=== PATIENT | female | born 1935 | race Caucasian/White ===

== ENCOUNTER 2017-07-03 10:03 | Emergency (ER) | payer OTHER, BC ==
[~2017-07-03] VITALS: Ht 165.1 cm; Wt 66.0 kg
[~2017-07-03 10:03] MED LIST: CALCTAB5 PO; CLR10 PO; KFL500 PO; LISI-725 PO; MULT-506 PO
[2017-07-03 10:04] VITALS: BP 175/83; PULSE 62; TEMP 36.7; O2SAT 98; Ht 165.1 cm; Wt 66.0 kg
[2017-07-03] MEDS ORDERED: SULFAMETHOXAZOLE/TRIMETHOPRIM DS 800/160MG TAB PO STA (10:23)
[2017-07-03] MEDS ORDERED: SULF800T23 PO (10:26)
[2017-07-03] MEDS ORDERED: FSM70 PO (10:29)
[2017-07-03] MEDS ORDERED: CALC-393 PO (10:29)
[2017-07-03] MEDS ORDERED: LISI-787 PO (10:29)
[2017-07-03] MEDS ORDERED: SEPTRA DS HOME PACK 1 EA VIAL PO ONE (10:30)
[2017-07-03 10:36] LABS: URINE APPEARANCE TURBID (CLEAR); URINE BILIRUBIN NEG (NEG); URINE COLOR YELLOW; URINE NITRITE POS (NEG); URINE SPECIFIC GRAVITY 1.014 (1.000-1.030); UROBILINOGEN NEG (NEG); ZZUR CULT IF INDIC CLEAN CATCH YES
[2017-07-03 10:37] LABS: MANUAL MICROSCOPIC REQUIRED? NO; REVIEW REQ? YES
[2017-07-03] MEDS ORDERED: CEPHALEXIN MONOHYDRATE 250 MG CAP PO STA (10:40)
[2017-07-03] MEDS ORDERED: CEPH500C2 PO (10:42)
[2017-07-03] MEDS ORDERED: CEPHALEXIN 500MG HOME PACK 1 EA BTL PO ONE (10:45)
--- NOTE | 2017-07-03 13:22 | EMERGENCY ROOM VISIT NOTE ---
History Report prepared by Anibal: Patricia Skinner Under the Supervision of: Dr. Andrzej Marin M.D. First contact with patient: 10:10 Chief Complaint: URINARY SYMPTOMS Stated Complaint: UTI History of Present Illness The patient is an 82 year old female who presents to the Emergency Room with complaints of an episode of urinary symptoms starting a few days ago. The patient states that she knows she has a UTI. She reports that her PCP placed her on Cipro. She states that the burning and intensity has increased. The patient denies a fever and weakness. Source of History: patient Onset: a few days ago Position: other (global) Quality: burning Timing: other (episode) Associated Symptoms: No fevers, No weakness Review of Systems See HPI for pertinent positives & negatives. A total of 10 systems reviewed and were otherwise negative. Past Medical & Surgical Medical Problems: (1) Cancer of uterus (2) CKD (chronic kidney disease) stage 3, GFR 30-59 ml/min (3) HTN (hypertension) (4) Osteoporosis Surgical Problems: (1) H/O cataract removal with insertion of prosthetic lens (2) H/O: hysterectomy (3) History of carpal tunnel surgery (4) History of removal of both ovaries (5) History of tonsillectomy and adenoidectomy (6) Hx of cholecystectomy Family History FH: CHF (congestive heart failure) Hypertension Social History Smoking Status: Never Smoker Alcohol Use: occasionally Drug Use: none Marital Status: Housing Status: lives alone Occupation Status: retired Current/Historical Medications Scheduled Alendronate Sodium (Alendronate Sodium), 70 MG PO DAILY Calcium Carbonate (Calcium), 600 MG PO DAILY Cephalexin Monohydrate (Keflex), 500 MG PO QID Lisinopril & Hydrochlorothiazi (Zestoretic 20-12.5 mg), 1 TAB PO DAILY Multivitamin (Multivitamin), 1 TAB PO DAILY Scheduled PRN Loratadine (Claritin), 10 MG PO DAILY PRN for ALLERGIES Allergies Coded Allergies: Aspirin (Verified Allergy, Mild, RASH, 07/03/17) Gluten (Unverified Allergy, Unknown, GI SYMPTOMS, 07/03/17) Codeine (Verified Adverse Reaction, Mild, INDIGESTION, 07/03/17) Physical Exam Vital Signs Date Time Temp Pulse Resp B/P (MAP) Pulse Ox O2 Delivery O2 Flow Rate FiO2 07/03/17 10:04 36.7 62 20 175/83 98 Room Air Physical Exam GENERAL: Patient is a healthy-appearing well-nourished HEAD: Normocephalic atraumatic EYES: Ocular movements intact pupils equal and react to light OROPHARYNX mucous membranes are moist no exudates present no erythema or edema present NECK: Supple no nuchal rigidity CHEST: Good equal expansion LUNGS: Clear and equal to auscultation CARDIAC: Normal S1 and S2 ABDOMEN: Soft nontender no guarding BACK: No CVA tenderness EXTREMITIES: No pain upon palpation normal muscle strength in all groups no clubbing cyanosis or edema NEURO: Patient is following commands and answering questions appropriately. Alert and oriented x3 Cranial Nerves 2-12 grossly intact Medical Decision & Procedures Laboratory Results Test 07/03/17 10:24 Urine Color YELLOW Urine Appearance TURBID (CLEAR) Urine pH 6.0 (4.5-7.5) Urine Specific [place] 1.014 (1.000-1.030) Urine Protein 2+ (NEG) Urine Glucose (UA) NEG (NEG) Urine Ketones NEG (NEG) Urine Occult Blood 2+ (NEG) Urine Nitrite POS (NEG) Urine Bilirubin NEG (NEG) Urine Urobilinogen NEG (NEG) Urine Leukocyte Esterase LARGE (NEG) Urine WBC (Auto) >30 /hpf (0-5) Urine RBC (Auto) 10-30 /hpf (0-4) Urine Hyaline Casts (Auto) 1-5 /lpf (0-5) Urine Epithelial Cells (Auto) 5-10 /lpf (0-5) Urine Bacteria (Auto) 4+ (NEG) Urine Yeast (Auto) (NONE PRSENT) Labs reviewed by ED physician. Medications Administered Medications (Trade) Dose Ordered Sig/Giovanni Route Start Time Stop Time Status Last Admin Dose Admin Trimethoprim/ Sulfamethoxazole (Septra Ds 800/ 160MG Tab) 1 tab NOW STAT PO 07/03/17 10:23 07/03/17 10:25 DC 07/03/17 10:38 1 TAB Cephalexin Monohydrate (Keflex 500MG Home Pack) 1 homepack NOW ONCE PO 07/03/17 10:45 07/03/17 10:46 DC 07/03/17 10:50 1 HOMEPACK Cephalexin Monohydrate (Keflex Cap) 500 mg NOW STAT PO 07/03/17 10:40 07/03/17 10:42 DC 07/03/17 10:50 500 MG ED Course 1021: Past medical records reviewed. The patient was evaluated in room B10. A complete history and physical examination was performed. I discussed results and treatment plan with the patient. She verbalizes agreement and understanding. The patient is ready for discharge. 1023: Ordered Trimethoprim/ Sulfamethoxazole 1 tab PO. 1030: Ordered Trimethoprim/ Sulfamethoxazole 1 homepack PO. 1040: Ordered Keflex Cap 500 mg PO. 1045: Ordered Cephalexin Monohydrate 1 homepack PO. Medical Decision Differential diagnoses include urinary tract infection. This is an 82-year-old female who presents emergency department complaining of urinary symptoms. The patient was recently on Cipro with no improvement. For this reason the patient was placed on Bactrim. The patient reports that she is allergic reaction to Bactrim therefore she was switched to Keflex. She was then given Keflex in the emergency department and will continue it at home. I recommended she follow up with urology if her symptoms are not improving. Patient was in agreement with the treatment plan. Medication Reconcilliation Current Medication List: was personally reviewed by me Blood Pressure Screening Patient's blood pressure: Elevated blood pressure Blood pressure disposition: Elevated BP felt to be situational Impression Primary Impression: UTI (urinary tract infection) Scribe Attestation The scribe's documentation has been prepared under my direction and personally reviewed by me in its entirety. I confirm that the note above accurately reflects all work, treatment, procedures, and medical decision making performed by me. Departure Information Dispostion Home / Self-Care Prescriptions Cephalexin Monohydrate (KEFLEX) 500 Mg Cap 500 MG PO QID for 7 Days, #28 CAP Prov: Andrzej Marin MD 07/03/17 Referrals Baldemar Kulkarni III, M.D. (PCP) Forms HOME CARE DOCUMENTATION FORM, IMPORTANT VISIT INFORMATION Patient Instructions My [facility] Additional Instructions Culture results are usually available in approx 48 hours You have been examined and treated today on an emergency basis only. This is not a substitute for, or an effort to provide, complete comprehensive medical care. It is impossible to recognize and treat all injuries or illnesses in a single emergency department visit. It is therefore important that you follow up closely with Dr Kulkarni. Call as soon as possible for an appointment. Thank you for your time and consideration. I look forward to speaking with you again soon. Please don't hesitate to call us if you have any questions. Problem Qualifiers Primary Impression: UTI (urinary tract infection) Urinary tract infection type: acute cystitis Hematuria presence: without hematuria Qualified Codes: N30.00 - Acute cystitis without hematuria
== END 2017-07-03 10:40 | disposition home or self-care (01) ==
LOC: C.EDB 10:04
DX: N30.00 Acute cystitis without hematuria (principal); I12.9 Hypertensive chronic kidney disease with stage 1 through stage 4 chronic kidney disease, or unspecified chronic kidney disease; N18.3 Chronic kidney disease, stage 3 (moderate); M81.0 Age-related osteoporosis without current pathological fracture; Z85.42 Personal history of malignant neoplasm of other parts of uterus; Z90.710 Acquired absence of both cervix and uterus; Z90.722 Acquired absence of ovaries, bilateral; Z82.49 Family history of ischemic heart disease and other diseases of the circulatory system

== ENCOUNTER 2017-07-12 06:54 | Emergency (ER) | payer OTHER, BC ==
[~2017-07-12] VITALS: Ht 166.4 cm; Wt 66.3 kg
[~2017-07-12 06:54] MED LIST changes: +CALC-393 PO; -CALCTAB5 PO; +FSM70 PO; -KFL500 PO; -LISI-725 PO; +LISI-787 PO
[2017-07-12 06:56] VITALS: TEMP 36.7; Ht 166.4 cm; Wt 66.3 kg
--- NOTE | 2017-07-12 07:45 | EMERGENCY ROOM VISIT NOTE ---
History Report prepared by Anibal: Joel Jessica Under the Supervision of: Dr. Kurt Gurrola M.D. First contact with patient: 07:20 Chief Complaint: URINARY SYMPTOMS Stated Complaint: UTI Nursing Triage Summary: Here on [facility], had UTI symptoms and was given ATB. Finished ATB yesterday and "feels miserable." today. History of Present Illness The patient is an 82 year old female with a history of multiple UTI's who presents to the Emergency Room with complaints of persistent urinary symptoms that started around 3 and a half hours ago. The patient has been here multiple times in the past month for treatment of UTI's, and has previously been treated with Cipro, Rocephin, and most recently Keflex. She states that she just finished her round of Keflex yesterday. The patient notes that she had an episode of diarrhea 3 or 4 days ago, and she thinks that diarrhea usually causes her UTI's. She states that her stools are still formed however. The patient says that she had another episode of diarrhea earlier this morning, and now is having urinary symptoms again. She notes that her urinary symptoms include burning with urination, in addition to an increased urgency of urination. The patient denies any fevers, chills, weakness, dizziness, shortness of breath, chest pain, nausea, back pain, bladder pain, vomiting, hematuria, or vaginal discharge. She notes that she tends to get diarrhea after eating certain foods, and is currently on a gluten-free diet, which has been helping her. The patient says that she has family members with Celiac disease. Source of History: patient Onset: Around 3 and a half hours ago Position: other (global - urinary symptoms) Symptom Intensity: history of multiple UTI's Quality: other (burning with urination, increased urgency) Timing: other (persistent) Associated Symptoms: + diarrhea, No fevers, No chills, No chest pain, No SOB , No nausea, No vomiting, No back pain, No weakness Note: Associated symptoms: Denies dizziness, hematuria, vaginal discharge, bladder pain. Review of Systems All systems have been listed, reviewed, and are negative other than those previously mentioned. Please see Additional Medical History Sheet. Past Medical & Surgical Medical Problems: (1) Cancer of uterus (2) CKD (chronic kidney disease) stage 3, GFR 30-59 ml/min (3) HTN (hypertension) (4) Osteoporosis Surgical Problems: (1) H/O cataract removal with insertion of prosthetic lens (2) H/O: hysterectomy (3) History of carpal tunnel surgery (4) History of removal of both ovaries (5) History of tonsillectomy and adenoidectomy (6) Hx of cholecystectomy Family History FH: CHF (congestive heart failure) FH: celiac disease Hypertension Social History Smoking Status: Never Smoker Alcohol Use: occasionally Drug Use: none Marital Status: Housing Status: lives alone Occupation Status: retired Current/Historical Medications Scheduled Alendronate Sodium (Alendronate Sodium), 70 MG PO DAILY Calcium Carbonate (Calcium), 600 MG PO DAILY Cefuroxime Axetil (Cefuroxime Axetil), 1 TAB PO BID Lisinopril & Hydrochlorothiazi (Zestoretic 20-12.5 mg), 1 TAB PO DAILY Multivitamin (Multivitamin), 1 TAB PO DAILY Scheduled PRN Loratadine (Claritin), 10 MG PO DAILY PRN for ALLERGIES Allergies Coded Allergies: Aspirin (Verified Allergy, Mild, RASH, 07/12/17) Gluten (Unverified Allergy, Unknown, GI SYMPTOMS, 07/12/17) Codeine (Verified Adverse Reaction, Mild, INDIGESTION, 07/12/17) Physical Exam Vital Signs Date Time Temp Pulse Resp B/P (MAP) Pulse Ox O2 Delivery O2 Flow Rate FiO2 07/12/17 08:35 86 18 162/83 97 Room Air 07/12/17 06:56 36.7 105 16 168/76 96 Room Air Physical Exam GENERAL: Patient awake, alert, oriented x 3. Patient follows commands. Patient does not appear toxic. Patient is adequately hydrated and well- nourished. SKIN: No erythema, pallor, cyanosis or rash HEENT: Normal head, pupils equal, reactive to light and accommodation. LUNGS: Clear to auscultation. No wheezes, no rales, no rhonchi. HEART: No murmurs. No gallops. No rubs ABDOMEN: No lower abdominal tenderness. No masses, no rebound, no hepatomegaly or splenomegaly. EXTREMITIES: No signs of trauma. No pedal or pretibial edema. No calf or thigh tenderness. No CVA tenderness. NEUROLOGIC: Appears to have no gross motor sensory function deficits. Medical Decision & Procedures Laboratory Results 07/12/17 07:40 Red Blood Count 4.59, Mean Corpuscular Volume 88.5, Mean Corpuscular Hemoglobin 29.8, Mean Corpuscular Hemoglobin Concent 33.7, Mean Platelet Volume 10.0, Neutrophils (%) (Auto) 80.1, Lymphocytes (%) (Auto) 11.0, Monocytes (%) (Auto) 8.1, Eosinophils (%) (Auto) 0.4, Basophils (%) (Auto) 0.3, Neutrophils # (Auto) 6.13, Lymphocytes # (Auto) 0.84, Monocytes # (Auto) 0.62, Eosinophils # (Auto) 0.03, Basophils # (Auto) 0.02 07/12/17 07:40 Test 07/12/17 07:10 07/12/17 07:40 Urine Color YELLOW Urine Appearance CLOUDY (CLEAR) Urine pH 6.0 (4.5-7.5) Urine Specific [place] 1.015 (1.000-1.030) Urine Protein 2+ (NEG) Urine Glucose (UA) NEG (NEG) Urine Ketones NEG (NEG) Urine Occult Blood 1+ (NEG) Urine Nitrite NEG (NEG) Urine Bilirubin NEG (NEG) Urine Urobilinogen NEG (NEG) Urine Leukocyte Esterase LARGE (NEG) Urine WBC (Auto) >30 /hpf (0-5) Urine RBC (Auto) 10-30 /hpf (0-4) Urine Hyaline Casts (Auto) 1-5 /lpf (0-5) Urine Epithelial Cells (Auto) 5-10 /lpf (0-5) Urine Bacteria (Auto) NEG (NEG) White Blood Count 7.65 K/uL (4.8-10.8) Red Blood Count 4.59 M/uL (4.2-5.4) Hemoglobin 13.7 g/dL (12.0-16.0) Hematocrit 40.6 % (37-47) Mean Corpuscular Volume 88.5 fL (80-100) Mean Corpuscular Hemoglobin 29.8 pg (25-34) Mean Corpuscular Hemoglobin Concent 33.7 g/dl (32-36) Platelet Count 96 K/uL (130-400) Mean Platelet Volume 10.0 fL (7.4-10.4) Neutrophils (%) (Auto) 80.1 % Lymphocytes (%) (Auto) 11.0 % Monocytes (%) (Auto) 8.1 % Eosinophils (%) (Auto) 0.4 % Basophils (%) (Auto) 0.3 % Neutrophils # (Auto) 6.13 K/uL (1.4-6.5) Lymphocytes # (Auto) 0.84 K/uL (1.2-3.4) Monocytes # (Auto) 0.62 K/uL (0.11-0.59) Eosinophils # (Auto) 0.03 K/uL (0-0.5) Basophils # (Auto) 0.02 K/uL (0-0.2) RDW Standard Deviation 42.3 fL (36.4-46.3) RDW Coefficient of Variation 13.1 % (11.5-14.5) Immature Granulocyte % (Auto) 0.1 % Immature Granulocyte # (Auto) 0.01 K/uL (0.00-0.02) Anion Gap 6.0 mmol/L (3-11) Est Creatinine Clear Calc Drug Dose 41.4 ml/min Estimated GFR () 65.4 Estimated GFR (Non- 56.4 BUN/Creatinine Ratio 26.9 (10-20) Calcium Level 9.2 mg/dl (8.5-10.1) Laboratory results as stated above per my review. ED Course 0738: Past medical records reviewed. The patient was evaluated in room A3. A complete history and physical examination was performed. 0856: Upon reevaluation, the patient appeared to be resting comfortably. I discussed today's findings with her. She verbalized agreement of the treatment plan. She was discharged home. Medical Decision Nurses notes reviewed. Medical history sheet reviewed. Differential diagnosis includes but is not limited to: UTI, pyelonephritis, C. difficile, electrolyte abnormalities, bacterial causes of diarrhea, viral causes of diarrhea, gluten enteropathy. The patient complains of dysuria and frequency. She believes this may be related to her frequent diarrhea. She does attribute the diarrhea to certain foods that she eats although she has attempted to cut gluten from her diet. Multiple labs and urinalysis have been evaluated. Please see above. She does appear to have a urinary tract infection. She has been sensitive to certain cephalosporins in the past but not to fluoroquinolones or sulfa. The patient will be placed on cefuroxime. She was last on Keflex. The patient will be encouraged to complete a full 10 day course and have a repeat urinalysis following that. Medication Reconcilliation Current Medication List: was personally reviewed by me Blood Pressure Screening Patient's blood pressure: Elevated blood pressure Blood pressure disposition: Referred to PCP Impression Primary Impression: Urinary tract infection Additional Impression: Hyponatremia Scribe Attestation The scribe's documentation has been prepared under my direction and personally reviewed by me in its entirety. I confirm that the note above accurately reflects all work, treatment, procedures, and medical decision making performed by me. Departure Information Dispostion Home / Self-Care Prescriptions Cefuroxime Axetil (CEFUROXIME AXETIL) 500 Mg Tab 1 TAB PO BID for 10 Days, #20 TAB Prov: Kurt Gurrola M.D. 07/12/17 Referrals Baldemar Kulkarni III, M.D. (PCP) Patient Instructions ED UTI Cystitis Female, My [facility] Additional Instructions Cefuroxime twice a day for 10 days. Continue all of your current medications as prescribed. Repeat urinalysis in 10-to 14 days. Problem Qualifiers
[2017-07-12 07:50] LABS: URINE APPEARANCE CLOUDY (CLEAR); URINE BILIRUBIN NEG (NEG); URINE COLOR YELLOW; URINE NITRITE NEG (NEG); URINE SPECIFIC GRAVITY 1.015 (1.000-1.030); UROBILINOGEN NEG (NEG); ZZURINE CULT IF INDIC CATH YES
[2017-07-12 07:53] LABS: MANUAL MICROSCOPIC REQUIRED? NO; REVIEW REQ? NO
[2017-07-12 08:16] LABS: HEMATOCRIT 40.6 % (37-47); MEAN CELL VOLUME 88.5 fL (80-100); MEAN CORPUSCULAR HEMOGLOBIN 29.8 pg (25-34); MEAN CORPUSCULAR HGB CONC 33.7 g/dl (32-36); PLATELET COUNT 96 K/uL (130-400); RED BLOOD COUNT 4.59 M/uL (4.2-5.4); WHITE BLOOD COUNT 7.65 K/uL (4.8-10.8)
[2017-07-12 08:19] LABS: BUN/CREATININE RATIO 26.9 (10-20); CALCIUM 9.2 mg/dl (8.5-10.1); CREATININE 0.93 mg/dl (0.60-1.20)
[2017-07-12 08:27] LABS: BASO % 0.3 %; BASO ABS # 0.02 K/uL (0-0.2); COMPLETE YES; EOS % 0.4 %; IG% 0.1 %; LYMPH ABS # 0.84 K/uL (1.2-3.4); MONO % 8.1 %; NEUT % 80.1 %
[2017-07-12 08:35] VITALS: BP 162/83; PULSE 86; O2SAT 97
[2017-07-12] MEDS ORDERED: CEFU1TAB36 PO (08:50)
--- NOTE | 2017-07-14 14:24 | Pharmacy Progress Note ---
ED Pharmacist Culture FollowUp Date of Service: Jul 14, 2017. Called patient regarding urine culture with two Pseudomonas isolates. Patient reports feeling "pretty well" although urinary symptoms are still present. Denied fever, chills, back pain. Counseled to stop cefuroxime. Prescription for ciprofloxacin 500 mg po BID x10 days called to [facility] at the patient's request. Counseled to follow-up with PCP after completion of ciprofloxacin to confirm infection was adequately treated. Patient acknowledged understanding. Case discussed with Dr. Marin, who is the prescribing provider.
== END 2017-07-12 09:04 | disposition home or self-care (01) ==
LOC: C.EDB 06:55 → C.EDA 09:04
DX: N39.0 Urinary tract infection, site not specified (principal); E87.1 Hypo-osmolality and hyponatremia; I12.9 Hypertensive chronic kidney disease with stage 1 through stage 4 chronic kidney disease, or unspecified chronic kidney disease; N18.3 Chronic kidney disease, stage 3 (moderate); M81.0 Age-related osteoporosis without current pathological fracture; Z85.42 Personal history of malignant neoplasm of other parts of uterus; Z90.710 Acquired absence of both cervix and uterus; Z90.49 Acquired absence of other specified parts of digestive tract; Z98.49 Cataract extraction status, unspecified eye; Z98.890 Other specified postprocedural states; Z79.899 Other long term (current) drug therapy; Z88.5 Allergy status to narcotic agent; Z88.6 Allergy status to analgesic agent; Z88.8 Allergy status to other drugs, medicaments and biological substances; Z82.49 Family history of ischemic heart disease and other diseases of the circulatory system; Z83.79 Family history of other diseases of the digestive system

== ENCOUNTER 2017-08-13 16:04 | Inpatient (IN) | payer OTHER, BC ==
[~2017-08-13] VITALS: Ht 167.6 cm; Wt 68.0 kg
[~2017-08-13 16:04] MED LIST changes: -CLR10 PO
[2017-08-13] MEDS ORDERED: CALC12502 PO (17:54)
[2017-08-13] MEDS ORDERED: MULT-603 PO (17:54)
[2017-08-13 18:03] LABS: ALBUMIN 3.6 gm/dl (3.4-5.0); BLOOD UREA NITROGEN 24 mg/dl (7-18); CALCIUM 8.8 mg/dl (8.5-10.1); CARBON DIOXIDE 25 mmol/L (21-32); CREATININE 0.89 mg/dl (0.60-1.20); GLUCOSE 107 mg/dl (70-99); POTASSIUM 3.6 mmol/L (3.5-5.1); SODIUM 128 mmol/L (136-145)
[2017-08-13 18:15] LABS: ALKALINE PHOSPHATASE 90 U/L (45-117); ALT/SGPT 29 U/L (12-78); AST/SGOT 23 U/L (15-37); TOTAL PROTEIN 7.3 gm/dl (6.4-8.2)
[2017-08-13] MEDS ORDERED: D5W IV SCH (18:15)
[2017-08-13] MEDS ORDERED: [UNRECOGNIZED DRUG - OTHER] IV SCH (18:15)
[2017-08-13] MEDS ORDERED: CIPROFLOXACIN IV SCH (18:15)
[2017-08-13] MEDS ORDERED: PREMIXED IV SCH (18:15)
[2017-08-13 18:16] LABS: BASO % 0.1 %; BASO ABS # 0.01 K/uL (0-0.2); EOS % 0.4 %; EOS ABS # 0.04 K/uL (0-0.5); HEMATOCRIT 41.8 % (37-47); HEMOGLOBIN 14.1 g/dL (12.0-16.0); IG# 0.01 K/uL (0.00-0.02); LYMPH % 13.2 %; LYMPH ABS # 1.47 K/uL (1.2-3.4); MEAN CELL VOLUME 86.7 fL (80-100); MEAN CORPUSCULAR HEMOGLOBIN 29.3 pg (25-34); MEAN CORPUSCULAR HGB CONC 33.7 g/dl (32-36); MEAN PLATELET VOLUME 11.3 fL (7.4-10.4); MONO % 7.2 %; PLATELET COUNT 29 K/uL (130-400); RED CELL DISTRIBUTION WIDTH CV 12.8 % (11.5-14.5); RED CELL DISTRIBUTION WIDTH SD 41.1 fL (36.4-46.3); WHITE BLOOD COUNT 11.13 K/uL (4.8-10.8)
[2017-08-13] MEDS ORDERED: SODIUM CHLORIDE 0.9% 1000ML 1,000 ML IV SCH (18:30)
[2017-08-13] MEDS ORDERED: LORATADINE 10 MG TAB PO PRN (18:30)
[2017-08-13] MEDS ORDERED: CLR10 PO (18:45)
--- NOTE | 2017-08-13 19:51 | EMERGENCY ROOM VISIT NOTE ---
History Report prepared by Anibal: Anahi Villarreal Under the Supervision of: Dr. Sunday Weinstein M.D. First contact with patient: 16:27 Chief Complaint: URINARY SYMPTOMS Stated Complaint: URINARY TRACT INFECTION- PHYSICIAN REFERRED Nursing Triage Summary: Has a UTI, was also told her platelets were low. Follows with Dr. Kulkarni. Burning with urination and frequency. Denies other symptoms. History of Present Illness The patient is an 82 year old female who presents to the Emergency Room with complaints of persistent urinary symptoms starting this morning. The patient has a history of UTIs. The patient was seen by her PCP today and sent to the ED after her lab work showed a low platelet count of 27. Her sodium was 129. She had a normal white count and hemoglobin. She was diagnosed with a UTI. She reports burning with urination and urinary frequency. She denies any headache, fever, vomiting, abdominal pain, or back pain. She denies any black or bloody stools, nose bleeds, or bleeding elsewhere. She has had low platelets in the past. She has noticed bruising since the beginning of last month which she attributed to being clumsy. Source of History: patient Onset: this morning Position: other (global) Quality: other (urinary symptoms) Timing: other (persistent) Associated Symptoms: No fevers, No headache, No vomiting, No abdominal pain , No back pain, No melena, No hematochezia Note: Pt has bruising. Pt denies nose bleeds or bleeding elsewhere. Review of Systems See HPI for pertinent positives & negatives. A total of 10 systems reviewed and were otherwise negative. Past Medical & Surgical Medical Problems: (1) Cancer of uterus (2) CKD (chronic kidney disease) stage 3, GFR 30-59 ml/min (3) HTN (hypertension) (4) Osteoporosis Surgical Problems: (1) H/O cataract removal with insertion of prosthetic lens (2) H/O: hysterectomy (3) History of carpal tunnel surgery (4) History of removal of both ovaries (5) History of tonsillectomy and adenoidectomy (6) Hx of cholecystectomy Family History FH: CHF (congestive heart failure) FH: celiac disease Hypertension Social History Smoking Status: Never Smoker Alcohol Use: occasionally Drug Use: none Marital Status: Housing Status: lives alone Occupation Status: retired Current/Historical Medications Scheduled Alendronate Sodium (Alendronate Sodium), 70 MG PO WK Calcium Carbonate (Os-Aung 500), 1,000 MG PO DAILY Lisinopril & Hydrochlorothiazi (Zestoretic 20-12.5 mg), 1 TAB PO DAILY Multiple Vitamins W/ Minerals (Womens Multi Vitamin & Mi), 1 TAB PO Q2D Scheduled PRN Loratadine (Claritin), 10 MG PO DAILY PRN for Allergy Symptoms Allergies Coded Allergies: Aspirin (Verified Allergy, Mild, RASH, 07/12/17) Lactose (Verified Allergy, Mild, GI SYMPTOMS, 08/13/17) Lactose Intolerant Gluten (Unverified Allergy, Unknown, GI SYMPTOMS, 07/12/17) Codeine (Verified Adverse Reaction, Mild, INDIGESTION, 07/12/17) Physical Exam Vital Signs Date Time Temp Pulse Resp B/P (MAP) Pulse Ox O2 Delivery O2 Flow Rate FiO2 08/13/17 18:44 86 18 180/106 97 Room Air 08/13/17 18:20 83 18 96 Room Air 08/13/17 16:15 36.8 96 17 182/87 97 Room Air Physical Exam Constitutional: Vital signs reviewed. Eyes: Pupils are equal round reactive to light. Conjunctiva are noninjected. ENT: Pharynx is clear without erythema or exudate. Mucous membranes are moist. Neck supple without meningeal signs. Respiratory: Clear to auscultation bilaterally. Breath sounds are equal bilaterally. Cardiovascular: Regular rate and rhythm. No rubs or gallops. GI: Soft, nondistended and nontender. Bowel sounds are present. Musculoskeletal: Mild bruising to the lower extremities. No lower extremity tenderness. No CVA tenderness. Integumentary: No cyanosis. Neurological: The patient is awake and alert. No focal deficits. Psychiatric: Normal affect. Medical Decision & Procedures Laboratory Results 08/13/17 17:25 Red Blood Count 4.82, Mean Corpuscular Volume 86.7, Mean Corpuscular Hemoglobin 29.3, Mean Corpuscular Hemoglobin Concent 33.7, Mean Platelet Volume 11.3, Neutrophils (%) (Auto) 79.0, Lymphocytes (%) (Auto) 13.2, Monocytes (%) (Auto) 7.2, Eosinophils (%) (Auto) 0.4, Basophils (%) (Auto) 0.1, Neutrophils # (Auto) 8.80, Lymphocytes # (Auto) 1.47, Monocytes # (Auto) 0.80, Eosinophils # (Auto) 0.04, Basophils # (Auto) 0.01 08/13/17 17:25 Test 08/13/17 16:25 08/13/17 17:25 Urine Color YELLOW Urine Appearance TURBID (CLEAR) Urine pH 6.0 (4.5-7.5) Urine Specific [place] 1.012 (1.000-1.030) Urine Protein 3+ (NEG) Urine Glucose (UA) NEG (NEG) Urine Ketones NEG (NEG) Urine Occult Blood 3+ (NEG) Urine Nitrite NEG (NEG) Urine Bilirubin NEG (NEG) Urine Urobilinogen NEG (NEG) Urine Leukocyte Esterase LARGE (NEG) Urine WBC (Auto) >30 /hpf (0-5) Urine RBC (Auto) >30 /hpf (0-4) Urine Hyaline Casts (Auto) 1-5 /lpf (0-5) Urine Epithelial Cells (Auto) 5-10 /lpf (0-5) Urine Bacteria (Auto) NEG (NEG) White Blood Count 11.13 K/uL (4.8-10.8) Red Blood Count 4.82 M/uL (4.2-5.4) Hemoglobin 14.1 g/dL (12.0-16.0) Hematocrit 41.8 % (37-47) Mean Corpuscular Volume 86.7 fL (80-100) Mean Corpuscular Hemoglobin 29.3 pg (25-34) Mean Corpuscular Hemoglobin Concent 33.7 g/dl (32-36) Platelet Count 29 K/uL (130-400) Mean Platelet Volume 11.3 fL (7.4-10.4) Neutrophils (%) (Auto) 79.0 % Lymphocytes (%) (Auto) 13.2 % Monocytes (%) (Auto) 7.2 % Eosinophils (%) (Auto) 0.4 % Basophils (%) (Auto) 0.1 % Neutrophils # (Auto) 8.80 K/uL (1.4-6.5) Lymphocytes # (Auto) 1.47 K/uL (1.2-3.4) Monocytes # (Auto) 0.80 K/uL (0.11-0.59) Eosinophils # (Auto) 0.04 K/uL (0-0.5) Basophils # (Auto) 0.01 K/uL (0-0.2) RDW Standard Deviation 41.1 fL (36.4-46.3) RDW Coefficient of Variation 12.8 % (11.5-14.5) Immature Granulocyte % (Auto) 0.1 % Immature Granulocyte # (Auto) 0.01 K/uL (0.00-0.02) Platelet Estimate SIGNIFIC DECREASED Immature Platelet Fraction 7.4 % (0.9-8.3) Red Blood Cell Morphology Unremarkable Anion Gap 9.0 mmol/L (3-11) Est Creatinine Clear Calc Drug Dose 43.2 ml/min Estimated GFR () 69.0 Estimated GFR (Non- 59.5 BUN/Creatinine Ratio 27.2 (10-20) Calcium Level 8.8 mg/dl (8.5-10.1) Total Bilirubin 0.4 mg/dl (0.2-1) Direct Bilirubin < 0.1 mg/dl (0-0.2) Aspartate Amino Transf (AST/SGOT) 23 U/L (15-37) Alanine Aminotransferase (ALT/SGPT) 29 U/L (12-78) Alkaline Phosphatase 90 U/L (45-117) Total Protein 7.3 gm/dl (6.4-8.2) Albumin 3.6 gm/dl (3.4-5.0) Laboratory results as reviewed by me. ED Course 1630: The patient was evaluated in room A2. A complete history and physical exam was performed. 1659: I discussed the patient's case with Dr. Zee, [facility] hematology who recommends bringing the patient in to repeat platelet count. 1704: I reevaluated the patient. I discussed the results with her. She verbalized agreement of the treatment plan, but she states that she wants to go home to get her incontinence pads as the ones in the hospital are not the right ones. I told that this is not advisable given her platelet count. The charge nurse is speaking with her. She will be evaluated for further management. 1708: I discussed the patient's case with Evon Finn PA-C [facility] hospitalist service. The patient will be evaluated for further management. 1716: The charge nurse has spoken with the patient and she no longer needs to curing pickling packer items from her home. Medical Decision This is an 82-year-old female who presents with low platelets and urinary symptoms. Differential diagnosis includes UTI, pyelonephritis, medication induced thrombocytopenia, disorder of the bone marrow, splenic disease. I did perform a limited focused review of portions of the patient's old chart on the electronic medical record. The patient was seen here July 12 for urinary symptoms and had a platelet count of 96 and a sodium of 130 at that time. She was discharged on cefuroxime. The culture grew back pseudomonas and was switched to Cipro on the . The patient had a platelet count of 69 in May 2016. She had normal LFTs at that time. I did evaluate the patient as noted above. IV access was established. I did order and review the patient's blood work as noted in the electronic medical record. She does have hyponatremia as well as thrombocytopenia. I did discuss case with the application support preschool paraprofessional who recommended hospitalization for further evaluation. I did order a urinalysis which showed evidence of infection. I did discuss case with the hospitalist and case reviewer. I did discuss the test results with the patient. Medication Reconcilliation Current Medication List: was personally reviewed by me Blood Pressure Screening Patient's blood pressure: Elevated blood pressure Blood pressure disposition: Referred to PCP Consults Time Called: 1653 Consulting Physician: [facility] hematology Returned Call: 1659 I discussed the patient's case with [facility] Santoyo hematology who recommends bringing the patient in to repeat platelet count. Additional Consults: Time Called: 1702 Consulted Physician: OLIVIA Rodriguez hospitalist service Returned Call: 1708 Additional Comments: I discussed the patient's case with her. The patient will be evaluated for further management. Impression Primary Impression: Thrombocytopenia Additional Impressions: UTI (urinary tract infection) Hyponatremia Scribe Attestation The scribe's documentation has been prepared under my direct and personally reviewed by me in its entirety. I confirm that the note above accurately reflects all work, treatment, procedures, and medical decision making performed by me. Departure Information Dispostion Being Evaluated By Hospitalist Referrals Baldemar Kulkarni III, M.D. (PCP) Patient Instructions My [facility] Problem Qualifiers Additional Impressions: UTI (urinary tract infection) Urinary tract infection type: acute cystitis Hematuria presence: with hematuria Qualified Codes: N30.01 - Acute cystitis with hematuria
--- NOTE | 2017-08-13 19:58 | History and Physical ---
History & Physical Date & Time of Service: Aug 13, 2017 at 19:57 Chief Complaint: Urinary Tract Infection- Physician Referred Primary Care Physician: Baldemar Kulkarni III, M.D. History of Present Illness Source: patient, clinic records, hospital records This is an 82yo F with a PMH of HTN, recurrent UTIs, osteoporosis and thrombocytopenia who presents with worsening urinary symptoms this morning. Patient was recently seen in the ED with a UTI and was sent home on a 10-day course of Cefuroxime. Cultures grew pseudomonas and was sensitive to cephalosporins. Did not have urinary symptoms again until today, when she started to experience increased frequency, pressure and dysuria. Denies any hematuria or pyuria. Had labwork out-patient done today that revealed a thrombocytopenia of 27 and a sodium of 129. Came to ED for further evaluation. Has a history of thrombocytopenia but has not been lower than 69 in the past, per chart review. Has not seen a customer service correspondence clerk for further work-up as to etiology of thrombocytopenia. Denies any epistaxis, hematuria, melena or hematochezia. Does easily bruise. Also has a history of hyponatremia that she attributes to a low sodium diet at home. Average sodium on lab work in the past has been 130. Denies any fever, chills, headache, lightheadedness, lethargy, CP , SOB, abd pain, nausea or vomiting. Past Medical/Surgical History Medical Problems: (1) CKD (chronic kidney disease) stage 3, GFR 30-59 ml/min Status: Chronic (2) HTN (hypertension) Status: Chronic (3) Osteoporosis Status: Chronic Surgical Problems: (1) H/O cataract removal with insertion of prosthetic lens Permanent Comment: bilat Status: Resolved (2) H/O: hysterectomy Status: Resolved (3) History of carpal tunnel surgery Status: Resolved (4) History of removal of both ovaries Status: Resolved (5) History of tonsillectomy and adenoidectomy Status: Resolved (6) Hx of cholecystectomy Status: Resolved Family History FH: CHF (congestive heart failure) FH: celiac disease Hypertension Social History Smoking Status: Never Smoker Alcohol Use: occasionally Drug Use: none Marital Status: Housing status: lives alone Occupational Status: retired Immunizations History of Influenza Vaccine: Yes Influenza Vaccine Date: Jun 19, 2009 History of Tetanus Vaccine?: Unknown History of Pneumococcal: Yes Pneumococcal Date: Oct 18, 2003 History of Hepatitis B Vaccine: Unknown Multi-Drug Resistant Organisms History of MDRO: No Allergies Coded Allergies: Aspirin (Verified Allergy, Mild, RASH, 07/12/17) Lactose (Verified Allergy, Mild, GI SYMPTOMS, 08/13/17) Lactose Intolerant Gluten (Unverified Allergy, Unknown, GI SYMPTOMS, 07/12/17) Codeine (Verified Adverse Reaction, Mild, INDIGESTION, 07/12/17) Home Medications Scheduled Alendronate Sodium (Alendronate Sodium), 70 MG PO WK Calcium Carbonate (Os-Aung 500), 1,000 MG PO DAILY Lisinopril & Hydrochlorothiazi (Zestoretic 20-12.5 mg), 1 TAB PO DAILY Multiple Vitamins W/ Minerals (Womens Multi Vitamin & Mi), 1 TAB PO Q2D Scheduled PRN Loratadine (Claritin), 10 MG PO DAILY PRN for Allergy Symptoms Review of Systems Ten systems reviewed and negative except as noted in the HPI. Physical Exam Vital Signs Date Time Temp Pulse Resp B/P (MAP) Pulse Ox O2 Delivery O2 Flow Rate FiO2 08/13/17 18:44 86 18 180/106 97 Room Air 08/13/17 18:20 83 18 96 Room Air 08/13/17 16:15 36.8 96 17 182/87 97 Room Air General Appearance: WD/WN, no apparent distress Head: normocephalic, atraumatic Eyes: normal inspection, PERRL, sclerae normal ENT: normal ENT inspection, hearing grossly normal, pharynx normal (dry mucous membranes ) Neck: supple, thyroid normal, trachea midline Respiratory/Chest: chest non-tender, lungs clear, normal breath sounds, no respiratory distress, no accessory muscle use Cardiovascular: regular rate, rhythm, no murmur, normal peripheral pulses Abdomen/GI: non tender, soft, no organomegaly Back: normal inspection, no CVA tenderness Extremities/Musculoskelatal: normal inspection, no calf tenderness, no pedal edema Neurologic/Psych: no motor/sensory deficits, alert, normal mood/affect, oriented x 3, + pertinent finding (Presence of ecchymosis on both arms ) Diagnostics Laboratory Results Results Past 24 Hours Test 08/13/17 16:25 08/13/17 17:25 Range/Units Urine Color YELLOW Urine Appearance TURBID CLEAR Urine pH 6.0 4.5-7.5 Urine Specific [place] 1.012 1.000-1.030 Urine Protein 3+ NEG Urine Glucose (UA) NEG NEG Urine Ketones NEG NEG Urine Occult Blood 3+ NEG Urine Nitrite NEG NEG Urine Bilirubin NEG NEG Urine Urobilinogen NEG NEG Urine Leukocyte Esterase LARGE NEG Urine WBC (Auto) >30 0-5 /hpf Urine RBC (Auto) >30 0-4 /hpf Urine Hyaline Casts (Auto) 1-5 0-5 /lpf Urine Epithelial Cells (Auto) 5-10 0-5 /lpf Urine Bacteria (Auto) NEG NEG White Blood Count 11.13 4.8-10.8 K/uL Red Blood Count 4.82 4.2-5.4 M/uL Hemoglobin 14.1 12.0-16.0 g/dL Hematocrit 41.8 37-47 % Mean Corpuscular Volume 86.7 80-100 fL Mean Corpuscular Hemoglobin 29.3 25-34 pg Mean Corpuscular Hemoglobin Concent 33.7 32-36 g/dl Platelet Count 29 130-400 K/uL Mean Platelet Volume 11.3 7.4-10.4 fL Neutrophils (%) (Auto) 79.0 % Lymphocytes (%) (Auto) 13.2 % Monocytes (%) (Auto) 7.2 % Eosinophils (%) (Auto) 0.4 % Basophils (%) (Auto) 0.1 % Neutrophils # (Auto) 8.80 1.4-6.5 K/uL Lymphocytes # (Auto) 1.47 1.2-3.4 K/uL Monocytes # (Auto) 0.80 0.11-0.59 K/uL Eosinophils # (Auto) 0.04 0-0.5 K/uL Basophils # (Auto) 0.01 0-0.2 K/uL RDW Standard Deviation 41.1 36.4-46.3 fL RDW Coefficient of Variation 12.8 11.5-14.5 % Immature Granulocyte % (Auto) 0.1 % Immature Granulocyte # (Auto) 0.01 0.00-0.02 K/uL Platelet Estimate SIGNIFIC DECREASED Immature Platelet Fraction 7.4 0.9-8.3 % Red Blood Cell Morphology Unremarkable Sodium Level 128 136-145 mmol/L Potassium Level 3.6 3.5-5.1 mmol/L Chloride Level 94 98-107 mmol/L Carbon Dioxide Level 25 21-32 mmol/L Anion Gap 9.0 3-11 mmol/L Blood Urea Nitrogen 24 7-18 mg/dl Creatinine 0.89 0.60-1.20 mg/dl Est Creatinine Clear Calc Drug Dose 43.2 ml/min Estimated GFR () 69.0 Estimated GFR (Non- 59.5 BUN/Creatinine Ratio 27.2 10-20 Random Glucose 107 70-99 mg/dl Calcium Level 8.8 8.5-10.1 mg/dl Total Bilirubin 0.4 0.2-1 mg/dl Direct Bilirubin < 0.1 0-0.2 mg/dl Aspartate Amino Transf (AST/SGOT) 23 15-37 U/L Alanine Aminotransferase (ALT/SGPT) 29 12-78 U/L Alkaline Phosphatase 90 45-117 U/L Total Protein 7.3 6.4-8.2 gm/dl Albumin 3.6 3.4-5.0 gm/dl Microbiology Results 08/13/17 Urine Culture, Received Pending Impression Assessment and Plan This is an 82yo F with a PMH of HTN, recurrent UTIs, osteoporosis and thrombocytopenia who presents with worsening urinary symptoms this morning. UTI: -H/o recurrent UTIs -Most recently grew pseudomonas -Discussed abx treatments with pharmacy in setting of severe thrombocytopenia -Decided on cipro -Is sensitive to cephalosporins per previous culture -Urine culture pending Thrombocytopenia: -Unclear etiology -Heme onc consulted -Platelet count of 29 today. Previous lowest is 69 -Ordered 1 u platelets; held for now -No apparent active bleeding -Monitor CBC Hyponatremia: -Likely 2/2 dehydration, low Na diet -Asymptomatic -Per chart review, Na is ~130 on average -IVF resuscitation -Monitor BMP HTN: -Cont home agents -Added clonidine 0.1mg Q6 PRN for SBP >170 Osteoporosis: -Cont home dose vit D, calcium DVT Ppx: SCDs only Code status: DNR per living will PCP: Cayla Dispo: Admitted to [facility]. Discharge planning ordered (patient lives alone, >80 ). Patient seen in collaboration with . Please see addendum. ADDENDUM: This is an 82 year old female with a PMH of HTN, osteoporosis, recurrent UTIs - presents after being sent by PCP due to likely UTI as well as thrombocytopenia in outpatient labs. She is doing okay during my exam, denies hematuria or any other bleeding. No other issues during exam. Plan as above, to start Cipro for UTI Platelets at 27k; one unit is ordered - hem/onc consulted Level of Care Med/Surg Resuscitation Status DO NOT RESUSCITATE VTE Prophylaxis VTE Risk Assessment Done? Y/N: Yes Risk Level: Moderate Given or contraindicated: SCD's Social Service Consult >80 yr.& Lives Alone
[2017-08-13] MEDS ORDERED: IV FLUIDS COMPLETED PRN ×2 (20:00→20:15)
[2017-08-13 20:30] VITALS: BP 166/88; PULSE 83; TEMP 36.4; O2SAT 97; Ht 167.6 cm; Wt 68.0 kg
[2017-08-13] MEDS: SODIUM CHLORIDE 0.9% 1000ML 1,000 ML IV SCH (21:24)
[2017-08-13] MEDS: CIPROFLOXACIN / D5W 200 MG in PREMIXED IN D5W 100 ML IV SCH (21:24)
[2017-08-13] MEDS ORDERED: CLONIDINE HCL 0.1 MG TAB PO PRN (21:30)
[2017-08-14] VITALS: O2SAT 97
[2017-08-14 00:07] VITALS: BP 128/73; PULSE 82; TEMP 36.6; O2SAT 94
[2017-08-14 07:42] VITALS: BP 137/72; PULSE 75; TEMP 36.5; O2SAT 96
[2017-08-14] MEDS: SODIUM CHLORIDE 0.9% 1000ML 1,000 ML IV SCH (08:07)
[2017-08-14] MEDS: CIPROFLOXACIN / D5W 200 MG in PREMIXED IN D5W 100 ML IV SCH ×2 (08:07→21:30)
[2017-08-14] MEDS: LISINOPRIL/HCTZ 20/12.5MG TAB PO SCH (08:08)
[2017-08-14] MEDS: CALCIUM CARBONATE 1250MG TAB PO SCH (08:08)
[2017-08-14 09:15] LABS: HEMOGLOBIN 13.7 g/dL (12.0-16.0); MEAN CELL VOLUME 86.8 fL (80-100); MEAN CORPUSCULAR HEMOGLOBIN 29.7 pg (25-34); MEAN CORPUSCULAR HGB CONC 34.3 g/dl (32-36); MEAN PLATELET VOLUME 11.7 fL (7.4-10.4); PLATELET COUNT 21 K/uL (130-400); RED CELL DISTRIBUTION WIDTH CV 12.9 % (11.5-14.5); RED CELL DISTRIBUTION WIDTH SD 41.5 fL (36.4-46.3); WHITE BLOOD COUNT 5.71 K/uL (4.8-10.8)
[2017-08-14 09:21] LABS: CALCIUM 8.6 mg/dl (8.5-10.1); CREATININE 0.75 mg/dl (0.60-1.20); POTASSIUM 3.9 mmol/L (3.5-5.1)
[2017-08-14 16:08] VITALS: O2SAT 96
--- NOTE | 2017-08-14 19:39 | Progress Note ---
Subjective Date of Service: Aug 14, 2017. Subjective Pt evaluation today including: conversation w/ patient, physical exam, lab review, review of studies, review of inpatient medication list Saw/examined the patient in room 258 She's doing well, ambulating well, no problems/issues today urinary symptoms resolved no bleeding. Problem List Medical Problems: (1) Hyponatremia Status: Acute (2) Thrombocytopenia Status: Acute (3) UTI (urinary tract infection) Status: Acute Review of Systems Constitutional: No fever, No chills, No weakness Respiratory: No shortness of breath Cardiac: No chest pain Heme: No abnormal bleeding/bruising Objective Vital Signs Date Time Temp Pulse Resp B/P (MAP) Pulse Ox O2 Delivery O2 Flow Rate FiO2 08/14/17 08:00 Room Air 08/14/17 07:42 36.5 75 16 137/72 (93) 96 Room Air 08/14/17 00:07 36.6 82 18 128/73 (91) 94 Room Air 08/14/17 00:00 97 Room Air 08/13/17 20:30 36.4 83 16 166/88 97 Room Air Physical Exam General Appearance: no apparent distress Respiratory/Chest: no respiratory distress, no accessory muscle use Cardiovascular: regular rate, rhythm Abdomen: normal bowel sounds, non tender, soft Laboratory Results Last 24 Hours Test 08/14/17 08:01 White Blood Count 5.71 K/uL Red Blood Count 4.61 M/uL Hemoglobin 13.7 g/dL Hematocrit 40.0 % Mean Corpuscular Volume 86.8 fL Mean Corpuscular Hemoglobin 29.7 pg Mean Corpuscular Hemoglobin Concent 34.3 g/dl RDW Standard Deviation 41.5 fL RDW Coefficient of Variation 12.9 % Platelet Count 21 K/uL Mean Platelet Volume 11.7 fL Prothrombin Time 10.2 SECONDS Prothromb Time International Ratio 1.0 Sodium Level 135 mmol/L Potassium Level 3.9 mmol/L Chloride Level 103 mmol/L Carbon Dioxide Level 25 mmol/L Anion Gap 7.0 mmol/L Blood Urea Nitrogen 19 mg/dl Creatinine 0.75 mg/dl Est Creatinine Clear Calc Drug Dose 52.2 ml/min Estimated GFR () 84.8 Estimated GFR (Non- 73.2 BUN/Creatinine Ratio 25.0 Random Glucose 99 mg/dl Calcium Level 8.6 mg/dl Assessment and Plan This is an 82yo F with a PMH of HTN, recurrent UTIs, osteoporosis and thrombocytopenia who presents with worsening urinary symptoms this morning. UTI: 1/ patient is doing well today will continue Cipro until culture returns -H/o recurrent UTIs -Most recently grew pseudomonas -Discussed abx treatments with pharmacy in setting of severe thrombocytopenia -Decided on cipro -Is sensitive to cephalosporins per previous culture -Urine culture pending Thrombocytopenia: 08/14 platelets at 21k no bleeding or unusual bruising hem/onc consulted -Unclear etiology -Heme onc consulted -Platelet count of 29 today. Previous lowest is 69 -Ordered 1 u platelets; held for now -No apparent active bleeding -Monitor CBC Hyponatremia: -Likely 2/2 dehydration, low Na diet -Asymptomatic -Per chart review, Na is ~130 on average -IVF resuscitation -Monitor BMP HTN: -Cont home agents -Added clonidine 0.1mg Q6 PRN for SBP >170 Osteoporosis: -Cont home dose vit D, calcium DVT Ppx: SCDs only Code status: DNR per living will PCP: Cayla Dispo: Admitted to [facility]. Discharge planning ordered (patient lives alone, >80 ). Patient seen in collaboration with . Please see addendum.
[2017-08-14 23:07] VITALS: BP 158/74; PULSE 82; TEMP 36.4; O2SAT 96
[2017-08-15 00:22] VITALS: O2SAT 96
[2017-08-15] MEDS: LISINOPRIL/HCTZ 20/12.5MG TAB PO SCH (08:06)
[2017-08-15] MEDS: CIPROFLOXACIN / D5W 200 MG in PREMIXED IN D5W 100 ML IV SCH ×2 (08:06→20:57)
[2017-08-15 08:28] VITALS: BP 145/77; PULSE 82; TEMP 36.7; O2SAT 95
[2017-08-15] MEDS: CALCIUM CARBONATE 1250MG TAB PO SCH (09:49)
[2017-08-15 15:34] LABS: CALCIUM 8.7 mg/dl (8.5-10.1); CREATININE 0.9 mg/dl (0.60-1.20)
[2017-08-15 15:38] VITALS: BP 145/73; PULSE 82; TEMP 36.7; O2SAT 97
[2017-08-15 15:39] LABS: HEMATOCRIT 39.2 % (37-47); HEMOGLOBIN 13.4 g/dL (12.0-16.0); MEAN CELL VOLUME 88.1 fL (80-100); MEAN CORPUSCULAR HEMOGLOBIN 30.1 pg (25-34); MEAN CORPUSCULAR HGB CONC 34.2 g/dl (32-36); RED CELL DISTRIBUTION WIDTH CV 13.2 % (11.5-14.5); RED CELL DISTRIBUTION WIDTH SD 42.4 fL (36.4-46.3); WHITE BLOOD COUNT 7.06 K/uL (4.8-10.8)
[2017-08-15 15:42] LABS: PLATELET COUNT 23 K/uL (130-400)
--- NOTE | 2017-08-15 17:34 | Progress Note ---
Subjective Date of Service: Aug 15, 2017. Subjective Pt evaluation today including: conversation w/ patient, physical exam, lab review, review of studies, review of inpatient medication list Saw/examined the patient in room 258 She's doing well, no bleeding/bruising Urinary symptoms improved Problem List Medical Problems: (1) Hyponatremia Status: Acute (2) Thrombocytopenia Status: Acute (3) UTI (urinary tract infection) Status: Acute Review of Systems Constitutional: No fever, No chills, No weakness Respiratory: No shortness of breath Cardiac: No chest pain Heme: No abnormal bleeding/bruising Medications Current Inpatient Medications Medications (Trade) Dose Ordered Sig/Giovanni Route Start Time Stop Time Status Last Admin Dose Admin Calcium Carbonate (oS-Aung 500 TAB) 1,000 mg DAILY PO 08/14/17 09:00 09/13/17 08:59 08/15/17 09:49 1,000 MG HCTZ/Lisinopril (Prinzide 20-12.5MG Tab) 1 tab DAILY PO 08/14/17 09:00 09/13/17 08:59 08/15/17 08:06 1 TAB Loratadine (Claritin Tab) 10 mg DAILY PRN PO 08/13/17 18:30 09/12/17 18:29 Miscellaneous (Iv Fluids Completed) 1 ea PRN PRN N/A 08/13/17 20:15 08/13/18 19:59 Ciprofloxacin/ Dextrose 200 mg/ Prmx 100 ml @ 100 mls/hr Q12H IV 08/13/17 20:30 08/18/17 20:29 08/15/17 08:06 100 MLS/HR Clonidine HCl (Catapres Tab) 0.1 mg Q6 PRN PO 08/13/17 21:30 09/12/17 21:29 Objective Vital Signs Date Time Temp Pulse Resp B/P (MAP) Pulse Ox O2 Delivery O2 Flow Rate FiO2 08/15/17 15:38 36.7 82 16 145/73 (97) 97 Room Air 08/15/17 08:28 36.7 82 18 145/77 (99) 95 Nasal Cannula 08/15/17 08:00 Room Air 08/15/17 00:22 96 Room Air 08/14/17 23:07 36.4 82 18 158/74 (102) 96 Room Air Physical Exam General Appearance: no apparent distress Respiratory/Chest: no respiratory distress, no accessory muscle use Cardiovascular: regular rate, rhythm, no edema, no murmur Laboratory Results Last 24 Hours Test 08/15/17 14:56 White Blood Count 7.06 K/uL Red Blood Count 4.45 M/uL Hemoglobin 13.4 g/dL Hematocrit 39.2 % Mean Corpuscular Volume 88.1 fL Mean Corpuscular Hemoglobin 30.1 pg Mean Corpuscular Hemoglobin Concent 34.2 g/dl RDW Standard Deviation 42.4 fL RDW Coefficient of Variation 13.2 % Platelet Count 23 K/uL Platelet Estimate SIGNIFIC DECREASED Sodium Level 132 mmol/L Potassium Level 4.0 mmol/L Chloride Level 99 mmol/L Carbon Dioxide Level 26 mmol/L Anion Gap 7.0 mmol/L Blood Urea Nitrogen 19 mg/dl Creatinine 0.90 mg/dl Est Creatinine Clear Calc Drug Dose 43.5 ml/min Estimated GFR () 68.1 Estimated GFR (Non- 58.7 BUN/Creatinine Ratio 21.1 Random Glucose 124 mg/dl Calcium Level 8.7 mg/dl Assessment and Plan This is an 82yo F with a PMH of HTN, recurrent UTIs, osteoporosis and thrombocytopenia who presents with worsening urinary symptoms this morning. UTI: 08/15 urinary symptoms resolved continue Cipro 08/14 patient is doing well today will continue Cipro until culture returns -H/o recurrent UTIs -Most recently grew pseudomonas -Discussed abx treatments with pharmacy in setting of severe thrombocytopenia -Decided on cipro -Is sensitive to cephalosporins per previous culture -Urine culture pending Thrombocytopenia: 08/15 possible ITP? would appreciate hem onc input if not, possibly will try Decadron outpatient PCP f/u 08/14 platelets at 21k no bleeding or unusual bruising hem/onc consulted -Unclear etiology -Heme onc consulted -Platelet count of 29 today. Previous lowest is 69 -Ordered 1 u platelets; held for now -No apparent active bleeding -Monitor CBC Hyponatremia: -Likely 2/2 dehydration, low Na diet -Asymptomatic -Per chart review, Na is ~130 on average -IVF resuscitation -Monitor BMP HTN: -Cont home agents -Added clonidine 0.1mg Q6 PRN for SBP >170 Osteoporosis: -Cont home dose vit D, calcium DVT Ppx: SCDs only Code status: DNR per living will PCP: Cayla Dispo: Admitted to [facility]. Discharge planning ordered (patient lives alone, >80 ). Patient seen in collaboration with . Please see addendum.
[2017-08-16 00:14] VITALS: BP 150/78; PULSE 77; TEMP 36.3; O2SAT 96
[2017-08-16 07:36] VITALS: BP 146/78; PULSE 69; TEMP 36.7; O2SAT 95
[2017-08-16] MEDS: LISINOPRIL/HCTZ 20/12.5MG TAB PO SCH (07:57)
[2017-08-16] MEDS: CALCIUM CARBONATE 1250MG TAB PO SCH (07:57)
[2017-08-16] MEDS: CIPROFLOXACIN / D5W 200 MG in PREMIXED IN D5W 100 ML IV SCH (07:57)
[2017-08-16 08:20] LABS: HEMATOCRIT 41.5 % (37-47); HEMOGLOBIN 14.2 g/dL (12.0-16.0); MEAN CELL VOLUME 87.9 fL (80-100); MEAN CORPUSCULAR HEMOGLOBIN 30.1 pg (25-34); MEAN CORPUSCULAR HGB CONC 34.2 g/dl (32-36); MEAN PLATELET VOLUME 11.9 fL (7.4-10.4); PLATELET COUNT 21 K/uL (130-400); RED CELL DISTRIBUTION WIDTH CV 13.2 % (11.5-14.5); RED CELL DISTRIBUTION WIDTH SD 42.4 fL (36.4-46.3); WHITE BLOOD COUNT 5.06 K/uL (4.8-10.8)
[2017-08-16 08:31] LABS: CALCIUM 8.7 mg/dl (8.5-10.1); CREATININE 0.81 mg/dl (0.60-1.20)
[2017-08-16] MEDS ORDERED: PANTOprazole SOD 40 MG TAB PO ONE (14:20)
[2017-08-16] MEDS ORDERED: DEXAMETHASONE 4 MG TAB PO ONE (14:20)
--- NOTE | 2017-08-16 14:42 | Progress Note ---
Subjective Date of Service: Aug 16, 2017. Subjective Pt evaluation today including: conversation w/ patient, physical exam, lab review, review of studies, conversation w/ aviation consultant, review of inpatient medication list Saw/examined the patient in room 258 She is doing fine, no symptoms No bleeding/bruising Problem List Medical Problems: (1) Hyponatremia Status: Acute (2) Thrombocytopenia Status: Acute (3) UTI (urinary tract infection) Status: Acute Review of Systems Constitutional: No fever, No chills Female : No dysuria, No urinary frequency, No hematuria, No incontinence Heme: No abnormal bleeding/bruising, No clotting problems, No swollen lymph nodes Medications Current Inpatient Medications Medications (Trade) Dose Ordered Sig/Giovanni Route Start Time Stop Time Status Last Admin Dose Admin Calcium Carbonate (oS-Aung 500 TAB) 1,000 mg DAILY PO 08/14/17 09:00 09/13/17 08:59 08/16/17 07:57 1,000 MG HCTZ/Lisinopril (Prinzide 20-12.5MG Tab) 1 tab DAILY PO 08/14/17 09:00 09/13/17 08:59 08/16/17 07:57 1 TAB Loratadine (Claritin Tab) 10 mg DAILY PRN PO 08/13/17 18:30 09/12/17 18:29 Miscellaneous (Iv Fluids Completed) 1 ea PRN PRN N/A 08/13/17 20:15 08/13/18 19:59 Ciprofloxacin/ Dextrose 200 mg/ Prmx 100 ml @ 100 mls/hr Q12H IV 08/13/17 20:30 08/18/17 20:29 08/16/17 07:57 100 MLS/HR Clonidine HCl (Catapres Tab) 0.1 mg Q6 PRN PO 08/13/17 21:30 09/12/17 21:29 Pantoprazole Sodium (Protonix Tab) 40 mg QAM PO 08/17/17 09:00 09/16/17 08:59 Objective Vital Signs Date Time Temp Pulse Resp B/P (MAP) Pulse Ox O2 Delivery O2 Flow Rate FiO2 08/16/17 08:00 Room Air 08/16/17 07:36 36.7 69 20 146/78 (100) 95 Room Air 08/16/17 00:14 36.3 77 20 150/78 (102) 96 Room Air 08/15/17 17:00 Room Air 08/15/17 15:38 36.7 82 16 145/73 (97) 97 Room Air Physical Exam General Appearance: no apparent distress Respiratory/Chest: no respiratory distress, no accessory muscle use Extremities: normal inspection, no pedal edema Neurologic/Psychiatric: 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, no motor/sensory deficits, alert, normal mood/affect, oriented x 3 Laboratory Results Last 24 Hours Test 08/15/17 14:56 08/16/17 07:41 White Blood Count 7.06 K/uL 5.06 K/uL Red Blood Count 4.45 M/uL 4.72 M/uL Hemoglobin 13.4 g/dL 14.2 g/dL Hematocrit 39.2 % 41.5 % Mean Corpuscular Volume 88.1 fL 87.9 fL Mean Corpuscular Hemoglobin 30.1 pg 30.1 pg Mean Corpuscular Hemoglobin Concent 34.2 g/dl 34.2 g/dl RDW Standard Deviation 42.4 fL 42.4 fL RDW Coefficient of Variation 13.2 % 13.2 % Platelet Count 23 K/uL 21 K/uL Platelet Estimate SIGNIFIC DECREASED SIGNIFIC DECREASED Sodium Level 132 mmol/L 134 mmol/L Potassium Level 4.0 mmol/L 4.0 mmol/L Chloride Level 99 mmol/L 102 mmol/L Carbon Dioxide Level 26 mmol/L 25 mmol/L Anion Gap 7.0 mmol/L 7.0 mmol/L Blood Urea Nitrogen 19 mg/dl 21 mg/dl Creatinine 0.90 mg/dl 0.81 mg/dl Est Creatinine Clear Calc Drug Dose 43.5 ml/min 48.4 ml/min Estimated GFR () 68.1 77.3 Estimated GFR (Non- 58.7 66.7 BUN/Creatinine Ratio 21.1 26.1 Random Glucose 124 mg/dl 95 mg/dl Calcium Level 8.7 mg/dl 8.7 mg/dl Mean Platelet Volume 11.9 fL Assessment and Plan This is an 82yo F with a PMH of HTN, recurrent UTIs, osteoporosis and thrombocytopenia who presents with worsening urinary symptoms this morning. Thrombocytopenia: 08/16 appreciate hem/onc input will give decadron 40mg once now (possibly 4 days) will add protonix check CBC in AM 08/15 possible ITP? would appreciate hem onc input if not, possibly will try Decadron outpatient PCP f/u 08/14 platelets at 21k no bleeding or unusual bruising hem/onc consulted -Unclear etiology -Heme onc consulted -Platelet count of 29 today. Previous lowest is 69 -Ordered 1 u platelets; held for now -No apparent active bleeding -Monitor CBC UTI: 08/15 urinary symptoms resolved continue Cipro 08/14 patient is doing well today will continue Cipro until culture returns -H/o recurrent UTIs -Most recently grew pseudomonas -Discussed abx treatments with pharmacy in setting of severe thrombocytopenia -Decided on cipro -Is sensitive to cephalosporins per previous culture -Urine culture pending Hyponatremia: -Likely 2/2 dehydration, low Na diet -Asymptomatic -Per chart review, Na is ~130 on average -IVF resuscitation -Monitor BMP HTN: -Cont home agents -Added clonidine 0.1mg Q6 PRN for SBP >170 Osteoporosis: -Cont home dose vit D, calcium DVT Ppx: SCDs only Code status: DNR per living will PCP: Cayla Dispo: Admitted to [facility]. Discharge planning ordered (patient lives alone, >80 ). Patient seen in collaboration with . Please see addendum.
[2017-08-16] MEDS ORDERED: LISINOPRIL 5 MG TAB PO ONE (15:00)
[2017-08-16 15:46] VITALS: BP 147/87; PULSE 81; TEMP 36.8; O2SAT 98
[2017-08-16 16:10] VITALS: O2SAT 96
[2017-08-16] MEDS: CIPROFLOXACIN 500 MG TAB PO SCH (20:17)
[2017-08-17] VITALS: BP 133/81; PULSE 82; TEMP 36.6; O2SAT 97
[2017-08-17 06:28] LABS: HEMATOCRIT 36.9 % (37-47); HEMOGLOBIN 12.8 g/dL (12.0-16.0); MEAN CORPUSCULAR HEMOGLOBIN 29.8 pg (25-34); MEAN CORPUSCULAR HGB CONC 34.7 g/dl (32-36); MEAN PLATELET VOLUME 11.4 fL (7.4-10.4); PLATELET COUNT 25 K/uL (130-400); RED CELL DISTRIBUTION WIDTH CV 12.8 % (11.5-14.5); RED CELL DISTRIBUTION WIDTH SD 40.5 fL (36.4-46.3); WHITE BLOOD COUNT 7.85 K/uL (4.8-10.8)
[2017-08-17 06:51] LABS: CREATININE 0.86 mg/dl (0.60-1.20); POTASSIUM 3.8 mmol/L (3.5-5.1)
[2017-08-17 06:52] LABS: CALCIUM 8.7 mg/dl (8.5-10.1)
[2017-08-17 07:20] VITALS: BP 143/75; PULSE 86; TEMP 36.9; O2SAT 97
[2017-08-17] MEDS: CIPROFLOXACIN 500 MG TAB PO SCH ×2 (08:34→20:50)
[2017-08-17] MEDS: PANTOprazole SOD 40 MG TAB PO SCH (08:35)
[2017-08-17] MEDS: DEXAMETHASONE 4 MG TAB PO SCH (08:35)
[2017-08-17] MEDS: CALCIUM CARBONATE 1250MG TAB PO SCH (08:36)
[2017-08-17] MEDS: LISINOPRIL/HCTZ 20/12.5MG TAB PO SCH (08:37)
--- NOTE | 2017-08-17 10:03 | Progress Note ---
Subjective Date of Service: Aug 17, 2017. Subjective Pt evaluation today including: conversation w/ patient, physical exam, lab review, review of studies, conversation w/ medical device sales consultant, review of inpatient medication list Saw/examined the patient in room 258 No problems/issues today Eager to go home No significant bruising (she noted some around old IV sites) Problem List Medical Problems: (1) Hyponatremia Status: Acute (2) Thrombocytopenia Status: Acute (3) UTI (urinary tract infection) Status: Acute Review of Systems Constitutional: No fever, No chills, No weakness Respiratory: No shortness of breath Cardiac: No chest pain Heme: No abnormal bleeding/bruising Medications Current Inpatient Medications Medications (Trade) Dose Ordered Sig/Giovanni Route Start Time Stop Time Status Last Admin Dose Admin Calcium Carbonate (oS-Aung 500 TAB) 1,000 mg DAILY PO 08/14/17 09:00 09/13/17 08:59 08/17/17 08:36 1,000 MG HCTZ/Lisinopril (Prinzide 20-12.5MG Tab) 1 tab DAILY PO 08/14/17 09:00 09/13/17 08:59 08/17/17 08:37 1 TAB Loratadine (Claritin Tab) 10 mg DAILY PRN PO 08/13/17 18:30 09/12/17 18:29 Miscellaneous (Iv Fluids Completed) 1 ea PRN PRN N/A 08/13/17 20:15 08/13/18 19:59 Clonidine HCl (Catapres Tab) 0.1 mg Q6 PRN PO 08/13/17 21:30 09/12/17 21:29 Pantoprazole Sodium (Protonix Tab) 40 mg QAM PO 08/17/17 09:00 09/16/17 08:59 08/17/17 08:35 40 MG Dexamethasone (Decadron Tab) 40 mg QAM PO 08/17/17 09:00 09/16/17 08:59 08/17/17 08:35 40 MG Ciprofloxacin (Cipro Tab) 500 mg BID PO 08/16/17 21:00 08/23/17 23:59 08/17/17 08:34 500 MG Objective Vital Signs Date Time Temp Pulse Resp B/P (MAP) Pulse Ox O2 Delivery O2 Flow Rate FiO2 08/17/17 07:50 Room Air 08/17/17 07:20 36.9 86 18 143/75 (97) 97 Room Air 08/17/17 00:00 36.6 82 20 133/81 (98) 97 Room Air 08/16/17 23:27 Room Air 08/16/17 16:10 96 Room Air 08/16/17 15:46 36.8 81 18 147/87 (107) 98 Room Air Physical Exam General Appearance: no apparent distress Respiratory/Chest: chest non-tender, lungs clear, normal breath sounds, no respiratory distress, no accessory muscle use Cardiovascular: regular rate, rhythm, no edema, no murmur Laboratory Results Last 24 Hours Test 08/17/17 05:47 White Blood Count 7.85 K/uL Red Blood Count 4.29 M/uL Hemoglobin 12.8 g/dL Hematocrit 36.9 % Mean Corpuscular Volume 86.0 fL Mean Corpuscular Hemoglobin 29.8 pg Mean Corpuscular Hemoglobin Concent 34.7 g/dl RDW Standard Deviation 40.5 fL RDW Coefficient of Variation 12.8 % Platelet Count 25 K/uL Mean Platelet Volume 11.4 fL Sodium Level 131 mmol/L Potassium Level 3.8 mmol/L Chloride Level 99 mmol/L Carbon Dioxide Level 25 mmol/L Anion Gap 7.0 mmol/L Blood Urea Nitrogen 26 mg/dl Creatinine 0.86 mg/dl Est Creatinine Clear Calc Drug Dose 45.6 ml/min Estimated GFR () 71.9 Estimated GFR (Non- 62.0 BUN/Creatinine Ratio 29.8 Random Glucose 136 mg/dl Calcium Level 8.7 mg/dl Assessment and Plan This is an 82yo F with a PMH of HTN, recurrent UTIs, osteoporosis and thrombocytopenia who presents with worsening urinary symptoms this morning. Acute on Chronic Thrombocytopenia: 08/17 platelets with little/no improvement continue Decadron, Protonix recheck CBC in AM 08/16 appreciate hem/onc input will give Decadron 40mg once now (possibly 4 days) will add Protonix check CBC in AM 08/15 possible ITP? would appreciate hem onc input if not, possibly will try Decadron outpatient PCP f/u 08/14 platelets at 21k no bleeding or unusual bruising hem/onc consulted -Unclear etiology -Heme onc consulted -Platelet count of 29 today. Previous lowest is 69 -Ordered 1 u platelets; held for now -No apparent active bleeding -Monitor CBC UTI: 08/15 urinary symptoms resolved continue Cipro 08/14 patient is doing well today will continue Cipro until culture returns -H/o recurrent UTIs -Most recently grew pseudomonas -Discussed abx treatments with pharmacy in setting of severe thrombocytopenia -Decided on cipro -Is sensitive to cephalosporins per previous culture -Urine culture pending Hyponatremia: -Likely 2/2 dehydration, low Na diet -Asymptomatic -Per chart review, Na is ~130 on average -IVF resuscitation -Monitor BMP HTN: -Cont home agents -Added clonidine 0.1mg Q6 PRN for SBP >170 Osteoporosis: -Cont home dose vit D, calcium DVT Ppx: SCDs only Code status: DNR per living will PCP: Cayla Dispo: Admitted to [facility]. Discharge planning ordered (patient lives alone, >80 ). Patient seen in collaboration with . Please see addendum.
--- NOTE | 2017-08-17 15:37 | Medical Consult ---
Consultation Date of Consultation: Aug 17, 2017. Attending Physician: Niko Negron DO History of Present Illness ONCOLOGY HEMATOLOGY CONSULT: Date of consult: 08/17/2016 HPI: 82-year-old female, who is admitted at [facility] on 2017 for thrombocytopenia, I reviewed her medical records. Blood workup done in the past: - Platelet count was around 117,000 with a normal white blood cell count and hemoglobin level earlier in 2009, 2013 and 2015. - WBC 14,700, H&H of 12.8/37.4, MCV of 87, Platelet count of 42,000, MPV 11.2 ( 06/13/2017). She received steroid therapy when she was found to have platelet count of 40, 000 in early June 2017, blood workup done few days later [place] platelet count of 175,000,. - WBC 8100, H&H of 12.5/39, Platelet count of 244,000, MPV 9.1 (06/25/2017). - WBC 9300, H&H of 13.1/39, Platelet count of 27,000, MPV 11.3 (08/13/2017). She had a symptoms of UTI, she was treated with antibiotic treatment for the recent UTI symptoms. Now she is admitted at [facility] since 08/13/2017 4 platelet count around 27,000, has some bruising but otherwise she was doing quite well. As she responded well with the steroid therapy in early June thousand , once again restarted Decadron 40 mg once-a-day on 08/17/2017. She is also receiving estate perhaps as an for recent UTI symptom. When I saw her at bedside, she was sitting quite comfortably in the bed, she denies any fever, has some bruising at the recent the IV site but no active bleeding from any sites, no headache, no increasing back pain or bone pain, some mild leg edema intermittently present especially after salt intake, no bleeding from any sites. No new cardiac or pulmonary symptoms, she is not on any anticoagulant treatment. REVIEW OF SYSTEMS: GENERAL: No change in weight, no weakness, no fatigue, no fever, sweats or chills. SKIN: No skin rash, some easy bruising present. HEAD: No headache, no dizziness. EYES: No change in the vision, no diplopia, EARS: No earache ,no tinnitus, NOSE: No epistaxis, No nasal discharge or stuffiness, MOUTH: No sores, no dysphagia, no hoarseness of voice, NECK: No lumps, No swelling in thyroid area. No stiffness. PULMONARY: No cough, No shortness of breath, no hemoptysis, no chest pain, No wheezing. CARDIOVASCULAR: No anginal chest pain, no PND, no orthopnea. No palpitation, mild intermittent leg edema. No syncope. GASTRIINTESTINAL: No abdominal pain, no nausea or vomiting. No diarrhea, No constipation. No blood in stool or black tarry stools. No abdominal distention. UROLOGIC: No burning urination. No hematuria. MUSCULOSKELETAL: No joint pain, No joint swelling, no muscle weakness. HEMATOLOGIC: No anemia, no bleeding disorder, No bruising. No history of blood transfusion. NEUROLOGIC: No seizures, no focal weakness, no speech difficulty, No memory disturbances. No tingling or numbness of the extremities. PSYCHRIATRIC: No depression. No anxiety. No psychosis. PAST MEDICAL/SURGICAL HISTORY: - Endoemetrial cancer, S/P surgery and radiation treatment - DJD - Chronic renal insufficiency - Osteoporosis - Hypertension, - UTI in the past. - Thrombocytopenia in the past. SOCIAL HISTORY: Non-Smoker, denies any ETOH abuse. FAMILY HISTORY: Not significant. MEDICATIONS: Please review her chart for detail list of medications. Decadron started at 40 mg once-a-day on 08/16/2017. ALLERGY: as pain, codeine PHYSICAL EXAMINATION: - Alert and oriented x3, well built woman, not in any distress. - HEENT: no icterus, no pallor, Throat: Normal. - Neck: No palpable cervical lymphadenopathy. - Chest: clear to auscultation. - Abdomen: soft, nontender, no hepatomegaly, no splenomegaly. - No focal neuro deficit. - Extremities: no finger clubbing, mild leg edema. LABS: - WBC 7800, H&H of 12.8/36.9, MCV 86, Platelet count of 25,000. (08/17/2017) - MPV 11.4 - Immature platelet fraction --> 7.4 - BUN/creatinine: 26/0.8, calcium 8.4 - Normal liver function test. - Normal PT - Urine culture grew Pseudomonas (07/12/2017), E. coli in June 2017 - Other urine culture done on 08/13/2017 --> More than 3 types of organisms noted. ASSESSMENT AND PLAN: 82-year-old female, who had mild thrombocytopenia with a platelet count around 100,000-120,000 since 2009, normal white blood cell count , normal hemoglobin level, history of repeated UTI noted, blood workup done in early June 2017 showed platelet count of 40,000, she received steroid therapy and within few days platelet count became normal, now once again she has thrombocytopenia the platelet count around 21,000-25,000, no active bleeding from any sites, once again normal white blood cell count, normal differential count, normal hemoglobin level, normal liver function test. She is otherwise doing well. Also receiving estate perhaps as an for Pseudomonas UTI. She had E. coli UTI recently few months back. 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 She responded well with the steroid therapy in June 2017, now once again restarted on high dose of Decadron at 40 mg once-a-day since 2017. Will see how she responds with the steroid therapy at this time. If her platelet count continues to go by tomorrow morning, she could go home and complete total 4 days of Decadron therapy I would like to see her back in the clinic for the follow-up visit and monitor her blood count. Will consider for bone marrow examination as well as additional treatment for ITP in the form of Rituxan as an outpatient. Thanks for the consultation. Wily Zee MD Hem/Onc Past Medical/Surgical History Medical Problems: (1) Hyponatremia Status: Acute (2) Thrombocytopenia Status: Acute (3) UTI (urinary tract infection) Status: Acute Family History FH: CHF (congestive heart failure) FH: celiac disease Hypertension Social History Smoking Status: Never Smoker Alcohol Use: occasionally Drug Use: none Marital Status: Housing Status: lives alone Occupation Status: retired Allergies Coded Allergies: Aspirin (Verified Allergy, Mild, RASH, 07/12/17) Lactose (Verified Allergy, Mild, GI SYMPTOMS, 08/13/17) Lactose Intolerant Gluten (Unverified Allergy, Unknown, GI SYMPTOMS, 07/12/17) Codeine (Verified Adverse Reaction, Mild, INDIGESTION, 07/12/17) Current Inpatient Medications Current Inpatient Medications Medications (Trade) Dose Ordered Sig/Giovanni Route Start Time Stop Time Status Last Admin Dose Admin Calcium Carbonate (oS-Aung 500 TAB) 1,000 mg DAILY PO 08/14/17 09:00 09/13/17 08:59 08/17/17 08:36 1,000 MG HCTZ/Lisinopril (Prinzide 20-12.5MG Tab) 1 tab DAILY PO 08/14/17 09:00 09/13/17 08:59 08/17/17 08:37 1 TAB Loratadine (Claritin Tab) 10 mg DAILY PRN PO 08/13/17 18:30 09/12/17 18:29 Miscellaneous (Iv Fluids Completed) 1 ea PRN PRN N/A 08/13/17 20:15 08/13/18 19:59 Clonidine HCl (Catapres Tab) 0.1 mg Q6 PRN PO 08/13/17 21:30 09/12/17 21:29 Pantoprazole Sodium (Protonix Tab) 40 mg QAM PO 08/17/17 09:00 09/16/17 08:59 08/17/17 08:35 40 MG Dexamethasone (Decadron Tab) 40 mg QAM PO 08/17/17 09:00 09/16/17 08:59 08/17/17 08:35 40 MG Ciprofloxacin (Cipro Tab) 500 mg BID PO 08/16/17 21:00 08/23/17 23:59 08/17/17 08:34 500 MG Physical Exam Date Time Temp Pulse Resp B/P (MAP) Pulse Ox O2 Delivery O2 Flow Rate FiO2 08/17/17 07:50 Room Air 08/17/17 07:20 36.9 86 18 143/75 (97) 97 Room Air 08/17/17 00:00 36.6 82 20 133/81 (98) 97 Room Air 08/16/17 23:27 Room Air 08/16/17 16:10 96 Room Air 08/16/17 15:46 36.8 81 18 147/87 (107) 98 Room Air Laboratory Results Last 24 Hours Test 08/17/17 05:47 White Blood Count 7.85 K/uL Red Blood Count 4.29 M/uL Hemoglobin 12.8 g/dL Hematocrit 36.9 % Mean Corpuscular Volume 86.0 fL Mean Corpuscular Hemoglobin 29.8 pg Mean Corpuscular Hemoglobin Concent 34.7 g/dl RDW Standard Deviation 40.5 fL RDW Coefficient of Variation 12.8 % Platelet Count 25 K/uL Mean Platelet Volume 11.4 fL Sodium Level 131 mmol/L Potassium Level 3.8 mmol/L Chloride Level 99 mmol/L Carbon Dioxide Level 25 mmol/L Anion Gap 7.0 mmol/L Blood Urea Nitrogen 26 mg/dl Creatinine 0.86 mg/dl Est Creatinine Clear Calc Drug Dose 45.6 ml/min Estimated GFR () 71.9 Estimated GFR (Non- 62.0 BUN/Creatinine Ratio 29.8 Random Glucose 136 mg/dl Calcium Level 8.7 mg/dl
[2017-08-17 15:41] VITALS: BP 177/83; PULSE 94; TEMP 36.5; O2SAT 97
[2017-08-17 16:09] VITALS: O2SAT 96
[2017-08-17 23:35] VITALS: BP 163/79; PULSE 88; TEMP 36.4; O2SAT 96
[2017-08-18] MEDS ORDERED: TRAMADOL HCL 50 MG TAB PO PRN ×2 (00:15→06:45)
[2017-08-18] MEDS ORDERED: ACETAMINOPHEN 325 MG TAB PO PRN (00:15)
[2017-08-18] MEDS ORDERED: TRAMADOL HCL 50 MG TAB PO ONE (06:37)
[2017-08-18 06:44] LABS: HEMATOCRIT 36.4 % (37-47); HEMOGLOBIN 12.5 g/dL (12.0-16.0); MEAN CELL VOLUME 86.9 fL (80-100); MEAN CORPUSCULAR HEMOGLOBIN 29.8 pg (25-34); MEAN CORPUSCULAR HGB CONC 34.3 g/dl (32-36); MEAN PLATELET VOLUME 10.2 fL (7.4-10.4); PLATELET COUNT 50 K/uL (130-400); RED CELL DISTRIBUTION WIDTH CV 13.2 % (11.5-14.5); RED CELL DISTRIBUTION WIDTH SD 42.2 fL (36.4-46.3); WHITE BLOOD COUNT 16.03 K/uL (4.8-10.8)
[2017-08-18 07:54] VITALS: BP 116/65; PULSE 88; TEMP 36.5; O2SAT 95
[2017-08-18] MEDS: LISINOPRIL/HCTZ 20/12.5MG TAB PO SCH (08:07)
[2017-08-18] MEDS: CIPROFLOXACIN 500 MG TAB PO SCH (08:07)
[2017-08-18] MEDS: DEXAMETHASONE 4 MG TAB PO SCH (08:07)
[2017-08-18] MEDS: CALCIUM CARBONATE 1250MG TAB PO SCH (08:07)
[2017-08-18] MEDS: PANTOprazole SOD 40 MG TAB PO SCH (08:07)
--- NOTE | 2017-08-18 09:30 | Progress Note ---
Subjective Date of Service: Aug 18, 2017. Subjective Pt evaluation today including: conversation w/ patient, physical exam, lab review, review of studies, review of inpatient medication list Saw/examined the patient in room 258 She is feeling fine, no bruising/bleeding Problem List Medical Problems: (1) Hyponatremia Status: Acute (2) Thrombocytopenia Status: Acute (3) UTI (urinary tract infection) Status: Acute Review of Systems Respiratory: No shortness of breath Cardiac: No chest pain Female : No dysuria, No urinary frequency, No hematuria, No incontinence Heme: No abnormal bleeding/bruising Medications Current Inpatient Medications Medications (Trade) Dose Ordered Sig/Giovanni Route Start Time Stop Time Status Last Admin Dose Admin Calcium Carbonate (oS-Aung 500 TAB) 1,000 mg DAILY PO 08/14/17 09:00 09/13/17 08:59 08/18/17 08:07 1,000 MG HCTZ/Lisinopril (Prinzide 20-12.5MG Tab) 1 tab DAILY PO 08/14/17 09:00 09/13/17 08:59 08/18/17 08:07 1 TAB Loratadine (Claritin Tab) 10 mg DAILY PRN PO 08/13/17 18:30 09/12/17 18:29 Miscellaneous (Iv Fluids Completed) 1 ea PRN PRN N/A 08/13/17 20:15 08/13/18 19:59 Clonidine HCl (Catapres Tab) 0.1 mg Q6 PRN PO 08/13/17 21:30 09/12/17 21:29 Pantoprazole Sodium (Protonix Tab) 40 mg QAM PO 08/17/17 09:00 09/16/17 08:59 08/18/17 08:07 40 MG Dexamethasone (Decadron Tab) 40 mg QAM PO 08/17/17 09:00 09/16/17 08:59 08/18/17 08:07 40 MG Ciprofloxacin (Cipro Tab) 500 mg BID PO 08/16/17 21:00 08/23/17 23:59 08/18/17 08:07 500 MG Acetaminophen (Tylenol Tab) 650 mg Q6H PRN PO 08/18/17 00:15 09/17/17 00:14 08/18/17 00:31 650 MG Tramadol HCl (Ultram Tab) 50 mg Q6H PRN PO 08/18/17 06:45 09/17/17 00:14 Objective Vital Signs Date Time Temp Pulse Resp B/P (MAP) Pulse Ox O2 Delivery O2 Flow Rate FiO2 08/18/17 08:00 Room Air 08/18/17 07:54 36.5 88 16 116/65 (82) 95 Room Air 08/18/17 00:05 Room Air 08/17/17 23:35 36.4 88 20 163/79 (107) 96 Room Air 08/17/17 16:09 96 Room Air 08/17/17 15:41 36.5 94 18 177/83 (114) 97 Room Air Physical Exam General Appearance: no apparent distress Respiratory/Chest: lungs clear, normal breath sounds, no respiratory distress, no accessory muscle use Cardiovascular: regular rate, rhythm, no edema, no murmur Extremities: normal inspection, no pedal edema Laboratory Results Last 24 Hours Test 08/18/17 06:09 White Blood Count 16.03 K/uL Red Blood Count 4.19 M/uL Hemoglobin 12.5 g/dL Hematocrit 36.4 % Mean Corpuscular Volume 86.9 fL Mean Corpuscular Hemoglobin 29.8 pg Mean Corpuscular Hemoglobin Concent 34.3 g/dl RDW Standard Deviation 42.2 fL RDW Coefficient of Variation 13.2 % Platelet Count 50 K/uL Mean Platelet Volume 10.2 fL Platelet Estimate DECREASED Assessment and Plan This is an 82yo F with a PMH of HTN, recurrent UTIs, osteoporosis and thrombocytopenia who presents with worsening urinary symptoms this morning. Acute on Chronic Thrombocytopenia: 08/18 platelets increased to 50k plan is to d/c on Decadron and Protonix x1 more day CBC on Friday outpatient PCP f/u on Friday will d/c on Cipro x2 days 08/17 platelets with little/no improvement continue Decadron, Protonix recheck CBC in AM 08/16 appreciate hem/onc input will give Decadron 40mg once now (possibly 4 days) will add Protonix check CBC in AM 08/15 possible ITP? would appreciate hem onc input if not, possibly will try Decadron outpatient PCP f/u 08/14 platelets at 21k no bleeding or unusual bruising hem/onc consulted -Unclear etiology -Heme onc consulted -Platelet count of 29 today. Previous lowest is 69 -Ordered 1 u platelets; held for now -No apparent active bleeding -Monitor CBC UTI: 08/15 urinary symptoms resolved continue Cipro 08/14 patient is doing well today will continue Cipro until culture returns -H/o recurrent UTIs -Most recently grew pseudomonas -Discussed abx treatments with pharmacy in setting of severe thrombocytopenia -Decided on cipro -Is sensitive to cephalosporins per previous culture -Urine culture pending Hyponatremia: -Likely 2/2 dehydration, low Na diet -Asymptomatic -Per chart review, Na is ~130 on average -IVF resuscitation -Monitor BMP HTN: -Cont home agents -Added clonidine 0.1mg Q6 PRN for SBP >170 Osteoporosis: -Cont home dose vit D, calcium DVT Ppx: SCDs only Code status: DNR per living will PCP: Cayla Dispo: Admitted to [facility]. Discharge planning ordered (patient lives alone, >80 ). Patient seen in collaboration with . Please see addendum.
[2017-08-18] MEDS ORDERED: DXM4 PO (09:31)
[2017-08-18] MEDS ORDERED: CPR500 PO (09:31)
[2017-08-18] MEDS ORDERED: PRT40 PO (09:31)
--- NOTE | 2017-08-18 09:41 | Discharge Instructions ---
Discharge Instructions Date of Service Aug 18, 2017. Admission Reason for Admission: Hyponatremia, Thrombocytopenia, Uti Discharge Discharge Diagnosis / Problem: Thrombocytopenia (low platelets), UTI Discharge Goals Goal(s): Decrease discomfort, Improve function, Diagnostic testing, Therapeutic intervention Activity Recommendations Activity Limitations: resume your previous activity . Instructions / Follow-Up Instructions / Follow-Up Please follow-up with Dr. Kulkarni on August 22 at 10:45AM * You will be discharged on Decadron 40mg on August 19 * You will be discharged on Protonix 40mg on August 19 * You will be discharged on Cipro twice daily for 2 more days * You should have blood work done on August 20 Current Hospital Diet Patient's current hospital diet: Gluten Free Diet Discharge Diet Recommended Diet: Gluten Free Diet Pending Studies Studies pending at discharge: no Medical Emergencies . Who to Call and When: Medical Emergencies: If at any time you feel your situation is an emergency, please call 911 immediately. . Non-Emergent Contact Non-Emergency issues call your: Primary Care Provider, Oncologist . . "Provider Documentation" section prepared by Niko Negron. . VTE Core Measure Inpt VTE Proph given/why not?: SCD's
--- NOTE | 2017-08-18 09:49 | Discharge Summary ---
Discharge Summary Date of Service Aug 18, 2017. Discharge Summary Admission Date: Aug 13, 2017 at 18:13 Discharge Date: Aug 18, 2017 Discharge Disposition: Home Principal Diagnosis: Thrombocytopenia, possible ITP Recurrent UTIs Medication Reconciliation New Medications: Ciprofloxacin (Ciprofloxacin HCl) 500 Mg Tab 500 MG PO BID for 2 Days, #4 TAB Dexamethasone (Dexamethasone) 4 Mg Tab 40 MG PO QAM for 1 Day, #10 TAB Pantoprazole (Pantoprazole Sodium) 40 Mg Tab 40 MG PO QAM for 1 Day, #1 TAB Continued Medications: Alendronate Sodium (Alendronate Sodium) 70 Mg Tab 70 MG PO WK TAKE THIS MEDICATION EVERY FRIDAY 30 MINUTES BEFORE FIRST MEAL OF THE DAY WITH 8 OUNCES OF WATER AND REMAIN UPRIGHT FOR 30 MINUTES AFTER TAKING Calcium Carbonate (Os-Aung 500) 1,250 Mg Tab 1000 MG PO DAILY, TAB Lisinopril & Hydrochlorothiazi (Zestoretic 20-12.5 mg) 1 Tab Tab 1 TAB PO DAILY Loratadine (Claritin) 10 Mg Tab 10 MG PO DAILY PRN for Allergy Symptoms, 0 Refills Multiple Vitamins W/ Minerals (Womens Multi Vitamin & Mi) 1 Tab Tab 1 TAB PO Q2D Admission Information HPI (per Admitting provider): This is an 82yo F with a PMH of HTN, recurrent UTIs, osteoporosis and thrombocytopenia who presents with worsening urinary symptoms this morning. Patient was recently seen in the ED with a UTI and was sent home on a 10-day course of Cefuroxime. Cultures grew pseudomonas and was sensitive to cephalosporins. Did not have urinary symptoms again until today, when she started to experience increased frequency, pressure and dysuria. Denies any hematuria or pyuria. Had labwork out-patient done today that revealed a thrombocytopenia of 27 and a sodium of 129. Came to ED for further evaluation. Has a history of thrombocytopenia but has not been lower than 69 in the past, per chart review. Has not seen a hand meat salter for further work-up as to etiology of thrombocytopenia. Denies any epistaxis, hematuria, melena or hematochezia. Does easily bruise. Also has a history of hyponatremia that she attributes to a low sodium diet at home. Average sodium on lab work in the past has been 130. Denies any fever, chills, headache, lightheadedness, lethargy, CP , SOB, abd pain, nausea or vomiting. Physical Exam (per Admitting): General Appearance: WD/WN, no apparent distress Head: normocephalic, atraumatic Eyes: normal inspection, PERRL, sclerae normal ENT: normal ENT inspection, hearing grossly normal, pharynx normal (dry mucous membranes ) Neck: supple, thyroid normal, trachea midline Respiratory/Chest: chest non-tender, lungs clear, normal breath sounds, no respiratory distress, no accessory muscle use Cardiovascular: regular rate, rhythm, no murmur, normal peripheral pulses Abdomen/GI: non tender, soft, no organomegaly Back: normal inspection, no CVA tenderness Extremities/Musculoskelatal: normal inspection, no calf tenderness, no pedal edema Neurologic/Psych: no motor/sensory deficits, alert, normal mood/affect, oriented x 3, + pertinent finding (Presence of ecchymosis on both arms ) Hospital Course This is an 82yo F with a PMH of HTN, recurrent UTIs, osteoporosis and thrombocytopenia who presents with worsening urinary symptoms this morning. Acute on Chronic Thrombocytopenia: 08/18 platelets increased to 50k plan is to d/c on Decadron and Protonix x1 more day CBC on Friday outpatient PCP f/u on Friday will d/c on Cipro x2 days 08/17 platelets with little/no improvement continue Decadron, Protonix recheck CBC in AM 08/16 appreciate hem/onc input will give Decadron 40mg once now (possibly 4 days) will add Protonix check CBC in AM 08/15 possible ITP? would appreciate hem onc input if not, possibly will try Decadron outpatient PCP f/u 08/14 platelets at 21k no bleeding or unusual bruising hem/onc consulted -Unclear etiology -Heme onc consulted -Platelet count of 29 today. Previous lowest is 69 -Ordered 1 u platelets; held for now -No apparent active bleeding -Monitor CBC UTI: 08/15 urinary symptoms resolved continue Cipro 08/14 patient is doing well today will continue Cipro until culture returns -H/o recurrent UTIs -Most recently grew pseudomonas -Discussed abx treatments with pharmacy in setting of severe thrombocytopenia -Decided on cipro -Is sensitive to cephalosporins per previous culture -Urine culture pending Hyponatremia: -Likely 2/2 dehydration, low Na diet -Asymptomatic -Per chart review, Na is ~130 on average -IVF resuscitation -Monitor BMP HTN: -Cont home agents -Added clonidine 0.1mg Q6 PRN for SBP >170 Osteoporosis: -Cont home dose vit D, calcium DVT Ppx: SCDs only Code status: DNR per living will PCP: Cayla Dispo: Admitted to [facility]. Discharge planning ordered (patient lives alone, >80 ). Patient seen in collaboration with . Please see addendum. Total time spent on discharge = 35 minutes This includes examination of the patient, discharge planning, medication reconciliation, and communication with other providers. Discharge Instructions Please follow-up with Dr. Kulkarni on August 22 at 10:45AM * You will be discharged on Decadron 40mg on August 19 * You will be discharged on Protonix 40mg on August 19 * You will be discharged on Cipro twice daily for 2 more days * You should have blood work done on August 20
[2017-08-18 10:24] VITALS: BP 116/65; PULSE 88; TEMP 36.5; O2SAT 95
== END 2017-08-18 11:04 | disposition home or self-care (01) | DRG 813 ==
LOC: C.EDB 16:06 → C.MS2W 18:13 → CANRESERV 19:01 → ENRESERV 19:01 → EDBEDREQSVC 19:18 → ENRESERV 19:41 → C.EDA 20:06
PROVIDERS: ADMIT Family Medicine; ATTEND Family Medicine
DX: D69.3 Immune thrombocytopenic purpura (principal); E87.1 Hypo-osmolality and hyponatremia; N39.0 Urinary tract infection, site not specified; I12.9 Hypertensive chronic kidney disease with stage 1 through stage 4 chronic kidney disease, or unspecified chronic kidney disease; M81.0 Age-related osteoporosis without current pathological fracture; N18.3 Chronic kidney disease, stage 3 (moderate); Z79.899 Other long term (current) drug therapy; Z66 Do not resuscitate; Z87.440 Personal history of urinary (tract) infections; Z85.42 Personal history of malignant neoplasm of other parts of uterus; Z82.49 Family history of ischemic heart disease and other diseases of the circulatory system; Z83.79 Family history of other diseases of the digestive system

== ENCOUNTER 2017-09-26 04:02 | Emergency (ER) | payer OTHER, BC ==
[~2017-09-26] VITALS: Ht 165.1 cm; Wt 68.0 kg
[~2017-09-26 04:02] MED LIST changes: -CALC-393 PO; +CALC12502 PO; +CLR10 PO; +CPR500 PO; +DXM4 PO; -MULT-506 PO; +MULT-603 PO; +PRT40 PO
[2017-09-26 04:07] VITALS: BP 165/96; PULSE 96; TEMP 36.9; O2SAT 95; Ht 165.1 cm; Wt 68.0 kg
[2017-09-26] MEDS ORDERED: CEFDINIR 300 MG CAP PO STA (04:46)
[2017-09-26] MEDS ORDERED: CEFD1CAP14 PO (05:03)
--- NOTE | 2017-09-26 06:31 | EMERGENCY ROOM VISIT NOTE ---
History Report prepared by Anibal: Patricia Skinner Under the Supervision of: Dr. Janet Gomez M.D. First contact with patient: 04:16 Chief Complaint: URINARY SYMPTOMS Stated Complaint: URINARY INFECTION Nursing Triage Summary: Pt complains of urinary burning and frequency since yesterday. Denies any fever or chills. History of Present Illness The patient is an 82 year old female who presents to the Emergency Room with complaints of worsening urinary symptoms starting two evenings ago. The patient states that she has burning with urination, pressure in her abdomen, and urination frequency. She reports that she started drinking a lot of water and states that the symptoms went away all day yesterday. She reports that they started last night, but did not drink as much water. The patient denies hematuria, back pain, fever, vomiting, and diarrhea. The patient notes a history of UTIs and states that she is to see her urologist on October 16. The patient notes that she has a history of uterine cancer that resulted in a hysterectomy. She states that she is being treated with effusions for low platelets and gets her last treatment Friday, The patient denies a history of a prolapsed bladder and kidney stones. Source of History: patient Onset: two evenings ago Position: other (global) Quality: pressure, burning Timing: worsening Associated Symptoms: No fevers, No vomiting, No back pain, No diarrhea Note: The patient denies hematuria. Review of Systems See HPI for pertinent positives & negatives. A total of 10 systems reviewed and were otherwise negative. Past Medical & Surgical Medical Problems: (1) CKD (chronic kidney disease) stage 3, GFR 30-59 ml/min (2) HTN (hypertension) (3) Hx of cancer of uterus (4) Osteoporosis (5) Temporary low platelet count Surgical Problems: (1) H/O cataract removal with insertion of prosthetic lens (2) H/O: hysterectomy (3) History of carpal tunnel surgery (4) History of removal of both ovaries (5) History of tonsillectomy and adenoidectomy (6) Hx of cholecystectomy Family History FH: CHF (congestive heart failure) FH: celiac disease Hypertension Social History Smoking Status: Never Smoker Alcohol Use: occasionally Drug Use: none Marital Status: Housing Status: lives alone Occupation Status: retired Current/Historical Medications Scheduled Alendronate Sodium (Alendronate Sodium), 70 MG PO WK Calcium Carbonate (Os-Aung 500), 1,000 MG PO DAILY Cefdinir (Omnicef), 300 MG PO Q12H Ciprofloxacin (Ciprofloxacin HCl), 500 MG PO BID Dexamethasone (Dexamethasone), 40 MG PO QAM Lisinopril & Hydrochlorothiazi (Zestoretic 20-12.5 mg), 1 TAB PO DAILY Multiple Vitamins W/ Minerals (Womens Multi Vitamin & Mi), 1 TAB PO Q2D Pantoprazole (Pantoprazole Sodium), 40 MG PO QAM Scheduled PRN Loratadine (Claritin), 10 MG PO DAILY PRN for Allergy Symptoms Allergies Coded Allergies: Aspirin (Verified Allergy, Mild, RASH, 07/12/17) Lactose (Verified Allergy, Mild, GI SYMPTOMS, 08/13/17) Lactose Intolerant Gluten (Unverified Allergy, Unknown, GI SYMPTOMS, 07/12/17) Codeine (Verified Adverse Reaction, Mild, INDIGESTION, 07/12/17) Physical Exam Vital Signs Date Time Temp Pulse Resp B/P (MAP) Pulse Ox O2 Delivery O2 Flow Rate FiO2 09/26/17 04:07 36.9 96 16 165/96 95 Room Air Physical Exam Vital signs reviewed. General: Well-appearing, elderly, in no significant distress. HEENT: No scleral icterus, PERRLA, neck supple. Atraumatic. Cardiovascular: Regular rate and rhythm, no extra sounds. Pulmonary: Clear to auscultation bilaterally, normal work of breathing. Abdomen: Soft, nontender, nondistended, positive bowel sounds. Musculoskeletal: Atraumatic, no peripheral edema. No CVA tenderness. Neurologic: Patient awake alert and oriented x 3 Skin: Warm, dry, no rash Medical Decision & Procedures Laboratory Results Test 09/26/17 04:15 Urine Color YELLOW Urine Appearance CLEAR (CLEAR) Urine pH 7.5 (4.5-7.5) Urine Specific [place] 1.005 (1.000-1.030) Urine Protein NEG (NEG) Urine Glucose (UA) NEG (NEG) Urine Ketones NEG (NEG) Urine Occult Blood TRACE (NEG) Urine Nitrite NEG (NEG) Urine Bilirubin NEG (NEG) Urine Urobilinogen NEG (NEG) Urine Leukocyte Esterase MODERATE (NEG) Urine WBC (Auto) 10-30 /hpf (0-5) Urine RBC (Auto) 0-4 /hpf (0-4) Urine Hyaline Casts (Auto) 1-5 /lpf (0-5) Urine Epithelial Cells (Auto) >30 /lpf (0-5) Urine Bacteria (Auto) NEG (NEG) Date/Time Source Procedure Growth Status 09/26/17 04:15 Urine , Random Urine Culture - Final THREE TYPES OF ORGANSIMS PRESENT, ALL... Complete Laboratory results per my review. Medications Administered Medications (Trade) Dose Ordered Sig/Giovanni Route Start Time Stop Time Status Last Admin Dose Admin Cefdinir (Omnicef Cap) 300 mg NOW STAT PO 09/26/17 04:46 09/26/17 04:49 DC 09/26/17 05:16 300 MG ED Course 0429: Past medical records reviewed. The patient was evaluated in room A11B. A complete history and physical examination was performed. 0446: Ordered Cefdinir 300 mg PO. 0517: Upon reevaluation, the patient appeared to have improvement of her symptoms. I discussed findings with her. She verbalized agreement of the treatment plan. The patient was discharged home. Medical Decision Differential diagnoses include cystitis, kidney stone, vaginitis, pyelonephritis , dehydration. This patient was evaluated and appeared to be in no significant distress. UA is indicative of likely infection. It is contaminated with epithelium however. After extensive review of the patient's records, it was determined that Omnicef would be a reasonable treatment choice. She was given 300 mg tablet in the ER. She was given a prescription for 300 mg twice daily for 7 days. She will drink plenty of clear fluids and follow-up with her physician for reevaluation. She will return to the ER for worsening of symptoms or any medical concerns. Medication Reconcilliation Current Medication List: was personally reviewed by me Blood Pressure Screening Patient's blood pressure: Elevated blood pressure Blood pressure disposition: Elevated BP felt to be situational Impression Primary Impression: UTI (urinary tract infection) Scribe Attestation The scribe's documentation has been prepared under my direction and personally reviewed by me in its entirety. I confirm that the note above accurately reflects all work, treatment, procedures, and medical decision making performed by me. Departure Information Dispostion Home / Self-Care Prescriptions Cefdinir (Omnicef) 300 Mg Cap 300 MG PO Q12H for 7 Days, #14 CAP Prov: Janet Gomez M.D. 09/26/17 Referrals Baldemar Kulkarni III, M.D. (PCP) Forms HOME CARE DOCUMENTATION FORM, IMPORTANT VISIT INFORMATION Patient Instructions My [facility] Additional Instructions Diangosis: UTI Omnicef 300 mg twice daily for 7 days. Drink plenty of clear fluids. Follow up with your doctor this week for reevaluation. Return to the ED for worsening of symptoms or any medical concerns.
== END 2017-09-26 05:17 | disposition home or self-care (01) ==
LOC: C.EDB 04:03 → C.EDA 05:17
DX: N39.0 Urinary tract infection, site not specified (principal); I12.9 Hypertensive chronic kidney disease with stage 1 through stage 4 chronic kidney disease, or unspecified chronic kidney disease; N18.3 Chronic kidney disease, stage 3 (moderate); M81.0 Age-related osteoporosis without current pathological fracture; D69.6 Thrombocytopenia, unspecified; Z85.42 Personal history of malignant neoplasm of other parts of uterus; Z90.710 Acquired absence of both cervix and uterus; Z90.722 Acquired absence of ovaries, bilateral; Z82.49 Family history of ischemic heart disease and other diseases of the circulatory system; Z83.79 Family history of other diseases of the digestive system; Z88.6 Allergy status to analgesic agent; Z91.011 Allergy to milk products; Z88.5 Allergy status to narcotic agent

== ENCOUNTER 2018-03-15 13:45 | Emergency (ER) | payer OTHER, BC ==
[~2018-03-15] VITALS: Ht 165.1 cm; Wt 66.9 kg
[~2018-03-15 13:45] MED LIST changes: -CPR500 PO; +CYAN100020 PO; -DXM4 PO; -MULT-603 PO; -PRT40 PO
[2018-03-15 13:48] VITALS: TEMP 36.8; Ht 165.1 cm; Wt 66.9 kg
--- NOTE | 2018-03-15 14:35 | EMERGENCY ROOM VISIT NOTE ---
History First contact with patient: 13:52 Chief Complaint: URINARY SYMPTOMS Stated Complaint: URINARY INFECTION Nursing Triage Summary: Pt states she has had a UTI a month ago. And woke up this morning with burning, urgency and pressure. History of Present Illness The patient is a 82 year old female who presents to the Emergency Room with complaints of symptoms of a UTI. The patient states that she has had increased urinary frequency, burning and pressure in her bladder which began this morning. She states this feels similar to previous UTIs. She does also note that she has had diarrhea which started this morning. She reports that she is having increased frequency of bowel movements and does have some cramping with this. She states that the diarrhea seems to be slowing down at this time. She denies nausea/vomiting, abdominal pain, flank pain, fevers, or hematuria. She states that she was here about 1 month ago with a UTI and had a difficult to treat bacteria. She states that she received 5 injections of medications in the last one was 1 week ago. She does report that she has had frequent UTIs for the past [address] Torres of urology. She has a follow-up appointment next month to discuss the possible addition of daily antibiotics. She rates her overall discomfort an 8/10. Review of Systems A complete 10 point review of systems was reviewed with the patient with pertinent positives and negatives as per history of present illness. All else were negative. Past Medical/Surgical History Medical Problems: (1) CKD (chronic kidney disease) stage 3, GFR 30-59 ml/min (2) HTN (hypertension) (3) Hx of cancer of uterus (4) Osteoporosis (5) Temporary low platelet count Surgical Problems: (1) H/O cataract removal with insertion of prosthetic lens (2) H/O: hysterectomy (3) History of carpal tunnel surgery (4) History of removal of both ovaries (5) History of tonsillectomy and adenoidectomy (6) Hx of cholecystectomy Family History FH: CHF (congestive heart failure) FH: celiac disease Hypertension Social History Smoking Status: Never Smoker Alcohol Use: occasionally Drug Use: none Marital Status: Housing Status: lives alone Occupation Status: retired Current/Historical Medications Scheduled Alendronate Sodium (Alendronate Sodium), 70 MG PO WK Calcium Carbonate (Os-Aung 500), 625 MG PO BID Cyanocobalamin (Vitamin B12), 1,000 MCG PO DAILY Lisinopril & Hydrochlorothiazi (Zestoretic 20-12.5 mg), 1 TAB PO DAILY Scheduled PRN Loratadine (Claritin), 10 MG PO DAILY PRN for Allergy Symptoms Physical Exam Vital Signs Date Time Temp Pulse Resp B/P (MAP) Pulse Ox O2 Delivery O2 Flow Rate FiO2 03/15/18 16:41 81 18 156/83 100 03/15/18 15:17 87 18 153/73 96 Room Air 03/15/18 13:48 36.8 88 17 168/79 96 Room Air Physical Exam VITALS: Vitals are noted on the nurse's note and reviewed by myself. Vital signs stable. GENERAL: This is an 82-year-old female, in no acute distress, well-developed well-nourished. SKIN: No rashes noted. HEART: Regular rate and rhythm without murmurs gallops or rubs. LUNGS: Clear to auscultation bilaterally without wheezes, rales or rhonchi. ABDOMEN: Positive bowel sounds x 4. Cholecystectomy scar noted in the right upper quadrant. No abdominal tenderness to palpation. No guarding or rebound tenderness. NEURO: Patient was alert and oriented to person place and time. Medical Decision & Procedures Laboratory Results 03/15/18 14:22 Red Blood Count 4.49, Mean Corpuscular Volume 86.6, Mean Corpuscular Hemoglobin 29.8, Mean Corpuscular Hemoglobin Concent 34.4, Mean Platelet Volume 9.3, Neutrophils (%) (Auto) 79.3, Lymphocytes (%) (Auto) 12.2, Monocytes (%) (Auto) 7.9, Eosinophils (%) (Auto) 0.3, Basophils (%) (Auto) 0.1, Neutrophils # (Auto) 7.37, Lymphocytes # (Auto) 1.13, Monocytes # (Auto) 0.73, Eosinophils # (Auto) 0.03, Basophils # (Auto) 0.01 03/15/18 14:22 Test 03/15/18 14:22 03/15/18 14:46 White Blood Count 9.29 K/uL (4.8-10.8) Red Blood Count 4.49 M/uL (4.2-5.4) Hemoglobin 13.4 g/dL (12.0-16.0) Hematocrit 38.9 % (37-47) Mean Corpuscular Volume 86.6 fL (80-100) Mean Corpuscular Hemoglobin 29.8 pg (25-34) Mean Corpuscular Hemoglobin Concent 34.4 g/dl (32-36) Platelet Count 106 K/uL (130-400) Mean Platelet Volume 9.3 fL (7.4-10.4) Neutrophils (%) (Auto) 79.3 % Lymphocytes (%) (Auto) 12.2 % Monocytes (%) (Auto) 7.9 % Eosinophils (%) (Auto) 0.3 % Basophils (%) (Auto) 0.1 % Neutrophils # (Auto) 7.37 K/uL (1.4-6.5) Lymphocytes # (Auto) 1.13 K/uL (1.2-3.4) Monocytes # (Auto) 0.73 K/uL (0.11-0.59) Eosinophils # (Auto) 0.03 K/uL (0-0.5) Basophils # (Auto) 0.01 K/uL (0-0.2) RDW Standard Deviation 41.6 fL (36.4-46.3) RDW Coefficient of Variation 13.0 % (11.5-14.5) Immature Granulocyte % (Auto) 0.2 % Immature Granulocyte # (Auto) 0.02 K/uL (0.00-0.02) Anion Gap 9.0 mmol/L (3-11) Est Creatinine Clear Calc Drug Dose 48.3 ml/min Estimated GFR () 80.9 Estimated GFR (Non- 69.8 BUN/Creatinine Ratio 20.1 (10-20) Calcium Level 8.6 mg/dl (8.5-10.1) Total Bilirubin 0.6 mg/dl (0.2-1) Aspartate Amino Transf (AST/SGOT) 17 U/L (15-37) Alanine Aminotransferase (ALT/SGPT) 22 U/L (12-78) Alkaline Phosphatase 85 U/L (45-117) Total Protein 6.7 gm/dl (6.4-8.2) Albumin 3.4 gm/dl (3.4-5.0) Globulin 3.3 gm/dl (2.5-4.0) Albumin/Globulin Ratio 1.0 (0.9-2) Urine Color YELLOW Urine Appearance CLOUDY (CLEAR) Urine pH 5.5 (4.5-7.5) Urine Specific Gilbert 1.009 (1.000-1.030) Urine Protein NEG (NEG) Urine Glucose (UA) NEG (NEG) Urine Ketones NEG (NEG) Urine Occult Blood TRACE (NEG) Urine Nitrite NEG (NEG) Urine Bilirubin NEG (NEG) Urine Urobilinogen NEG (NEG) Urine Leukocyte Esterase LARGE (NEG) Urine WBC (Auto) >30 /hpf (0-5) Urine RBC (Auto) 0-4 /hpf (0-4) Urine Hyaline Casts (Auto) 0 /lpf (0-5) Urine Epithelial Cells (Auto) 5-10 /lpf (0-5) Urine Bacteria (Auto) NEG (NEG) Urine Pathogenic Casts /lpf (0) Medical Decision Differential diagnosis includes UTI, C. difficile, among others. The patient is an 82-year-old female who presents today complaining of urinary symptoms as well as diarrhea. Labs revealed hyponatremia with a sodium of 129. Patient does report a history of hyponatremia and sees her primary care provider regarding this. Labs are otherwise unremarkable. Urinalysis shows trace occult blood, leukocyte esterase, greater than 30 white blood cells and 5- 10 epithelial cells. Urine is negative for bacteria. This certainly may represent an early urinary tract infection. Previous records reveal that the patient has had a history of frequent UTIs and in the past has grown out both E. coli and Pseudomonas. Most recently, the patient grew Pseudomonas resistant to fluoroquinolones and was treated with IV cefepime in the [facility]. Given patient' s history of resistant bacteria, I would rather wait for her culture results prior to treating her. Case management will speak with her urologist, Dr. Torres and make an appointment for this week. Patient was agreeable to this treatment plan. The patient was independently evaluated by Dr. Barker, ED attending physician, who agreed with my assessment and treatment plan. Based on the patient's presentation and work up, I feel the patient is stable for outpatient treatment. The patient was educated to return to the emergency department for any worsening of their current condition or new/concerning symptoms. She will follow up with her PCP and urologist. Medication Reconcilliation Current Medication List: was personally reviewed by me Blood Pressure Screening Patient's blood pressure: Elevated blood pressure Blood pressure disposition: Referred to PCP Impression Primary Impression: Symptoms involving urinary system Additional Impression: Hyponatremia Departure Information Dispostion Home / Self-Care Condition GOOD Referrals Baldemar Kulkarni III, M.D. (PCP) Liana Torres MD Patient Instructions My [facility] Additional Instructions Your urine culture is pending. If this shows bacteria we will contact you regarding treatment. Case management will be contacting Dr. Torres to schedule follow-up this week. Contact Dr. Kulkarni in the morning to schedule follow-up with him this week. Let him know that your sodium level was low today. This should be rechecked. Make sure you are staying well-hydrated. You may want to drink electrolyte drinks such as Gatorade. Return to the emergency department with any worsening symptoms, abdominal pain, fever, increased weakness or any other new/concerning symptoms. Problem Qualifiers
[2018-03-15 14:37] LABS: BASO % 0.1 %; BASO ABS # 0.01 K/uL (0-0.2); EOS % 0.3 %; EOS ABS # 0.03 K/uL (0-0.5); HEMATOCRIT 38.9 % (37-47); HEMOGLOBIN 13.4 g/dL (12.0-16.0); IG# 0.02 K/uL (0.00-0.02); LYMPH % 12.2 %; LYMPH ABS # 1.13 K/uL (1.2-3.4); MEAN CELL VOLUME 86.6 fL (80-100); MEAN CORPUSCULAR HEMOGLOBIN 29.8 pg (25-34); MEAN CORPUSCULAR HGB CONC 34.4 g/dl (32-36); MEAN PLATELET VOLUME 9.3 fL (7.4-10.4); MONO % 7.9 %; MONO ABS # 0.73 K/uL (0.11-0.59); NEUT % 79.3 %; NEUT ABS # 7.37 K/uL (1.4-6.5); PLATELET COUNT 106 K/uL (130-400); RED CELL DISTRIBUTION WIDTH SD 41.6 fL (36.4-46.3); WHITE BLOOD COUNT 9.29 K/uL (4.8-10.8)
[2018-03-15 15:02] LABS: ALBUMIN 3.4 gm/dl (3.4-5.0); CALCIUM 8.6 mg/dl (8.5-10.1); CREATININE 0.78 mg/dl (0.60-1.20); POTASSIUM 3.7 mmol/L (3.5-5.1); TOTAL PROTEIN 6.7 gm/dl (6.4-8.2)
[2018-03-15 16:41] VITALS: BP 156/83; PULSE 81; O2SAT 100
--- NOTE | 2018-03-16 01:46 | EMERGENCY ROOM VISIT NOTE ---
ED Visit Note First contact with patient: 13:52 I reviewed the patient's past medical history, medications, and visit nursing notes. I discussed the case with the physician assistant teacher primary, examined the patient, and agree with the findings and plan as documented in the physician assistants note.
== END 2018-03-15 16:59 | disposition home or self-care (01) ==
LOC: C.EDB 13:47 → C.EDC 16:59
DX: R35.0 Frequency of micturition (principal); R30.0 Dysuria; Z87.440 Personal history of urinary (tract) infections; N18.3 Chronic kidney disease, stage 3 (moderate); I12.9 Hypertensive chronic kidney disease with stage 1 through stage 4 chronic kidney disease, or unspecified chronic kidney disease; Z85.42 Personal history of malignant neoplasm of other parts of uterus; Z98.49 Cataract extraction status, unspecified eye; Z96.1 Presence of intraocular lens; Z90.710 Acquired absence of both cervix and uterus; Z90.49 Acquired absence of other specified parts of digestive tract; Z90.722 Acquired absence of ovaries, bilateral; Z82.49 Family history of ischemic heart disease and other diseases of the circulatory system; Z79.899 Other long term (current) drug therapy; E87.1 Hypo-osmolality and hyponatremia

== ENCOUNTER 2018-09-06 12:01 | Inpatient (IN) ==
[2018-09-06] MEDS ORDERED: SODIUM CHLORIDE 0.9% 1000ML 1,000 ML IV ONE (12:12)
--- NOTE | 2018-09-06 12:19 | Emergency Department Note ---
Entered by Stan Tejada acting as a scribe for History of Present Illness General Chief complaint: Leg Weakness, Bilateral Stated complaint: diarrhea Time Seen by Provider: 09/06/18 12:02 Source: patient History of Present Illness Provider complaint: Weakness Onset (ago): day(s) (Past few days ) Location: lower extremity, left and right Radiation: non-radiation Pain Consistency: + constant and + intermittent Relieved By: + none Associated symptoms: + other (Fatigued, no hematochezia, no abdominal pain, no urinary symptoms or incontinence, back pain); no chest pain, no fever/chills, no nausea/vomiting and no shortness of breath The patient is a 83 year old female who presents to the Emergency Room with complaints of constant bilateral leg weakness and intermittent diarrhea over the past few days. The diarrhea typically occurs in the morning and the weakness started in her left leg before being present in her right now as well. She also states she is feeling more fatigued than usual even with staying hydrated and has had back pain, but that is not new. The patient also notes that a little over a month ago she suffered a fall where she fractured her right pelvis. Since then she has been able to ambulate with a walker and has not fallen since. However she also states she has burisitis in her left trochanteric bursa. She denies any abdominal pain, chest pain, shortness of breath, urinary symptoms, incontinence, nausea, vomiting, fevers, or hematochezia. She does have a history of UTIs for which she was treated with antibiotics but does not have any history of C. Diff or cardiac history. She is currently on Tramadol. Home Medications Home Medications Medication Instructions Recorded Confirmed Type denosumab [Prolia] 1 dose SUBCUT Q6M 05/31/18 09/06/18 History lisinopril-hydrochlorothiazide 1 tab PO DAILY 05/31/18 09/06/18 History calcium carbonate 320 mg PO BID 06/20/18 09/06/18 History multivitamin [Multiple Vitamins] 1 tab PO DAILY 06/20/18 09/06/18 History baclofen 10 mg PO BID PRN #30 tab 08/02/18 09/06/18 Rx tramadol 25 - 50 mg PO Q6H PRN #10 tab 08/02/18 09/06/18 Rx Allergies Allergy/AdvReac Type Severity Reaction Status Date / Time aspirin Allergy Mild RASH Verified 09/06/18 13:26 lactose Allergy Mild GI SYMPTOMS Verified 09/06/18 13:26 gluten Allergy Unknown GI SYMPTOMS Verified 09/06/18 13:26 codeine AdvReac Mild INDIGESTION Verified 09/06/18 13:26 Past Med/Surg History Medical History Osteoporosis (Chronic) HTN (hypertension) (Chronic) CKD (chronic kidney disease) stage 3, GFR 30-59 ml/min (Chronic) Hyponatremia (Acute) Thrombocytopenia (Acute) UTI (urinary tract infection) (Acute) Hx of cancer of uterus (Resolved) Temporary low platelet count (Resolved) Surgical History H/O: hysterectomy (Resolved) Hx of cholecystectomy (Resolved) History of tonsillectomy and adenoidectomy (Resolved) History of removal of both ovaries (Resolved) History of carpal tunnel surgery (Resolved) H/O cataract removal with insertion of prosthetic lens (Resolved) "bilat" Family History Other Family history non-contributory Social History marital status: / Current Living Situation: Alone current occupational status: retired Feels Safe at Home: Yes Safety Concerns: Feels Safe At This Time Smoking Status: Never smoker Do You Dip or Chew Tobacco: No Hx Alcohol Use: No Hx Substance Use: No Beliefs That Will Affect Care: None Preferred Language: Bengali Communication Ability: Effective Motor Pool Clerk Required: No Review of Systems See HPI for pertinent positives & negatives. and A total of 10 systems reviewed and were otherwise negative Physical Exam Vital Signs Vital Signs - 24 hr 09/06/18 12:05 09/06/18 12:06 09/06/18 12:21 Temperature 36.5 C Temperature Source Oral Sepsis Recent Fever Within 48 Hours No Sepsis Action Taken by Nursing No Action Required Pulse Rate 76 Pulse Rate [Right Finger] 82 Pulse Rhythm Regular Pulse Rhythm [Right Finger] Regular Pulse Strength Normal Pulse Strength [Right Finger] Normal Respiratory Rate 16 18 Respiratory Effort / Characteristics Non-Labored Non-Labored Respiratory Depth Normal Normal Respiratory Pattern Regular Regular Blood Pressure 139/87 Blood Pressure [Left Arm] 151/50 H Blood Pressure Mean 104 Blood Pressure Mean [Left Arm] 83 Blood Pressure Position Lying Blood Pressure Position [Left Arm] Lying Pulse Oximetry 95 97 97 Oxygen Delivery Method Room Air Room Air Room Air 09/06/18 12:31 09/06/18 12:32 09/06/18 13:00 Temperature Temperature Source Sepsis Recent Fever Within 48 Hours Sepsis Action Taken by Nursing Pulse Rate 83 85 87 Pulse Rate [Right Finger] Pulse Rhythm Pulse Rhythm [Right Finger] Pulse Strength Pulse Strength [Right Finger] Respiratory Rate 20 19 17 Respiratory Effort / Characteristics Respiratory Depth Respiratory Pattern Blood Pressure 143/75 H Blood Pressure [Left Arm] Blood Pressure Mean 97 Blood Pressure Mean [Left Arm] Blood Pressure Position Blood Pressure Position [Left Arm] Pulse Oximetry 97 96 97 Oxygen Delivery Method Room Air 09/06/18 13:01 09/06/18 13:30 09/06/18 13:31 Temperature Temperature Source Sepsis Recent Fever Within 48 Hours Sepsis Action Taken by Nursing Pulse Rate 85 85 85 Pulse Rate [Right Finger] Pulse Rhythm Pulse Rhythm [Right Finger] Pulse Strength Pulse Strength [Right Finger] Respiratory Rate 19 17 16 Respiratory Effort / Characteristics Respiratory Depth Respiratory Pattern Blood Pressure 151/50 H 142/67 H Blood Pressure [Left Arm] Blood Pressure Mean 83 92 Blood Pressure Mean [Left Arm] Blood Pressure Position Blood Pressure Position [Left Arm] Pulse Oximetry 97 94 93 Oxygen Delivery Method 09/06/18 14:00 09/06/18 14:01 09/06/18 14:12 Temperature Temperature Source Sepsis Recent Fever Within 48 Hours Sepsis Action Taken by Nursing Pulse Rate 88 92 H 92 H Pulse Rate [Right Finger] Pulse Rhythm Pulse Rhythm [Right Finger] Pulse Strength Pulse Strength [Right Finger] Respiratory Rate 16 18 16 Respiratory Effort / Characteristics Respiratory Depth Respiratory Pattern Blood Pressure 154/64 H 152/76 H Blood Pressure [Left Arm] Blood Pressure Mean 94 101 Blood Pressure Mean [Left Arm] Blood Pressure Position Blood Pressure Position [Left Arm] Pulse Oximetry 98 97 96 Oxygen Delivery Method 09/06/18 14:16 09/06/18 14:18 09/06/18 14:30 Temperature Temperature Source Sepsis Recent Fever Within 48 Hours Sepsis Action Taken by Nursing Pulse Rate 96 H 93 H 97 H Pulse Rate [Right Finger] Pulse Rhythm Pulse Rhythm [Right Finger] Pulse Strength Pulse Strength [Right Finger] Respiratory Rate 18 16 14 Respiratory Effort / Characteristics Respiratory Depth Respiratory Pattern Blood Pressure 160/69 H 164/75 H Blood Pressure [Left Arm] Blood Pressure Mean 99 104 Blood Pressure Mean [Left Arm] Blood Pressure Position Blood Pressure Position [Left Arm] Pulse Oximetry Oxygen Delivery Method 09/06/18 14:31 09/06/18 14:32 09/06/18 18:30 Temperature Temperature Source Sepsis Recent Fever Within 48 Hours Sepsis Action Taken by Nursing Pulse Rate 94 H 94 H 84 Pulse Rate [Right Finger] Pulse Rhythm Pulse Rhythm [Right Finger] Pulse Strength Pulse Strength [Right Finger] Respiratory Rate 20 17 Respiratory Effort / Characteristics Respiratory Depth Respiratory Pattern Blood Pressure 154/69 H Blood Pressure [Left Arm] Blood Pressure Mean 97 Blood Pressure Mean [Left Arm] Blood Pressure Position Blood Pressure Position [Left Arm] Pulse Oximetry Oxygen Delivery Method 09/06/18 19:51 Temperature 36.7 C Temperature Source Oral Sepsis Recent Fever Within 48 Hours Sepsis Action Taken by Nursing Pulse Rate Pulse Rate [Right Finger] 93 H Pulse Rhythm Pulse Rhythm [Right Finger] Regular Pulse Strength Pulse Strength [Right Finger] Normal Respiratory Rate 18 Respiratory Effort / Characteristics Non-Labored Respiratory Depth Normal Respiratory Pattern Regular Blood Pressure Blood Pressure [Left Arm] 132/60 Blood Pressure Mean Blood Pressure Mean [Left Arm] 84 Blood Pressure Position Blood Pressure Position [Left Arm] Lying Pulse Oximetry 95 Oxygen Delivery Method Room Air General: Non-ill appearing older female in no acute distress. HEENT: Normal cephalic atraumatic. Pupils are equal round and reactive to light. Extraocular movements are intact. Oropharynx is pink with moist mucous membranes. No swelling of the mouth lips or tongue. Neck: Supple with a midline trachea. No meningeal signs or stiffness, no JVD or bruits. No Stridor. Chest: Clear to auscultation bilaterally. No wheezes or rhonchi. No increased work of breathing. Heart: regular rate and rhythm. Abdomen: Soft nontender, nondistended without rebound guarding or rigidity. Extremities: No cyanosis clubbing or edema. No calf tenderness or assymmetry. Pain with flexing right hip secondary to previous pelvic fracture. Pain in left hip from her bursitis. 2+ distal pulses. Normal motor and sensation other than limitation secondary to pain. Spine/Back. Non tender to palpation. No CVA tenderness Skin: Good turgor without rashes. Neurologic exam: Cranial nerves two through 12 are intact. Motor and sensation are intact and symmetrical throughout. GCS 15. Normal speech. Course 1203: Past medical records reviewed. The patient was evaluated in room B02, and a complete history and physical examination were performed. 1215: I reviewed the previous Xray record which shows right pubic ring fractures. 1310: I reevaluated the patient and she is resting comfortably. 1330: I updated the patient on lab results and the plan of treatment. 1340: I spoke to Nadine Howell PA-C who is going to accept the patient for further evaluation. Consultations Consultation #1: I spoke to Nadine Howell PA-C who is going to accept the patient for further evaluation. Time: 13:40 Administered Medications Baclofen (Lioresal) 10 mg PO BID PRN PRN Reason: leg spasm Stop: 10/06/18 15:53 Last Admin: 09/06/18 17:27 Dose: 10 mg Discontinued Medications Sodium Chloride (Nss 1000ml) 1,000 mls @ 999 mls/hr IV .Q1H1M ONE Stop: 09/06/18 13:12 Last Infusion: 09/06/18 13:23 Dose: 0 mls/hr Admin: 09/06/18 12:22 Dose: 999 mls/hr Medical Decision Making Differential Diagnosis Differential Diagnoses include: Diarrhea, C. Diff, dehydration, electrolyte/ metabolic abnormalities, cardiac disease, and infection, amongst others. Medical Records Attestation: I reviewed the patient's medical records. Home Medications Current Medication List: was personally reviewed by me Laboratory Data Attestation: I reviewed the patient's lab results. Result diagrams: 09/06/18 12:20 09/06/18 18:12 Lab Results 09/06/18 09/06/18 09/06/18 Range/Units 12:20 12:20 12:20 WBC 8.84 (4.8-10.8) K/uL RBC 4.59 (4.2-5.4) M/uL Hgb 13.6 (12.0-16.0) g/dL Hct 39.3 (37-47) % MCV 85.6 (80-100) fL MCH 29.6 (25-34) pg MCHC 34.6 (32-36) g/dL RDW Std Deviation 43.9 (36.4-46.3) fL RDW Coeff of Anand 14.1 (11.5-14.5) % Plt Count 420 H (130-400) K/uL MPV 8.5 (7.4-10.4) fL Immature Gran % (Auto) 0.6 % Neut % (Auto) 82.7 % Lymph % (Auto) 9.3 % [place] % (Auto) 6.6 % Eos % (Auto) 0.6 % Baso % (Auto) 0.2 % Immature Gran # (Auto) 0.05 H (0.00-0.02) K/uL Neut # (Auto) 7.32 H (1.4-6.5) K/uL Lymph # (Auto) 0.82 L (1.2-3.4) K/uL [place] # (Auto) 0.58 (0.11-0.59) K/uL Eos # (Auto) 0.05 (0-0.5) K/uL Baso # (Auto) 0.02 (0-0.2) K/uL PT 10.2 (9.0-12.0) Seconds INR 1.0 (0.9-1.1) APTT 29.9 (21.0-31.0) Seconds PTT Ratio 1.2 Sodium 126 L (136-145) mmol/L Potassium 3.7 (3.5-5.1) mmol/L Chloride 90 L (98-107) mmol/L Carbon Dioxide 26 (21-32) mmol/L Anion Gap 10.0 (3-11) BUN 12 (7-18) mg/dl Creatinine 0.74 (0.6-1.2) mg/dl Est Cr Clr Drug Dosing 50.0 ml/min Est GFR ( Amer) 85.6 Est GFR (Non-Af Amer) 73.9 BUN/Creatinine Ratio 16.7 (10-20) Glucose 99 (70-99) mg/dl Osmolality (280-300) mOsm/kg Calcium 8.9 (8.5-10.1) mg/dl Total Bilirubin 0.6 (0.2-1) mg/dl AST 40 H (15-37) U/L ALT 44 (12-78) U/L Alkaline Phosphatase 155 H (45-117) U/L Troponin I 0.272 H* (0-0.045) ng/ml Total Protein 7.3 (6.4-8.2) gm/dl Albumin 3.2 L (3.4-5.0) gm/dl Globulin 4.1 H (2.5-4.0) gm/dl Albumin/Globulin Ratio 0.8 L (0.9-2) Lipase 92 (73-393) U/L Urine Color Urine Appearance (Clear) Urine pH (4.5-7.5) Ur Specific [place] (1.000-1.030) Urine Protein (Negative) Urine Glucose (UA) (Negative) Urine Ketones (Negative) Urine Blood (Negative) Urine Nitrite (Negative) Urine Bilirubin (Negative) Urine Urobilinogen (Negative) Ur Leukocyte Esterase (Negative) Urine WBC (Auto) (0-5) /hpf Urine RBC (Auto) (0-4) /hpf U Hyaline Cast (Auto) (0-5) /lpf U Epithel Cells (Auto) (0-5) /lpf Urine Bacteria (Auto) (Negative) 09/06/18 09/06/18 09/06/18 Range/Units 12:35 18:12 18:12 WBC (4.8-10.8) K/uL RBC (4.2-5.4) M/uL Hgb (12.0-16.0) g/dL Hct (37-47) % MCV (80-100) fL MCH (25-34) pg MCHC (32-36) g/dL RDW Std Deviation (36.4-46.3) fL RDW Coeff of Anand (11.5-14.5) % Plt Count (130-400) K/uL MPV (7.4-10.4) fL Immature Gran % (Auto) % Neut % (Auto) % Lymph % (Auto) % [place] % (Auto) % Eos % (Auto) % Baso % (Auto) % Immature Gran # (Auto) (0.00-0.02) K/uL Neut # (Auto) (1.4-6.5) K/uL Lymph # (Auto) (1.2-3.4) K/uL [place] # (Auto) (0.11-0.59) K/uL Eos # (Auto) (0-0.5) K/uL Baso # (Auto) (0-0.2) K/uL PT (9.0-12.0) Seconds INR (0.9-1.1) APTT (21.0-31.0) Seconds PTT Ratio Sodium 130 L (136-145) mmol/L Potassium 3.9 (3.5-5.1) mmol/L Chloride 96 L (98-107) mmol/L Carbon Dioxide 24 (21-32) mmol/L Anion Gap 10.0 (3-11) BUN 11 (7-18) mg/dl Creatinine 0.89 (0.6-1.2) mg/dl Est Cr Clr Drug Dosing 41.6 ml/min Est GFR ( Amer) 68.5 Est GFR (Non-Af Amer) 59.1 BUN/Creatinine Ratio 12.1 (10-20) Glucose 167 H (70-99) mg/dl Osmolality 274 L (280-300) mOsm/kg Calcium 8.5 (8.5-10.1) mg/dl Total Bilirubin (0.2-1) mg/dl AST (15-37) U/L ALT (12-78) U/L Alkaline Phosphatase (45-117) U/L Troponin I 0.196 H* (0-0.045) ng/ml Total Protein (6.4-8.2) gm/dl Albumin (3.4-5.0) gm/dl Globulin (2.5-4.0) gm/dl Albumin/Globulin Ratio (0.9-2) Lipase (73-393) U/L Urine Color Yellow Urine Appearance Cloudy H (Clear) Urine pH 5.5 (4.5-7.5) Ur Specific [place] 1.011 (1.000-1.030) Urine Protein Negative (Negative) Urine Glucose (UA) Negative (Negative) Urine Ketones Negative (Negative) Urine Blood Trace H (Negative) Urine Nitrite Negative (Negative) Urine Bilirubin Negative (Negative) Urine Urobilinogen Negative (Negative) Ur Leukocyte Esterase 3+ H (Negative) Urine WBC (Auto) >30 H (0-5) /hpf Urine RBC (Auto) 0-4 (0-4) /hpf U Hyaline Cast (Auto) 1-5 (0-5) /lpf U Epithel Cells (Auto) 5-10 H (0-5) /lpf Urine Bacteria (Auto) Negative (Negative) ECG Data Attestation: I personally reviewed and interpreted this ECG as follows: Indication: weakness Rate (beats per minute): 80 Rhythm: normal sinus Findings: + PAC; no acute ischemic change Comparison ECG Date: from (July 26, 2014) Change: the following changes noted (PAC is new) Blood Pressure Blood Pressure Findings: Elevated blood pressure Blood Pressure Disposition: further management by hospitalist [facility] Narrative This patient comes in as described above. She is been having diarrhea the last several mornings. She feels weak after this and she has this in her legs. She did fracture her right pubic bones about a month ago and has been having left hip pain recently and is scheduled to have an injection for bursitis. I think she may have been overusing the left side as the right side is been injured she has been getting along okay at home using a walker. No fall since. Denies chest pain or shortness of breath. She has no focal numbness or weakness. She has nothing she has cauda equina syndrome. no back pain. No abdominal pain. She did use antibiotics in the past for UTI she has no urinary tract infection no history of C. difficile. IV access established and she was hydrated with an IV normal saline bolus . EKG was obtained as well as multiple blood testing given her weakness. I also ordered stool studies and urinalysis and culture. She was reassessed frequently. Her troponin did come back moderately elevated at 0.23. Her EKG does not suggest any acute ischemic changes or ectopy. No chest pain or shortness of breath. Also the sodium is low at 126 and this could cause be causing her to feel little weak as well. She has received IV hydration. I do think she needs to be admitted/observe given her elevated troponin and low sodium as well as weakness. I have consulted the [facility] team to see her for these measures. Impression & Plan Weakness, Elevated troponin, Acute hypokalemia Discharge Plan Visit Data *Final* Discharge Date/Time: 09/06/18 15:10 Chief Complaint: Leg Weakness, Bilateral Stated Complaint: diarrhea ED Provider: Nilay Palacios Discharge Problem: Weakness, Elevated troponin, Acute hypokalemia Patient Disposition: Admitted As Inpatient Discharge Instructions Interventions: ED Discharge Assessment Last Done: 09/06/18 15:10 The scribe's documentation has been prepared under my direction and personally reviewed by me in its entirety. I confirm that the note above accurately reflects all work, treatment, procedures, and medical decision making performed by me.
[2018-09-06 12:33] LABS: Basophils # (auto) 0.02 K/uL (0-0.2); Basophils % (auto) 0.2 %; Eosinophils # (auto) 0.05 K/uL (0-0.5); Eosinophils % (auto) 0.6 %; Hematocrit (blood only) 39.3 % (37-47); Hemoglobin 13.6 g/dL (12.0-16.0); Immature Granulocytes # (auto) 0.05 K/uL (0.00-0.02); Immature Granulocytes % (auto) 0.6 %; Lymphocytes # (auto) 0.82 K/uL (1.2-3.4); Lymphocytes % (auto) 9.3 %; Mean Corpuscular Hgb Conc 34.6 g/dL (32-36); Mean Corpuscular Volume 85.6 fL (80-100); Mean Platelet Volume 8.5 fL (7.4-10.4); Monocytes # (auto) 0.58 K/uL (0.11-0.59); Monocytes % (auto) 6.6 %; Neutrophils # (auto) 7.32 K/uL (1.4-6.5); Neutrophils % (auto) 82.7 %; Platelet Count 420 K/uL (130-400); RDW Coefficient of Variation 14.1 % (11.5-14.5); RDW Standard Deviation 43.9 fL (36.4-46.3); Red Blood Count 4.59 M/uL (4.2-5.4); White Blood Count 8.84 K/uL (4.8-10.8)
[2018-09-06 12:47] LABS: Appearance Urine Cloudy (Clear); Bacteria Urine Automated Negative (Negative); Bilirubin Urine Negative (Negative); Color Urine Yellow; Glucose Urine UA Negative (Negative); Ketones Urine Negative (Negative); Leukocyte Esterase Urine 3+ (Negative); Nitrite Urine Negative (Negative); Protein Urine Negative (Negative); Specific Gravity Urine 1.011 (1.000-1.030); Urobilinogen Urine Negative (Negative); WBC Urine Automated >30 /hpf (0-5); pH Urine 5.5 (4.5-7.5)
[2018-09-06 12:48] LABS: Albumin Level 3.2 gm/dl (3.4-5.0); BUN Creatinine Ratio 16.7 (10-20); Calcium 8.9 mg/dl (8.5-10.1); Est GFR (African American) 85.6; Est GFR (Non-African American) 73.9; Potassium 3.7 mmol/L (3.5-5.1)
[2018-09-06 12:56] LABS: Albumin Globulin Ratio 0.8 (0.9-2); Bilirubin,Total 0.6 mg/dl (0.2-1); Globulin 4.1 gm/dl (2.5-4.0); Total Protein 7.3 gm/dl (6.4-8.2); Troponin I 0.272 ng/ml (0-0.045)
--- NOTE | 2018-09-06 14:21 | History & Physical Report ---
Date of Service September 06, 2018 Assessment & Plan (1) Hyponatremia: Recent reports of diarrhea in setting of HCTZ use. Additionally she is having uncontrolled pain in the left greater trochanteric bursa area. Hyponatremia likely a result of 1 of her combination of the above. Urine studies are pending serum osmolarity is pending. She was given 1 L normal saline in the ER. We will repeat sodium with other labs at 6:30 PM this evening. Orthostatics were negative. Monitor on telemetry. Goal for correction is no more than 8-10 mEq in 24 hours. (2) Elevated troponin: Likely secondary to demand ischemia in the setting of diarrhea and HCTZ use. Patient is asymptomatic with respect to chest pain, shortness of breath or other symptoms consistent with ACS. EKG is normal. Chest x-ray is pending. She has no history of heart disease, heart failure or other cardiac issues. Will trend troponin, and will order routine echocardiogram to ensure no acute wall motion abnormalities are present. (3) Diarrhea: Uncertain cause, however, patient had cefepime for several days approximately 1 month ago for a UTI. UTI is a recurrent issue for her. Therefore, C. difficile diarrhea is higher on the differential diagnosis. Continue contact precautions until C. difficile diarrhea is ruled out. Otherwise stools culture is pending. Continue supportive care with IV fluids and electrolyte replacement as needed. (4) Weakness: PT/OT consult. This is likely secondary to recent hospitalization, recent pubic ring fracture with patient in recovery, low-sodium, diarrhea, or a number of other things. Expect to improve as electrolytes are replaced and pain is more controlled in her hip. (5) Greater trochanteric bursitis: Acute pain in left hip likely secondary to abnormal compensation during recovery from hip fracture. Will consult orthopedics to consider bursa injection while hospitalized to assist with pain which may be contributing to hyponatremia. Continue tramadol at this time. We will also order ice to area. (6) HTN (hypertension): Slightly elevated, however, patient also in pain. Will continue pain control efforts and monitor during the transition to the floor. As we are holding lisinopril/HCTZ in setting of acute diarrhea, will consider adding additional agent if needed. (7) DVT prophylaxis: Lovenox Full code [facility]-to [facility] History of Present Illness Chief Complaint: diarrhea, bilateral leg weakness Primary Care Provider: Baldemar Kulkarni 83 yo F presents to the ER via EMS for severe weakness over the past couple of days. She reports at least 2 days of diarrhea and is notably on HCTZ for hypertension. She was admitted approximately 1 month ago for a pubic ring fracture and has been ambulating with a walker, doing quite well at home. However, she has developed left lateral hip pain in the greater trochanteric bursa area that has become severely painful for her. Tramadol has helped somewhat but not completely. She was scheduled for an outpatient bursa injection later this week. She denies any abdominal pain and has been tolerating p.o. without issue. She denies any nausea or vomiting. She denies any fevers or chills and is otherwise feeling well. Lab work today revealed a sodium of 126. She was given 1 L of normal saline in the ER. Orthostatics were negative. She did receive cefepime for several days for a UTI, which is a recurrent issue for her. In the setting of recent antibiotic use, C. difficile diarrhea is considered. Allergies Allergy/AdvReac Type Severity Reaction Status Date / Time aspirin Allergy Mild RASH Verified 09/06/18 13:26 lactose Allergy Mild GI SYMPTOMS Verified 09/06/18 13:26 gluten Allergy Unknown GI SYMPTOMS Verified 09/06/18 13:26 codeine AdvReac Mild INDIGESTION Verified 09/06/18 13:26 Home Medications Home Medications Medication Instructions Recorded Confirmed Type denosumab [Prolia] 1 dose SUBCUT Q6M 05/31/18 09/06/18 History lisinopril-hydrochlorothiazide 1 tab PO DAILY 05/31/18 09/06/18 History calcium carbonate 320 mg PO BID 06/20/18 09/06/18 History multivitamin [Multiple Vitamins] 1 tab PO DAILY 06/20/18 09/06/18 History baclofen 10 mg PO BID PRN #30 tab 08/02/18 09/06/18 Rx tramadol 25 - 50 mg PO Q6H PRN #10 tab 08/02/18 09/06/18 Rx Past Med/Surg History Medical History Osteoporosis (Chronic) HTN (hypertension) (Chronic) CKD (chronic kidney disease) stage 3, GFR 30-59 ml/min (Chronic) Hyponatremia (Acute) Thrombocytopenia (Acute) UTI (urinary tract infection) (Acute) Hx of cancer of uterus (Resolved) Temporary low platelet count (Resolved) Surgical History H/O: hysterectomy (Resolved) Hx of cholecystectomy (Resolved) History of tonsillectomy and adenoidectomy (Resolved) History of removal of both ovaries (Resolved) History of carpal tunnel surgery (Resolved) H/O cataract removal with insertion of prosthetic lens (Resolved) "bilat" Family History Other Family history non-contributory Social History marital status: / Current Living Situation: Alone current occupational status: retired Feels Safe at Home: Yes Safety Concerns: Feels Safe At This Time Smoking Status: Never smoker Do You Dip or Chew Tobacco: No Hx Alcohol Use: No Hx Substance Use: No Beliefs That Will Affect Care: None Preferred Language: Occitan Communication Ability: Effective 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 Physical Exam 2 Vital Signs (Past 24 Hours): Last Vital Signs Temp 36.5 C 09/06/18 12:06 Pulse 83 09/06/18 12:31 Resp 20 09/06/18 12:31 BP 143/75 H 09/06/18 12:31 Pulse Ox 97 09/06/18 12:31 CONSTITUTIONAL: WNWD, vitals as above, generally well-appearing EYES: EOMI bilaterally, PERRL, normal conjuctivae, no scleral icterus ENT: MMM RESPIRATORY: clear to auscultation bilaterally, no crackles, rales or wheezes, normal respiratory effort CARDIOVASCULAR: regular rate and rhythm, S1 and 2 heard without murmurs, gallops or rubs, no JVD, no peripheral edema GASTROINTESTINAL: normal bowel sounds, soft, nontender,nondistended, no guarding. MUSCULOSKELETAL: strength 5/5 throughout, head is normocephalic and atraumaticable to stand with walker at bedside. L GTB and L pirifomis tenderness to palpation. SKIN: warm and dry NEUROLOGIC: normal cognition, normal speech, CN 2-12 grossly intact, no gross focal deficits. PSYCHIATRIC: alert cooperative and oriented to person, place and time. Euthymic mood Results & Data Laboratory Results Short CBC 09/06/18 Range/Units 12:20 WBC 8.84 (4.8-10.8) K/uL Hgb 13.6 (12.0-16.0) g/dL Hct 39.3 (37-47) % Plt Count 420 H (130-400) K/uL BMP 09/06/18 12:20 Sodium 126 L Potassium 3.7 Chloride 90 L Carbon Dioxide 26 BUN 12 Creatinine 0.74 Glucose 99 Calcium 8.9 Cardiac Enzymes 09/06/18 Range/Units 12:20 Troponin I 0.272 H* (0-0.045) ng/ml Liver Function 09/06/18 Range/Units 12:20 Total Bilirubin 0.6 (0.2-1) mg/dl AST 40 H (15-37) U/L ALT 44 (12-78) U/L Alkaline Phosphatase 155 H (45-117) U/L Albumin 3.2 L (3.4-5.0) gm/dl Urine 09/06/18 Range/Units 12:35 Urine Color Yellow Urine Appearance Cloudy H (Clear) Urine pH 5.5 (4.5-7.5) Ur Specific [place] 1.011 (1.000-1.030) Urine Protein Negative (Negative) Urine Glucose (UA) Negative (Negative) Medications Administered 1L NSS in ER ECG Additional Comments: SR 80, no acute ischemic changes apprecitated Code Status & VTE Plan Code Status Full Code VTE Prophylaxis Plan VTE Prophylaxis will be ordered: Yes Critical Care Time Critical Care Time: No
[2018-09-06] MEDS ORDERED: ONDANSETRON INJ 2 MG/ML 2 ML VIAL IV PRN (15:54)
[2018-09-06] MEDS ORDERED: ACETAMINOPHEN 325 MG TAB PO PRN (15:54)
--- NOTE | 2018-09-06 16:12 | XRay Report ---
XR chest 1V portable CLINICAL HISTORY: 83 years-old Female presenting with elevated trop. TECHNIQUE: Portable upright AP view of the chest was obtained. COMPARISON: 04/26/2014. FINDINGS: Atherosclerosis of the aortic arch. Cardiac silhouette top normal in size. Mild hyperinflation. No fo patrice opacity. No large effusion or pneumothorax. Osseous structures normal. IMPRESSION: 1. Findings suggest emphysema. No focal infiltrate to suggest pneumonia. Electronically signed by: Abundio Dennison M.D. 09/06/2018 4:09 PM
[2018-09-06 16:55] LABS: Partial Thromboplastin Ratio 1.2; Partial Thromboplastin Time 29.9 Seconds (21.0-31.0); Prothrombin Time 10.2 Seconds (9.0-12.0)
[2018-09-06] MEDS: BACLOFEN 10 MG TAB PO PRN (17:27)
[2018-09-06 18:44] LABS: BUN Creatinine Ratio 12.1 (10-20); Calcium 8.5 mg/dl (8.5-10.1); Creatinine Clr Calc Pharmacy 41.6 ml/min; Est GFR (African American) 68.5; Est GFR (Non-African American) 59.1; Potassium 3.9 mmol/L (3.5-5.1)
[2018-09-06 18:50] LABS: Troponin I 0.196 ng/ml (0-0.045)
[2018-09-06] MEDS ORDERED: BACLOFEN 10 MG TAB PO ONE (20:27)
[2018-09-06] MEDS: TRAMADOL HCL 50 MG TABLET PO PRN (21:20)
[2018-09-06] MEDS: CALCIUM CARBONATE 500 MG CHEWABLE TAB PO SCH (21:21)
[2018-09-06] MEDS: MoRPHine SULFATE 4 MG/ML 1 ML CARP\\VIAL IV PRN (23:40)
[2018-09-07] MEDS: MoRPHine SULFATE 4 MG/ML 1 ML CARP\\VIAL IV PRN ×2 (04:22→08:08)
[2018-09-07] MEDS ORDERED: ETHYL CHLORIDE AER SPR 100 ML CAN EXT ONE (07:09)
[2018-09-07] MEDS ORDERED: LIDOCAINE/EPINEPHRINE 2% 1:200,000 20 ML SDV INFIL ONE (07:09)
[2018-09-07] MEDS ORDERED: methylPREDNISolone acetate 80 MG/ML VIAL IA ONE (07:09)
[2018-09-07] MEDS: CALCIUM CARBONATE 500 MG CHEWABLE TAB PO SCH ×2 (07:53→20:35)
[2018-09-07 08:10] LABS: Hematocrit (blood only) 33.1 % (37-47); Hemoglobin 11.4 g/dL (12.0-16.0); Mean Corpuscular Hgb Conc 34.4 g/dL (32-36); Mean Corpuscular Volume 86.4 fL (80-100); Mean Platelet Volume 8.1 fL (7.4-10.4); Platelet Count 381 K/uL (130-400); RDW Coefficient of Variation 14.4 % (11.5-14.5); RDW Standard Deviation 45.5 fL (36.4-46.3); Red Blood Count 3.83 M/uL (4.2-5.4); White Blood Count 8.69 K/uL (4.8-10.8)
[2018-09-07 08:40] LABS: Calcium 8.2 mg/dl (8.5-10.1); Creatinine Clr Calc Pharmacy 67.3 ml/min; Est GFR (African American) 99.1; Est GFR (Non-African American) 85.5; Potassium 3.8 mmol/L (3.5-5.1)
[2018-09-07] MEDS: MULTIVITAMIN TAB PO SCH (11:01)
[2018-09-07] MEDS: ENOXAPARIN INJ 40 MG/0.4 ML SYR SQ SCH (11:02)
[2018-09-07 12:52] LABS: Creatinine Urine Random 55.9 mg/dl
--- NOTE | 2018-09-07 13:30 | Hospitalist Progress Note ---
Date of Service September 07, 2018 Assessment & Plan (1) Hyponatremia: Recent reports of diarrhea in setting of HCTZ use. Urine studies are pending serum osmolarity is pending. She was given 1 L normal saline in the ER. Sodium level has been improving Will monitor height in the hospital (2) Elevated troponin: Likely secondary to demand ischemia . Patient is asymptomatic with respect to chest pain, shortness of breath or other symptoms consistent with ACS. EKG is normal-repeat EKG unremarkable Serial troponins have been negative (3) Diarrhea: Will rule out any C. difficile colitis given the history of prior antibiotic Still has been sent for culture (4) Weakness: PT/OT consult. This is likely secondary to recent hospitalization, recent pubic ring fracture with patient in recovery, low-sodium, diarrhea, or a number of other things. (5) Greater trochanteric bursitis: Acute pain in left hip likely secondary to abnormal compensation during recovery from hip fracture. Will consult orthopedics to consider bursa injection (6) HTN (hypertension): Slightly elevated, however, patient also in pain. Will continue pain control efforts and monitor during the transition to the floor. Hold hydrochlorothiazide for now Need to start some other antihypertensive (7) DVT prophylaxis: Lovenox Full code Disposition-to telemetry Autumn Iglesias DO [facility] Hospitalist. Subjective She is an 83-year-old female with significant past medical history as mentioned in H&P was admitted with bilateral leg pain most on the left lateral hip area. 09/07 The patient was seen and examined in telemetry unit Has had an episode of short runs of fibrillation Denies any chest pain or palpitation Still complains to have pain left lateral hip area and bilateral legs in general Physical Exam 2 Vital Signs (Past 24 Hours): Last Vital Signs Temp 36.3 C L 09/07/18 04:19 Pulse 90 09/07/18 07:34 Resp 16 09/07/18 04:19 BP 123/73 09/07/18 04:19 Pulse Ox 92 09/07/18 04:19 Physical Exam: Lying in bed with moderate distress due to pain in legs Constitutional: WD/WN, vitals as above Eyes: PERRL, conjunctivae normal, anicteric sclerae ENMT: external ear and nose normal, oropharynx normal Respiratory: normal respiratory effort, lungs clear to auscultation Cardiovascular: Rate/Rhythm: regular rate and regular rhythm Heart Sounds: normal S1 and normal S2 Gastrointestinal (Abdomen): Inspection/Auscultation: abdomen normal to inspection and normal bowel sounds Musculoskeletal: Spine: + limited thoraco-lumbar ROM (Due to pain mostly lower lumbar area) and + pain with thoraco-lumbar ROM Hip: + limited ROM of hip (Due to pain. Tenderness over left greater trochanteric area) Neurologic: Alert, awake and oriented times3, generally weak Results & Data Laboratory Results Short CBC 09/07/18 Range/Units 07:58 WBC 8.69 (4.8-10.8) K/uL Hgb 11.4 L (12.0-16.0) g/dL Hct 33.1 L (37-47) % Plt Count 381 (130-400) K/uL BMP 09/06/18 09/07/18 18:12 07:58 Sodium 130 L 132 L Potassium 3.9 3.8 Chloride 96 L 100 Carbon Dioxide 24 24 BUN 11 11 Creatinine 0.89 0.55 L D Glucose 167 H 98 Calcium 8.5 8.2 L Cardiac Enzymes 09/06/18 Range/Units 18:12 Troponin I 0.196 H* (0-0.045) ng/ml Medications Administered Current Inpatient Medications Acetaminophen (Tylenol) 650 mg PO Q4H PRN PRN Reason: Pain or Fever Stop: 10/06/18 15:53 Last Admin: 09/06/18 21:59 Dose: 650 mg Baclofen (Lioresal) 10 mg PO BID PRN PRN Reason: leg spasm Stop: 10/06/18 15:53 Last Admin: 09/06/18 17:27 Dose: 10 mg Calcium Carbonate (Tums) 500 mg PO BID RENEE Stop: 10/06/18 20:59 Last Admin: 09/07/18 07:53 Dose: 500 mg Enoxaparin Sodium (Lovenox) 40 mg SQ QAM RENEE Stop: 10/07/18 08:59 Last Admin: 09/07/18 11:02 Dose: Not Given Morphine Sulfate (Morphine Sulfate) 3 mg IV Q4H PRN PRN Reason: Pain Stop: 09/20/18 22:59 Last Admin: 09/07/18 08:08 Dose: 3 mg Multivitamins (Multivitamin Tab) 1 tab PO DAILY RENEE Stop: 10/07/18 08:59 Last Admin: 09/07/18 11:01 Dose: 1 tab Ondansetron HCl (Zofran) 4 mg IV Q6H PRN PRN Reason: Nausea Stop: 10/06/18 15:53 Tramadol HCl (Ultram) 50 mg PO Q6H PRN PRN Reason: pain Stop: 10/06/18 14:05 Last Admin: 09/06/18 21:20 Dose: 50 mg
[2018-09-07] MEDS: TRAMADOL HCL 50 MG TABLET PO PRN ×2 (14:41→21:09)
--- NOTE | 2018-09-07 15:40 | Orthopedic Consultation ---
Date of Consultation September 07, 2018 Assessment & Plan (1) Greater trochanteric bursitis: Patient was educated on her diagnosis then I gave her an injection of cortisone and lidocaine mixture. Approximate 1 cc of Depo-Medrol and 4 cc of lidocaine. Patient tolerated injection well. Weightbearing as tolerated no restrictions and follow-up as needed with PCP per History of Present Illness Reason for Consultation: Left lateral sided hip pain Attending Physician: Nilton Faye MD History of Present Illness Pleasant female with complaints of left lateral hip pain now for the last several days. No groin pain no traumatic injuries. X-rays left hip are normal. Patient mainly complaining of again left lateral sided hip pain. Allergies Allergy/AdvReac Type Severity Reaction Status Date / Time aspirin Allergy Mild RASH Verified 09/06/18 13:26 lactose Allergy Mild GI SYMPTOMS Verified 09/06/18 13:26 gluten Allergy Unknown GI SYMPTOMS Verified 09/06/18 13:26 codeine AdvReac Mild INDIGESTION Verified 09/06/18 13:26 Home Medications Home Medications Medication Instructions Recorded Confirmed Type denosumab [Prolia] 1 dose SUBCUT Q6M 05/31/18 09/06/18 History lisinopril-hydrochlorothiazide 1 tab PO DAILY 05/31/18 09/06/18 History calcium carbonate 320 mg PO BID 06/20/18 09/06/18 History multivitamin [Multiple Vitamins] 1 tab PO DAILY 06/20/18 09/06/18 History baclofen 10 mg PO BID PRN #30 tab 08/02/18 09/06/18 Rx tramadol 25 - 50 mg PO Q6H PRN #10 tab 08/02/18 09/06/18 Rx Patient History Medical History Osteoporosis (Chronic) HTN (hypertension) (Chronic) CKD (chronic kidney disease) stage 3, GFR 30-59 ml/min (Chronic) Hyponatremia (Acute) Thrombocytopenia (Acute) UTI (urinary tract infection) (Acute) Hx of cancer of uterus (Resolved) Temporary low platelet count (Resolved) Surgical History H/O: hysterectomy (Resolved) Hx of cholecystectomy (Resolved) History of tonsillectomy and adenoidectomy (Resolved) History of removal of both ovaries (Resolved) History of carpal tunnel surgery (Resolved) H/O cataract removal with insertion of prosthetic lens (Resolved) "bilat" Family History Other Family history non-contributory Social History marital status: / Current Living Situation: Alone current occupational status: retired Feels Safe at Home: Yes Safety Concerns: Feels Safe At This Time Smoking Status: Never smoker Do You Dip or Chew Tobacco: No Hx Alcohol Use: No Hx Substance Use: No Beliefs That Will Affect Care: None Communication Ability: Effective Physical Exam 2 Vital Signs (Past 24 Hours): Last Vital Signs Temp 36.3 C L 09/07/18 04:19 Pulse 90 09/07/18 07:34 Resp 16 09/07/18 04:19 BP 123/73 09/07/18 04:19 Pulse Ox 92 09/07/18 04:19 Musculoskeletal: Hip: + limited ROM of hip Severe pain to palpation along the left lateral trochanter. No pain with range of motion left hip.
[2018-09-08] MEDS: TRAMADOL HCL 50 MG TABLET PO PRN ×3 (04:34→21:41)
[2018-09-08] MEDS: MoRPHine SULFATE 4 MG/ML 1 ML CARP\\VIAL IV PRN (08:10)
[2018-09-08] MEDS: CALCIUM CARBONATE 500 MG CHEWABLE TAB PO SCH ×2 (08:13→21:17)
[2018-09-08] MEDS: MULTIVITAMIN TAB PO SCH (08:13)
[2018-09-08] MEDS: ENOXAPARIN INJ 40 MG/0.4 ML SYR SQ SCH (08:13)
[2018-09-08] MEDS: CEFEPIME 1,000 MG in SYRINGE 0 ML IV SCH ×2 (10:53→21:17)
[2018-09-08] MEDS: LISINOPRIL/HCTZ 20/12.5MG 1 TAB TAB PO SCH (10:54)
[2018-09-08 10:56] LABS: BUN Creatinine Ratio 14.5 (10-20); Calcium 8.5 mg/dl (8.5-10.1); Creatinine Clr Calc Pharmacy 52.1 ml/min; Est GFR (Non-African American) 77.7; Potassium 4.1 mmol/L (3.5-5.1)
--- NOTE | 2018-09-08 11:57 | Hospitalist Progress Note ---
Date of Service September 08, 2018 Assessment & Plan (1) Hyponatremia: Recent reports of diarrhea in setting of HCTZ use. Urine studies are pending serum osmolarity is pending. She was given 1 L normal saline in the ER. Sodium level has been improving Will monitor height in the hospital Sodium level is 130 today We will give sodium tablet 1 g twice daily while in the hospital Monitor sodium level (2) Elevated troponin: Likely secondary to demand ischemia . Patient is asymptomatic with respect to chest pain, shortness of breath or other symptoms consistent with ACS. EKG is normal-repeat EKG unremarkable Serial troponins have been negative EKG and echo have been negative for any ACS Telemetry monitoring will be discontinued (3) Diarrhea: Will rule out any C. difficile colitis given the history of prior antibiotic Still has been sent for culture -report pending (4) Weakness: PT/OT consult. This is likely secondary to recent hospitalization, recent pubic ring fracture with patient in recovery, low-sodium, diarrhea, or a number of other things. (5) Greater trochanteric bursitis: Acute pain in left hip likely secondary to abnormal compensation during recovery from hip fracture. Will consult orthopedics to consider bursa injection (6) HTN (hypertension): Slightly elevated, however, patient also in pain. Will continue pain control efforts and monitor during the transition to the floor. Hold hydrochlorothiazide for now Need to start some other antihypertensive (7) DVT prophylaxis: Lovenox Full code Disposition-to telemetry [facility]. (8) UTI (urinary tract infection): Recurrent UTI Urine is growing Pseudomonas and alpha strep We will start cefepime IV as before Subjective She is an 83-year-old female with significant past medical history as mentioned in H&P was admitted with bilateral leg pain most on the left lateral hip area. 09/07 The patient was seen and examined in telemetry unit Has had an episode of short runs of fibrillation Denies any chest pain or palpitation Still complains to have pain left lateral hip area and bilateral legs in general 09/08 The patient was seen and examined in telemetry unit Her pain is a little better She denies any chest pain,palpitation or shortness of breath She has some symptoms suggestive of UTI Physical Exam 2 Vital Signs (Past 24 Hours): Last Vital Signs Temp 36.5 C 09/08/18 11:42 Pulse 87 09/08/18 11:42 Resp 20 09/08/18 11:42 BP 167/79 H 09/08/18 11:42 Pulse Ox 96 09/08/18 11:42 Constitutional: WD/WN, vitals as above Eyes: PERRL, conjunctivae normal, anicteric sclerae ENMT: external ear and nose normal, oropharynx normal Respiratory: normal respiratory effort, lungs clear to auscultation Cardiovascular: Rate/Rhythm: regular rate and regular rhythm Heart Sounds: normal S1 and normal S2 Gastrointestinal (Abdomen): Inspection/Auscultation: abdomen normal to inspection and normal bowel sounds Musculoskeletal: Spine: + limited thoraco-lumbar ROM (Due to pain mostly lower lumbar area) and + pain with thoraco-lumbar ROM Hip: + limited ROM of hip (Due to pain. Tenderness over left greater trochanteric area) Results & Data Laboratory Results [facility] 09/08/18 10:15 Sodium 130 L Potassium 4.1 Chloride 98 Carbon Dioxide 26 BUN 10 Creatinine 0.71 Glucose 104 H Calcium 8.5 Medications Administered Current Inpatient Medications Acetaminophen (Tylenol) 650 mg PO Q4H PRN PRN Reason: Pain or Fever Stop: 10/06/18 15:53 Last Admin: 09/06/18 21:59 Dose: 650 mg Baclofen (Lioresal) 10 mg PO BID PRN PRN Reason: leg spasm Stop: 10/06/18 15:53 Last Admin: 09/06/18 17:27 Dose: 10 mg Calcium Carbonate (Tums) 500 mg PO BID [facility] Stop: 10/06/18 20:59 Last Admin: 09/08/18 08:13 Dose: Not Given Enoxaparin Sodium (Lovenox) 40 mg SQ QAM [facility] Stop: 10/07/18 08:59 Last Admin: 09/08/18 08:13 Dose: Not Given Lisinopril/HCTZ (Prinzide 20/12.5mg) 1 tab PO DAILY [facility] Stop: 10/08/18 10:29 Last Admin: 09/08/18 10:54 Dose: 1 tab Cefepime HCl 1,000 mg/ Syringe 11.3 mls @ 5.5 mls/min IV Q12H [facility] Stop: 09/13/18 09:59 Last Admin: 09/08/18 10:53 Dose: 5.5 mls/min Lactobacillus Acidophilus (Floranex) 4 tab PO TIDM RENEE Stop: 10/08/18 11:59 Morphine Sulfate (Morphine Sulfate) 3 mg IV Q4H PRN PRN Reason: Pain Stop: 09/20/18 22:59 Last Admin: 09/08/18 08:10 Dose: 3 mg Multivitamins (Multivitamin Tab) 1 tab PO DAILY RENEE Stop: 10/07/18 08:59 Last Admin: 09/08/18 08:13 Dose: 1 tab Ondansetron HCl (Zofran) 4 mg IV Q6H PRN PRN Reason: Nausea Stop: 10/06/18 15:53 Tramadol HCl (Ultram) 50 mg PO Q6H PRN PRN Reason: pain Stop: 10/06/18 14:05 Last Admin: 09/08/18 04:34 Dose: 50 mg
[2018-09-08] MEDS: LACTOBACILLUS ACIDOPHILUS (FLORANEX) TAB PO SCH ×2 (13:01→17:11)
[2018-09-08] MEDS: SODIUM CHLORIDE 1 GM TABLET PO SCH (21:37)
[2018-09-09] MEDS: TRAMADOL HCL 50 MG TABLET PO PRN ×3 (04:58→21:12)
[2018-09-09 08:03] LABS: Creatinine Clr Calc Pharmacy 60.7 ml/min; Est GFR (African American) 95.8; Est GFR (Non-African American) 82.7
[2018-09-09] MEDS: LACTOBACILLUS ACIDOPHILUS (FLORANEX) TAB PO SCH ×3 (08:59→17:05)
[2018-09-09] MEDS: CALCIUM CARBONATE 500 MG CHEWABLE TAB PO SCH ×2 (08:59→21:13)
[2018-09-09] MEDS: SODIUM CHLORIDE 1 GM TABLET PO SCH ×2 (08:59→21:14)
[2018-09-09] MEDS: LISINOPRIL/HCTZ 20/12.5MG 1 TAB TAB PO SCH (08:59)
[2018-09-09] MEDS: ENOXAPARIN INJ 40 MG/0.4 ML SYR SQ SCH (09:00)
[2018-09-09] MEDS: MULTIVITAMIN TAB PO SCH (09:03)
--- NOTE | 2018-09-09 10:27 | Infectious Disease Consult ---
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 Sensitivities for cefepime are borderline, but may be able to treat cystitis effectively. Would recommend in the range of 5 days of therapy depending on response. Will follow. (2) Pseudomonas aeruginosa infection: History of Present Illness Reason for Consultation: Recurrent UTI Attending Physician: Matthias Tarango MD History of Present Illness 83-year-old female with history of hypertension, stage III chronic kidney disease, thrombocytopenia, hospitalized 1 month ago for pelvic fracture, who was admitted to the hospital on the with several day history of progressively worsening diarrhea along with severe pain in her left hip. Her stool studies have been unremarkable, and patient is received a cortisone injection to her left hip for trochanteric bursitis with improvement. Has had mild dysuria, and urine culture growing a resistant pseudomonas aeruginosa. Patient has been started on IV cefepime. Denies any flank pain. Currently afebrile. Complaining of tingling in her legs when ambulating. Allergies Allergy/AdvReac Type Severity Reaction Status Date / Time aspirin Allergy Mild RASH Verified 09/06/18 13:26 lactose Allergy Mild GI SYMPTOMS Verified 09/06/18 13:26 gluten Allergy Unknown GI SYMPTOMS Verified 09/06/18 13:26 codeine AdvReac Mild INDIGESTION Verified 09/06/18 13:26 Home Medications Home Medications Medication Instructions Recorded Confirmed Type denosumab [Prolia] 1 dose SUBCUT Q6M 05/31/18 09/06/18 History lisinopril-hydrochlorothiazide 1 tab PO DAILY 05/31/18 09/06/18 History calcium carbonate 320 mg PO BID 06/20/18 09/06/18 History multivitamin [Multiple Vitamins] 1 tab PO DAILY 06/20/18 09/06/18 History baclofen 10 mg PO BID PRN #30 tab 08/02/18 09/06/18 Rx tramadol 25 - 50 mg PO Q6H PRN #10 tab 08/02/18 09/06/18 Rx Patient History Medical History Osteoporosis (Chronic) HTN (hypertension) (Chronic) CKD (chronic kidney disease) stage 3, GFR 30-59 ml/min (Chronic) Hyponatremia (Acute) Thrombocytopenia (Acute) UTI (urinary tract infection) (Acute) Hx of cancer of uterus (Resolved) Temporary low platelet count (Resolved) Surgical History H/O: hysterectomy (Resolved) Hx of cholecystectomy (Resolved) History of tonsillectomy and adenoidectomy (Resolved) History of removal of both ovaries (Resolved) History of carpal tunnel surgery (Resolved) H/O cataract removal with insertion of prosthetic lens (Resolved) "bilat" Family History Other Family history non-contributory Social History marital status: / Current Living Situation: Alone current occupational status: retired Feels Safe at Home: Yes Safety Concerns: Feels Safe At This Time Smoking Status: Never smoker Do You Dip or Chew Tobacco: No Hx Alcohol Use: No Hx Substance Use: No Beliefs That Will Affect Care: None Communication Ability: Effective Review of Systems All systems were reviewed and are negative except as per HPI Physical Exam 2 Vital Signs (Past 24 Hours): Last Vital Signs Temp 36.5 C 09/09/18 07:43 Pulse 82 09/09/18 07:43 Resp 18 09/09/18 07:43 BP 158/77 H 09/09/18 07:43 Pulse Ox 94 09/09/18 07:43 Constitutional: WD/WN, vitals as above comfortable; no acute distress Eyes: PERRL, conjunctivae normal, anicteric sclerae ENMT: external ear and nose normal, oropharynx normal Neck: trachea midline, no thyromegaly neck nontender Respiratory: normal respiratory effort, lungs clear to auscultation normal percussion; does not use accessory muscles Cardiovascular: Rate/Rhythm: regular rate and regular rhythm Heart Sounds: normal S1 and normal S2; no gallop, no murmur and no cardiac rub Vessels: normal peripheral pulses; no JVD Gastrointestinal (Abdomen): normal bowel sounds, soft, nontender, no hepatosplenomegaly Musculoskeletal: no cyanosis or clubbing, extremities motor strength 5/5 Spine: thoracic spine normal to inspection and lumbar spine normal to inspection ; no cervical spinal tenderness Skin: no rashes, warm and dry normal turgor; no lesions Neurologic: patellar DTR's 2+ bilat, sensation intact no focal motor deficits Psychiatric: A+Ox3, euthymic affect Orientation: cooperative Lymphatic: no cervical or axillary lymphadenopathy no inguinal lymphadenopathy Results & Data Laboratory Results [facility] 09/08/18 09/09/18 10:15 07:27 Sodium 130 L Potassium 4.1 Chloride 98 Carbon Dioxide 26 BUN 10 Creatinine 0.71 0.61 Glucose 104 H Calcium 8.5 Diagnostic Findings Microbiology 09/06/18 12:35 Urine,Straight Cath Urine Culture - Final Pseudomonas aeruginosa Alpha strep. not enterococcus XR chest 1V portable CLINICAL HISTORY: 83 years-old Female presenting with elevated trop. TECHNIQUE: Portable upright AP view of the chest was obtained. COMPARISON: 04/26/2014. FINDINGS: Atherosclerosis of the aortic arch. Cardiac silhouette top normal in size. Mild hyperinflation. No focal opacity. No large effusion or pneumothorax. Osseous structures normal. IMPRESSION: 1. Findings suggest emphysema. No focal infiltrate to suggest pneumonia.
--- NOTE | 2018-09-09 10:28 | Infectious Disease Consult ---
Date of Consultation September 09, 2018 Assessment & Plan (1) UTI (urinary tract infection): A can continue cefepime. Would suggest a total of 72 hours. History of Present Illness Attending Physician: Matthias Tarango MD Patient admitted to the hospital with weakness and diarrhea. She states that she was recently placed on low-sodium diet was also given hydrochlorothiazide. She was admitted to the hospital with hyponatremia. On my examination she is out of bed to her chair and she states she is feeling significantly better. She currently denies any diarrhea. She actually states she is having some constipation. She has been afebrile since admission to the hospital. Her white blood cell count has been normal. Her most recent white blood cell count is 8.6. In the emergency room a urinalysis was performed and greater than 30 WBCs but no bacteria. Urine culture grew 70,000 colonies of Pseudomonas and alpha strep which was not identified. She was placed on cefepime and Infectious Diseases was consulted for urinary tract infection. She does admit to some dysuria this morning. She denies any bleeding or hematuria. She denies any frequency or urgency. She denies any abdominal pain. She has no nausea or vomiting. She is tolerating antibiotics well. Her appetite is stable. She denies any chest pain shortness of breath. An echo was done this admission and was negative for vegetation. Her chest x-ray was consistent with emphysema. She has no pulmonary complaints. She is on day 2 of antibiotics. Allergies Allergy/AdvReac Type Severity Reaction Status Date / Time aspirin Allergy Mild RASH Verified 09/06/18 13:26 lactose Allergy Mild GI SYMPTOMS Verified 09/06/18 13:26 gluten Allergy Unknown GI SYMPTOMS Verified 09/06/18 13:26 codeine AdvReac Mild INDIGESTION Verified 09/06/18 13:26 Home Medications Home Medications Medication Instructions Recorded Confirmed Type denosumab [Prolia] 1 dose SUBCUT Q6M 05/31/18 09/06/18 History lisinopril-hydrochlorothiazide 1 tab PO DAILY 05/31/18 09/06/18 History calcium carbonate 320 mg PO BID 06/20/18 09/06/18 History multivitamin [Multiple Vitamins] 1 tab PO DAILY 06/20/18 09/06/18 History baclofen 10 mg PO BID PRN #30 tab 12/23/18 01/27/19 Rx tramadol 25 - 50 mg PO Q6H PRN #10 tab 08/02/18 09/06/18 Rx Patient History Medical History Osteoporosis (Chronic) HTN (hypertension) (Chronic) CKD (chronic kidney disease) stage 3, GFR 30-59 ml/min (Chronic) Hyponatremia (Acute) Thrombocytopenia (Acute) UTI (urinary tract infection) (Acute) Hx of cancer of uterus (Resolved) Temporary low platelet count (Resolved) Surgical History H/O: hysterectomy (Resolved) Hx of cholecystectomy (Resolved) History of tonsillectomy and adenoidectomy (Resolved) History of removal of both ovaries (Resolved) History of carpal tunnel surgery (Resolved) H/O cataract removal with insertion of prosthetic lens (Resolved) "bilat" Family History Other Family history non-contributory Social History marital status: / Current Living Situation: Alone current occupational status: retired Feels Safe at Home: Yes Safety Concerns: Feels Safe At This Time Smoking Status: Never smoker Do You Dip or Chew Tobacco: No Hx Alcohol Use: No Hx Substance Use: No Beliefs That Will Affect Care: None Communication Ability: Effective Review of Systems All remaining review of systems are reviewed and unremarkable. Physical Exam 2 Vital Signs (Past 24 Hours): Last Vital Signs Temp 36.5 C 09/09/18 07:43 Pulse 82 09/09/18 07:43 Resp 18 09/09/18 07:43 BP 158/77 H 09/09/18 07:43 Pulse Ox 94 09/09/18 07:43 Constitutional: WD/WN, vitals as above Eyes: PERRL, conjunctivae normal, anicteric sclerae ENMT: external ear and nose normal, oropharynx normal Neck: normal visual inspection Respiratory: normal respiratory effort, lungs clear to auscultation Cardiovascular: RRR, no murmur, no edema Gastrointestinal (Abdomen): normal bowel sounds, soft, nontender, no hepatosplenomegaly Musculoskeletal: no cyanosis or clubbing, extremities motor strength 5/5 Skin: no rashes, warm and dry Psychiatric: A+Ox3, euthymic affect Results & Data Laboratory Results Microbiology 09/06/18 12:35 Urine,Straight Cath Urine Culture - Final Pseudomonas aeruginosa Alpha strep. not enterococcus
[2018-09-09] MEDS: CEFEPIME 1,000 MG in SYRINGE 0 ML IV SCH ×2 (11:19→21:14)
[2018-09-09] MEDS: BACLOFEN 10 MG TAB PO PRN ×2 (12:34→23:36)
--- NOTE | 2018-09-09 18:22 | Hospitalist Progress Note ---
Date of Service September 09, 2018 Assessment & Plan (1) Hyponatremia: Chronic Hyponatremia Recent reports of diarrhea in setting of HCTZ use. Was started on Sodium tablets Received IV fluids Monitor sodium levels Recurrent UTI: Urine culture: Pseudomonas and alpha strep Continue cefepime IV Appreciate ID input (2) Elevated troponin: Likely secondary to demand ischemia . Denies chest pain EKG no signs of Ischemia ECHO: LV wall motion is normal Troponin trended down (3) Diarrhea: Diarrhea resolved monitor (4) Weakness: PT/OT consult. (5) Greater trochanteric bursitis: Left Greater trochanteric bursitis S/P injection of cortisone and lidocaine mixture Appreciate Orthopedics help PT/OT (6) HTN (hypertension): BP variable continue home meds monitor (7) DVT prophylaxis: Lovenox SQ Code Status Full code Disposition: PT/OT prior to discharge Subjective Patient is seen and examined at bedside Had back pain overnight which currently resolved Left hip pain is much improved Denies chest pain, dyspnea, dizziness No other complaints Physical Exam 2 Vital Signs (Past 24 Hours): Last Vital Signs Temp 36.5 C 09/09/18 15:00 Pulse 82 09/09/18 15:00 Resp 16 09/09/18 15:00 BP 125/72 09/09/18 15:00 Pulse Ox 97 09/09/18 15:00 Physical Exam: Physical Exam: Vitals signs as noted above General Appearance:Moderately built and nourished, no apparent distress Head: normocephalic, Atraumatic Eyes: normal inspection, EOMI Neck: supple, Trachea midline Respiratory/Chest: Normal breath sounds, CTA Cardiovascular: S1, S2, No murmur Abdomen/GI:Soft, Non tender, Bowel sounds present Extremities/Musculoskelatal:normal inspection, 1+ B/L LE edema, Hip tenderness improved Neurologic/Psych:AAOX3, grossly no focal neurological deficits Skin: normal color, warm Results & Data Laboratory Results [facility] 09/09/18 07:27 Creatinine 0.61
[2018-09-10] MEDS: BACLOFEN 10 MG TAB PO PRN ×2 (00:49→16:45)
[2018-09-10] MEDS: TRAMADOL HCL 50 MG TABLET PO PRN ×3 (03:32→15:49)
[2018-09-10 06:38] LABS: Hematocrit (blood only) 33.2 % (37-47); Hemoglobin 11.1 g/dL (12.0-16.0); Mean Corpuscular Hgb Conc 33.4 g/dL (32-36); Mean Corpuscular Volume 86.2 fL (80-100); Mean Platelet Volume 8.3 fL (7.4-10.4); Platelet Count 418 K/uL (130-400); RDW Coefficient of Variation 14.4 % (11.5-14.5); Red Blood Count 3.85 M/uL (4.2-5.4); White Blood Count 8.28 K/uL (4.8-10.8)
[2018-09-10 07:05] LABS: BUN Creatinine Ratio 31.4 (10-20); Calcium 8.6 mg/dl (8.5-10.1); Creatinine Clr Calc Pharmacy 60.7 ml/min; Est GFR (African American) 95.8; Est GFR (Non-African American) 82.7; Potassium 4.2 mmol/L (3.5-5.1)
[2018-09-10] MEDS: LISINOPRIL/HCTZ 20/12.5MG 1 TAB TAB PO SCH (07:41)
[2018-09-10] MEDS: LACTOBACILLUS ACIDOPHILUS (FLORANEX) TAB PO SCH ×3 (07:42→16:44)
[2018-09-10] MEDS: SODIUM CHLORIDE 1 GM TABLET PO SCH ×2 (07:42→21:19)
[2018-09-10] MEDS: MULTIVITAMIN TAB PO SCH (07:42)
[2018-09-10] MEDS: ENOXAPARIN INJ 40 MG/0.4 ML SYR SQ SCH (07:42)
[2018-09-10] MEDS: CALCIUM CARBONATE 500 MG CHEWABLE TAB PO SCH ×2 (07:43→21:15)
[2018-09-10] MEDS: CEFEPIME 1,000 MG in SYRINGE 0 ML IV SCH ×2 (09:33→21:19)
--- NOTE | 2018-09-10 16:52 | Hospitalist Progress Note ---
Date of Service September 10, 2018 Assessment & Plan (1) Hyponatremia: Chronic Hyponatremia Recent reports of diarrhea in setting of HCTZ use. Continue Sodium tablets Received IV fluids Monitor sodium levels Recurrent UTI: Urine culture: Pseudomonas and alpha strep Continue cefepime IV Day #3 Appreciate ID input (2) Elevated troponin: Likely secondary to demand ischemia . Denies chest pain EKG no signs of Ischemia ECHO: LV wall motion is normal Troponin trended down (3) Diarrhea: Diarrhea resolved monitor (4) Weakness: PT/OT consult. (5) Greater trochanteric bursitis: Left Greater trochanteric bursitis S/P injection of cortisone and lidocaine mixture Appreciate Orthopedics help PT/OT (6) HTN (hypertension): BP variable continue home meds also on sodium tablets monitor (7) DVT prophylaxis: Lovenox SQ Code Status Full code Disposition: PT/OT prior to discharge May need Home Health Subjective Patient is seen and examined at bedside States that her left hip pain worsened overnight which is improving this morning Had PT/OT eval today Denies chest pain, dyspnea, dizziness, dysuria No other complaints No family at bedside Physical Exam 2 Vital Signs (Past 24 Hours): Last Vital Signs Temp 36.5 C 09/10/18 15:04 Pulse 84 09/10/18 15:04 Resp 18 09/10/18 15:04 BP 148/78 H 09/10/18 15:04 Pulse Ox 97 09/10/18 15:04 Physical Exam: Physical Exam: Vitals signs as noted above General Appearance:Moderately built and nourished, no apparent distress Head: normocephalic, Atraumatic Eyes: normal inspection, EOMI Neck: supple, Trachea midline Respiratory/Chest: Normal breath sounds, CTA Cardiovascular: S1, S2, No murmur Abdomen/GI:Soft, Non tender, Bowel sounds present Extremities/Musculoskelatal:normal inspection, 1+ B/L LE edema, Non Hip tenderness currently Neurologic/Psych:AAOX3, grossly no focal neurological deficits Skin: normal color, warm Results & Data Laboratory Results Short CBC 09/10/18 Range/Units 05:50 WBC 8.28 (4.8-10.8) K/uL Hgb 11.1 L (12.0-16.0) g/dL Hct 33.2 L (37-47) % Plt Count 418 H (130-400) K/uL BMP 09/10/18 05:50 Sodium 130 L Potassium 4.2 Chloride 95 L Carbon Dioxide 28 BUN 19 H D Creatinine 0.61 Glucose 90 Calcium 8.6
[2018-09-10] MEDS ORDERED: Nursing to Pharmacy Communication ONE (18:04)
--- NOTE | 2018-09-10 20:51 | Infectious Disease Progress Nt ---
Date of Service September 10, 2018 Assessment & Plan (1) UTI (urinary tract infection): Patient with urinary tract infection with resistant Pseudomonas. To continue cefepime as outlined. Will follow. Subjective Patient seen in follow-up for urinary tract infection. Offers no new complaints today. No urinary symptoms. No fever. His pain improved. Review of Systems All systems reviewed & are unremarkable except as noted in HPI & below Physical Exam 2 Vital Signs (Past 24 Hours): Last Vital Signs Temp 36.3 C L 09/10/18 19:13 Pulse 88 09/10/18 19:13 Resp 18 09/10/18 19:13 BP 147/74 H 09/10/18 19:13 Pulse Ox 95 09/10/18 19:13 Constitutional: WD/WN, vitals as above comfortable; no acute distress Eyes: PERRL, conjunctivae normal, anicteric sclerae ENMT: external ear and nose normal, oropharynx normal Neck: trachea midline, no thyromegaly neck nontender Respiratory: normal respiratory effort, lungs clear to auscultation normal percussion; does not use accessory muscles Cardiovascular: Rate/Rhythm: regular rate and regular rhythm Heart Sounds: normal S1 and normal S2; no gallop, no murmur and no cardiac rub Vessels: normal peripheral pulses; no JVD Gastrointestinal (Abdomen): normal bowel sounds, soft, nontender, no hepatosplenomegaly Musculoskeletal: no cyanosis or clubbing, extremities motor strength 5/5 Spine: thoracic spine normal to inspection and lumbar spine normal to inspection ; no cervical spinal tenderness Skin: no rashes, warm and dry normal turgor; no lesions Neurologic: patellar DTR's 2+ bilat, sensation intact no focal motor deficits Psychiatric: A+Ox3, euthymic affect Orientation: cooperative Lymphatic: no cervical or axillary lymphadenopathy no inguinal lymphadenopathy Results & Data Laboratory Results Laboratory Results - last 48 hr 09/10/18 09/10/18 05:50 05:50 WBC 8.28 RBC 3.85 L Hgb 11.1 L Hct 33.2 L MCV 86.2 MCH 28.8 MCHC 33.4 RDW Std Deviation 45.0 RDW Coeff of Anand 14.4 Plt Count 418 H MPV 8.3 Sodium 130 L Potassium 4.2 Chloride 95 L Carbon Dioxide 28 Anion Gap 8.0 BUN 19 H D Creatinine 0.61 Est Cr Clr Drug Dosing 60.7 Est GFR ( Amer) 95.8 Est GFR (Non-Af Amer) 82.7 BUN/Creatinine Ratio 31.4 H Glucose 90 Calcium 8.6 Diagnostic Findings Microbiology 09/11/18 08:45 Stool WBC Smear - Final 09/06/18 12:35 Urine,Straight Cath Urine Culture - Final Pseudomonas aeruginosa Alpha strep. not enterococcus
[2018-09-10] MEDS: TYLENOL ARTHRITIS 650 MG PO PRN (21:27)
[2018-09-11] MEDS: TRAMADOL HCL 50 MG TABLET PO PRN ×4 (01:54→21:32)
[2018-09-11] MEDS: CALCIUM CARBONATE 500 MG CHEWABLE TAB PO SCH ×2 (08:19→20:47)
[2018-09-11] MEDS: ENOXAPARIN INJ 40 MG/0.4 ML SYR SQ SCH (08:20)
[2018-09-11] MEDS: CEFEPIME 1,000 MG in SYRINGE 0 ML IV SCH ×2 (08:20→21:43)
[2018-09-11] MEDS: SODIUM CHLORIDE 1 GM TABLET PO SCH (08:21)
[2018-09-11] MEDS: LACTOBACILLUS ACIDOPHILUS (FLORANEX) TAB PO SCH ×3 (08:21→17:25)
[2018-09-11] MEDS: MULTIVITAMIN TAB PO SCH (08:21)
[2018-09-11] MEDS: LISINOPRIL/HCTZ 20/12.5MG 1 TAB TAB PO SCH (08:21)
[2018-09-11] MEDS: TYLENOL ARTHRITIS 650 MG PO PRN ×2 (08:23→21:32)
[2018-09-11] MEDS ORDERED: DICLOFENAC SOD 1% GEL 100 GM TUBE EXT SCH (09:15)
--- NOTE | 2018-09-11 14:29 | Hospitalist Progress Note ---
Date of Service September 11, 2018 Assessment & Plan (1) Hyponatremia: Chronic Hyponatremia Recent reports of diarrhea in setting of HCTZ use. Sodium tablets not helping, causing elevated BP Received IV fluids Hold HCTZ Monitor sodium levels Recurrent UTI: Urine culture: Pseudomonas and alpha strep Continue cefepime IV Day #4 Appreciate ID input (2) Elevated troponin: Likely secondary to demand ischemia . Denies chest pain EKG no signs of Ischemia ECHO: LV wall motion is normal Troponin trended down (3) Diarrhea: Diarrhea resolved Stool studies pending monitor (4) Weakness: PT/OT consult. (5) Greater trochanteric bursitis: Left Greater trochanteric bursitis S/P injection of cortisone and lidocaine mixture Appreciate Orthopedics help PT/OT (6) HTN (hypertension): BP slightly elevated continue home meds monitor (7) DVT prophylaxis: Lovenox SQ Code Status Full code Disposition: PT/OT prior to discharge May need Home Health Subjective Patient is seen and examined at bedside Doing much better today Hip pain is controlled Denies chest pain, dyspnea, dizziness, dysuria No new complaints Physical Exam 2 Vital Signs (Past 24 Hours): Last Vital Signs Temp 36.3 C L 09/11/18 07:17 Pulse 76 09/11/18 07:17 Resp 20 09/11/18 07:17 BP 167/79 H 09/11/18 07:17 Pulse Ox 95 09/11/18 07:17 Physical Exam: Physical Exam: Vitals signs as noted above General Appearance:Moderately built and nourished, no apparent distress Head: normocephalic, Atraumatic Eyes: normal inspection, EOMI Neck: supple, Trachea midline Respiratory/Chest: Normal breath sounds, CTA Cardiovascular: S1, S2, No murmur Abdomen/GI:Soft, Non tender, Bowel sounds present Extremities/Musculoskelatal:normal inspection, 1+ B/L LE edema, Non Hip tenderness currently Neurologic/Psych:AAOX3, grossly no focal neurological deficits Skin: normal color, warm
--- NOTE | 2018-09-11 15:05 | Infectious Disease Progress Nt ---
Date of Service September 11, 2018 Assessment & Plan (1) UTI (urinary tract infection): Patient with urinary tract infection with resistant Pseudomonas. To continue cefepime as outlined. Will follow. Subjective Patient seen in follow-up for urinary tract infection. Offers no new complaints today. No urinary symptoms. No fever. His pain improved. Review of Systems All systems reviewed & are unremarkable except as noted in HPI & below Physical Exam 2 Vital Signs (Past 24 Hours): Last Vital Signs Temp 36.3 C L 09/11/18 07:17 Pulse 76 09/11/18 07:17 Resp 20 09/11/18 07:17 BP 167/79 H 09/11/18 07:17 Pulse Ox 95 09/11/18 07:17 Constitutional: WD/WN, vitals as above comfortable; no acute distress Eyes: PERRL, conjunctivae normal, anicteric sclerae ENMT: external ear and nose normal, oropharynx normal Neck: trachea midline, no thyromegaly neck nontender Respiratory: normal respiratory effort, lungs clear to auscultation normal percussion; does not use accessory muscles Cardiovascular: Rate/Rhythm: regular rate and regular rhythm Heart Sounds: normal S1 and normal S2; no gallop, no murmur and no cardiac rub Vessels: normal peripheral pulses; no JVD Gastrointestinal (Abdomen): normal bowel sounds, soft, nontender, no hepatosplenomegaly Musculoskeletal: no cyanosis or clubbing, extremities motor strength 5/5 Spine: thoracic spine normal to inspection and lumbar spine normal to inspection ; no cervical spinal tenderness Skin: no rashes, warm and dry normal turgor; no lesions Neurologic: patellar DTR's 2+ bilat, sensation intact no focal motor deficits Psychiatric: A+Ox3, euthymic affect Orientation: cooperative Lymphatic: no cervical or axillary lymphadenopathy no inguinal lymphadenopathy Results & Data Laboratory Results Laboratory Results - last 48 hr 09/10/18 09/10/18 05:50 05:50 WBC 8.28 RBC 3.85 L Hgb 11.1 L Hct 33.2 L MCV 86.2 MCH 28.8 MCHC 33.4 RDW Std Deviation 45.0 RDW Coeff of Anand 14.4 Plt Count 418 H MPV 8.3 Sodium 130 L Potassium 4.2 Chloride 95 L Carbon Dioxide 28 Anion Gap 8.0 BUN 19 H D Creatinine 0.61 Est Cr Clr Drug Dosing 60.7 Est GFR ( Amer) 95.8 Est GFR (Non-Af Amer) 82.7 BUN/Creatinine Ratio 31.4 H Glucose 90 Calcium 8.6 Diagnostic Findings Microbiology 09/11/18 08:45 Stool WBC Smear - Final 09/06/18 12:35 Urine,Straight Cath Urine Culture - Final Pseudomonas aeruginosa Alpha strep. not enterococcus
[2018-09-12] MEDS: MoRPHine SULFATE 4 MG/ML 1 ML CARP\\VIAL IV PRN (00:35)
[2018-09-12] MEDS: CALCIUM CARBONATE 500 MG CHEWABLE TAB PO SCH ×3 (01:55→22:14)
--- NOTE | 2018-09-12 01:58 | Hospitalist Progress Note ---
Date of Service September 12, 2018 Subjective Patient complaining of persistent heartburn symptoms despite twice daily calcium carbonate pills. AP Uncontrolled GERD Initiate daily Famotidine. Physical Exam 2 Vital Signs (Past 24 Hours): Last Vital Signs Temp 36.4 C L 09/11/18 15:43 Pulse 79 09/11/18 15:43 Resp 18 09/11/18 15:43 BP 145/77 H 09/11/18 15:43 Pulse Ox 96 09/11/18 15:43
[2018-09-12] MEDS ORDERED: FAMOTIDINE 20 MG TAB PO SCH (02:00)
[2018-09-12] MEDS: LACTOBACILLUS ACIDOPHILUS (FLORANEX) TAB PO SCH ×3 (08:35→16:53)
[2018-09-12] MEDS: LISINOPRIL 20 MG TAB PO SCH (08:36)
[2018-09-12] MEDS: MULTIVITAMIN TAB PO SCH (08:36)
[2018-09-12] MEDS: TRAMADOL HCL 50 MG TABLET PO PRN ×2 (08:37→16:52)
[2018-09-12] MEDS: ENOXAPARIN INJ 40 MG/0.4 ML SYR SQ SCH (09:24)
[2018-09-12] MEDS: CEFEPIME 1,000 MG in SYRINGE 0 ML IV SCH ×2 (10:07→22:18)
[2018-09-12] MEDS ORDERED: FAMOTIDINE 20 MG TAB PO PRN (11:28)
[2018-09-12] MEDS ORDERED: predniSONE 20 MG TAB PO ONE (12:00)
--- NOTE | 2018-09-12 15:36 | Hospitalist Progress Note ---
Date of Service September 12, 2018 Assessment & Plan (1) Hyponatremia: Chronic Hyponatremia Recent reports of diarrhea in setting of HCTZ use. Sodium tablets not helping, causing elevated BP Received IV fluids Hold HCTZ for now Recurrent UTI: Urine culture: Pseudomonas and alpha strep Continue cefepime IV Day #5/5 Appreciate ID input (2) Elevated troponin: Likely secondary to demand ischemia . Denies chest pain EKG no signs of Ischemia ECHO: LV wall motion is normal Troponin trended down (3) Diarrhea: Diarrhea resolved Stool studies: Negative monitor (4) Weakness: PT/OT consult. (5) Greater trochanteric bursitis: Left Greater trochanteric bursitis S/P injection of cortisone and lidocaine mixture Appreciate Orthopedics help PT/OT Start on Prednisone today Consider Repeat Imaging if no improvement (6) HTN (hypertension): BP slightly elevated likely 2/2 pain continue home meds monitor (7) DVT prophylaxis: Lovenox SQ Code Status Full code Disposition: PT/OT May need Home Health Vs SNF placement Subjective Patient is seen and examined at bedside Reports left hip pain is worse today Offers no other complaints Denies chest pain, dyspnea, dizziness, dysuria No new complaints Physical Exam 2 Vital Signs (Past 24 Hours): Last Vital Signs Temp 36.5 C 09/12/18 14:56 Pulse 88 09/12/18 14:56 Resp 18 09/12/18 14:56 BP 156/67 H 09/12/18 14:56 Pulse Ox 93 09/12/18 14:56 Physical Exam: Physical Exam: Vitals signs as noted above General Appearance:Moderately built and nourished, no apparent distress Head: normocephalic, Atraumatic Eyes: normal inspection, EOMI Neck: supple, Trachea midline Respiratory/Chest: Normal breath sounds, CTA Cardiovascular: S1, S2, No murmur Abdomen/GI:Soft, Non tender, Bowel sounds present Extremities/Musculoskelatal:normal inspection, 1+ B/L LE edema, Non Hip tenderness currently Neurologic/Psych:AAOX3, grossly no focal neurological deficits Skin: normal color, warm
[2018-09-13] MEDS: TRAMADOL HCL 50 MG TABLET PO PRN ×3 (01:15→13:59)
[2018-09-13] MEDS: BACLOFEN 10 MG TAB PO PRN (01:16)
[2018-09-13] MEDS ORDERED: BACLOFEN 10 MG TAB PO STA (04:03)
[2018-09-13] MEDS: LACTOBACILLUS ACIDOPHILUS (FLORANEX) TAB PO SCH ×2 (07:41→12:40)
[2018-09-13] MEDS: MULTIVITAMIN TAB PO SCH (07:42)
[2018-09-13] MEDS: LISINOPRIL 20 MG TAB PO SCH (07:42)
[2018-09-13] MEDS: CALCIUM CARBONATE 500 MG CHEWABLE TAB PO SCH (07:43)
[2018-09-13] MEDS: ENOXAPARIN INJ 40 MG/0.4 ML SYR SQ SCH (07:43)
[2018-09-13] MEDS ORDERED: predniSONE 10 MG TABLET PO SCH (09:00)
--- NOTE | 2018-09-13 13:38 | Hospitalist Progress Note ---
Date of Service September 13, 2018 Assessment & Plan (1) Hyponatremia: Chronic Hyponatremia Recent reports of diarrhea in setting of HCTZ use. Received IV fluids Sodium levels stable Recurrent UTI: Urine culture: Pseudomonas and alpha strep Completed cefepime IV Day #5/ Appreciate ID input (2) Elevated troponin: Likely secondary to demand ischemia . Denies chest pain EKG no signs of Ischemia ECHO: LV wall motion is normal Troponin trended down (3) Diarrhea: Diarrhea resolved Stool studies: Negative monitor (4) Weakness: PT/OT consult. (5) Greater trochanteric bursitis: Left Greater trochanteric bursitis S/P injection of cortisone and lidocaine mixture Appreciate Orthopedics help PT/OT Continue Prednisone course (6) HTN (hypertension): BP slightly elevated likely 2/2 pain continue home meds monitor (7) DVT prophylaxis: Lovenox SQ Code Status Full code Disposition: PT/OT Plan to discharge home with Home Health Subjective Patient is seen and examined at bedside Reports left hip spasm overnight night but currently resolved Eager to get discharged Denies chest pain, dyspnea, dizziness, dysuria Hip pain is much improved No other complaints Physical Exam 2 Vital Signs (Past 24 Hours): Last Vital Signs Temp 36.4 C L 09/13/18 07:34 Pulse 88 09/12/18 14:56 Resp 20 09/13/18 07:34 BP 170/79 H 09/13/18 07:34 Pulse Ox 95 09/13/18 07:34 Physical Exam: Physical Exam: Vitals signs as noted above General Appearance:Moderately built and nourished, no apparent distress Head: normocephalic, Atraumatic Eyes: normal inspection, EOMI Neck: supple, Trachea midline Respiratory/Chest: Normal breath sounds, CTA Cardiovascular: S1, S2, No murmur Abdomen/GI:Soft, Non tender, Bowel sounds present Extremities/Musculoskelatal:normal inspection, 1+ B/L LE edema, Non Hip tenderness currently Neurologic/Psych:AAOX3, grossly no focal neurological deficits Skin: normal color, warm
--- NOTE | 2018-09-13 13:44 | Discharge Summary ---
Date of Service September 13, 2018 Admission HPI Per Admitting Provider 83 yo F presents to the ER via EMS for severe weakness over the past couple of days. She reports at least 2 days of diarrhea and is notably on HCTZ for hypertension. She was admitted approximately 1 month ago for a pubic ring fracture and has been ambulating with a walker, doing quite well at home. However, she has developed left lateral hip pain in the greater trochanteric bursa area that has become severely painful for her. Tramadol has helped somewhat but not completely. She was scheduled for an outpatient bursa injection later this week. She denies any abdominal pain and has been tolerating p.o. without issue. She denies any nausea or vomiting. She denies any fevers or chills and is otherwise feeling well. Lab work today revealed a sodium of 126. She was given 1 L of normal saline in the ER. Orthostatics were negative. She did receive cefepime for several days for a UTI, which is a recurrent issue for her. In the setting of recent antibiotic use, C. difficile diarrhea is considered. Admission Exam Per Admitting Provider CONSTITUTIONAL: WNWD, vitals as above, generally well-appearing EYES: EOMI bilaterally, PERRL, normal conjuctivae, no scleral icterus ENT: MMM RESPIRATORY: clear to auscultation bilaterally, no crackles, rales or wheezes, normal respiratory effort CARDIOVASCULAR: regular rate and rhythm, S1 and 2 heard without murmurs, gallops or rubs, no JVD, no peripheral edema GASTROINTESTINAL: normal bowel sounds, soft, nontender,nondistended, no guarding. MUSCULOSKELETAL: strength 5/5 throughout, head is normocephalic and atraumaticable to stand with walker at bedside. L GTB and L pirifomis tenderness to palpation. SKIN: warm and dry NEUROLOGIC: normal cognition, normal speech, CN 2-12 grossly intact, no gross focal deficits. PSYCHIATRIC: alert cooperative and oriented to person, place and time. Euthymic mood Principal Diagnosis Discharge Information Discharge Diagnosis Hyponatremia UTI Left Greater trochanteric bursitis Discharge Goals Decrease discomfort,Improve function,Improve disease control Discharge Activity Limitations Resume your previous activity Discharge Data Allergies Allergy/AdvReac Type Severity Reaction Status Date / Time aspirin AdvReac Mild RASH Verified 09/10/18 18:14 codeine AdvReac Mild INDIGESTION Verified 09/06/18 13:26 gluten AdvReac Mild GI SYMPTOMS Verified 09/10/18 18:14 lactose AdvReac Mild GI SYMPTOMS Verified 09/10/18 18:14 Consultations 09/06/18 13:47 ED Decision to Admit Stat 09/06/18 15:54 Consult Case Management - Discharge Planning Routine 09/06/18 16:10 Consult Orthopedic Surgery Routine 09/09/18 08:20 Consult Infectious Diseases Routine Procedures Performed CXR: Findings suggest emphysema. No focal infiltrate to suggest pneumonia. Hospital Course (1) Hyponatremia: Chronic Hyponatremia Recent reports of diarrhea in setting of HCTZ use. Received IV fluids Sodium levels stable Recurrent UTI: Urine culture: Pseudomonas and alpha strep Completed cefepime IV Day #5/ Appreciate ID input (2) Elevated troponin: Likely secondary to demand ischemia . Denies chest pain EKG no signs of Ischemia ECHO: LV wall motion is normal Troponin trended down (3) Diarrhea: Diarrhea resolved Stool studies: Negative monitor (4) Weakness: PT/OT consult. (5) Greater trochanteric bursitis: Left Greater trochanteric bursitis S/P injection of cortisone and lidocaine mixture Appreciate Orthopedics help PT/OT Continue Prednisone course (6) HTN (hypertension): BP slightly elevated likely 2/2 pain continue home meds monitor (7) DVT prophylaxis: Lovenox SQ Code Status Full code Disposition: PT/OT Plan to discharge home with Home Health Total Time Total Time Spent Total Time Spent (In Minutes): 40 minutes Total Time Includes: Examination of the Patient, Discharge Planning, Medication Reconciliation and Other Discharge Plan Discharge Items Patient Disposition: Home - Home Health Services Reason For Visit: HYPONATREMIA Discharge Diagnosis: Hyponatremia UTI Left Greater trochanteric bursitis Discharge Goals: Decrease discomfort, Improve disease control and Improve function Activity: Resume your previous activity Exercise/Sports: Gradually increase as tolerated Non-emergency contact: Primary Care Provider and Surgeon Call non-emergency contact if: you have any medication questions, your symptoms worsen, your pain is not controlled, your pain is worsening, your pain is unusual for you, your pain is concerning for you and you have a fever Diet: Heart Healthy Addtl Provider Instructions: Follow up with your PCP on Sep 16, 2018 at 1:45pm Follow up with your Orthopedic Surgeon Dr. Quincy Patten in 2-4 weeks Seek immediate medical attention if your symptoms reoccur or worsen Complete the prednisone course as prescribed Prescriptions: New prednisone 10 mg Tablet 10 mg PO DAILY 5 Days Qty: 5 RF: 0 Continue baclofen 10 mg Tablet 10 mg PO BID PRN (Reason: leg spasm) Qty: 30 RF: 0 tramadol 50 mg Tablet 25 - 50 mg PO Q6H PRN (Reason: pain) Qty: 10 RF: 0 lisinopril-hydrochlorothiazide 20-12.5 mg tablet 1 tab PO DAILY RF: 0 denosumab [Prolia] 60 mg/mL Syringe 1 dose subcut Q6M RF: 0 calcium carbonate 320 mg calcium (750 mg) Tablet,Chewable 320 mg PO BID RF: 0 multivitamin [Multiple Vitamins] Tablet 1 tab PO DAILY RF: 0 Stand-Alone Forms: [facility] Discharge Orders: Discharge Order (Routine); Ordered 09/13/18 Ordered By: Matthias Tarango Admission Data Admit Date/Time: 09/06/18 14:21 Attending Provider: Matthias Tarango Admit Provider: Autumn Iglesias Primary Care Provider: Baldemar Kulkarni Other Providers: Autumn Iglesias ; Abundio Champagne ; Nilton Faye ; Liana Anaya ; IRB Approved Study,Carleen Service: Medical Other Interventions: Discharge Summary Assessment (RN) Last Done: 09/13/18 14:09 Pending Studies at Discharge: No DC Date/Time DO NOT enter until pt leaves facility: 09/13/18 16:14
== END 2018-09-13 16:14 | disposition home health service (06) | DRG 641 ==
LOC: ED 12:01 → 2N 14:21 → SUATTDRO 14:21 → 2N 15:10 → 4E 09-11 19:00

== ENCOUNTER 2018-09-18 17:43 | Inpatient (IN) ==
[2018-09-18 19:14] LABS: Appearance Urine Cloudy (Clear); Bacteria Urine Automated Negative (Negative); Bilirubin Urine Negative (Negative); Color Urine Yellow; Epithelial Cell Urine Auto >30 /lpf (0-5); Glucose Urine UA Negative (Negative); Ketones Urine Negative (Negative); Leukocyte Esterase Urine 3+ (Negative); Nitrite Urine Negative (Negative); Protein Urine Negative (Negative); Specific Gravity Urine 1.006 (1.000-1.030); Urobilinogen Urine Negative (Negative); WBC Urine Automated >30 /hpf (0-5)
[2018-09-18] MEDS ORDERED: CEFEPIME 2,000 MG in SYRINGE 0 ML IV STA (19:50)
[2018-09-18 19:52] LABS: Cast Urine Automated 0 /lpf (0-5)
[2018-09-18] MEDS ORDERED: TRAMADOL HCL 50 MG TABLET PO STA (20:06)
[2018-09-18] MEDS ORDERED: BACLOFEN 10 MG TAB PO ONE (20:07)
[2018-09-18] MEDS ORDERED: CEFEPIME 2,000 MG/20 ML VIAL ONE (20:12)
[2018-09-18 20:13] LABS: Basophils # (auto) 0.01 K/uL (0-0.2); Basophils % (auto) 0.1 %; Eosinophils # (auto) 0.01 K/uL (0-0.5); Eosinophils % (auto) 0.1 %; Hematocrit (blood only) 36.4 % (37-47); Hemoglobin 12.4 g/dL (12.0-16.0); Immature Granulocytes # (auto) 0.02 K/uL (0.00-0.02); Immature Granulocytes % (auto) 0.2 %; Lymphocytes # (auto) 0.97 K/uL (1.2-3.4); Lymphocytes % (auto) 9.9 %; Mean Corpuscular Hgb Conc 34.1 g/dL (32-36); Mean Corpuscular Volume 85.8 fL (80-100); Mean Platelet Volume 8.3 fL (7.4-10.4); Monocytes # (auto) 0.71 K/uL (0.11-0.59); Monocytes % (auto) 7.3 %; Neutrophils # (auto) 8.04 K/uL (1.4-6.5); Neutrophils % (auto) 82.4 %; Platelet Count 435 K/uL (130-400); RDW Coefficient of Variation 14.6 % (11.5-14.5); RDW Standard Deviation 45.7 fL (36.4-46.3); Red Blood Count 4.24 M/uL (4.2-5.4); White Blood Count 9.76 K/uL (4.8-10.8)
[2018-09-18 20:31] LABS: BUN Creatinine Ratio 24.7 (10-20); Calcium 8.1 mg/dl (8.5-10.1); Creatinine Clr Calc Pharmacy 59.7 ml/min; Est GFR (African American) 95.3; Est GFR (Non-African American) 82.2
--- NOTE | 2018-09-18 20:47 | Emergency Department Note ---
Entered by Asia Melissa acting as a scribe for Andrzej Abreu DO History of Present Illness General Chief complaint: Urinary Symptoms Stated complaint: UTI Time Seen by Provider: 09/18/18 17:59 Source: patient History of Present Illness Onset (ago): hour(s) (earlier today) Location: genitals (urinary symptoms) Severity: similar to prior episodes Pain Consistency: + constant Maximum Pain Intensity: 3 Quality: + burning Associated symptoms: + other (urinary burning, urinary frequency, abdominal pain ) The patient is a 83 year old F who presents to the Emergency Room with complaints of constant urinary symptoms starting earlier today. She adds that the reason she came into the ED today is because her PCP was not able to see her. She notes that she is currently experiencing burning, frequency, and abdominal pain. She states that she also has back pain but gets shots for it due to bursitis. She also notes that she has a history of diarrhea, vertigo, and a fall that resulted in her breaking her pelvic bone. Home Medications Home Medications Medication Instructions Recorded Confirmed Type denosumab [Prolia] 1 dose SUBCUT Q6M 05/31/18 09/18/18 History lisinopril-hydrochlorothiazide 1 tab PO DAILY 05/31/18 09/18/18 History calcium carbonate 320 mg PO BID 06/20/18 09/18/18 History multivitamin [Multiple Vitamins] 1 tab PO DAILY 06/20/18 09/18/18 History baclofen 10 mg PO BID PRN #30 tab 08/02/18 09/18/18 Rx tramadol 25 - 50 mg PO Q6H PRN #10 tab 08/02/18 09/18/18 Rx acetaminophen [Tylenol Arthritis 650 mg PO Q12H PRN 09/18/18 09/18/18 History Pain] Allergies Allergy/AdvReac Type Severity Reaction Status Date / Time aspirin AdvReac Mild RASH Verified 09/18/18 18:24 codeine AdvReac Mild INDIGESTION Verified 09/18/18 18:24 gluten AdvReac Mild GI SYMPTOMS Verified 09/18/18 18:24 lactose AdvReac Mild GI SYMPTOMS Verified 09/18/18 18:24 Past Med/Surg History Medical History Osteoporosis (Chronic) HTN (hypertension) (Chronic) CKD (chronic kidney disease) stage 3, GFR 30-59 ml/min (Chronic) Hyponatremia (Acute) Thrombocytopenia (Acute) UTI (urinary tract infection) (Chronic) Hx of cancer of uterus (Resolved) Vertigo (Chronic) Temporary low platelet count (Resolved) Surgical History H/O: hysterectomy (Resolved) Hx of cholecystectomy (Resolved) History of tonsillectomy and adenoidectomy (Resolved) History of removal of both ovaries (Resolved) History of carpal tunnel surgery (Resolved) H/O cataract removal with insertion of prosthetic lens (Resolved) "bilat" Family History Other Family history non-contributory Social History marital status: / Current Living Situation: Alone current occupational status: retired Feels Safe at Home: Yes Smoking Status: Never smoker Hx Alcohol Use: No Hx Substance Use: No Beliefs That Will Affect Care: None Preferred Language: Faroese Review of Systems See HPI for pertinent positives & negatives. and A total of 10 systems reviewed and were otherwise negative Physical Exam Vital Signs Vital Signs - 24 hr 09/18/18 17:52 09/18/18 20:37 Temperature 36.5 C Temperature Source Oral Sepsis Recent Fever Within 48 Hours No Sepsis New/Unexplained Change in Mental Status No Sepsis Action Taken by Nursing No Action Required Pulse Rate 92 H Pulse Rate [Finger] 87 Pulse Rhythm [Finger] Regular Pulse Strength [Finger] Normal Respiratory Rate 22 20 Respiratory Effort / Characteristics Non-Labored Spontaneous Non-Labored Respiratory Depth Normal Normal Respiratory Pattern Regular Regular Blood Pressure 153/76 H Blood Pressure [Right Arm] 171/86 H Blood Pressure Mean 101 Blood Pressure Mean [Right Arm] 114 Blood Pressure Position [Right Arm] Sitting Pulse Oximetry 95 97 Oxygen Delivery Method Room Air Room Air CONSTITUTIONAL/VITAL SIGNS: Reviewed / noted above. GENERAL: Non-toxic in appearance. INTEGUMENTARY: Warm, dry, and [place]. HEAD: Normocephalic. EYES: without scleral icterus or trauma. ENT/OROPHARYNX: clear and moist. LYMPHADENOPATHY/NECK: Is supple without lymphadenopathy or meningismus. RESPIRATORY: Lungs clear and equal. CARDIOVASCULAR: Regular rate and rhythm. GI/ABDOMEN: Soft and nontender. No organomegaly or pulsatile mass. No rebound or guarding. Normal bowel sounds. EXTREMITIES: Warm and well perfused. BACK: No CVA tenderness. NEUROLOGICAL: Intact without focal deficits. PSYCHIATRIC: normal affect. MUSCULOSKELETAL: Normally developed with good muscle tone. Course 1808: Past medical records reviewed. The patient was evaluated in room B6, and a complete history and physical examination were performed. 2014: I reviewed the patient's case with Rafael Swanson Hospitalist. He will evaluate the patient for further management. Consultations Consultation #1: I [facility] the patient[facility] He will evaluate the patient for further management. Time: 21:14 Administered Medications Discontinued Medications Baclofen (Lioresal) 10 mg PO ONE ONE Stop: 09/18/18 20:08 Last Admin: 09/18/18 20:13 Dose: 10 mg Cefepime HCl (Maxipime) Confirm Administered Dose 2,000 mg .ROUTE .STK-MED ONE Stop: 09/18/18 20:13 Last Admin: 09/18/18 20:13 Dose: 2,000 mg Cefepime HCl 2,000 mg/ Syringe 22.6 mls @ 5.5 mls/min IV NOW STA Stop: 09/18/18 19:54 Last Admin: 09/18/18 20:14 Dose: Not Given Tramadol HCl (Ultram) 100 mg PO NOW STA Stop: 09/18/18 20:07 Last Admin: 09/18/18 20:13 Dose: 100 mg Medical Decision Making Differential Diagnosis Etiologies such as appendicitis, diverticulitis, PUD, biliary pathology, UTI, pancreatitis, obstruction, mesenteric ischemia, aortic pathology, infections, inflammatory bowel disease, renal colic, as well as others were entertained. Medical Records Attestation: I reviewed the patient's medical records. Home Medications Current Medication List: was personally reviewed by me Laboratory Data Attestation: I reviewed the patient's lab results. Result diagrams: 09/18/18 20:03 09/18/18 20:03 Lab Results 09/18/18 09/18/18 09/18/18 Range/Units 18:37 20:03 20:03 WBC 9.76 (4.8-10.8) K/uL RBC 4.24 (4.2-5.4) M/uL Hgb 12.4 (12.0-16.0) g/dL Hct 36.4 L (37-47) % MCV 85.8 (80-100) fL MCH 29.2 (25-34) pg MCHC 34.1 (32-36) g/dL RDW Std Deviation 45.7 (36.4-46.3) fL RDW Coeff of Anand 14.6 H (11.5-14.5) % Plt Count 435 H (130-400) K/uL MPV 8.3 (7.4-10.4) fL Immature Gran % (Auto) 0.2 % Neut % (Auto) 82.4 % Lymph % (Auto) 9.9 % Hill % (Auto) 7.3 % Eos % (Auto) 0.1 % Baso % (Auto) 0.1 % Immature Gran # (Auto) 0.02 (0.00-0.02) K/uL Neut # (Auto) 8.04 H (1.4-6.5) K/uL Lymph # (Auto) 0.97 L (1.2-3.4) K/uL Hill # (Auto) 0.71 H (0.11-0.59) K/uL Eos # (Auto) 0.01 (0-0.5) K/uL Baso # (Auto) 0.01 (0-0.2) K/uL Sodium 127 L (136-145) mmol/L Potassium 4.0 (3.5-5.1) mmol/L Chloride 92 L (98-107) mmol/L Carbon Dioxide 28 (21-32) mmol/L Anion Gap 7.0 (3-11) BUN 15 (7-18) mg/dl Creatinine 0.62 (0.6-1.2) mg/dl Est Cr Clr Drug Dosing 59.7 ml/min Est GFR ( Amer) 95.3 Est GFR (Non-Af Amer) 82.2 BUN/Creatinine Ratio 24.7 H (10-20) Glucose 113 H (70-99) mg/dl Calcium 8.1 L (8.5-10.1) mg/dl Urine Color Yellow Urine Appearance Cloudy H (Clear) Urine pH 7.0 (4.5-7.5) Ur Specific [place] 1.006 (1.000-1.030) Urine Protein Negative (Negative) Urine Glucose (UA) Negative (Negative) Urine Ketones Negative (Negative) Urine Blood 2+ H (Negative) Urine Nitrite Negative (Negative) Urine Bilirubin Negative (Negative) Urine Urobilinogen Negative (Negative) Ur Leukocyte Esterase 3+ H (Negative) Urine WBC (Auto) >30 H (0-5) /hpf Urine RBC (Auto) 0-4 (0-4) /hpf U Hyaline Cast (Auto) 0 (0-5) /lpf U Epithel Cells (Auto) >30 H (0-5) /lpf Urine Bacteria (Auto) Negative (Negative) Ur Renal Epithelial Cell Not Reportable Blood Pressure Blood Pressure Findings: Elevated blood pressure Blood Pressure Disposition: further management by hospitalist MDM Narrative This is an 83-year-old female who presents to the ED with a chief complaint of urinary symptoms. Details listed above. Her symptoms have been going on for about 24 hours or less. The patient has a history of UTI that is resistant to oral antibiotics. She denies any fevers or flank pain. Urine is suggestive of infection. CBC and chemistry panel was unremarkable other than some hyponatremia. This appears to be somewhat chronic. The patient was treated with IV cefepime. She will be seen by the hospitalist for further inpatient evaluation. Impression & Plan UTI (urinary tract infection) Discharge Plan Visit Data Chief Complaint: Urinary Symptoms Stated Complaint: UTI ED Provider: Andrzej Abreu Discharge Problem: UTI (urinary tract infection) Patient Disposition: Admitted As Inpatient Forms Stand Alone Forms: [employer] [facility] [employer] Prescriptions Prescriptions: No Action baclofen 10 mg Tablet 10 mg PO BID PRN (Reason: leg spasm) Qty: 30 RF: 0 tramadol 50 mg Tablet 25 - 50 mg PO Q6H PRN (Reason: pain) Qty: 10 RF: 0 acetaminophen [Tylenol Arthritis Pain] 650 mg Tablet Extended Release 650 mg PO Q12H PRN (Reason: Pain) RF: 0 lisinopril-hydrochlorothiazide 20-12.5 mg tablet 1 tab PO DAILY RF: 0 denosumab [Prolia] 60 mg/mL Syringe 1 dose subcut Q6M RF: 0 calcium carbonate 320 mg calcium (750 mg) Tablet,Chewable 320 mg PO BID RF: 0 multivitamin [Multiple Vitamins] Tablet 1 tab PO DAILY RF: 0 Referrals Referrals: Rockcastle,Baldemar E [Primary Care Provider] - The scribe's documentation has been prepared under my direction and personally reviewed by me in its entirety. I confirm that the note above accurately reflects all work, treatment, procedures, and medical decision making performed by me.
[2018-09-18] MEDS ORDERED: CONSULT PHARMACY STA (21:12)
--- NOTE | 2018-09-18 21:30 | History & Physical Report ---
Date of Service September 18, 2018 Assessment & Plan (1) Recurrent UTI: (2) Pseudomonas aeruginosa infection: -Admit to [facility] [place] -Patient presenting from home with reports of urinary burning and frequency as well as intractable left buttock pain -Patient recently admitted to [facility] 09/06 through 09/13 for hyponatremia, Pseudomonas UTI, trochanteric bursitis -During previous admission, urine culture grew a resistant Pseudomonas which patient completed 5 days of IV cefepime for as per ID recommendations -UA suggestive of UTI today, consider colonization however given patient's symptoms, will start IV cefepime -Afebrile, no leukocytosis -ID and urology consults (3) Hyponatremia: -History of chronic hyponatremia, baseline Na+ ~ 130 -Na+ noted to be 127 today -Possibly due to HCTZ use in combination with diarrhea and vomiting episodes this a.m. -Hold HCTZ and start gentle IVF -Follow sodium levels closely (4) Diarrhea: -Patient reports 2 episodes of diarrhea this a.m. -Noted recent stool studies during previous admission were negative -Will recheck for C. difficile given recent antibiotic use (5) Disorder of SI (sacroiliac) joint: -During recent admission, patient received left hip injection for greater trochanteric bursitis and placed on a short course of prednisone -Patient now with pain in her left buttock and tenderness of the left SI joint -Consult Ortho for possible SI joint injection (6) HTN (hypertension): -BP mildly elevated, likely due to pain/having vomiting after taking blood pressure medicines this a.m. -Continue lisinopril, holding HCTZ as above -Monitor BP, make adjustments in antihypertensives as needed (7) DVT prophylaxis: -SQ heparin History of Present Illness Chief Complaint: Urinary symptoms, left buttock pain Primary Care Provider: Baldemar Kulkarni 83-year-old female who presents the ED with urinary symptoms and left buttock pain. Patient was recently admitted to [facility] 09/06 through 09/13 for hyponatremia, UTI, trochanteric bursitis. Patient's urine culture from that admission grew a resistant Pseudomonas, which she completed 5 days of IV cefepime for by recommendations of ID. Hyponatremia was felt to be due to diarrhea in combination with HCTZ use. This improved with IVF. Patient also received an injection in her left hip for the trochanteric bursitis with subsequent improvement in symptoms. She was also placed on a short course of prednisone. Patient reports she had been doing well until last evening when she developed left buttock pain. She was taking her home doses of prescribed baclofen and tramadol without much improvement in her pain. When she woke up this morning, she was having urinary frequency and burning. She then decided to present to the ED for further evaluation. Patient reports one episode of vomiting this morning however attributes that to taking her medications on empty stomach. She reports two episodes of diarrhea. No bright red bleeding per rectum or dark tarry stools. She reports some mild cramping with the diarrhea however denies other abdominal pain. No chest pain or shortness of breath. She denies lightheadedness, dizziness, diaphoresis, syncopal events. In the ED, patient's UA is suggestive of UTI. Na+ is 127. She was given IV cefepime and oral baclofen and tramadol. Allergies Allergy/AdvReac Type Severity Reaction Status Date / Time aspirin AdvReac Mild RASH Verified 09/18/18 18:24 codeine AdvReac Mild INDIGESTION Verified 09/18/18 18:24 gluten AdvReac Mild GI SYMPTOMS Verified 09/18/18 18:24 lactose AdvReac Mild GI SYMPTOMS Verified 09/18/18 18:24 Home Medications Home Medications Medication Instructions Recorded Confirmed Type denosumab [Prolia] 1 dose SUBCUT Q6M 05/31/18 09/18/18 History lisinopril-hydrochlorothiazide 1 tab PO DAILY 05/31/18 09/18/18 History multivitamin [Multiple Vitamins] 1 tab PO DAILY 06/20/18 09/18/18 History baclofen 10 mg PO BID PRN #30 tab 08/02/18 09/18/18 Rx tramadol 25 - 50 mg PO Q6H PRN #10 tab 08/02/18 09/18/18 Rx Saccharomyces boulardii [Florastor] 250 mg PO BID 09/18/18 09/18/18 History acetaminophen [Tylenol Arthritis 650 mg PO Q12H PRN 09/18/18 09/18/18 History Pain] calcium-vitamin D3-vitamin K 1 tab PO BID 09/18/18 09/18/18 History Past Med/Surg History Medical History 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) Greater trochanteric bursitis (Chronic) Osteoporosis (Chronic) HTN (hypertension) (Chronic) CKD (chronic kidney disease) stage 3, GFR 30-59 ml/min (Chronic) Hyponatremia (Chronic) Hx of cancer of uterus (Resolved) Temporary low platelet count (Resolved) Surgical History H/O: hysterectomy (Resolved) Hx of cholecystectomy (Resolved) History of tonsillectomy and adenoidectomy (Resolved) History of removal of both ovaries (Resolved) History of carpal tunnel surgery (Resolved) H/O cataract removal with insertion of prosthetic lens (Resolved) "bilat" Family History Other Family history non-contributory Social History marital status: / Current Living Situation: Alone Current Living Situation Comment: Lives at home currently current occupational status: retired Other Information That Helps Us Care for You: No Feels Safe at Home: Yes Safety Concerns: Feels Safe At This Time Smoking Status: Never smoker Do You Dip or Chew Tobacco: No Second Hand Exposure: No Hx Alcohol Use: Yes Alcohol type: wine Alcohol Intake Frequency: holidays/ special occasions only Hx Substance Use: No Beliefs That Will Affect Care: None Preferred Language: Azerbaijani Communication Ability: Effective Lathe Winder Required: No Review of Systems ROS per HPI, all other systems reviewed and negative Physical Exam 2 Vital Signs (Past 24 Hours): Last Vital Signs Temp 36.5 C 09/18/18 17:52 Pulse 87 09/18/18 20:37 Resp 20 09/18/18 20:37 BP 171/86 H 09/18/18 20:37 Pulse Ox 97 09/18/18 20:37 Constitutional: WD/WN, vitals as above Eyes: PERRL, conjunctivae normal, anicteric sclerae ENMT: external ear and nose normal, oropharynx normal Respiratory: normal respiratory effort, lungs clear to auscultation Cardiovascular: Rate/Rhythm: regular rate and regular rhythm Vessels: normal peripheral pulses Extremities: no edema Gastrointestinal (Abdomen): normal bowel sounds, soft, nontender, no hepatosplenomegaly Musculoskeletal: no cyanosis or clubbing, extremities motor strength 5/5 Spine: + buttock tenderness (Left) Left SI joint tenderness with palpation Skin: no rashes, warm and dry Neurologic: PERRL, EOMI, accommodation nl, no face palsy, no dysarthria Psychiatric: A+Ox3, euthymic affect Results & Data Laboratory Results Laboratory Last Values WBC 9.76 K/uL (4.8-10.8) 09/18/18 20:03 RBC 4.24 M/uL (4.2-5.4) 09/18/18 20:03 Hgb 12.4 g/dL (12.0-16.0) 09/18/18 20:03 Hct 36.4 % (37-47) L 09/18/18 20:03 MCV 85.8 fL (80-100) 09/18/18 20:03 MCH 29.2 pg (25-34) 09/18/18 20:03 MCHC 34.1 g/dL (32-36) 09/18/18 20:03 RDW Std Deviation 45.7 fL (36.4-46.3) 09/18/18 20:03 RDW Coeff of Anand 14.6 % (11.5-14.5) H 09/18/18 20:03 Plt Count 435 K/uL (130-400) H 09/18/18 20:03 MPV 8.3 fL (7.4-10.4) 09/18/18 20:03 Immature Gran % (Auto) 0.2 % 09/18/18 20:03 Neut % (Auto) 82.4 % 09/18/18 20:03 Lymph % (Auto) 9.9 % 09/18/18 20:03 Vance % (Auto) 7.3 % 09/18/18 20:03 Eos % (Auto) 0.1 % 09/18/18 20:03 Baso % (Auto) 0.1 % 09/18/18 20:03 Immature Gran # (Auto) 0.02 K/uL (0.00-0.02) 09/18/18 20:03 Neut # (Auto) 8.04 K/uL (1.4-6.5) H 09/18/18 20:03 Lymph # (Auto) 0.97 K/uL (1.2-3.4) L 09/18/18 20:03 Vance # (Auto) 0.71 K/uL (0.11-0.59) H 09/18/18 20:03 Eos # (Auto) 0.01 K/uL (0-0.5) 09/18/18 20:03 Baso # (Auto) 0.01 K/uL (0-0.2) 09/18/18 20:03 Sodium 127 mmol/L (136-145) L 09/18/18 20:03 Potassium 4.0 mmol/L (3.5-5.1) 09/18/18 20:03 Chloride 92 mmol/L (98-107) L 09/18/18 20:03 Carbon Dioxide 28 mmol/L (21-32) 09/18/18 20:03 Anion Gap 7.0 (3-11) 09/18/18 20:03 BUN 15 mg/dl (7-18) 09/18/18 20:03 Creatinine 0.62 mg/dl (0.6-1.2) 09/18/18 20:03 Est Cr Clr Drug Dosing 59.7 ml/min 09/18/18 20:03 Est GFR ( Amer) 95.3 09/18/18 20:03 Est GFR (Non-Af Amer) 82.2 09/18/18 20:03 BUN/Creatinine Ratio 24.7 (10-20) H 09/18/18 20:03 Glucose 113 mg/dl (70-99) H 09/18/18 20:03 Calcium 8.1 mg/dl (8.5-10.1) L 09/18/18 20:03 Urine Color Yellow 09/18/18 18:37 Urine Appearance Cloudy (Clear) H 09/18/18 18:37 Urine pH 7.0 (4.5-7.5) 09/18/18 18:37 Ur Specific [place] 1.006 (1.000-1.030) 09/18/18 18:37 Urine Protein Negative (Negative) 09/18/18 18:37 Urine Glucose (UA) Negative (Negative) 09/18/18 18:37 Urine Ketones Negative (Negative) 09/18/18 18:37 Urine Blood 2+ (Negative) H 09/18/18 18:37 Urine Nitrite Negative (Negative) 09/18/18 18:37 Urine Bilirubin Negative (Negative) 09/18/18 18:37 Urine Urobilinogen Negative (Negative) 09/18/18 18:37 Ur Leukocyte Esterase 3+ (Negative) H 09/18/18 18:37 Urine WBC (Auto) >30 /hpf (0-5) H 09/18/18 18:37 Urine RBC (Auto) 0-4 /hpf (0-4) 09/18/18 18:37 U Hyaline Cast (Auto) 0 /lpf (0-5) 09/18/18 18:37 U Epithel Cells (Auto) >30 /lpf (0-5) H 09/18/18 18:37 Urine Bacteria (Auto) Negative (Negative) 09/18/18 18:37 Ur Renal Epithelial Cell Not Reportable 09/18/18 18:37 Code Status & VTE Plan Code Status Patient is a DNR as per my discussion with her. VTE Prophylaxis Plan VTE Prophylaxis will be ordered: Yes Supervising Physician Co-Signing Physician Notes Agree with above H and P. Briefly 83F with Hx of recurrent UTI, ITP, CKD 3, presents with back pain and burning micturtion, afebrile. No nausea.Resting comfortably and hemodynamically stable. 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 Hyponatremia chronic hyponatremia with NA ~130 Na 127 today gentle fluids follow labs in am
[2018-09-18] MEDS ORDERED: ACETAMINOPHEN 325 MG TAB PO PRN (22:37)
[2018-09-18] MEDS ORDERED: CEFEPIME CONSULT ACTIVE PRN (22:37)
[2018-09-18] MEDS: HEPARIN SOD 5,000 UNIT/0.5 ML VIAL SQ SCH (23:58)
[2018-09-19] MEDS: SODIUM CHLORIDE 0.9% 1000ML 1,000 ML IV SCH ×2 (00:03→12:29)
[2018-09-19] MEDS: BACLOFEN 10 MG TAB PO PRN ×2 (02:07→23:04)
[2018-09-19] MEDS: TRAMADOL HCL 50 MG TABLET PO PRN ×4 (02:08→21:47)
[2018-09-19] MEDS: HEPARIN SOD 5,000 UNIT/0.5 ML VIAL SQ SCH ×3 (05:09→21:45)
[2018-09-19 08:27] LABS: Hematocrit (blood only) 35.9 % (37-47); Hemoglobin 11.9 g/dL (12.0-16.0); Mean Corpuscular Hgb Conc 33.1 g/dL (32-36); Mean Corpuscular Volume 86.7 fL (80-100); Mean Platelet Volume 8.4 fL (7.4-10.4); Platelet Count 386 K/uL (130-400); RDW Coefficient of Variation 14.8 % (11.5-14.5); RDW Standard Deviation 46.6 fL (36.4-46.3); Red Blood Count 4.14 M/uL (4.2-5.4); White Blood Count 8.96 K/uL (4.8-10.8)
[2018-09-19] MEDS: MULTIVITAMIN TAB PO SCH (08:55)
[2018-09-19] MEDS: SACCHAROMYCES BOULARDII 250 MG CAP PO SCH ×2 (08:55→21:43)
[2018-09-19] MEDS: CALCIUM 600MG + VIT D 400 IU TAB PO SCH ×2 (08:55→21:43)
[2018-09-19] MEDS: LISINOPRIL 20 MG TAB PO SCH (08:56)
[2018-09-19 09:05] LABS: BUN Creatinine Ratio 17.2 (10-20); Calcium 7.8 mg/dl (8.5-10.1); Creatinine Clr Calc Pharmacy 54.4 ml/min; Est GFR (African American) 92.4; Est GFR (Non-African American) 79.8; Potassium 3.6 mmol/L (3.5-5.1)
--- NOTE | 2018-09-19 09:47 | Urology Consultation ---
Date of Consultation September 19, 2018 Assessment & Plan (1) Recurrent UTI: Patient is open to the idea of leaving this urine untreated. It may be a colonization. More iv antibiotics are only going to worsen her diarrhea. If we opt to treat this urine culture we should add clean intermittent cath bladder drainage for several days to help her clear it. I suggest cathing her 3 times per day while she is here. She is not interested in continuing cathing at home or wearing a indwelling rosas at home. At 83 yrs of age I can understand her wishes. Present on Admission?: Yes History of Present Illness Reason for Consultation: UTI Requesting Physician: Dr Osorio Attending Physician: Lilian Osorio MD History of Present Illness I am asked by Dr Osorio to evaluate and treat patient for UTIS. SHe has been followed for a time at the [facility] office. She has urinary retention which we think makes it diffiult to eradicate the UTIs. She has considered catheterization (clean intermittent cath, or Rosas) and has decided against it. She tells me today that her reason for coming to ER for treatment were primarily for left hip pain and secondarily for diarrhea. Her bladder UTI symptoms are quite mild now and probably what she would consider her baseline amount of burning and bother. At admission she is not febrile and has normal white count. Urine is + for white cells. Her last few urines have grown pseudomonas but mid 2017 she also had a run of e coli utis. Allergies Allergy/AdvReac Type Severity Reaction Status Date / Time aspirin AdvReac Mild RASH Verified 09/18/18 18:24 codeine AdvReac Mild INDIGESTION Verified 09/18/18 18:24 gluten AdvReac Mild GI SYMPTOMS Verified 09/18/18 18:24 lactose AdvReac Mild GI SYMPTOMS Verified 09/18/18 18:24 Home Medications Home Medications Medication Instructions Recorded Confirmed Type denosumab [Prolia] 1 dose SUBCUT Q6M 05/31/18 09/18/18 History lisinopril-hydrochlorothiazide 1 tab PO DAILY 05/31/18 09/18/18 History multivitamin [Multiple Vitamins] 1 tab PO DAILY 06/20/18 09/18/18 History baclofen 10 mg PO BID PRN #30 tab 08/02/18 09/18/18 Rx tramadol 25 - 50 mg PO Q6H PRN #10 tab 12/23/18 02/08/19 Rx Saccharomyces boulardii [Florastor] 250 mg PO BID 09/18/18 09/18/18 History acetaminophen [Tylenol Arthritis 650 mg PO Q12H PRN 09/18/18 09/18/18 History Pain] calcium-vitamin D3-vitamin K 1 tab PO BID 09/18/18 09/18/18 History Patient History Medical History 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) Greater trochanteric bursitis (Chronic) Osteoporosis (Chronic) HTN (hypertension) (Chronic) CKD (chronic kidney disease) stage 3, GFR 30-59 ml/min (Chronic) Hyponatremia (Chronic) Hx of cancer of uterus (Resolved) Temporary low platelet count (Resolved) Surgical History H/O: hysterectomy (Resolved) Hx of cholecystectomy (Resolved) History of tonsillectomy and adenoidectomy (Resolved) History of removal of both ovaries (Resolved) History of carpal tunnel surgery (Resolved) H/O cataract removal with insertion of prosthetic lens (Resolved) "bilat" Family History Other Family history non-contributory Social History marital status: / Current Living Situation: Alone Current Living Situation Comment: Lives at home currently current occupational status: retired Other Information That Helps Us Care for You: No Feels Safe at Home: Yes Safety Concerns: Feels Safe At This Time Smoking Status: Never smoker Do You Dip or Chew Tobacco: No Second Hand Exposure: No Hx Alcohol Use: Yes Alcohol type: wine Alcohol Intake Frequency: holidays/ special occasions only Hx Substance Use: No Beliefs That Will Affect Care: None Preferred Language: Indonesian Communication Ability: Effective Electrotherapist Required: No Review of Systems PMH- ITP HTN incomplete bladder emptying frequent utis Soc Hx- no tobacco, , retired Fam Hx- not relevant for her advanced age ROS- no fever or chills, no nausea or emesis, + diarrhea, no rash, no seizures / + restless legs and leg tremors, no chest pain, no shortness of breath/ + weakness Physical Exam 2 Vital Signs (Past 24 Hours): Last Vital Signs Temp 36.6 C 09/19/18 07:52 Pulse 92 H 09/19/18 07:52 Resp 18 09/19/18 07:52 BP 158/72 H 09/19/18 07:52 Pulse Ox 96 09/19/18 07:52 Constitutional: WD/WN, vitals as above + thin and healthy appearing appears younger than her stated age Respiratory: normal respiratory effort, lungs clear to auscultation Gastrointestinal (Abdomen): abdomen flat, not distended, + bowel sounds, not tender, no suprapubic tenderness , no masses Psychiatric: A+Ox3, euthymic affect Lymphatic: no cervical or axillary lymphadenopathy no preauricular lymphadenopathy and no subclavicular lymphadenopathy
--- NOTE | 2018-09-19 10:08 | Orthopedic Consultation ---
Date of Consultation September 19, 2018 Assessment & Plan (1) Sacroiliac joint pain: Patient does have acute localized SI joint pain, x-rays last taken 2013 did not demonstrate significant DJD or fracture however there was contralateral healing comminuted superior and inferior pubic rami fractures on the right side. Will obtain up-to-date x-rays at this time. For SI joint pain , recommend Lidoderm patch, physical therapy and anti-inflammatories if if not contraindicated. We do not perform intra-articular SI joint/axial skeleton injections inpatient or outpatient, these particular type of injections are performed by our pain management physicians and nonoperative sports med physicians. Patient may follow-up if symptoms persist or worsen with spine team for further evaluation and treatment or with Dr. Parada, [facility] management. Recommend discussing with inpatient pain management further if seeking injection at this time. Thank you for the consultation History of Present Illness Reason for Consultation: Left SI joint injection Attending Physician: Lilian Osorio MD History of Present Illness Patient is a 83-year-old female with past medical history for recurrent UTI presented to the emergency department with urinary symptoms and left buttock pain subsequently admitted for further inpatient treatment. Patient had prior left hip trochanteric bursitis which was injected at her last hospital stay between September 06 and September 13. Those symptoms have since resolved and the patient now has complaints of several days of pain to her left posterior hip. She denies trauma, denies numbness and tingling down left lower extremity. Denies known lumbar spine issues. Allergies Allergy/AdvReac Type Severity Reaction Status Date / Time aspirin AdvReac Mild RASH Verified 09/18/18 18:24 codeine AdvReac Mild INDIGESTION Verified 09/18/18 18:24 gluten AdvReac Mild GI SYMPTOMS Verified 09/18/18 18:24 lactose AdvReac Mild GI SYMPTOMS Verified 09/18/18 18:24 Home Medications Home Medications Medication Instructions Recorded Confirmed Type denosumab [Prolia] 1 dose SUBCUT Q6M 05/31/18 09/18/18 History lisinopril-hydrochlorothiazide 1 tab PO DAILY 05/31/18 09/18/18 History multivitamin [Multiple Vitamins] 1 tab PO DAILY 06/20/18 09/18/18 History baclofen 10 mg PO BID PRN #30 tab 08/02/18 09/18/18 Rx tramadol 25 - 50 mg PO Q6H PRN #10 tab 08/02/18 09/18/18 Rx Saccharomyces boulardii [Florastor] 250 mg PO BID 09/18/18 09/18/18 History acetaminophen [Tylenol Arthritis 650 mg PO Q12H PRN 09/18/18 09/18/18 History Pain] calcium-vitamin D3-vitamin K 1 tab PO BID 09/18/18 09/18/18 History Patient History Medical History 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) Greater trochanteric bursitis (Chronic) Osteoporosis (Chronic) HTN (hypertension) (Chronic) CKD (chronic kidney disease) stage 3, GFR 30-59 ml/min (Chronic) Hyponatremia (Chronic) Hx of cancer of uterus (Resolved) Temporary low platelet count (Resolved) Surgical History H/O: hysterectomy (Resolved) Hx of cholecystectomy (Resolved) History of tonsillectomy and adenoidectomy (Resolved) History of removal of both ovaries (Resolved) History of carpal tunnel surgery (Resolved) H/O cataract removal with insertion of prosthetic lens (Resolved) "bilat" Family History Other Family history non-contributory Social History marital status: / Current Living Situation: Alone Current Living Situation Comment: Lives at home currently current occupational status: retired Other Information That Helps Us Care for You: No Feels Safe at Home: Yes Safety Concerns: Feels Safe At This Time Smoking Status: Never smoker Do You Dip or Chew Tobacco: No Second Hand Exposure: No Hx Alcohol Use: Yes Alcohol type: wine Alcohol Intake Frequency: holidays/ special occasions only Hx Substance Use: No Beliefs That Will Affect Care: None Preferred Language: Norwegian Communication Ability: Effective Care Management Specialist Required: No Review of Systems Constitutional: as per Subjective / HPI Physical Exam 2 Vital Signs (Past 24 Hours): Last Vital Signs Temp 36.6 C 09/19/18 07:52 Pulse 92 H 09/19/18 07:52 Resp 18 09/19/18 07:52 BP 158/72 H 09/19/18 07:52 Pulse Ox 96 09/19/18 07:52 Physical Exam: Left lower extremity is neurovascular sensory intact, + EHL/FHL /TA/GS, patient guards with range of motion, admits to pain to her posterior lateral hip, straight leg raise replicates her posterior hip pain however does not have radicular radiating past the hip. Decreased muscle strength secondary to pain. Positive tenderness to palpation overlying left SI joint. Constitutional: WD/WN, vitals as above
[2018-09-19] MEDS: LIDOCAINE 5% 1 PATCH TD SCH (11:24)
--- NOTE | 2018-09-19 11:29 | XRay Report ---
PELVIS 3 VIEWS CLINICAL HISTORY: Left-sided sacroiliac pain. FINDINGS: 3 views of the bony pelvis are compared to study dated 07/28/2018. The skeletal structures are osteopenic. There are subacute/healing right pubic ring fractures. No acute fracture is clearly i dentified. Specifically, there is no clear radiographic evidence of sacral fracture. Sclerotic degene rative change is noted in the sacroiliac joints. Mild arthritic change is seen in the hips. The overlying soft tissues are normal in appearance. No bowel obstruction is identified. Vascular patrice cifications are noted in the pelvis. IMPRESSION: 1. There is no radiographic evidence of acute fracture. Note that the sacrum is not well assessed by x-ray, and if there is clinical concern for sacral insufficiency fracture CT, MRI, or nuclear bone sc an would be much more sensitive. 2. There are healing right pubic ring fractures. 3. Osteopenia and degenerative change as above. Electronically signed by: Buster Anguiano M.D. 09/19/2018 11:27 AM
--- NOTE | 2018-09-19 16:14 | Infectious Disease Consult ---
Date of Consultation September 19, 2018 Assessment & Plan (1) Recurrent UTI: 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 Given borderline sensitivities for cefepime, have change patient to ceftazidime�avibactam. Would recommend 7-day course. Will discuss with all involved. Will follow. (2) Pseudomonas aeruginosa infection: History of Present Illness Reason for Consultation: Recurrent UTI Attending Physician: iLlian Osorio MD History of Present Illness 83-year-old female well known to me from previous infectious disease consultation, with history of recurrent urinary tract infections, recently hospitalized with what was diagnosed as trochanteric bursitis along with pseudomonal urinary tract infection. She was treated with IV cefepime, but re - presents now with recurrent dysuria and persistent left buttock pain not associated with fever, chills, or flank pain. She has been started on IV cefepime with minimal improvement. Urine cultures again positive for Pseudomonas aeruginosa with SUNITHA of 8 for cefepime. Allergies Allergy/AdvReac Type Severity Reaction Status Date / Time aspirin AdvReac Mild RASH Verified 09/18/18 18:24 codeine AdvReac Mild INDIGESTION Verified 09/18/18 18:24 gluten AdvReac Mild GI SYMPTOMS Verified 09/18/18 18:24 lactose AdvReac Mild GI SYMPTOMS Verified 09/18/18 18:24 Home Medications Home Medications Medication Instructions Recorded Confirmed Type denosumab [Prolia] 1 dose SUBCUT Q6M 05/31/18 09/18/18 History lisinopril-hydrochlorothiazide 1 tab PO DAILY 05/31/18 09/18/18 History multivitamin [Multiple Vitamins] 1 tab PO DAILY 06/20/18 09/18/18 History baclofen 10 mg PO BID PRN #30 tab 08/02/18 09/18/18 Rx tramadol 25 - 50 mg PO Q6H PRN #10 tab 08/02/18 09/18/18 Rx Saccharomyces boulardii [Florastor] 250 mg PO BID 09/18/18 09/18/18 History acetaminophen [Tylenol Arthritis 650 mg PO Q12H PRN 09/18/18 09/18/18 History Pain] calcium-vitamin D3-vitamin K 1 tab PO BID 09/18/18 09/18/18 History Patient History Medical History 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) Greater trochanteric bursitis (Chronic) Osteoporosis (Chronic) HTN (hypertension) (Chronic) CKD (chronic kidney disease) stage 3, GFR 30-59 ml/min (Chronic) Hyponatremia (Chronic) Hx of cancer of uterus (Resolved) Temporary low platelet count (Resolved) Surgical History H/O: hysterectomy (Resolved) Hx of cholecystectomy (Resolved) History of tonsillectomy and adenoidectomy (Resolved) History of removal of both ovaries (Resolved) History of carpal tunnel surgery (Resolved) H/O cataract removal with insertion of prosthetic lens (Resolved) "bilat" Family History Other Family history non-contributory Social History marital status: / Current Living Situation: Alone Current Living Situation Comment: Lives at home currently current occupational status: retired Other Information That Helps Us Care for You: No Feels Safe at Home: Yes Safety Concerns: Feels Safe At This Time Smoking Status: Never smoker Do You Dip or Chew Tobacco: No Second Hand Exposure: No Hx Alcohol Use: Yes Alcohol type: wine Alcohol Intake Frequency: holidays/ special occasions only Hx Substance Use: No Beliefs That Will Affect Care: None Communication Ability: Effective Review of Systems All systems were reviewed and are negative except as per HPI Physical Exam 2 Vital Signs (Past 24 Hours): Last Vital Signs Temp 36.6 C 09/19/18 15:43 Pulse 88 09/19/18 15:43 Resp 18 09/19/18 15:43 BP 156/76 H 09/19/18 15:43 Pulse Ox 96 09/19/18 15:43 Constitutional: WD/WN, vitals as above comfortable; no acute distress Eyes: PERRL, conjunctivae normal, anicteric sclerae ENMT: external ear and nose normal, oropharynx normal Neck: trachea midline, no thyromegaly neck nontender Respiratory: normal respiratory effort, lungs clear to auscultation normal percussion; does not use accessory muscles Cardiovascular: Rate/Rhythm: regular rate and regular rhythm Heart Sounds: normal S1 and normal S2; no gallop, no murmur and no cardiac rub Vessels: normal peripheral pulses; no JVD Gastrointestinal (Abdomen): normal bowel sounds, soft, nontender, no hepatosplenomegaly Musculoskeletal: no cyanosis or clubbing, extremities motor strength 5/5 Spine: thoracic spine normal to inspection and lumbar spine normal to inspection ; no cervical spinal tenderness Skin: no rashes, warm and dry normal turgor; no lesions Neurologic: patellar DTR's 2+ bilat, sensation intact no focal motor deficits Psychiatric: A+Ox3, euthymic affect Orientation: cooperative Lymphatic: no cervical or axillary lymphadenopathy no inguinal lymphadenopathy Results & Data Laboratory Results Short CBC 09/18/18 09/19/18 Range/Units 20:03 08:11 WBC 9.76 8.96 (4.8-10.8) K/uL Hgb 12.4 11.9 L (12.0-16.0) g/dL Hct 36.4 L 35.9 L (37-47) % Plt Count 435 H 386 (130-400) K/uL BMP 09/18/18 09/19/18 20:03 08:11 Sodium 127 L 131 L Potassium 4.0 3.6 Chloride 92 L 97 L Carbon Dioxide 28 26 BUN 15 12 Creatinine 0.62 0.68 Glucose 113 H 97 Calcium 8.1 L 7.8 L Urine 09/18/18 Range/Units 18:37 Urine Color Yellow Urine Appearance Cloudy H (Clear) Urine pH 7.0 (4.5-7.5) Ur Specific [place] 1.006 (1.000-1.030) Urine Protein Negative (Negative) Urine Glucose (UA) Negative (Negative) Diagnostic Findings Microbiology 09/18/18 18:37 Urine,Indwelling Cath Urine Culture - Preliminary Pin-point growth present, reincubating. PELVIS 3 VIEWS CLINICAL HISTORY: Left-sided sacroiliac pain. FINDINGS: 3 views of the bony pelvis are compared to study dated 07/28/2018. The skeletal structures are osteopenic. There are subacute/healing right pubic ring fractures. No acute fracture is clearly identified. Specifically, there is no clear radiographic evidence of sacral fracture. Sclerotic degenerative change is noted in the sacroiliac joints. Mild arthritic change is seen in the hips. The overlying soft tissues are normal in appearance. No bowel obstruction is identified. Vascular calcifications are noted in the pelvis. IMPRESSION: 1. There is no radiographic evidence of acute fracture. Note that the sacrum is not well assessed by x-ray, and if there is clinical concern for sacral insufficiency fracture CT, MRI, or nuclear bone scan would be much more sensitive. 2. There are healing right pubic ring fractures. 3. Osteopenia and degenerative change as above. Electronically signed by: Buster Anguiano M.D. 09/19/2018 11:27 AM Dictated: 09/19/18 1124 Transcribed: 09/19/18 1124
[2018-09-19] MEDS: SODIUM CHLORIDE 0.9% IV SCH (17:03)
[2018-09-19] MEDS: CEFTAZIDIME AVIBACTAM IV SCH (17:03)
[2018-09-19] MEDS ORDERED: CEFEPIME 2,000 MG in SYRINGE 7.5 ML IV SCH (20:00)
--- NOTE | 2018-09-19 23:54 | Hospitalist Progress Note ---
Date of Service September 19, 2018 Assessment & Plan (1) Recurrent UTI: (2) Pseudomonas aeruginosa infection: recurrent UTI -presented from home with reports of urinary burning and frequency as well as intractable left buttock pain -Patient recently admitted to [facility] 09/06 through 09/13 for hyponatremia, Pseudomonas UTI, trochanteric bursitis -During previous admission, urine culture grew a resistant Pseudomonas which patient completed 5 days of IV cefepime for as per ID recommendations - Urine culture -gram negative bacilli Urinary symptom has resovled after IV fluid and IV abx 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 Given borderline sensitivities for cefepime, have change patient to ceftazidime� avibactam. ID recommend 7-day course. (3) Hyponatremia: possible due to Poor PO intake dehydration Na improved with IV NSS hold HXTZ (4) Diarrhea: no further episode ordered stool for Cdiff (5) Disorder of SI (sacroiliac) joint: -P pain in her left buttock and tenderness of the left SI joint -Ortho consulted, appreciate input -Sacrolilitis -recommend out pt follow up vs pain management consult for this hospital SI joint steroid injection (6) HTN (hypertension): BP sable (7) DVT prophylaxis: -SQ heparin Subjective no urinary symptom no fever or chills sitting up chair appetite fair no nausea or vomiting Physical Exam 2 Vital Signs (Past 24 Hours): Last Vital Signs Temp 36.7 C 09/19/18 22:52 Pulse 87 09/19/18 22:52 Resp 16 09/19/18 22:52 BP 151/76 H 09/19/18 22:52 Pulse Ox 94 09/19/18 22:52 Constitutional: WD/WN, vitals as above + thin and healthy appearing Eyes: PERRL, conjunctivae normal, anicteric sclerae ENMT: external ear and nose normal, oropharynx normal Respiratory: normal respiratory effort, lungs clear to auscultation Cardiovascular: Rate/Rhythm: regular rate and regular rhythm Vessels: normal peripheral pulses Extremities: no edema Gastrointestinal (Abdomen): normal bowel sounds, soft, nontender, no hepatosplenomegaly Musculoskeletal: no cyanosis or clubbing, extremities motor strength 5/5 Spine: + buttock tenderness (Left) Skin: no rashes, warm and dry Neurologic: PERRL, EOMI, accommodation nl, no face palsy, no dysarthria Psychiatric: A+Ox3, euthymic affect Lymphatic: no cervical or axillary lymphadenopathy no preauricular lymphadenopathy and no subclavicular lymphadenopathy
[2018-09-20] MEDS ORDERED: BACLOFEN 10 MG TAB PO STA (00:25)
[2018-09-20] MEDS: SODIUM CHLORIDE 0.9% IV SCH ×3 (00:42→16:58)
[2018-09-20] MEDS: CEFTAZIDIME AVIBACTAM IV SCH ×3 (00:42→16:58)
[2018-09-20] MEDS: SODIUM CHLORIDE 0.9% 1000ML 1,000 ML IV SCH ×2 (00:42→13:31)
[2018-09-20] MEDS: HEPARIN SOD 5,000 UNIT/0.5 ML VIAL SQ SCH ×4 (05:30→21:35)
[2018-09-20] MEDS: TRAMADOL HCL 50 MG TABLET PO PRN ×3 (07:32→21:57)
[2018-09-20] MEDS: MULTIVITAMIN TAB PO SCH (08:44)
[2018-09-20] MEDS: CALCIUM 600MG + VIT D 400 IU TAB PO SCH ×2 (08:44→21:21)
[2018-09-20] MEDS: LISINOPRIL 20 MG TAB PO SCH (08:44)
[2018-09-20] MEDS: SACCHAROMYCES BOULARDII 250 MG CAP PO SCH ×2 (08:44→21:19)
[2018-09-20] MEDS: LIDOCAINE 5% 1 PATCH TD SCH (08:45)
[2018-09-20] MEDS ORDERED: Nursing to Pharmacy Communication ONE ×2 (10:42→13:12)
[2018-09-20] MEDS ORDERED: TYLENOL 650 MG PO SCH (14:00)
--- NOTE | 2018-09-20 17:30 | Hospitalist Progress Note ---
Date of Service September 20, 2018 Assessment & Plan (1) Recurrent UTI: (2) Pseudomonas aeruginosa infection: recurrent UTI -presented from home with reports of urinary burning and frequency as well as intractable left buttock pain -Patient recently admitted to [facility] 09/06 through 09/13 for hyponatremia, Pseudomonas UTI, trochanteric bursitis -During previous admission, urine culture grew a resistant Pseudomonas which patient completed 5 days of IV cefepime for as per ID recommendations - Urine culture -gram negative bacilli Urinary symptom has resovled after IV fluid and IV abx 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 Given borderline sensitivities for cefepime, have change patient to ceftazidime� avibactam. ID recommend 7-day course. d/w patient willing to come to [facility] daily to complete the abx course after disccharge (3) Hyponatremia: possible due to Poor PO intake dehydration Na improved with IV NSS hold HXTZ (4) Diarrhea: no further episode ordered stool for Cdiff (5) Disorder of SI (sacroiliac) joint: -P pain in her left buttock and tenderness of the left SI joint -Ortho consulted, appreciate input -Sacrolilitis - pain management consulted for this hospital SI joint steroid injection (6) HTN (hypertension): BP sable (7) DVT prophylaxis: -SQ heparin FULL CODE DISPOSITION : discharge home in next 1-2 days after pain management eval will arrange to complete fsily IV course in [facility] Subjective having left hip pain with radiation to left lower leg experienced severe muscle spasm last night symptom resolved with flexeril Physical Exam 2 Vital Signs (Past 24 Hours): Last Vital Signs Temp 36.7 C 09/20/18 15:23 Pulse 82 09/20/18 15:23 Resp 18 09/20/18 15:23 BP 144/69 H 09/20/18 15:23 Pulse Ox 96 09/20/18 15:23 Constitutional: WD/WN, vitals as above + thin and healthy appearing Eyes: PERRL, conjunctivae normal, anicteric sclerae ENMT: external ear and nose normal, oropharynx normal Respiratory: normal respiratory effort, lungs clear to auscultation Cardiovascular: Rate/Rhythm: regular rate and regular rhythm Vessels: normal peripheral pulses Extremities: no edema Gastrointestinal (Abdomen): normal bowel sounds, soft, nontender, no hepatosplenomegaly Musculoskeletal: no cyanosis or clubbing, extremities motor strength 5/5 Spine: + buttock tenderness (Left) Skin: no rashes, warm and dry Neurologic: PERRL, EOMI, accommodation nl, no face palsy, no dysarthria Psychiatric: A+Ox3, euthymic affect Lymphatic: no cervical or axillary lymphadenopathy no preauricular lymphadenopathy and no subclavicular lymphadenopathy
[2018-09-20] MEDS: TYLENOL 650 MG PO PRN (22:14)
[2018-09-20] MEDS: BACLOFEN 10 MG TAB PO PRN (23:19)
[2018-09-21] MEDS: SODIUM CHLORIDE 0.9% IV SCH ×3 (00:34→17:00)
[2018-09-21] MEDS: CEFTAZIDIME AVIBACTAM IV SCH ×3 (00:34→17:00)
[2018-09-21] MEDS: TRAMADOL HCL 50 MG TABLET PO PRN ×3 (05:08→19:56)
[2018-09-21] MEDS: HEPARIN SOD 5,000 UNIT/0.5 ML VIAL SQ SCH ×3 (05:09→21:04)
--- NOTE | 2018-09-21 08:48 | Pain Management Consultation ---
Date of Consultation September 21, 2018 Assessment & Plan (1) Greater trochanteric bursitis: 1. The patient is not a candidate for interventional pain management procedures at this time due to ongoing recurrent urinary tract infection. Once the patient has been off of antibiotics for 2 weeks with negative urine culture consider left greater trochanteric bursa injection to minimize pain. Patient was informed of this plan and agrees to proceed. This may be performed as an outpatient. 2. The patient states that her pain is acceptable on her current regimen of baclofen, Lidoderm, tramadol as needed, Percocet as needed. Would recommend utilization of tramadol prior to utilization of Percocet to minimize sedation as well as constipation side effects of more potent opiates. 3. Thank you very much for this consultation please call with any questions. (2) Recurrent UTI: (3) Pseudomonas aeruginosa infection: (4) CKD (chronic kidney disease) stage 3, GFR 30-59 ml/min: History of Present Illness Reason for Consultation: Acute pain left hip Attending Physician: Lilian Osorio MD History of Present Illness 83-year-old female with history of pubic ring fracture July 2018. She reports that she was doing well after inpatient rehab and late August she started to have left-sided hip pain. She presented to the [facility] emergency room and was admitted for pain control and urinary tract infection. During that hospitalization she received a left greater trochanteric bursa injection by orthopedics on 09/07/2018 with acceptable pain relief. The patient states that that injection provided her relief for approximately 1-1/2 weeks and had sudden recurrence of her prior pain immediately prior to this admission. She denies any new injury or etiology of pain. She states that her pain is predominantly over her left-sided hip with some radiation distal to slightly past the knee. She reports pain ranges between 4 and 8 out of 10 worse with walking and ambulating with her walker better with rest and injection. She reports acceptable control of pain with her current regimen of Lidoderm, baclofen, tramadol as needed, Percocet as needed. She is hopeful for repeat injection to minimize the need for opiates. She denies any bowel or bladder incontinence, motor weakness, footdrop. She is currently hospitalized with recurrent Pseudomonas urinary tract infection and is working with infectious disease to resolve this infection. Pain Assessment Full Body Front + Back: 2 1. [employer] Combined Pain Scale: 4-Mild to Mod - Interrupts ADLs. Decrease in job performance Pain scale - at its best (0-10): 4 Pain scale - at its worst (0-10): 8 Allergies Allergy/AdvReac Type Severity Reaction Status Date / Time aspirin AdvReac Mild RASH Verified 09/18/18 18:24 codeine AdvReac Mild INDIGESTION Verified 09/18/18 18:24 gluten AdvReac Mild GI SYMPTOMS Verified 09/18/18 18:24 lactose AdvReac Mild GI SYMPTOMS Verified 09/18/18 18:24 Home Medications Home Medications Medication Instructions Recorded Confirmed Type denosumab [Prolia] 1 dose SUBCUT Q6M 05/31/18 09/18/18 History lisinopril-hydrochlorothiazide 1 tab PO DAILY 05/31/18 09/18/18 History multivitamin [Multiple Vitamins] 1 tab PO DAILY 06/20/18 09/18/18 History baclofen 10 mg PO BID PRN #30 tab 08/02/18 09/18/18 Rx tramadol 25 - 50 mg PO Q6H PRN #10 tab 08/02/18 09/18/18 Rx Saccharomyces boulardii [Florastor] 250 mg PO BID 09/18/18 09/18/18 History acetaminophen [Tylenol Arthritis 650 mg PO Q12H PRN 09/18/18 09/18/18 History Pain] calcium-vitamin D3-vitamin K 1 tab PO BID 09/18/18 09/18/18 History Patient History Medical History 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) Greater trochanteric bursitis (Chronic) Osteoporosis (Chronic) HTN (hypertension) (Chronic) CKD (chronic kidney disease) stage 3, GFR 30-59 ml/min (Chronic) Hyponatremia (Chronic) Hx of cancer of uterus (Resolved) Temporary low platelet count (Resolved) Surgical History H/O: hysterectomy (Resolved) Hx of cholecystectomy (Resolved) History of tonsillectomy and adenoidectomy (Resolved) History of removal of both ovaries (Resolved) History of carpal tunnel surgery (Resolved) H/O cataract removal with insertion of prosthetic lens (Resolved) "bilat" Family History Other Family history non-contributory Social History marital status: / Current Living Situation: Alone Current Living Situation Comment: Lives at home currently current occupational status: retired Other Information That Helps Us Care for You: No Feels Safe at Home: Yes Safety Concerns: Feels Safe At This Time Smoking Status: Never smoker Do You Dip or Chew Tobacco: No Second Hand Exposure: No Hx Alcohol Use: Yes Alcohol type: wine Alcohol Intake Frequency: holidays/ special occasions only Hx Substance Use: No Beliefs That Will Affect Care: None Communication Ability: Effective Review of Systems Constitutional: Negative for fever, chills, sweats Eyes: Negative for eye pain, photophobia, drainage Ear, nose, mouth, throat: Negative for ear pain, nasal congestion, mouth lesions , change in voice Respiratory: Negative for wheezing, sputum production Cardiovascular: Negative for chest pain, palpitations, calf pain Gastrointestinal: Negative for abdominal pain, belching, bloating Genitourinary: Positive for dysuria, negative for urinary incontinence and urinary urgency Musculoskeletal: Negative for deformities Integumentary: Negative for nail changes, skin yellowing, pruritus Neurological: Negative for abnormal speech, seizure type activity Physical Exam 2 Vital Signs (Past 24 Hours): Last Vital Signs Temp 36.4 C L 09/21/18 07:51 Pulse 70 09/21/18 07:51 Resp 12 09/21/18 07:51 BP 130/78 09/21/18 07:51 Pulse Ox 96 09/21/18 07:51 Physical Exam: Constitutional: Well-developed, well-nourished, healthy- appearing, normal weight Psych: Awake, alert, and oriented �3 with normal affect and mood. Recent memory appears grossly intact Eyes: Pupils are equally round and reactive to light with normal size pupils, eyelids appear normal Ear, nose, mouth, and throat: Moist nasal and oral membranes, lips and tongues appear normal, no external ear abnormalities are noted Neck: The trachea is midline without deviation and no thyromegaly is noted Respiratory: Normal respiratory effort without distress, no audible wheezes or rhonchi CV: Normal S1 and S2, carotid upstroke is within normal limits Chest: Deferred GI/abdomen: Non-tender Musculoskeletal: Head is normocephalic and atraumatic, gait is not observed Cervical: Lordotic curve: Normal Range of motion is normal with extension, flexion, side- bending, rotation Strength: Strength is grossly equal bilaterally with 5 out of 5 strength in all planes Thoracic: Kyphotic curve: Normal Range of motion is normal with extension, flexion, side- bending, rotation Lumbar: Lordotic curve: Normal Range of motion is normal with extension, flexion, side- bending, rotation Tenderness: Nontender over the axial midline Facet provocation: Negative bilaterally Strength: Strength is equal bilaterally with 5 out of 5 strength in all planes Sensation of lower extremities: Intact bilaterally Myofascial spasm: No appreciable spasm. No discrete trigger points noted Greater trochanters: Exquisitely tender on the left negative on the right Sacroiliac joints: Marginally tender left greater than right Fabere and thigh thrust test: negative bilaterally Pathologic reflexes noted: None Skin: No rashes, lesions, ulcers, and duration are noted Neuro: No nystagmus noted, the tongue is midline, the patient is able to rotate their head bilaterally : Deferred Results & Data Diagnostic Findings Patient: ADELA MAIER HAdmit Date: 09/18/18 Service Date: 09/19/18 PELVIS 3 VIEWS CLINICAL HISTORY: Left-sided sacroiliac pain. FINDINGS: 3 views of the bony pelvis are compared to study dated 07/28/2018. The skeletal structures are osteopenic. There are subacute/healing right pubic ring fractures. No acute fracture is clearly identified. Specifically, there is no clear radiographic evidence of sacral fracture. Sclerotic degenerative change is noted in the sacroiliac joints. Mild arthritic change is seen in the hips. The overlying soft tissues are normal in appearance. No bowel obstruction is identified. Vascular calcifications are noted in the pelvis. IMPRESSION: 1. There is no radiographic evidence of acute fracture. Note that the sacrum is not well assessed by x-ray, and if there is clinical concern for sacral insufficiency fracture CT, MRI, or nuclear bone scan would be much more sensitive. 2. There are healing right pubic ring fractures. 3. Osteopenia and degenerative change as above.
[2018-09-21] MEDS: LISINOPRIL 20 MG TAB PO SCH (09:00)
[2018-09-21] MEDS: SACCHAROMYCES BOULARDII 250 MG CAP PO SCH ×2 (09:00→21:03)
[2018-09-21] MEDS: CALCIUM 600MG + VIT D 400 IU TAB PO SCH ×2 (09:00→21:03)
[2018-09-21] MEDS: LIDOCAINE 5% 1 PATCH TD SCH (09:00)
[2018-09-21] MEDS: MULTIVITAMIN TAB PO SCH (12:35)
--- NOTE | 2018-09-21 15:45 | Hospitalist Progress Note ---
Date of Service September 21, 2018 Assessment & Plan (1) Recurrent UTI: (2) Pseudomonas aeruginosa infection: recurrent UTI -presented from home with reports of urinary burning and frequency as well as intractable left buttock pain -Patient recently admitted to [facility] 09/06 through 09/13 for hyponatremia, Pseudomonas UTI, trochanteric bursitis -During previous admission, urine culture grew a resistant Pseudomonas which patient completed 5 days of IV cefepime for as per ID recommendations - Urine culture -gram negative bacilli Urinary symptom has resovled after IV fluid and IV abx 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 Given borderline sensitivities for cefepime, have change patient to ceftazidime� avibactam. ID recommend 7-day course. Discussed with Dr. Wall, there is no alternative antibiotic IV except for IV ceftazidime-avibactum Not possible to arrange outpatient therapy Patient will continue inpatient/hospital to complete antibiotic course (3) Hyponatremia: possible due to Poor PO intake dehydration Na improved with IV NSS hold HXTZ (4) Diarrhea: no further episode ordered stool for Cdiff (5) Disorder of SI (sacroiliac) joint: -P pain in her left buttock and tenderness of the left SI joint -Ortho consulted, appreciate input -Sacrolilitis - pain management consulted for this hospital SI joint steroid injection Appreciate input Unable to do SI joint steroid injection secondary to presence of active infection/UTI Patient will need to be adequately treated for antibiotic, then follow-up with pain management clinic 2 weeks post antibiotic treatment for evaluation of SI joint infection Recommend pain control with Lidoderm patch, as needed tramadol, as needed Percocet for breakthrough pain Patient should utilize tramadol first to prevent sedation (6) HTN (hypertension): BP stable (7) DVT prophylaxis: -SQ heparin FULL CODE DISPOSITION : Patient will be discharged home after completion of IV antibiotic Subjective complains of left hip pain worse with movement no fever or chills no urinary symptom Physical Exam 2 Vital Signs (Past 24 Hours): Last Vital Signs Temp 36.7 C 09/21/18 15:11 Pulse 79 09/21/18 15:11 Resp 18 09/21/18 15:11 BP 145/68 H 09/21/18 15:11 Pulse Ox 95 09/21/18 15:11 Constitutional: WD/WN, vitals as above + thin and healthy appearing Eyes: PERRL, conjunctivae normal, anicteric sclerae ENMT: external ear and nose normal, oropharynx normal Respiratory: normal respiratory effort, lungs clear to auscultation Cardiovascular: Rate/Rhythm: regular rate and regular rhythm Vessels: normal peripheral pulses Extremities: no edema Gastrointestinal (Abdomen): normal bowel sounds, soft, nontender, no hepatosplenomegaly Musculoskeletal: no cyanosis or clubbing, extremities motor strength 5/5 Spine: + buttock tenderness (Left) Skin: no rashes, warm and dry Neurologic: PERRL, EOMI, accommodation nl, no face palsy, no dysarthria Psychiatric: A+Ox3, euthymic affect Lymphatic: no cervical or axillary lymphadenopathy no preauricular lymphadenopathy and no subclavicular lymphadenopathy
--- NOTE | 2018-09-21 20:30 | Infectious Disease Progress Nt ---
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 Given borderline sensitivities for cefepime, have changed patient to ceftazidime�avibactam. Would recommend 7-day course. Will likely need to stay in hospital for treatment given expense of medication. (2) Pseudomonas aeruginosa infection: Subjective Patient seen in follow-up for drug resistant pseudomonal urinary tract infection. Now on Avycaz, tolerating without apparent difficulty. Urinary complaints improved. Pain management consult noted, unable to do injection because of active urinary tract infection. Review of Systems All systems reviewed & are unremarkable except as noted in HPI & below Physical Exam 2 Vital Signs (Past 24 Hours): Last Vital Signs Temp 36.7 C 09/21/18 15:11 Pulse 79 09/21/18 15:11 Resp 18 09/21/18 15:11 BP 145/68 H 09/21/18 15:11 Pulse Ox 95 09/21/18 15:11 Constitutional: WD/WN, vitals as above comfortable; no acute distress Eyes: PERRL, conjunctivae normal, anicteric sclerae ENMT: external ear and nose normal, oropharynx normal Neck: trachea midline, no thyromegaly neck nontender Respiratory: normal respiratory effort, lungs clear to auscultation normal percussion; does not use accessory muscles Cardiovascular: Rate/Rhythm: regular rate and regular rhythm Heart Sounds: normal S1 and normal S2; no gallop, no murmur and no cardiac rub Vessels: normal peripheral pulses; no JVD Gastrointestinal (Abdomen): normal bowel sounds, soft, nontender, no hepatosplenomegaly Musculoskeletal: no cyanosis or clubbing, extremities motor strength 5/5 Spine: thoracic spine normal to inspection and lumbar spine normal to inspection ; no cervical spinal tenderness Skin: no rashes, warm and dry normal turgor; no lesions Neurologic: patellar DTR's 2+ bilat, sensation intact no focal motor deficits Psychiatric: A+Ox3, euthymic affect Orientation: cooperative Lymphatic: no cervical or axillary lymphadenopathy no inguinal lymphadenopathy Results & Data Diagnostic Findings Microbiology 09/18/18 18:37 Urine,Indwelling Cath Urine Culture - Final Pseudomonas aeruginosa
[2018-09-21] MEDS: BACLOFEN 10 MG TAB PO PRN (21:58)
[2018-09-22] MEDS: OXYCODONE/ACETAMINOPHEN 5mg/325mg TAB PO PRN (00:07)
[2018-09-22] MEDS: SODIUM CHLORIDE 0.9% IV SCH ×3 (00:08→16:27)
[2018-09-22] MEDS: CEFTAZIDIME AVIBACTAM IV SCH ×3 (00:08→16:27)
[2018-09-22] MEDS: TRAMADOL HCL 50 MG TABLET PO PRN ×4 (03:04→21:45)
[2018-09-22] MEDS: HEPARIN SOD 5,000 UNIT/0.5 ML VIAL SQ SCH ×3 (04:37→21:22)
[2018-09-22] MEDS: SACCHAROMYCES BOULARDII 250 MG CAP PO SCH ×2 (09:42→21:20)
[2018-09-22] MEDS: LISINOPRIL 20 MG TAB PO SCH (09:42)
[2018-09-22] MEDS: CALCIUM 600MG + VIT D 400 IU TAB PO SCH ×2 (09:43→21:20)
[2018-09-22] MEDS: LIDOCAINE 5% 1 PATCH TD SCH (09:43)
[2018-09-22] MEDS: MULTIVITAMIN TAB PO SCH (09:43)
[2018-09-22] MEDS ORDERED: LOPERAMIDE HCL 2 MG CAP PO PRN (14:26)
[2018-09-22] MEDS ORDERED: LACTOBACILLUS ACIDOPHILUS (FLORANEX) TAB PO SCH (17:30)
[2018-09-22] MEDS: BACLOFEN 10 MG TAB PO PRN (21:20)
--- NOTE | 2018-09-22 23:52 | Hospitalist Progress Note ---
Date of Service September 22, 2018 Assessment & Plan (1) Recurrent UTI: (2) Pseudomonas aeruginosa infection: recurrent UTI -presented from home with reports of urinary burning and frequency as well as intractable left buttock pain -Patient recently admitted to [facility] 09/06 through 09/13 for hyponatremia, Pseudomonas UTI, trochanteric bursitis -During previous admission, urine culture grew a resistant Pseudomonas which patient completed 5 days of IV cefepime for as per ID recommendations - Urine culture -09/18/18 : pseudomonas -multi drug resistance Urinary symptom has resovled after IV fluid and IV abx 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 Given borderline sensitivities for cefepime, have change patient to ceftazidime� avibactam. ( ist day of tx on 09/19/18 ) ID recommend 7-day course. Discussed with Dr. Wall, there is no alternative antibiotic IV except for IV ceftazidime-avibactum Not possible to arrange outpatient therapy Patient will continue inpatient/hospital to complete antibiotic course (3) Hyponatremia: possible due to Poor PO intake dehydration Na improved with IV NSS hold HXTZ (4) Diarrhea: ordered stool for Cdiff (5) Disorder of SI (sacroiliac) joint: -P pain in her left buttock and tenderness of the left SI joint -Ortho consulted, appreciate input -Sacrolilitis - pain management consulted for this hospital SI joint steroid injection Appreciate input Unable to do SI joint steroid injection secondary to presence of active infection/UTI Patient will need to be adequately treated for antibiotic, then follow-up with pain management clinic 2 weeks post antibiotic treatment for evaluation of SI joint infection Recommend pain control with Lidoderm patch, as needed tramadol, as needed Percocet for breakthrough pain Patient should utilize tramadol first to prevent sedation (6) HTN (hypertension): BP stable (7) DVT prophylaxis: -SQ heparin FULL CODE DISPOSITION : Patient will be discharged home after completion of IV antibiotic Subjective sitting up on chair had multiple episodes of diarrhea today no abdominal pain no nausea or vomiting no blood in stool concern for C diff -as pt recevied repeated tx with broad specturm Abx ordered for C diff cont probiotics left hip pain tolerable Physical Exam 2 Vital Signs (Past 24 Hours): Last Vital Signs Temp 36.3 C L 09/22/18 23:19 Pulse 85 09/22/18 23:19 Resp 17 09/22/18 23:19 BP 138/75 09/22/18 23:19 Pulse Ox 96 09/22/18 23:19 Constitutional: WD/WN, vitals as above + thin and healthy appearing Eyes: PERRL, conjunctivae normal, anicteric sclerae ENMT: external ear and nose normal, oropharynx normal Respiratory: normal respiratory effort, lungs clear to auscultation Cardiovascular: Rate/Rhythm: regular rate and regular rhythm Vessels: normal peripheral pulses Extremities: no edema Gastrointestinal (Abdomen): normal bowel sounds, soft, nontender, no hepatosplenomegaly Musculoskeletal: no cyanosis or clubbing, extremities motor strength 5/5 Spine: + buttock tenderness (Left) Skin: no rashes, warm and dry Neurologic: PERRL, EOMI, accommodation nl, no face palsy, no dysarthria Psychiatric: A+Ox3, euthymic affect Lymphatic: no cervical or axillary lymphadenopathy no preauricular lymphadenopathy and no subclavicular lymphadenopathy
[2018-09-23] MEDS: CEFTAZIDIME AVIBACTAM IV SCH ×3 (00:16→16:54)
[2018-09-23] MEDS: SODIUM CHLORIDE 0.9% IV SCH ×3 (00:16→16:54)
[2018-09-23] MEDS: OXYCODONE/ACETAMINOPHEN 5mg/325mg TAB PO PRN (00:48)
[2018-09-23] MEDS: HEPARIN SOD 5,000 UNIT/0.5 ML VIAL SQ SCH ×3 (04:24→21:44)
[2018-09-23] MEDS: TRAMADOL HCL 50 MG TABLET PO PRN ×3 (06:05→21:54)
[2018-09-23] MEDS: ACETAMINOPHEN 500 MG TAB PO PRN (06:14)
[2018-09-23] MEDS: LIDOCAINE 5% 1 PATCH TD SCH (08:19)
[2018-09-23] MEDS: LISINOPRIL 20 MG TAB PO SCH (09:05)
[2018-09-23] MEDS: MULTIVITAMIN TAB PO SCH (09:05)
[2018-09-23] MEDS: CALCIUM 600MG + VIT D 400 IU TAB PO SCH ×2 (09:05→21:39)
[2018-09-23] MEDS: SACCHAROMYCES BOULARDII 250 MG CAP PO SCH ×2 (09:05→21:39)
--- NOTE | 2018-09-23 15:55 | Hospitalist Progress Note ---
Date of Service September 23, 2018 Assessment & Plan (1) Recurrent UTI: Recurrent UTI despite recent treatement with cefepime. Urine culture 09/18/18 grew Pseudomonas aeruginosa, resistant to quinolones, gentamicin, and imipenem. ID consulted. Treatment with ceftazidime / avibactam recommended. (2) Hyponatremia: Serum sodium 127 day of admission. HCTZ held. Na 09/19 was 131. Follow. (3) Disorder of SI (sacroiliac) joint: Seen by Pain Managment. [place] to have sacroiliitis. Outpatient injection recommended once UTI treated. (4) HTN (hypertension): HCTZ held due to hyponatremia. Continue lisinopril. (5) DVT prophylaxis: SQ heparin. Ambulate. (6) Discharge planning issues: Anticipated discharge to home. Family Medicine follow-up with Dr. Kulkarni. Subjective Recheck for UTI and other problems. Pt was seen in her room around 1600. No fever. No dysuria or hematuria. No chest pain or SOB. No nausea or vomiting. Had some loose stools yesterday, formed today. Physical Exam 2 Vital Signs (Past 24 Hours): Last Vital Signs Temp 36.5 C 09/23/18 15:15 Pulse 83 09/23/18 15:15 Resp 18 09/23/18 15:15 BP 155/69 H 09/23/18 15:15 Pulse Ox 96 09/23/18 15:15 Constitutional: no acute distress Respiratory: no respiratory distress Auscultation: lungs clear to auscultation bilaterally Cardiovascular: Rate/Rhythm: regular rate and regular rhythm Vessels: no JVD Extremities: no calf tenderness and no edema Gastrointestinal (Abdomen): normal bowel sounds, soft, nontender, no hepatosplenomegaly Skin: no rashes, warm and dry Psychiatric: Orientation: alert and oriented x 3
[2018-09-24] MEDS: CEFTAZIDIME AVIBACTAM IV SCH ×3 (00:47→17:18)
[2018-09-24] MEDS: SODIUM CHLORIDE 0.9% IV SCH ×3 (00:47→17:18)
[2018-09-24] MEDS: BACLOFEN 10 MG TAB PO PRN (00:48)
[2018-09-24] MEDS: HEPARIN SOD 5,000 UNIT/0.5 ML VIAL SQ SCH ×3 (05:13→21:55)
[2018-09-24] MEDS: OXYCODONE/ACETAMINOPHEN 5mg/325mg TAB PO PRN ×2 (05:14→15:59)
[2018-09-24] MEDS: CALCIUM 600MG + VIT D 400 IU TAB PO SCH ×2 (08:48→21:54)
[2018-09-24] MEDS: SACCHAROMYCES BOULARDII 250 MG CAP PO SCH ×2 (08:48→21:54)
[2018-09-24] MEDS: LIDOCAINE 5% 1 PATCH TD SCH (08:48)
[2018-09-24] MEDS: MULTIVITAMIN TAB PO SCH (08:48)
[2018-09-24] MEDS: LISINOPRIL 20 MG TAB PO SCH (08:48)
[2018-09-24 08:49] LABS: BUN Creatinine Ratio 27.7 (10-20); Calcium 8.6 mg/dl (8.5-10.1); Creatinine Clr Calc Pharmacy 56.1 ml/min; Est GFR (African American) 93.4; Est GFR (Non-African American) 80.6
[2018-09-24] MEDS: TRAMADOL HCL 50 MG TABLET PO PRN ×2 (11:33→22:06)
--- NOTE | 2018-09-24 20:43 | Hospitalist Progress Note ---
Date of Service September 24, 2018 Assessment & Plan (1) Recurrent UTI: Recurrent UTI despite recent treatement with cefepime. Urine culture 09/18/18 grew Pseudomonas aeruginosa, resistant to quinolones, gentamicin, and imipenem. ID consulted. Treatment with ceftazidime / avibactam recommended x 7 days. Last dose will be 09/26. (2) Hyponatremia: Serum sodium 127 day of admission. HCTZ held. Na 09/19 was 131. Follow. (3) Disorder of SI (sacroiliac) joint: Seen by Pain Managment. [place] to have sacroiliitis. Outpatient injection recommended once UTI treated. (4) HTN (hypertension): HCTZ held due to hyponatremia. Continue lisinopril. (5) DVT prophylaxis: SQ heparin. Ambulate. (6) Discharge planning issues: Anticipated discharge to home. Family Medicine follow-up with Dr. Kulkarni. Subjective Recheck for UTI and other problems. Pt was seen in her room around 1045. No fever. No dysuria or hematuria. No chest pain or SOB. No nausea or vomiting. No diarrhea. Ongoing sacroiliac pain. Physical Exam 2 Vital Signs (Past 24 Hours): Last Vital Signs Temp 36.6 C 09/24/18 15:09 Pulse 87 09/24/18 15:09 Resp 16 09/24/18 15:09 BP 168/77 H 09/24/18 15:09 Pulse Ox 95 09/24/18 15:09 Constitutional: no acute distress Respiratory: no respiratory distress Auscultation: lungs clear to auscultation bilaterally Cardiovascular: Rate/Rhythm: regular rate and regular rhythm Vessels: no JVD Extremities: no calf tenderness and no edema Gastrointestinal (Abdomen): normal bowel sounds, soft, nontender, no hepatosplenomegaly Skin: no rashes, warm and dry Psychiatric: Orientation: alert and oriented x 3 Results & Data Laboratory Results Laboratory Results - last 24 hr 09/24/18 07:34 Sodium 132 L Potassium 4.0 Chloride 98 Carbon Dioxide 27 Anion Gap 7.0 BUN 18 Creatinine 0.66 Est Cr Clr Drug Dosing 56.1 Est GFR ( Amer) 93.4 Est GFR (Non-Af Amer) 80.6 BUN/Creatinine Ratio 27.7 H Glucose 86 Calcium 8.6
[2018-09-24] MEDS: TYLENOL 650 MG PO PRN (21:45)
[2018-09-25] MEDS: CEFTAZIDIME AVIBACTAM IV SCH ×5 (00:18→23:49)
[2018-09-25] MEDS: SODIUM CHLORIDE 0.9% IV SCH ×5 (00:18→23:49)
[2018-09-25] MEDS: BACLOFEN 10 MG TAB PO PRN ×2 (02:02→23:37)
[2018-09-25] MEDS: HEPARIN SOD 5,000 UNIT/0.5 ML VIAL SQ SCH ×3 (04:14→22:17)
[2018-09-25] MEDS: OXYCODONE/ACETAMINOPHEN 5mg/325mg TAB PO PRN (06:38)
[2018-09-25 07:36] LABS: BUN Creatinine Ratio 23.1 (10-20); Calcium 8.6 mg/dl (8.5-10.1); Creatinine Clr Calc Pharmacy 55.2 ml/min; Est GFR (African American) 92.9; Est GFR (Non-African American) 80.2; Potassium 4.2 mmol/L (3.5-5.1)
[2018-09-25] MEDS: SACCHAROMYCES BOULARDII 250 MG CAP PO SCH ×2 (08:21→20:58)
[2018-09-25] MEDS: CALCIUM 600MG + VIT D 400 IU TAB PO SCH ×2 (08:21→20:58)
[2018-09-25] MEDS: MULTIVITAMIN TAB PO SCH (08:21)
[2018-09-25] MEDS: LISINOPRIL 20 MG TAB PO SCH (08:21)
[2018-09-25] MEDS: LIDOCAINE 5% 1 PATCH TD SCH ×2 (08:22→14:49)
--- NOTE | 2018-09-25 12:19 | Hospitalist Progress Note ---
Date of Service September 25, 2018 Assessment & Plan (1) Recurrent UTI: Recurrent UTI despite recent treatement with cefepime. Urine culture 09/18/18 grew Pseudomonas aeruginosa, resistant to quinolones, gentamicin, and imipenem. ID consulted. Treatment with ceftazidime / avibactam recommended x 7 days. Last dose will be 09/26. (2) Hyponatremia: Serum sodium 127 day of admission. HCTZ held. Sodium today = 133. Follow. (3) Disorder of SI (sacroiliac) joint: Seen by Pain Managment. [place] to have sacroiliitis. Outpatient injection recommended once UTI treated. (4) HTN (hypertension): HCTZ held due to hyponatremia. Continue lisinopril. (5) DVT prophylaxis: SQ heparin. Ambulate. (6) Discharge planning issues: Anticipated discharge to home. Family Medicine follow-up with Dr. Kulkarni. Subjective Recheck for UTI and other problems. Pt was seen in her room around 1140. No fever. No dysuria or hematuria. No chest pain or SOB. No nausea or vomiting. Had 1 or 2 loose stools this morning. Ongoing sacroiliac pain. Physical Exam 2 Vital Signs (Past 24 Hours): Last Vital Signs Temp 36.5 C 09/25/18 07:25 Pulse 75 09/24/18 23:28 Resp 16 09/25/18 07:25 BP 148/77 H 09/25/18 07:25 Pulse Ox 96 09/25/18 07:25 Constitutional: no acute distress Respiratory: no respiratory distress Auscultation: lungs clear to auscultation bilaterally Cardiovascular: Rate/Rhythm: regular rate and regular rhythm Vessels: no JVD Extremities: no calf tenderness and no edema Gastrointestinal (Abdomen): normal bowel sounds, soft, nontender, no hepatosplenomegaly Skin: no rashes, warm and dry Psychiatric: Orientation: alert and oriented x 3 Results & Data Laboratory Results Laboratory Results - last 24 hr 09/25/18 09/25/18 06:35 16:30 Sodium 133 L Potassium 4.2 Chloride 101 Carbon Dioxide 26 Anion Gap 6.0 BUN 15 Creatinine 0.67 Est Cr Clr Drug Dosing 55.2 Est GFR ( Amer) 92.9 Est GFR (Non-Af Amer) 80.2 BUN/Creatinine Ratio 23.1 H Glucose 87 Calcium 8.6 Stl C. diff Tox B Gene
--- NOTE | 2018-09-25 17:56 | Infectious Disease Progress Nt ---
Date of Service September 25, 2018 Assessment & Plan (1) Recurrent UTI: 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 Given borderline sensitivities for cefepime, have changed patient to ceftazidime�avibactam. Patient to complete 7 days of therapy. Will follow. (2) Pseudomonas aeruginosa infection: Subjective Patient seen in follow-up for drug resistant pseudomonal urinary tract infection. Now on Avycaz, tolerating without apparent difficulty. Urinary complaints improved. Pain management consult noted, unable to do injection because of active urinary tract infection. Physical Exam 2 Vital Signs (Past 24 Hours): Last Vital Signs Temp 36.6 C 09/25/18 15:03 Pulse 84 09/25/18 15:03 Resp 16 09/25/18 15:03 BP 163/78 H 09/25/18 15:03 Pulse Ox 97 09/25/18 15:03 Constitutional: WD/WN, vitals as above comfortable; no acute distress Eyes: PERRL, conjunctivae normal, anicteric sclerae ENMT: external ear and nose normal, oropharynx normal Neck: trachea midline, no thyromegaly neck nontender Respiratory: normal respiratory effort, lungs clear to auscultation normal percussion; does not use accessory muscles Cardiovascular: Rate/Rhythm: regular rate and regular rhythm Heart Sounds: normal S1 and normal S2; no gallop, no murmur and no cardiac rub Vessels: normal peripheral pulses; no JVD Gastrointestinal (Abdomen): normal bowel sounds, soft, nontender, no hepatosplenomegaly Musculoskeletal: no cyanosis or clubbing, extremities motor strength 5/5 Spine: thoracic spine normal to inspection and lumbar spine normal to inspection ; no cervical spinal tenderness Skin: no rashes, warm and dry normal turgor; no lesions Neurologic: patellar DTR's 2+ bilat, sensation intact no focal motor deficits Psychiatric: A+Ox3, euthymic affect Orientation: cooperative Lymphatic: no cervical or axillary lymphadenopathy no inguinal lymphadenopathy Results & Data Laboratory Results BMP 09/25/18 06:35 Sodium 133 L Potassium 4.2 Chloride 101 Carbon Dioxide 26 BUN 15 Creatinine 0.67 Glucose 87 Calcium 8.6 Diagnostic Findings Microbiology 09/18/18 18:37 Urine,Indwelling Cath Urine Culture - Final Pseudomonas aeruginosa
[2018-09-25] MEDS: TRAMADOL HCL 50 MG TABLET PO PRN (22:24)
[2018-09-25] MEDS: ACETAMINOPHEN 500 MG TAB PO PRN (22:25)
[2018-09-26] MEDS: BACLOFEN 10 MG TAB PO PRN (01:08)
[2018-09-26] MEDS: OXYCODONE/ACETAMINOPHEN 5mg/325mg TAB PO PRN (05:05)
[2018-09-26] MEDS: HEPARIN SOD 5,000 UNIT/0.5 ML VIAL SQ SCH ×2 (06:31→08:02)
[2018-09-26] MEDS: SODIUM CHLORIDE 0.9% IV SCH (08:01)
[2018-09-26] MEDS: CALCIUM 600MG + VIT D 400 IU TAB PO SCH (08:01)
[2018-09-26] MEDS: CEFTAZIDIME AVIBACTAM IV SCH (08:01)
[2018-09-26] MEDS: LISINOPRIL 20 MG TAB PO SCH (08:01)
[2018-09-26] MEDS: MULTIVITAMIN TAB PO SCH (08:01)
[2018-09-26] MEDS: SACCHAROMYCES BOULARDII 250 MG CAP PO SCH (08:02)
[2018-09-26] MEDS: LIDOCAINE 5% 1 PATCH TD SCH (08:06)
--- NOTE | 2018-09-26 10:22 | Hospitalist Progress Note ---
Date of Service September 26, 2018 Assessment & Plan (1) Recurrent UTI: Recurrent UTI despite recent treatement with cefepime. Urine culture 09/18/18 grew Pseudomonas aeruginosa, resistant to quinolones, gentamicin, and imipenem. ID consulted. Treatment with ceftazidime / avibactam recommended x 7 days. Received full course of treatment during hospital stay. (2) Hyponatremia: Serum sodium 127 day of admission. HCTZ held. Sodium 09/25 was 133. Follow. (3) Disorder of SI (sacroiliac) joint: Seen by Pain Managment. [place] to have sacroiliitis. Outpatient injection recommended once UTI treated. (4) HTN (hypertension): Discharge on HCTZ and lisinopril. Hyponatremic. Follow BMP. (5) DVT prophylaxis: Receiving SQ heparin. Ambulating. (6) Discharge planning issues: Discharge to home. Family Medicine follow-up with Dr. Kulkarni. Urology follow-up with Dr. Torres. Outpatient follow-up with Pain Management. Subjective Recheck for UTI and other problems. Doing well. Received last dose of ceftazidime / avibactam this morning. No fever. No dysuria or hematuria. No chest pain or SOB. No nausea or vomiting. Patient concerned about soft stools, but no diarrhea per nursing reports. Ongoing sacroiliac pain. Physical Exam 2 Vital Signs (Past 24 Hours): Last Vital Signs Temp 36.5 C 09/26/18 07:38 Pulse 78 09/26/18 07:38 Resp 16 09/26/18 07:38 BP 155/82 H 09/26/18 07:38 Pulse Ox 93 09/26/18 07:38 Constitutional: no acute distress Respiratory: no respiratory distress Auscultation: lungs clear to auscultation bilaterally Cardiovascular: Rate/Rhythm: regular rate and regular rhythm Vessels: no JVD Extremities: no calf tenderness and no edema Gastrointestinal (Abdomen): normal bowel sounds, soft, nontender, no hepatosplenomegaly Skin: no rashes, warm and dry Psychiatric: Orientation: alert and oriented x 3
--- NOTE | 2018-09-27 08:38 | Discharge Summary ---
Date of Service September 27, 2018 Admission HPI Per Admitting Provider 83-year-old female who presents the ED with urinary symptoms and left buttock pain. Patient was recently admitted to [facility] 09/06 through 09/13 for hyponatremia, UTI, trochanteric bursitis. Patient's urine culture from that admission grew a resistant Pseudomonas, which she completed 5 days of IV cefepime for by recommendations of ID. Hyponatremia was felt to be due to diarrhea in combination with HCTZ use. This improved with IVF. Patient also received an injection in her left hip for the trochanteric bursitis with subsequent improvement in symptoms. She was also placed on a short course of prednisone. Patient reports she had been doing well until last evening when she developed left buttock pain. She was taking her home doses of prescribed baclofen and tramadol without much improvement in her pain. When she woke up this morning, she was having urinary frequency and burning. She then decided to present to the ED for further evaluation. Patient reports one episode of vomiting this morning however attributes that to taking her medications on empty stomach. She reports two episodes of diarrhea. No bright red bleeding per rectum or dark tarry stools. She reports some mild cramping with the diarrhea however denies other abdominal pain. No chest pain or shortness of breath. She denies lightheadedness, dizziness, diaphoresis, syncopal events. In the ED, patient's UA is suggestive of UTI. Na+ is 127. She was given IV cefepime and oral baclofen and tramadol. Admission Exam Per Admitting Provider Vital Signs (Past 24 Hours): Last Vital Signs Temp 36.5 C 09/18/18 17:52 Pulse 87 09/18/18 20:37 Resp 20 09/18/18 20:37 BP 171/86 H 09/18/18 20:37 Pulse Ox 97 09/18/18 20:37 Constitutional: WD/WN, vitals as above Eyes: PERRL, conjunctivae normal, anicteric sclerae ENMT: external ear and nose normal, oropharynx normal Respiratory: normal respiratory effort, lungs clear to auscultation Cardiovascular: Rate/Rhythm: regular rate and regular rhythm Vessels: normal peripheral pulses Extremities: no edema Gastrointestinal (Abdomen): normal bowel sounds, soft, nontender, no hepatosplenomegaly Musculoskeletal: no cyanosis or clubbing, extremities motor strength 5/5 Spine: + buttock tenderness (Left) Left SI joint tenderness with palpation Skin: no rashes, warm and dry Neurologic: PERRL, EOMI, accommodation nl, no face palsy, no dysarthria Psychiatric: A+Ox3, euthymic affect Principal Diagnosis recurrent UTI with Pseudomonas aeruginosa Discharge Data Allergies Allergy/AdvReac Type Severity Reaction Status Date / Time aspirin AdvReac Mild RASH Verified 09/18/18 18:24 codeine AdvReac Mild INDIGESTION Verified 09/18/18 18:24 gluten AdvReac Mild GI SYMPTOMS Verified 09/18/18 18:24 lactose AdvReac Mild GI SYMPTOMS Verified 09/18/18 18:24 Consultations 09/18/18 20:45 ED Decision to Admit Stat 09/18/18 22:37 Consult Case Management - Discharge Planning Routine Consult Infectious Diseases Routine Consult Orthopedic Surgery Routine Consult Urology Routine 09/20/18 13:41 Consult Pain Management Routine Hospital Course (1) Recurrent UTI: Recurrent UTI despite recent treatement with cefepime. Urine culture 09/18/18 grew Pseudomonas aeruginosa, resistant to quinolones, gentamicin, and imipenem. ID consulted. Treatment with ceftazidime / avibactam recommended x 7 days. Received full course of treatment during hospital stay. (2) Hyponatremia: Serum sodium 127 day of admission. HCTZ held. Sodium 09/25 was 133. Follow. (3) Disorder of SI (sacroiliac) joint: Seen by Pain Managment. [place] to have sacroiliitis. Outpatient injection recommended once UTI treated. (4) HTN (hypertension): Discharge on HCTZ and lisinopril. Hyponatremic. Follow BMP. (5) DVT prophylaxis: Receiving SQ heparin. Ambulating. (6) Discharge planning issues: Discharge to home. Family Medicine follow-up with Dr. Kulkarni. Urology follow-up with Dr. Torres. Outpatient follow-up with Pain Management. Total Time Total Time Spent Total Time Spent (In Minutes): 40 Discharge Plan Discharge Items Patient Disposition: Home - Self-Care Reason For Visit: urinary tract infection Discharge Diagnosis: urinary tract infection Condition: Good Discharge Goals: Decrease discomfort and Improve disease control Activity: Resume your previous activity Non-emergency contact: Primary Care Provider, Hospitalist and Urologist Call non-emergency contact if: you have any medication questions, your symptoms worsen and your temperature is above 101 Follow-up/Referrals: Baldemar Kulkarni [Primary Care Provider] - (10/16/2018 1:20 PM Baldemar Kulkarni III, MD (will ask office to call you with sooner appointment)) Liana Torres MD [Physician] - (10/13/2018 10:30 AM Liana Torres MD) Diet: Heart Healthy Addtl Provider Instructions: Seek medical attention if you have: * temperature above 101 * chest pain or trouble breathing * abdominal pain, nausea, vomiting * diarrhea, dark stools or bloody stools * any unanswered questions or concerns Call 911 if symptoms are severe. Call if you have any questions or problems. My cell # is [phone]. You can also reach a [facility] hospitalist on duty at [facility] 24 hours a day by calling [phone]. Prescriptions: Continue baclofen 10 mg Tablet 10 mg PO BID PRN (Reason: leg spasm) Qty: 30 RF: 0 tramadol 50 mg Tablet 25 - 50 mg PO Q6H PRN (Reason: pain) Qty: 10 RF: 0 acetaminophen [Tylenol Arthritis Pain] 650 mg Tablet Extended Release 650 mg PO Q12H PRN (Reason: Pain) RF: 0 Saccharomyces boulardii [Florastor] 250 mg Capsule 250 mg PO BID RF: 0 calcium-vitamin D3-vitamin K 500-500-40 mg-unit-mcg Tablet,Chewable 1 tab PO BID RF: 0 lisinopril-hydrochlorothiazide 20-12.5 mg tablet 1 tab PO DAILY RF: 0 denosumab [Prolia] 60 mg/mL Syringe 1 dose subcut Q6M RF: 0 multivitamin [Multiple Vitamins] Tablet 1 tab PO DAILY RF: 0 Stand-Alone Forms: My [facility], [facility] Discharge Orders: Discharge Order (Routine); Ordered 09/26/18 Ordered By: Baldemar Lee Admission Data Admit Date/Time: 09/20/18 09:19 Attending Provider: Baldemar Lee Admit Provider: Doron Manzo Primary Care Provider: Baldemar Kulkarni Other Providers: Doron Manzo ; Liana Anaya ; Lambert Kowalski ; Liana Torres ; Jerald Clark ; Lilian Osorio Service: Surgical Services Other Interventions: Discharge Summary Assessment (RN) Last Done: 09/26/18 13:31 DC Date/Time DO NOT enter until pt leaves facility: 09/26/18 16:08
== END 2018-09-26 16:08 | disposition home health service (06) | DRG 690 ==
LOC: 3W 17:43 → ED 17:43 → 3W 22:26 → SUATTDRO 09-20 09:19

== ENCOUNTER 2018-10-14 21:38 | Observation (INO) ==
[2018-10-14] MEDS ORDERED: SODIUM CHLORIDE 0.9% 500 ML IV SCH (22:00)
[2018-10-14 22:20] LABS: Appearance Urine Cloudy (Clear); Bacteria Urine Automated 1+ (Negative); Bilirubin Urine Negative (Negative); Blood Urine Trace (Negative); Color Urine Yellow; Glucose Urine UA Negative (Negative); Ketones Urine Negative (Negative); Leukocyte Esterase Urine 2+ (Negative); Nitrite Urine Negative (Negative); Protein Urine Negative (Negative); RBC Urine Automated 0-4 /hpf (0-4); Specific Gravity Urine 1.016 (1.000-1.030); Urobilinogen Urine Negative (Negative); WBC Urine Automated >30 /hpf (0-5)
--- NOTE | 2018-10-14 22:22 | Emergency Department Note ---
Entered by Danni Jones acting as a scribe for Buster Gallegos MD History of Present Illness General Chief complaint: Urinary Symptoms Stated complaint: UTI Time Seen by Provider: 10/14/18 21:47 Source: patient Mode of arrival: ambulatory Limitations: no limitations History of Present Illness Associated symptoms: + denies other symptoms (abd pain) and + other (dysuria); no chest pain, no fever/chills, no nausea/vomiting and no shortness of breath The patient is an 83 year old female who presents to the Emergency Room with complaints of a urinary symptoms that began about 2 hours ago. The patient reports that she was sitting down and suddenly felt discomfort in the genital area. She states that she then went to the bathroom but was unable to urinate. She notes that later she was able to urinate a bit and reports it did burn. She denies any fevers or nausea. She reports that she has had several UTIs in the past and notes her symptoms feel similar. She states that she was recently admitted at this hospital for a UTI. She also denies any recent chest pain, abdominal pain or shortness of breath. She reports that during her recent stay, she was told that she does not empty her bladder completely. EMR shows that the patient was admitted at this hospital for a UTI which grew a resistant pseudomonas, she was discharged the 27 of September. Home Medications Home Medications Medication Instructions Recorded Confirmed Type Prolia 1 dose SUBCUT Q6M 05/31/18 10/14/18 History lisinopril-hydrochlorothiazide 1 tab PO DAILY 05/31/18 10/14/18 History multivitamin [Multiple Vitamins] 1 tab PO DAILY 06/20/18 10/14/18 History baclofen 10 mg PO BID PRN #30 tab 08/02/18 10/14/18 Rx tramadol 25 - 50 mg PO Q6H PRN #10 tab 08/02/18 10/14/18 Rx Florastor 250 mg PO BID 09/18/18 10/14/18 History acetaminophen [Tylenol Arthritis 650 mg PO Q12H PRN 09/18/18 10/14/18 History Pain] calcium-vitamin D3-vitamin K 1 tab PO BID 09/18/18 10/14/18 History Allergies Allergy/AdvReac Type Severity Reaction Status Date / Time aspirin AdvReac Mild RASH Verified 10/14/18 22:31 codeine AdvReac Mild INDIGESTION Verified 10/14/18 22:31 gluten AdvReac Mild GI SYMPTOMS Verified 10/14/18 22:31 lactose AdvReac Mild GI SYMPTOMS Verified 10/14/18 22:31 Past Med/Surg History Medical History Sacroiliac joint pain (Chronic) History of ITP (Chronic) Recurrent UTI (Chronic) Pseudomonas aeruginosa infection (Resolved) Greater trochanteric bursitis (Resolved) Osteoporosis (Chronic) HTN (hypertension) (Chronic) CKD (chronic kidney disease) stage 3, GFR 30-59 ml/min (Chronic) Hyponatremia (Chronic) Hx of cancer of uterus (Chronic) Temporary low platelet count (Resolved) Surgical History H/O: hysterectomy (Chronic) Hx of cholecystectomy (Chronic) History of tonsillectomy and adenoidectomy (Chronic) History of removal of both ovaries (Chronic) History of carpal tunnel surgery (Chronic) H/O cataract removal with insertion of prosthetic lens (Chronic) "bilat" Family History Other Family history non-contributory Social History Preferred Language: Albanian Beliefs That Will Affect Care: None marital status: / Current Living Situation: Alone Current Living Situation Comment: Lives at home currently current occupational status: retired Feels Safe at Home: Yes Smoking Status: Never smoker Hx Alcohol Use: Yes Hx Substance Use: No Review of Systems See HPI for pertinent positives & negatives. and A total of 10 systems reviewed and were otherwise negative Physical Exam Vital Signs Vital Signs - 24 hr 10/14/18 21:40 10/14/18 22:56 Temperature 36.5 C Temperature Source Oral Sepsis Recent Fever Within 48 Hours No Sepsis New/Unexplained Change in Mental Status No Sepsis Action Taken by Nursing No Action Required Pulse Rate 89 Pulse Rate [Right Finger] 88 Pulse Rhythm Regular Pulse Strength Normal Respiratory Rate 20 18 Respiratory Effort / Characteristics Non-Labored Spontaneous Respiratory Depth Normal Respiratory Pattern Regular Blood Pressure 149/82 H Blood Pressure [Left Arm] 163/73 H Blood Pressure Mean 104 Blood Pressure Mean [Left Arm] 103 Blood Pressure Position Sitting Pulse Oximetry 96 96 Oxygen Delivery Method Room Air Room Air GENERAL: Patient is in no acute distress. HEENT: No acute trauma, normocephalic atraumatic, mucous membranes moist, no nasal congestion, no scleral icterus. NECK: No stridor, no adenopathy, no meningismus, trachea is midline. LUNGS: Clear to auscultation bilaterally, no wheeze, no rhonchi, breath sounds equal. HEART: Without murmurs gallops or rubs, regular rate and rhythm. BACK: No flank discomfort with precaution. ABDOMEN: Soft, nontender, bowel sounds positive, no hernias, no peritonitis. EXTREMITIES: No cyanosis or edema, full range of motion of all the joints without pain or difficulty, no signs for acute trauma. NEUROLOGIC: Oriented x 3, no acute motor or sensory deficits, no focal weakness. SKIN: No rash, no jaundice, no diaphoresis. Course 2153: Past medical records reviewed. The patient was evaluated in room C11A, and a complete history and physical examination were performed. 2248: I reviewed the patient's case with Dr. Sanchez - Infectious Disease Specialist. He recommends admission. 225: I reviewed the patient's case with Dr. Manzo [facility] Hospitalist. He will evaluate the patient for further management. 2300: I updated the patient on today's findings and the treatment plan. Administered Medications Piperacillin Sod/Tazobactam Sod (Zosyn) 4.5 gm in 120 mls @ 240 mls/hr IV NOW ONE Stop: 10/14/18 23:20 Last Admin: 10/14/18 22:57 Dose: 240 mls/hr Documented by: [id number] Discontinued Medications Sodium Chloride (Nss) 500 mls @ 999 mls/hr IV .Q31M RENEE Stop: 10/14/18 22:30 Last Infusion: 10/14/18 22:52 Dose: 0 mls/hr Documented by: [id number] Admin: 10/14/18 22:25 Dose: 999 mls/hr Documented by: [id number] Medical Decision Making Differential Diagnosis Differential Diagnosis includes: renal failure, dehydration, vaginal irritation, urinary retention, UTI, resistant UTI, vaginal yeast infection. Medical Records Attestation: I reviewed the patient's medical records. Home Medications Current Medication List: was personally reviewed by me Laboratory Data Attestation: I reviewed the patient's lab results. Result diagrams: 10/14/18 22:10 10/14/18 22:10 Lab Results 10/14/18 10/14/18 10/14/18 Range/Units 22:05 22:10 22:10 WBC 7.68 (4.8-10.8) K/uL RBC 4.23 (4.2-5.4) M/uL Hgb 12.4 (12.0-16.0) g/dL Hct 37.0 (37-47) % MCV 87.5 (80-100) fL MCH 29.3 (25-34) pg MCHC 33.5 (32-36) g/dL RDW Std Deviation 47.6 H (36.4-46.3) fL RDW Coeff of Anand 14.9 H (11.5-14.5) % Plt Count 332 (130-400) K/uL MPV 8.4 (7.4-10.4) fL Immature Gran % (Auto) 0.3 % Neut % (Auto) 68.4 % Lymph % (Auto) 17.8 % [place] % (Auto) 12.4 % Eos % (Auto) 0.8 % Baso % (Auto) 0.3 % Immature Gran # (Auto) 0.02 (0.00-0.02) K/uL Neut # (Auto) 5.26 (1.4-6.5) K/uL Lymph # (Auto) 1.37 (1.2-3.4) K/uL [place] # (Auto) 0.95 H (0.11-0.59) K/uL Eos # (Auto) 0.06 (0-0.5) K/uL Baso # (Auto) 0.02 (0-0.2) K/uL Sodium 133 L (136-145) mmol/L Potassium 3.6 (3.5-5.1) mmol/L Chloride 97 L (98-107) mmol/L Carbon Dioxide 31 (21-32) mmol/L Anion Gap 6.0 (3-11) BUN 23 H (7-18) mg/dl Creatinine 0.77 (0.6-1.2) mg/dl Est Cr Clr Drug Dosing 48.1 ml/min Est GFR ( Amer) 81.6 Est GFR (Non-Af Amer) 70.4 BUN/Creatinine Ratio 29.6 H (10-20) Glucose 110 H (70-99) mg/dl Calcium 8.6 (8.5-10.1) mg/dl Total Bilirubin 0.2 (0.2-1) mg/dl AST 20 (15-37) U/L ALT 28 (12-78) U/L Alkaline Phosphatase 149 H (45-117) U/L Total Protein 6.3 L (6.4-8.2) gm/dl Albumin 3.2 L (3.4-5.0) gm/dl Globulin 3.1 (2.5-4.0) gm/dl Albumin/Globulin Ratio 1.0 (0.9-2) Urine Color Yellow Urine Appearance Cloudy H (Clear) Urine pH 6.0 (4.5-7.5) Ur Specific [place] 1.016 (1.000-1.030) Urine Protein Negative (Negative) Urine Glucose (UA) Negative (Negative) Urine Ketones Negative (Negative) Urine Blood Trace H (Negative) Urine Nitrite Negative (Negative) Urine Bilirubin Negative (Negative) Urine Urobilinogen Negative (Negative) Ur Leukocyte Esterase 2+ H (Negative) Urine WBC (Auto) >30 H (0-5) /hpf Urine RBC (Auto) 0-4 (0-4) /hpf U Hyaline Cast (Auto) 5-10 H (0-5) /lpf U Epithel Cells (Auto) 10-20 H (0-5) /lpf Urine Bacteria (Auto) 1+ H (Negative) Blood Pressure Blood Pressure Findings: Elevated blood pressure Blood Pressure Disposition: further management by hospitalist [facility] Narrative There is no leukocytosis or concerning anemia. No significant electrolyte abnormality or kidney failure. There is no hepatitis. Urinalysis does suggest infection, urine culture is pending. On exam, the patient was not toxic or febrile. I did review the patient's old records. Her recent UTI was from a Pseudomonas which was quite resistant. Only IV antibiotic therapy would work for the infection. I spoke with Dr. Sanchez of infectious disease. He recommended a repeat hospital stay as she will require IV therapy. She was given a dose of IV Zosyn in this ER, as per the culture results from last month, Zosyn should be effective. I spoke to the patient about my findings, case management has been involved. The on-call hospitalist was consulted. Impression & Plan UTI (urinary tract infection), bacterial, Recurrent UTI, Dysuria Discharge Plan Visit Data Chief Complaint: Urinary Symptoms Stated Complaint: UTI ED Provider: Buster Gallegos Discharge Problem: UTI (urinary tract infection), bacterial, Recurrent UTI, Dysuria Patient Disposition: Being Evaluated by Hospitalist Forms Stand Alone Forms: My [facility] Prescriptions Prescriptions: No Action baclofen 10 mg Tablet 10 mg PO BID PRN (Reason: leg spasm) Qty: 30 RF: 0 tramadol 50 mg Tablet 25 - 50 mg PO Q6H PRN (Reason: pain) Qty: 10 RF: 0 acetaminophen [Tylenol Arthritis Pain] 650 mg Tablet Extended Release 650 mg PO Q12H PRN (Reason: Pain) RF: 0 Florastor 250 mg Capsule 250 mg PO BID RF: 0 calcium-vitamin D3-vitamin K 500-500-40 mg-unit-mcg Tablet,Chewable 1 tab PO BID RF: 0 lisinopril-hydrochlorothiazide 20-12.5 mg tablet 1 tab PO DAILY RF: 0 Prolia 60 mg/mL Syringe 1 dose subcut Q6M RF: 0 multivitamin [Multiple Vitamins] Tablet 1 tab PO DAILY RF: 0 Referrals Referrals: Baldemar Kulkarni [Primary Care Provider] - The gennaibe's documentation has been prepared under my direction and personally reviewed by me in its entirety. I confirm that the note above accurately reflects all work, treatment, procedures, and medical decision making performed by me.
[2018-10-14 22:23] LABS: Basophils # (auto) 0.02 K/uL (0-0.2); Basophils % (auto) 0.3 %; Eosinophils # (auto) 0.06 K/uL (0-0.5); Eosinophils % (auto) 0.8 %; Hemoglobin 12.4 g/dL (12.0-16.0); Immature Granulocytes # (auto) 0.02 K/uL (0.00-0.02); Immature Granulocytes % (auto) 0.3 %; Lymphocytes # (auto) 1.37 K/uL (1.2-3.4); Lymphocytes % (auto) 17.8 %; Mean Corpuscular Hgb Conc 33.5 g/dL (32-36); Mean Corpuscular Volume 87.5 fL (80-100); Mean Platelet Volume 8.4 fL (7.4-10.4); Monocytes # (auto) 0.95 K/uL (0.11-0.59); Monocytes % (auto) 12.4 %; Neutrophils # (auto) 5.26 K/uL (1.4-6.5); Neutrophils % (auto) 68.4 %; Platelet Count 332 K/uL (130-400); RDW Coefficient of Variation 14.9 % (11.5-14.5); RDW Standard Deviation 47.6 fL (36.4-46.3); Red Blood Count 4.23 M/uL (4.2-5.4); White Blood Count 7.68 K/uL (4.8-10.8)
[2018-10-14 22:39] LABS: Albumin Level 3.2 gm/dl (3.4-5.0); BUN Creatinine Ratio 29.6 (10-20); Calcium 8.6 mg/dl (8.5-10.1); Creatinine Clr Calc Pharmacy 48.1 ml/min; Est GFR (African American) 81.6; Est GFR (Non-African American) 70.4; Potassium 3.6 mmol/L (3.5-5.1)
[2018-10-14 22:42] LABS: Bilirubin,Total 0.2 mg/dl (0.2-1); Globulin 3.1 gm/dl (2.5-4.0); Total Protein 6.3 gm/dl (6.4-8.2)
[2018-10-14] MEDS ORDERED: PIPERACILLIN/TAZOBACTAM 4.5 GM/120 ML BAG IV ONE (22:51)
[2018-10-15] MEDS ORDERED: ACETAMINOPHEN 325 MG TAB PO PRN (00:41)
[2018-10-15] MEDS ORDERED: PIPERACILL/TAZOBAC CONSULT ACTIVE PRN (00:41)
[2018-10-15] MEDS ORDERED: BACLOFEN 10 MG TAB PO PRN (00:41)
[2018-10-15] MEDS ORDERED: ALUMINUM/MAGNESIUM SUSP 30 ML UDC PO PRN (00:41)
[2018-10-15] MEDS ORDERED: ONDANSETRON INJ 2 MG/ML 2 ML VIAL IV PRN (00:41)
[2018-10-15] MEDS: TRAMADOL HCL 50 MG TABLET PO PRN ×2 (01:51→15:02)
--- NOTE | 2018-10-15 02:03 | History & Physical Report ---
Date of Service October 14, 2018 Assessment & Plan (1) UTI (urinary tract infection), bacterial: Recurrent recently treated for pseudomonas with ceftazidime / avibactam. Er spoke with ID and ok for zosyn for now awaut cultures chronic suppressive therapy as per ID Present on Admission?: Yes (2) Greater trochanteric bursitis: recently had sterid shot still has some pain followup with orthopedics pt/o Present on Admission?: Yes (3) HTN (hypertension): continue home med lisinopril/hctz will monitor Present on Admission?: Yes (4) CKD (chronic kidney disease) stage 3, GFR 30-59 ml/min: will follow labs Present on Admission?: Yes (5) Hyponatremia: last admission required fluids hctz was held which was restarted at discharge will closely monitor labs Present on Admission?: Yes (6) History of ITP: currently stable will monior Present on Admission?: Yes (7) DVT prophylaxis: hep sub q History of Present Illness Chief Complaint: Recurrent UTI Primary Care Provider: Baldemar Kulkarni This is a 82-year-old female this is a 83-year-old female with past medical history significant for hypertension chronic kidney disease stage III osteoporosis history of ITP history of urinary incontinence history of recurrent UTI presents with urinary symptoms Since 8 PM today.Patient's started to feel burning micturition and increased frequency of urination and she got worried about her UTI and she came to the ER.She was recently in the hospital for similar complaints and cultures grew Pseudomonas and was treated with IV antibiotics, seen by ID and urology at that time. Urology recommended [place] or straight cath which patient declined. Patient lives alone.Since her pelvic fracture she walks with help of walker, denies any fever or chills, no nausea or vomiting no abdominal pain normal bowel movements. Currently resting comfortably and hemodynamically stable. Allergies Allergy/AdvReac Type Severity Reaction Status Date / Time aspirin AdvReac Mild RASH Verified 10/14/18 22:31 codeine AdvReac Mild INDIGESTION Verified 10/14/18 22:31 gluten AdvReac Mild GI SYMPTOMS Verified 10/14/18 22:31 lactose AdvReac Mild GI SYMPTOMS Verified 10/14/18 22:31 Home Medications Home Medications Medication Instructions Recorded Confirmed Type Prolia 1 dose SUBCUT Q6M 05/31/18 10/14/18 History lisinopril-hydrochlorothiazide 1 tab PO DAILY 05/31/18 10/14/18 History multivitamin [Multiple Vitamins] 1 tab PO DAILY 06/20/18 10/14/18 History baclofen 10 mg PO BID PRN #30 tab 08/02/18 10/14/18 Rx tramadol 25 - 50 mg PO Q6H PRN #10 tab 08/02/18 10/14/18 Rx Florastor 250 mg PO BID 09/18/18 10/14/18 History acetaminophen [Tylenol Arthritis 650 mg PO Q12H PRN 09/18/18 10/14/18 History Pain] calcium-vitamin D3-vitamin K 1 tab PO BID 09/18/18 10/14/18 History Past Med/Surg History Medical History Sacroiliac joint pain (Chronic) History of ITP (Chronic) Recurrent UTI (Chronic) Pseudomonas aeruginosa infection (Resolved) Greater trochanteric bursitis (Resolved) Osteoporosis (Chronic) HTN (hypertension) (Chronic) CKD (chronic kidney disease) stage 3, GFR 30-59 ml/min (Chronic) Hyponatremia (Chronic) Hx of cancer of uterus (Chronic) Temporary low platelet count (Resolved) Surgical History H/O: hysterectomy (Chronic) Hx of cholecystectomy (Chronic) History of tonsillectomy and adenoidectomy (Chronic) History of removal of both ovaries (Chronic) History of carpal tunnel surgery (Chronic) H/O cataract removal with insertion of prosthetic lens (Chronic) "bilat" Family History Other Family history non-contributory Social History Preferred Language: Armenian Communication Ability: Effective Beliefs That Will Affect Care: None marital status: / Current Living Situation: Alone Current Living Situation Comment: Lives at home currently current occupational status: retired Feels Safe at Home: Yes Safety Concerns: Feels Safe At This Time Smoking Status: Never smoker Hx Alcohol Use: Yes Hx Substance Use: No Review of Systems NEEDS EDITING Constitutional- no fever Eyes- no acute visual changes ENT- no earache ; no pharyngitis Pulmonary- no cough, no shortness of breath Cardiac- no chest pain, chronic lower extremity edema present GI- no nausea, no vomiting, no diarrhea, no melena, no hematochezia - has burning micturition and increased frequency, no hematuria Derm- no rashes Neuro- no headaches, no focal neurologic symptoms Physical Exam Vital Signs (Past 24 Hours): Last Vital Signs Temp 36.5 C 10/14/18 21:40 Pulse 86 10/15/18 00:13 Resp 17 10/15/18 00:13 BP 137/83 10/15/18 00:13 Pulse Ox 96 10/15/18 00:13 Physical Exam: NEEDS EDITING General- adult Head- atraumatic Eyes- PERRL, EOMI, anicteric ENT- oropharynx clear Neck- supple, no JVD, no thyromegaly; carotids +2/2, no bruits appreciated Lungs- clear to auscultation and percussion Heart- regular rhythm; no murmur, no gallop, no rub appreciated Abdomen- normal bowel sounds, soft, nontender, no masses Extremities-lower extremity edema present , no erythema seen Neuro- alert, oriented x 3; PERRL, EOMI; no facial palsy; no dysarthria;Non focal Skin- warm & dry Results & Data Laboratory Results Laboratory Results - last 24 hr 10/14/18 10/14/18 10/14/18 22:05 22:10 22:10 WBC 7.68 RBC 4.23 Hgb 12.4 Hct 37.0 MCV 87.5 MCH 29.3 MCHC 33.5 RDW Std Deviation 47.6 H RDW Coeff of Anand 14.9 H Plt Count 332 MPV 8.4 Immature Gran % (Auto) 0.3 Neut % (Auto) 68.4 Lymph % (Auto) 17.8 [place] % (Auto) 12.4 Eos % (Auto) 0.8 Baso % (Auto) 0.3 Immature Gran # (Auto) 0.02 Neut # (Auto) 5.26 Lymph # (Auto) 1.37 [place] # (Auto) 0.95 H Eos # (Auto) 0.06 Baso # (Auto) 0.02 Sodium 133 L Potassium 3.6 Chloride 97 L Carbon Dioxide 31 Anion Gap 6.0 BUN 23 H Creatinine 0.77 Est Cr Clr Drug Dosing 48.1 Est GFR ( Amer) 81.6 Est GFR (Non-Af Amer) 70.4 BUN/Creatinine Ratio 29.6 H Glucose 110 H Calcium 8.6 Total Bilirubin 0.2 AST 20 ALT 28 Alkaline Phosphatase 149 H Total Protein 6.3 L Albumin 3.2 L Globulin 3.1 Albumin/Globulin Ratio 1.0 Urine Color Yellow Urine Appearance Cloudy H Urine pH 6.0 Ur Specific [place] 1.016 Urine Protein Negative Urine Glucose (UA) Negative Urine Ketones Negative Urine Blood Trace H Urine Nitrite Negative Urine Bilirubin Negative Urine Urobilinogen Negative Ur Leukocyte Esterase 2+ H Urine WBC (Auto) >30 H Urine RBC (Auto) 0-4 U Hyaline Cast (Auto) 5-10 H U Epithel Cells (Auto) 10-20 H Urine Bacteria (Auto) 1+ H Code Status & VTE Plan Code Status Full code
[2018-10-15] MEDS: PIPERACILLIN/TAZOBACTAM 3.375 GM in DEXTROSE 5% 100 ML IV SCH ×3 (03:13→19:55)
[2018-10-15 05:29] LABS: Basophils # (auto) 0.02 K/uL (0-0.2); Basophils % (auto) 0.3 %; Eosinophils # (auto) 0.06 K/uL (0-0.5); Hematocrit (blood only) 32.4 % (37-47); Hemoglobin 10.8 g/dL (12.0-16.0); Immature Granulocytes # (auto) 0.01 K/uL (0.00-0.02); Immature Granulocytes % (auto) 0.2 %; Lymphocytes # (auto) 1.35 K/uL (1.2-3.4); Lymphocytes % (auto) 21.6 %; Mean Corpuscular Hgb Conc 33.3 g/dL (32-36); Mean Corpuscular Volume 87.1 fL (80-100); Mean Platelet Volume 8.1 fL (7.4-10.4); Monocytes # (auto) 0.69 K/uL (0.11-0.59); Monocytes % (auto) 11.1 %; Neutrophils # (auto) 4.11 K/uL (1.4-6.5); Neutrophils % (auto) 65.8 %; Platelet Count 271 K/uL (130-400); RDW Coefficient of Variation 14.7 % (11.5-14.5); RDW Standard Deviation 47.3 fL (36.4-46.3); Red Blood Count 3.72 M/uL (4.2-5.4); White Blood Count 6.24 K/uL (4.8-10.8)
[2018-10-15] MEDS: HEPARIN SOD 5,000 UNIT/0.5 ML VIAL SQ SCH ×2 (05:46→13:10)
[2018-10-15 05:49] LABS: BUN Creatinine Ratio 24.5 (10-20); Calcium 7.6 mg/dl (8.5-10.1); Creatinine Clr Calc Pharmacy 53.6 ml/min; Est GFR (Non-African American) 79.4; Magnesium 1.7 mg/dl (1.8-2.4); Potassium 3.6 mmol/L (3.5-5.1)
[2018-10-15] MEDS: MULTIVITAMIN TAB PO SCH (09:49)
[2018-10-15] MEDS: CALCIUM 600MG + VIT D 400 IU TAB PO SCH ×2 (09:49→19:56)
[2018-10-15] MEDS: SACCHAROMYCES BOULARDII 250 MG CAP PO SCH ×2 (09:50→19:56)
[2018-10-15] MEDS: LISINOPRIL/HCTZ 20/12.5MG 1 TAB TAB PO SCH (09:50)
--- NOTE | 2018-10-15 10:27 | Infectious Disease Consult ---
Date of Consultation October 15, 2018 Assessment & Plan (1) Recurrent UTI: With recurrent urinary tract infection, previously with resistant pseudomonas aeruginosa. Given that isolate was reportedly Zosyn sensitive, will continue for now pending further identification and sensitivities. Would like to limit IV therapy to 5-7 days if possible. Will follow. History of Present Illness Reason for Consultation: Recurrent UTI Attending Physician: Sam Rader MD History of Present Illness 83-year-old female known to the infectious disease service with history of ITP, hypertension, stage III chronic kidney disease, previous hysterectomy, with history of recurrent urinary tract infections. Recently had resistant P seudomonas infection and was treated with Avycaz with resolution of symptoms. We presented to the emergency department with 1 day history of lower abdominal pain with dysuria consistent with previous infections. Because previous isolate of Pseudomonas was resistant to patient was admitted to the hospital to receive IV antibiotics. Currently on Zosyn. No report of significant fever or flank pain. Has significant problem with incontinence, has refused catheter or intermittent self-catheterization in the past.Repeat urine culture pending. Allergies Allergy/AdvReac Type Severity Reaction Status Date / Time aspirin AdvReac Mild RASH Verified 10/14/18 22:31 codeine AdvReac Mild INDIGESTION Verified 10/14/18 22:31 gluten AdvReac Mild GI SYMPTOMS Verified 10/14/18 22:31 lactose AdvReac Mild GI SYMPTOMS Verified 10/14/18 22:31 Home Medications Home Medications Medication Instructions Recorded Confirmed Type Prolia 1 dose SUBCUT Q6M 05/31/18 10/14/18 History lisinopril-hydrochlorothiazide 1 tab PO DAILY 05/31/18 10/14/18 History multivitamin [Multiple Vitamins] 1 tab PO DAILY 06/20/18 10/14/18 History baclofen 10 mg PO BID PRN #30 tab 08/02/18 10/14/18 Rx tramadol 25 - 50 mg PO Q6H PRN #10 tab 08/02/18 10/14/18 Rx Florastor 250 mg PO BID 09/18/18 10/14/18 History acetaminophen [Tylenol Arthritis 650 mg PO Q12H PRN 09/18/18 10/14/18 History Pain] calcium-vitamin D3-vitamin K 1 tab PO BID 09/18/18 10/14/18 History Patient History Medical History Sacroiliac joint pain (Chronic) History of ITP (Chronic) Recurrent UTI (Chronic) Pseudomonas aeruginosa infection (Resolved) Greater trochanteric bursitis (Resolved) Osteoporosis (Chronic) HTN (hypertension) (Chronic) CKD (chronic kidney disease) stage 3, GFR 30-59 ml/min (Chronic) Hyponatremia (Chronic) Hx of cancer of uterus (Chronic) Temporary low platelet count (Resolved) Surgical History H/O: hysterectomy (Chronic) Hx of cholecystectomy (Chronic) History of tonsillectomy and adenoidectomy (Chronic) History of removal of both ovaries (Chronic) History of carpal tunnel surgery (Chronic) H/O cataract removal with insertion of prosthetic lens (Chronic) "bilat" Family History Other Family history non-contributory Social History Preferred Language: Latvian Communication Ability: Effective Beliefs That Will Affect Care: None marital status: / Current Living Situation: Alone Current Living Situation Comment: Lives at home currently current occupational status: retired Feels Safe at Home: Yes Safety Concerns: Feels Safe At This Time Smoking Status: Never smoker Hx Alcohol Use: Yes Hx Substance Use: No Review of Systems All systems were reviewed and are negative except as per HPI Physical Exam Vital Signs (Past 24 Hours): Last Vital Signs Temp 36.6 C 10/15/18 07:09 Pulse 70 10/15/18 07:09 Resp 20 10/15/18 07:09 BP 123/66 10/15/18 07:09 Pulse Ox 97 10/15/18 07:09 Constitutional: WD/WN, vitals as above comfortable; no acute distress Eyes: PERRL, conjunctivae normal, anicteric sclerae ENMT: external ear and nose normal, oropharynx normal Neck: trachea midline, no thyromegaly neck nontender Respiratory: normal respiratory effort, lungs clear to auscultation normal percussion; does not use accessory muscles Cardiovascular: Rate/Rhythm: regular rate and regular rhythm Heart Sounds: normal S1 and normal S2; no gallop, no murmur and no cardiac rub Vessels: normal peripheral pulses; no JVD Gastrointestinal (Abdomen): normal bowel sounds, soft, nontender, no hepatosplenomegaly Musculoskeletal: no cyanosis or clubbing, extremities motor strength 5/5 Spine: thoracic spine normal to inspection and lumbar spine normal to inspection; no cervical spinal tenderness Skin: no rashes, warm and dry normal turgor; no lesions Neurologic: patellar DTR's 2+ bilat, sensation intact no focal motor deficits Psychiatric: A+Ox3, euthymic affect Orientation: cooperative Lymphatic: no cervical or axillary lymphadenopathy no inguinal lymphadenopathy Results & Data Laboratory Results Short CBC 10/14/18 10/15/18 Range/Units 22:10 05:18 WBC 7.68 6.24 (4.8-10.8) K/uL Hgb 12.4 10.8 L (12.0-16.0) g/dL Hct 37.0 32.4 L (37-47) % Plt Count 332 271 (130-400) K/uL BMP 10/14/18 10/15/18 22:10 05:18 Sodium 133 L 134 L Potassium 3.6 3.6 Chloride 97 L 102 Carbon Dioxide 31 27 BUN 23 H 17 Creatinine 0.77 0.69 Glucose 110 H 98 Calcium 8.6 7.6 L Liver Function 10/14/18 Range/Units 22:10 Total Bilirubin 0.2 (0.2-1) mg/dl AST 20 (15-37) U/L ALT 28 (12-78) U/L Alkaline Phosphatase 149 H (45-117) U/L Albumin 3.2 L (3.4-5.0) gm/dl Urine 10/14/18 Range/Units 22:05 Urine Color Yellow Urine Appearance Cloudy H (Clear) Urine pH 6.0 (4.5-7.5) Ur Specific [place] 1.016 (1.000-1.030) Urine Protein Negative (Negative) Urine Glucose (UA) Negative (Negative) Diagnostic Findings Received: 09/18/[address]: Andrzej Abreu, D.O. Copy To: Wily Zee MD Piatt, John E., III, M.D. Source: Urine,Indwelling Cath OV Order: Ordered: Urine Culture Procedure Result Verified Site Urine Culture Final 02/11/19-0829 Organism 1 Pseudomonas aeruginosa [place] Count >100,000 CFU/ml Sens Sensitivities to Follow P aerugino RX M.I.C. --- --------- Amikacin I 32 Aztreonam S <=4 Cefepime S 8 Ceftazidime S 4 Ciprofloxacin R >2 Gentamicin R >8 Imipenem R 8 Levofloxacin R >4 Tobramycin S <=4 Pip/Tazo S <=16 S = SENSITIVE I = INTERMEDIATE R = RESISTANT
--- NOTE | 2018-10-15 16:18 | Hospitalist Progress Note ---
Date of Service October 15, 2018 Assessment & Plan (1) UTI (urinary tract infection), bacterial: Recurrent recently treated for pseudomonas with ceftazidime / avibactam. 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 monior (7) DVT prophylaxis: hep sub q Subjective ff up for UTI seen resting, comfortable states she feels improved compared to yesterday less suprapubic pain, dysuria no fever/chills denies other symptoms Physical Exam Vital Signs (Past 24 Hours): Last Vital Signs Temp 36.7 C 10/15/18 15:19 Pulse 86 10/15/18 15:19 Resp 18 10/15/18 15:19 BP 146/70 H 10/15/18 15:19 Pulse Ox 97 10/15/18 15:19 Physical Exam: General- oriented x 3, not in distress, speaks in sentences with no effort or accessory muscle use Eyes- anicteric Neck- no JVD Lungs- clear BS BL, no rales/wheezing Heart- normal rate, regular rhythm; no murmurs Abdomen- normal bowel sounds, nondistended, soft, nontender Extremities- no pretibial edema, no calf tenderness Neuro- alert, oriented x 3; no gross focal neurologic deficits Skin- warm & dry Results & Data Laboratory Results Laboratory Results - last 24 hr 10/14/18 10/14/18 10/14/18 22:05 22:10 22:10 WBC 7.68 RBC 4.23 Hgb 12.4 Hct 37.0 MCV 87.5 MCH 29.3 MCHC 33.5 RDW Std Deviation 47.6 H RDW Coeff of Anand 14.9 H Plt Count 332 MPV 8.4 Immature Gran % (Auto) 0.3 Neut % (Auto) 68.4 Lymph % (Auto) 17.8 [place] % (Auto) 12.4 Eos % (Auto) 0.8 Baso % (Auto) 0.3 Immature Gran # (Auto) 0.02 Neut # (Auto) 5.26 Lymph # (Auto) 1.37 [place] # (Auto) 0.95 H Eos # (Auto) 0.06 Baso # (Auto) 0.02 Sodium 133 L Potassium 3.6 Chloride 97 L Carbon Dioxide 31 Anion Gap 6.0 BUN 23 H Creatinine 0.77 Est Cr Clr Drug Dosing 48.1 Est GFR ( Amer) 81.6 Est GFR (Non-Af Amer) 70.4 BUN/Creatinine Ratio 29.6 H Glucose 110 H Calcium 8.6 Magnesium Total Bilirubin 0.2 AST 20 ALT 28 Alkaline Phosphatase 149 H Total Protein 6.3 L Albumin 3.2 L Globulin 3.1 Albumin/Globulin Ratio 1.0 Urine Color Yellow Urine Appearance Cloudy H Urine pH 6.0 Ur Specific [place] 1.016 Urine Protein Negative Urine Glucose (UA) Negative Urine Ketones Negative Urine Blood Trace H Urine Nitrite Negative Urine Bilirubin Negative Urine Urobilinogen Negative Ur Leukocyte Esterase 2+ H Urine WBC (Auto) >30 H Urine RBC (Auto) 0-4 U Hyaline Cast (Auto) 5-10 H U Epithel Cells (Auto) 10-20 H Urine Bacteria (Auto) 1+ H 10/15/18 10/15/18 05:18 05:18 WBC 6.24 RBC 3.72 L Hgb 10.8 L Hct 32.4 L MCV 87.1 MCH 29.0 MCHC 33.3 RDW Std Deviation 47.3 H RDW Coeff of Anand 14.7 H Plt Count 271 MPV 8.1 Immature Gran % (Auto) 0.2 Neut % (Auto) 65.8 Lymph % (Auto) 21.6 [place] % (Auto) 11.1 Eos % (Auto) 1.0 Baso % (Auto) 0.3 Immature Gran # (Auto) 0.01 Neut # (Auto) 4.11 Lymph # (Auto) 1.35 [place] # (Auto) 0.69 H Eos # (Auto) 0.06 Baso # (Auto) 0.02 Sodium 134 L Potassium 3.6 Chloride 102 Carbon Dioxide 27 Anion Gap 5.0 BUN 17 Creatinine 0.69 Est Cr Clr Drug Dosing 53.6 Est GFR ( Amer) 92.0 Est GFR (Non-Af Amer) 79.4 BUN/Creatinine Ratio 24.5 H Glucose 98 Calcium 7.6 L Magnesium 1.7 L Total Bilirubin AST ALT Alkaline Phosphatase Total Protein Albumin Globulin Albumin/Globulin Ratio Urine Color Urine Appearance Urine pH Ur Specific [place] Urine Protein Urine Glucose (UA) Urine Ketones Urine Blood Urine Nitrite Urine Bilirubin Urine Urobilinogen Ur Leukocyte Esterase Urine WBC (Auto) Urine RBC (Auto) U Hyaline Cast (Auto) U Epithel Cells (Auto) Urine Bacteria (Auto)
[2018-10-16] MEDS: PIPERACILLIN/TAZOBACTAM 3.375 GM in DEXTROSE 5% 100 ML IV SCH ×2 (04:00→11:53)
[2018-10-16] MEDS: TRAMADOL HCL 50 MG TABLET PO PRN ×2 (04:21→11:54)
[2018-10-16] MEDS: HEPARIN SOD 5,000 UNIT/0.5 ML VIAL SQ SCH ×2 (08:07→15:19)
[2018-10-16] MEDS: LISINOPRIL/HCTZ 20/12.5MG 1 TAB TAB PO SCH (08:07)
[2018-10-16] MEDS: MULTIVITAMIN TAB PO SCH (08:07)
[2018-10-16] MEDS: SACCHAROMYCES BOULARDII 250 MG CAP PO SCH (08:07)
[2018-10-16] MEDS: CALCIUM 600MG + VIT D 400 IU TAB PO SCH (08:07)
[2018-10-16 08:52] LABS: BUN Creatinine Ratio 18.9 (10-20); Calcium 8.8 mg/dl (8.5-10.1); Creatinine Clr Calc Pharmacy 45.7 ml/min; Est GFR (African American) 76.8; Est GFR (Non-African American) 66.2; Potassium 3.9 mmol/L (3.5-5.1)
--- NOTE | 2018-10-16 16:30 | Discharge Summary ---
Date of Service October 16, 2018 Admission HPI Per Admitting Provider This is a 82-year-old female this is a 83-year-old female with past medical history significant for hypertension chronic kidney disease stage III osteoporosis history of ITP history of urinary incontinence history of recurrent UTI presents with urinary symptoms Since 8 PM today.Patient's started to feel burning micturition and increased frequency of urination and she got worried about her UTI and she came to the ER.She was recently in the hospital for similar complaints and cultures grew Pseudomonas and was treated with IV antibiotics, seen by ID and urology at that time. Urology recommended [place] or straight cath which patient declined. Patient lives alone.Since her pelvic fracture she walks with help of walker, denies any fever or chills, no nausea or vomiting no abdominal pain normal bowel movements. Currently resting comfortably and hemodynamically stable. Admission Exam Per Admitting Provider Vital Signs (Past 24 Hours): Last Vital Signs Temp 36.5 C 10/14/18 21:40 Pulse 86 10/15/18 00:13 Resp 17 10/15/18 00:13 BP 137/83 10/15/18 00:13 Pulse Ox 96 10/15/18 00:13 Physical Exam: NEEDS EDITING General- adult Head- atraumatic Eyes- PERRL, EOMI, anicteric ENT- oropharynx clear Neck- supple, no JVD, no thyromegaly; carotids +2/2, no bruits appreciated Lungs- clear to auscultation and percussion Heart- regular rhythm; no murmur, no gallop, no rub appreciated Abdomen- normal bowel sounds, soft, nontender, no masses Extremities-lower extremity edema present , no erythema seen Neuro- alert, oriented x 3; PERRL, EOMI; no facial palsy; no dysarthria;Non focal Skin- warm & dry Principal Diagnosis URINARY TRACT INFECTION Discharge Exam Vital Signs (Past 24 Hours): Last Vital Signs Temp 36.7 C 10/15/18 15:19 Pulse 86 10/15/18 15:19 Resp 18 10/15/18 15:19 BP 146/70 H 10/15/18 15:19 Pulse Ox 97 10/15/18 15:19 Physical Exam: General- oriented x 3, not in distress, speaks in sentences with no effort or accessory muscle use Eyes- anicteric Neck- no JVD Lungs- clear BS BL, no rales/wheezing Heart- normal rate, regular rhythm; no murmurs Abdomen- normal bowel sounds, nondistended, soft, nontender Extremities- no pretibial edema, no calf tenderness Neuro- alert, oriented x 3; no gross focal neurologic deficits Skin- warm & dry Discharge Data Allergies Allergy/AdvReac Type Severity Reaction Status Date / Time aspirin AdvReac Mild RASH Verified 10/14/18 22:31 codeine AdvReac Mild INDIGESTION Verified 10/14/18 22:31 gluten AdvReac Mild GI SYMPTOMS Verified 10/14/18 22:31 lactose AdvReac Mild GI SYMPTOMS Verified 10/14/18 22:31 Consultations 10/14/18 22:56 ED Decision to Admit Stat 10/15/18 00:41 Consult Case Management - Discharge Planning Routine 10/15/18 08:00 Consult Infectious Diseases Routine Hospital Course (1) UTI (urinary tract infection), bacterial: Recurrent recently treated for pseudomonas with ceftazidime / avibactam. urine cultures (+) Gardnerella like bacilli >100k given Zosyn IV x 2 days remained afebrile, symptoms resolved ID consulted, Dr. Sanchez recommends Amoxicillin 500mg TID x 7 days, then ff up with him as outpatient after completion of course (2) Greater trochanteric bursitis: recently had sterid shot ff up with Ortho pt/ot ordered (3) HTN (hypertension): continue home med lisinopril/hctz (4) CKD (chronic kidney disease) stage 3, GFR 30-59 ml/min: stable (5) Hyponatremia: last admission required fluids Na 131 on admisison repeat PRP on ff up with PCP (6) History of ITP: currently stable (7) DVT prophylaxis: hep sub q Total Time Total Time Spent Total Time Spent (In Minutes): 25 minutes Discharge Plan Discharge Items Patient Disposition: Home - Self-Care Reason For Visit: UTI Discharge Diagnosis: URINARY TRACT INFECTION Condition: Good Discharge Goals: Diagnostic testing and Therapeutic intervention Activity: Resume your previous activity Non-emergency contact: Primary Care Provider Call non-emergency contact if: you have any medication questions, your symptoms worsen, your pain is not controlled, your pain is worsening, your pain is unusual for you, your pain is concerning for you and you have a fever Follow-up/Referrals: Dominick Sanchez MD [Physician] - Baldemar Kulkarni [Primary Care Provider] - 10/23/18 10:45 am Diet: Heart Healthy Addtl Provider Instructions: PLEASE FOLLOW UP WITH PRIMARY CARE PHYSICIAN NOTED ABOVE. PLEASE FOLLOW UP WITH INFECTIOUS DISEASE CLINIC DR. SANCHEZ IN 1 WEEK (AFTER FINISHING ANTIBIOTIC COURSE).PLEASE CALL HIS OFFICE FOR AN APPOINTMENT. [phone] PLEASE CALL PRIMARY CARE PHYSICIAN IF WITH RECURRENCE OF SYMPTOMS, DIARRHEA. ALWAYS STAY WELL HYDRATED. Prescriptions: New amoxicillin 500 mg capsule 500 mg PO TID 7 Days Qty: 21 RF: 0 Continued baclofen 10 mg Tablet 10 mg PO BID PRN (Reason: leg spasm) Qty: 30 RF: 0 tramadol 50 mg Tablet 25 - 50 mg PO Q6H PRN (Reason: pain) Qty: 10 RF: 0 acetaminophen [Tylenol Arthritis Pain] 650 mg Tablet Extended Release 650 mg PO Q12H PRN (Reason: Pain) RF: 0 Florastor 250 mg Capsule 250 mg PO BID RF: 0 calcium-vitamin D3-vitamin K 500-500-40 mg-unit-mcg Tablet,Chewable 1 tab PO BID RF: 0 lisinopril-hydrochlorothiazide 20-12.5 mg tablet 1 tab PO DAILY RF: 0 Prolia 60 mg/mL Syringe 1 dose subcut Q6M RF: 0 multivitamin [Multiple Vitamins] Tablet 1 tab PO DAILY RF: 0 Stand-Alone Forms: [facility] Discharge Orders: Discharge Order (Routine); Ordered 10/16/18 Ordered By: Sam Rader Admission Data Admit Date/Time: 10/14/18 23:28 Attending Provider: Sam Rader Admit Provider: Doron Manzo Primary Care Provider: Baldemar Kulkarni Other Providers: Doron Manzo ; Dominick Sanchez Service: Medical
== END 2018-10-16 17:00 | disposition home or self-care (01) ==
LOC: 2W 21:38 → ED 21:38 → 2W 10-15 00:13

== ENCOUNTER 2018-10-24 03:00 | Inpatient (IN) ==
[2018-10-24 04:34] LABS: Appearance Urine Cloudy (Clear); Bacteria Urine Automated 4+ (Negative); Bilirubin Urine Negative (Negative); Blood Urine Trace (Negative); Color Urine Yellow; Glucose Urine UA Negative (Negative); Ketones Urine Negative (Negative); Leukocyte Esterase Urine 3+ (Negative); Nitrite Urine Positive (Negative); Protein Urine Negative (Negative); RBC Urine Automated 0-4 /hpf (0-4); Specific Gravity Urine 1.015 (1.000-1.030); Urobilinogen Urine Negative (Negative); WBC Urine Automated >30 /hpf (0-5); pH Urine 6.5 (4.5-7.5)
[2018-10-24 05:03] LABS: Basophils # (auto) 0.02 K/uL (0-0.2); Basophils % (auto) 0.3 %; Eosinophils # (auto) 0.02 K/uL (0-0.5); Eosinophils % (auto) 0.3 %; Hematocrit (blood only) 36.4 % (37-47); Hemoglobin 12.4 g/dL (12.0-16.0); Immature Granulocytes # (auto) 0.02 K/uL (0.00-0.02); Immature Granulocytes % (auto) 0.3 %; Lymphocytes # (auto) 0.84 K/uL (1.2-3.4); Mean Corpuscular Hgb Conc 34.1 g/dL (32-36); Mean Corpuscular Volume 86.9 fL (80-100); Mean Platelet Volume 8.7 fL (7.4-10.4); Monocytes # (auto) 0.62 K/uL (0.11-0.59); Monocytes % (auto) 8.1 %; Platelet Count 276 K/uL (130-400); RDW Coefficient of Variation 14.7 % (11.5-14.5); RDW Standard Deviation 46.8 fL (36.4-46.3); Red Blood Count 4.19 M/uL (4.2-5.4); White Blood Count 7.62 K/uL (4.8-10.8)
[2018-10-24 05:20] LABS: Albumin Level 3.2 gm/dl (3.4-5.0); BUN Creatinine Ratio 35.6 (10-20); Calcium 8.5 mg/dl (8.5-10.1); Creatinine Clr Calc Pharmacy 63.8 ml/min; Est GFR (African American) 97.4
[2018-10-24 05:23] LABS: Bilirubin,Total 0.3 mg/dl (0.2-1); Globulin 3.2 gm/dl (2.5-4.0); Total Protein 6.4 gm/dl (6.4-8.2)
[2018-10-24] MEDS ORDERED: PHENAZOPYRIDINE HCL 100 MG TAB PO PRN (05:34)
[2018-10-24] MEDS ORDERED: PHENAZOPYRIDINE HCL 100 MG TAB PO STA (05:36)
[2018-10-24] MEDS ORDERED: IOVERSOL 100ml IV PRN (05:44)
[2018-10-24] MEDS ORDERED: SODIUM CHLORIDE 0.9% 500 ML IV ONE (05:46)
--- NOTE | 2018-10-24 05:47 | Emergency Department Note ---
Entered by Nohemi Hutchins acting as a scribe for Breanne Sanon DO History of Present Illness General Chief complaint: Urinary Symptoms Stated complaint: BURING WHEN URINATING (UTI) Time Seen by Provider: 10/24/18 03:22 Source: patient History of Present Illness Onset (ago): hour(s) 5 Location: genitals (Vagina) Severity: similar to prior episodes Pain Consistency: + other (Persistent) Maximum Pain Intensity: 8 Quality: + burning Relieved By: not by medication (Amoxicillin) and not by rest Associated symptoms: + other (Positive urethral burning, loss of sleep. Negative back pain, vaginal discharge, hematuria and polyuria.); no fever/chills and no nausea/vomiting Treatments prior to arrival: other (Amoxicillin) The patient is a 83 year old female who presents to the Emergency Room with complaints of persistent vaginal discomfort starting 5 hours ago. The patient reports that she just recently finished amoxicillin earlier this evening for her UTI. She states that she took her last dose of Amoxicillin before she went to bed and after she went to bed she felt a burning sensation near her urethra. She describes her pain as a burning sensation around her vulva. The patient reports that she went to the grocery store which is not normal for her. She states that was having trouble sleeping. She notes that she was drinking water and staying hydrated throughout the day. She adds that she tried to rest which did not improve her symptoms. The patient reports that she gets UTIs often. She states that she sees Dr. Sanchez for this problem. She denies back pain, fevers, chills, nausea, vomiting, vaginal discharge, hematuria and polyuria. Home Medications Home Medications Medication Instructions Recorded Confirmed Type Prolia 1 dose SUBCUT Q6M 05/31/18 10/24/18 History lisinopril-hydrochlorothiazide 1 tab PO DAILY 05/31/18 10/24/18 History multivitamin [Multiple Vitamins] 1 tab PO DAILY 06/20/18 10/24/18 History baclofen 10 mg PO BID PRN #30 tab 08/02/18 10/24/18 Rx tramadol 25 - 50 mg PO Q6H PRN #10 tab 08/02/18 10/24/18 Rx Florastor 250 mg PO BID 09/18/18 10/24/18 History acetaminophen [Tylenol Arthritis 650 mg PO Q12H PRN 09/18/18 10/24/18 History Pain] calcium-vitamin D3-vitamin K 1 tab PO BID 09/18/18 10/24/18 History Allergies Allergy/AdvReac Type Severity Reaction Status Date / Time aspirin AdvReac Mild RASH Verified 10/24/18 03:30 codeine AdvReac Mild INDIGESTION Verified 10/24/18 03:30 gluten AdvReac Mild GI SYMPTOMS Verified 10/24/18 03:30 lactose AdvReac Mild GI SYMPTOMS Verified 10/24/18 03:30 Past Med/Surg History Medical History Temporary low platelet count (Resolved) CKD (chronic kidney disease) stage 3, GFR 30-59 ml/min Greater trochanteric bursitis HTN (hypertension) History of ITP Hx of cancer of uterus Hyponatremia Osteoporosis Pseudomonas aeruginosa infection Recurrent UTI Sacroiliac joint pain Surgical History H/O cataract removal with insertion of prosthetic lens "bilat" H/O: hysterectomy History of carpal tunnel surgery History of removal of both ovaries History of tonsillectomy and adenoidectomy Hx of cholecystectomy Family History Other Family history non-contributory Social History Preferred Language: Portuguese Beliefs That Will Affect Care: None marital status: / Current Living Situation: Alone Current Living Situation Comment: Lives at home currently current occupational status: retired Feels Safe at Home: Yes Smoking Status: Never smoker Hx Alcohol Use: Yes Hx Substance Use: No Review of Systems See HPI for pertinent positives & negatives. and A total of 10 systems reviewed and were otherwise negative Physical Exam Vital Signs Vital Signs - 24 hr 10/24/18 03:01 10/24/18 05:04 Temperature 36.6 C Temperature Source Oral Sepsis Recent Fever Within 48 Hours No Sepsis Action Taken by Nursing No Action Required Pulse Rate 101 H Pulse Rate [Right Finger] 76 Pulse Rhythm [Right Finger] Regular Pulse Strength [Right Finger] Normal Respiratory Rate 22 18 Respiratory Effort / Characteristics Normal for Patient Non-Labored Spontaneous Respiratory Depth Normal Respiratory Pattern Regular Blood Pressure 182/85 H Blood Pressure [Right Arm] 176/90 H Blood Pressure Mean 117 Blood Pressure Mean [Right Arm] 118 Blood Pressure Position Sitting Pulse Oximetry 98 97 Oxygen Delivery Method Room Air Room Air GENERAL: alert, well appearing, well nourished, no distress, non-toxic EYE EXAM: normal conjunctiva, PERRL and EOM's grossly intact OROPHARYNX: no exudate, no erythema, lips, buccal mucosa, and tongue normal and mucous membranes are moist NECK: supple, no nuchal rigidity, no adenopathy, non-tender LUNGS: Clear to auscultation. Normal chest wall mechanics, no w/r/r HEART: no murmurs, S1 normal and S2 normal ABDOMEN: abdomen soft, non-tender, normo-active bowel sounds, no masses, no rebound or guarding. BACK: Back is symmetrical on inspection and there is no deformity, no midline tenderness, no CVA tenderness. SKIN: no rashes and no bruising UPPER EXTREMITIES: upper extremities are grossly normal. FROM, nml pulses b/l. LOWER EXTREMITIES: No pitting edema. FROM, nml pulses b/l. NEURO EXAM: Normal sensorium, cranial nerves II-XII grossly intact, normal speech, no gross weakness of arms, no gross weakness of legs. Course 0329: Past medical records reviewed. The patient was evaluated in room A2, and a complete history and physical examination were performed. 0451: I updated the patient on her lab results at this time. We discussed possi ble readmission to the hospital. 0522: I reviewed the patient's case with Dr. Neville bishop. He will evaluate the patient for further management. Consultations Consultation #1: I reviewed the patient's case with Dr. Neville bishop. He will evaluate the patient for further management. Time: 05:22 Administered Medications Sodium Chloride (Nss) 500 mls @ 500 mls/hr IV .Q1H ONE Stop: 10/24/18 06:45 Last Admin: 10/24/18 05:58 Dose: 500 mls/hr Documented by: [id number] Ioversol (Optiray 320 100ml) 94 ml IV ONCE PRN PRN Reason: Interaction Checking Stop: 10/28/18 05:43 Last Admin: 10/24/18 05:45 Dose: 94 ml Documented by: [id number] Discontinued Medications Ceftazidime 1,000 mg/ Dextrose 50 mls @ 100 mls/hr IV NOW STA Stop: 10/24/18 05:14 Last Infusion: 10/24/18 05:53 Dose: 0 mls/hr Documented by: [id number] Admin: 10/24/18 05:08 Dose: 100 mls/hr Documented by: [id number] Lisinopril (Zestril) 20 mg PO NOW STA Stop: 10/24/18 05:49 Last Admin: 10/24/18 05:58 Dose: 20 mg Documented by: [id number] Phenazopyridine HCl (Pyridium) 100 mg PO NOW STA Stop: 10/24/18 05:37 Last Admin: 10/24/18 05:52 Dose: 100 mg Documented by: [id number] Medical Decision Making Differential Diagnosis Differential diagnosis: Etiologies such as shingles, pyelonephritis/UTI, renal colic, appendicitis, diverticulitis, mesenteric ischemia, torsion, aortic pathology, infections, inflammatory bowel disease, bowel obstruction, PUD, biliary pathology, as well as others were entertained. Medical Records Attestation: I reviewed the patient's medical records. Home Medications Current Medication List: was personally reviewed by me Laboratory Data Attestation: I reviewed the patient's lab results. Result diagrams: 10/24/18 04:54 10/24/18 04:54 Lab Results 10/24/18 10/24/18 10/24/18 Range/Units 04:05 04:54 04:54 WBC 7.62 (4.8-10.8) K/uL RBC 4.19 L (4.2-5.4) M/uL Hgb 12.4 (12.0-16.0) g/dL Hct 36.4 L (37-47) % MCV 86.9 (80-100) fL MCH 29.6 (25-34) pg MCHC 34.1 (32-36) g/dL RDW Std Deviation 46.8 H (36.4-46.3) fL RDW Coeff of Anand 14.7 H (11.5-14.5) % Plt Count 276 (130-400) K/uL MPV 8.7 (7.4-10.4) fL Immature Gran % (Auto) 0.3 % Neut % (Auto) 80.0 % Lymph % (Auto) 11.0 % [place] % (Auto) 8.1 % Eos % (Auto) 0.3 % Baso % (Auto) 0.3 % Immature Gran # (Auto) 0.02 (0.00-0.02) K/uL Neut # (Auto) 6.10 (1.4-6.5) K/uL Lymph # (Auto) 0.84 L (1.2-3.4) K/uL [place] # (Auto) 0.62 H (0.11-0.59) K/uL Eos # (Auto) 0.02 (0-0.5) K/uL Baso # (Auto) 0.02 (0-0.2) K/uL Sodium 127 L (136-145) mmol/L Potassium 4.0 (3.5-5.1) mmol/L Chloride 96 L (98-107) mmol/L Carbon Dioxide 24 (21-32) mmol/L Anion Gap 7.0 (3-11) BUN 21 H (7-18) mg/dl Creatinine 0.58 L (0.6-1.2) mg/dl Est Cr Clr Drug Dosing 63.8 ml/min Est GFR ( Amer) 97.4 Est GFR (Non-Af Amer) 84.0 BUN/Creatinine Ratio 35.6 H (10-20) Glucose 108 H (70-99) mg/dl Calcium 8.5 (8.5-10.1) mg/dl Magnesium (1.8-2.4) mg/dl Total Bilirubin 0.3 (0.2-1) mg/dl AST 16 (15-37) U/L ALT 21 (12-78) U/L Alkaline Phosphatase 154 H (45-117) U/L Total Protein 6.4 (6.4-8.2) gm/dl Albumin 3.2 L (3.4-5.0) gm/dl Globulin 3.2 (2.5-4.0) gm/dl Albumin/Globulin Ratio 1.0 (0.9-2) TSH (0.300-4.500) uIu/ml Urine Color Yellow Urine Appearance Cloudy H (Clear) Urine pH 6.5 (4.5-7.5) Ur Specific [place] 1.015 (1.000-1.030) Urine Protein Negative (Negative) Urine Glucose (UA) Negative (Negative) Urine Ketones Negative (Negative) Urine Blood Trace H (Negative) Urine Nitrite Positive H (Negative) Urine Bilirubin Negative (Negative) Urine Urobilinogen Negative (Negative) Ur Leukocyte Esterase 3+ H (Negative) Urine WBC (Auto) >30 H (0-5) /hpf Urine RBC (Auto) 0-4 (0-4) /hpf U Hyaline Cast (Auto) 1-5 (0-5) /lpf U Epithel Cells (Auto) 10-20 H (0-5) /lpf Urine Bacteria (Auto) 4+ H (Negative) 10/24/18 Range/Units 04:54 WBC (4.8-10.8) K/uL RBC (4.2-5.4) M/uL Hgb (12.0-16.0) g/dL Hct (37-47) % MCV (80-100) fL MCH (25-34) pg MCHC (32-36) g/dL RDW Std Deviation (36.4-46.3) fL RDW Coeff of Anand (11.5-14.5) % Plt Count (130-400) K/uL MPV (7.4-10.4) fL Immature Gran % (Auto) % Neut % (Auto) % Lymph % (Auto) % [place] % (Auto) % Eos % (Auto) % Baso % (Auto) % Immature Gran # (Auto) (0.00-0.02) K/uL Neut # (Auto) (1.4-6.5) K/uL Lymph # (Auto) (1.2-3.4) K/uL [place] # (Auto) (0.11-0.59) K/uL Eos # (Auto) (0-0.5) K/uL Baso # (Auto) (0-0.2) K/uL Sodium (136-145) mmol/L Potassium (3.5-5.1) mmol/L Chloride (98-107) mmol/L Carbon Dioxide (21-32) mmol/L Anion Gap (3-11) BUN (7-18) mg/dl Creatinine (0.6-1.2) mg/dl Est Cr Clr Drug Dosing ml/min Est GFR ( Amer) Est GFR (Non-Af Amer) BUN/Creatinine Ratio (10-20) Glucose (70-99) mg/dl Calcium (8.5-10.1) mg/dl Magnesium 1.8 (1.8-2.4) mg/dl Total Bilirubin (0.2-1) mg/dl AST (15-37) U/L ALT (12-78) U/L Alkaline Phosphatase (45-117) U/L Total Protein (6.4-8.2) gm/dl Albumin (3.4-5.0) gm/dl Globulin (2.5-4.0) gm/dl Albumin/Globulin Ratio (0.9-2) TSH 0.882 (0.300-4.500) uIu/ml Urine Color Urine Appearance (Clear) Urine pH (4.5-7.5) Ur Specific [place] (1.000-1.030) Urine Protein (Negative) Urine Glucose (UA) (Negative) Urine Ketones (Negative) Urine Blood (Negative) Urine Nitrite (Negative) Urine Bilirubin (Negative) Urine Urobilinogen (Negative) Ur Leukocyte Esterase (Negative) Urine WBC (Auto) (0-5) /hpf Urine RBC (Auto) (0-4) /hpf U Hyaline Cast (Auto) (0-5) /lpf U Epithel Cells (Auto) (0-5) /lpf Urine Bacteria (Auto) (Negative) Imaging Data Radiologist's Impression: Radiology results as stated below per my review and the radiologist's interpretation: CT ABDOMEN & PELVIS With Contrast: There is hyperenhancement of the bladder wall with a suggestion of perivesicular fat stranding. In addition, there is hyperenhancement of the bilateral ureters. Findings suggest cystitis and ascending infection of the urothelium. No abnormal enhancement of the kidneys to suggest florid pyelonephritis. No renal collecting stones identified. Please correlate with urinalysis, as appropriate. Healing bilateral sacral wing and right superior and inferior pubic rami fractures. The live, pancreas, spleen and adrenal glands are unremarkable. The gallbladder is presumed surgically absent. Diverticulosis of the colon. No bowel obstruction. No free intraperitoneal fluid. Radiologist: Joel Melchor MD. Study ready at 0551 and initial results transmitted at 0555. Blood Pressure Blood Pressure Findings: Elevated blood pressure Blood Pressure Disposition: further management by hospitalist PAL Narrative Patient here well-appearing despite complaints. Concern given history of recurrent UTIs. I did review the consultation by Dr. Sanchez who would chosen her antibiotics at discharge after her last admission. Patient states she did take these as prescribed and was still taking them into this evening. No evidence of bacteremia/sepsis. Given recurrence, patient sent for CT imaging to rule out other obstructive or anatomic reason for recurrent UTIs. CT reassuring. Patient hemodynamically stable, and mildly hypertensive likely due to anxiety regarding her condition and need for readmission. Given review of recent urine cultures, IV ceftazidime chosen. Patient's renal function normal. Patient with a history of mild hyponatremia, tonight sodium of 127 mildly worse compared to her usual. Impression & Plan Urinary tract infection, Dysuria, Acute hyponatremia Discharge Plan Visit Data Chief Complaint: Urinary Symptoms Stated Complaint: BURING WHEN URINATING (UTI) ED Provider: Breanne Sanon Discharge Problem: Urinary tract infection, Dysuria, Acute hyponatremia Patient Disposition: Being Evaluated by Hospitalist Condition: Good Forms Stand Alone Forms: My [facility] Prescriptions Prescriptions: No Action baclofen 10 mg Tablet 10 mg PO BID PRN (Reason: leg spasm) Qty: 30 RF: 0 tramadol 50 mg Tablet 25 - 50 mg PO Q6H PRN (Reason: pain) Qty: 10 RF: 0 acetaminophen [Tylenol Arthritis Pain] 650 mg Tablet Extended Release 650 mg PO Q12H PRN (Reason: Pain) RF: 0 Florastor 250 mg Capsule 250 mg PO BID RF: 0 calcium-vitamin D3-vitamin K 500-500-40 mg-unit-mcg Tablet,Chewable 1 tab PO BID RF: 0 lisinopril-hydrochlorothiazide 20-12.5 mg tablet 1 tab PO DAILY RF: 0 Prolia 60 mg/mL Syringe 1 dose subcut Q6M RF: 0 multivitamin [Multiple Vitamins] Tablet 1 tab PO DAILY RF: 0 Referrals Referrals: Baldemar Kulkarni [Primary Care Provider] - Discharge Problem: Urinary tract infection Qualifiers: Urinary tract infection type: acute cystitis Hematuria presence: with hematuria Qualified Code(s): N30.01 - Acute cystitis with hematuria The scribe's documentation has been prepared under my direction and personally reviewed by me in its entirety. I confirm that the note above accurately reflects all work, treatment, procedures, and medical decision making performed by me.
[2018-10-24] MEDS ORDERED: LISINOPRIL 20 MG TAB PO STA (05:48)
[2018-10-24 06:08] LABS: Magnesium 1.8 mg/dl (1.8-2.4)
--- NOTE | 2018-10-24 06:43 | History & Physical Report ---
Date of Service October 24, 2018 Assessment & Plan (1) Complicated UTI (urinary tract infection): Recurrent symptoms hx incomplete bladder emptying as per records Patient prefers not to do intermittent self straight cath as per outpatient [facility] records. Patient not septic. Acute on chronic hyponatremia Home diuretic contributory Patient claims PCP unwilling to stop home diuretic due to potential for leg swelling accumulation. hypertension, elevated secondary to discomfort uterine cancer status post surgery status post chemotherapy chronic anemia, hemoglobin better than baseline likely secondary to hemoconcentration hx ITP as per records [facility] Follow urine cultures, IV Ceftazidime for now (hx of Pseudomonas UTI w/ intermediate resistance to Cefepime as per records) ID consult RE complicated UTI Urology consult RE hx incomplete bladder emptying; patient requesting to re-di scuss intermittent self straight catheterization home strategy with urologist. Careful correction of sodium, hold home diuretic for now Hyponatremia work-up Nephrology opinion Re: hyponatremia Continue home lisinopril for BP, may need dose titration if HCTZ to be held for good Analgesia, Pyridium DVT prophylaxis. Lovenox subcu Full code History of Present Illness Chief Complaint: Dysuria Primary Care Provider: Baldemar Kulkarni History obtained from patient and records. Medical history significant for hypertension, uterine cancer status post surgery status post chemotherapy, chronic hyponatremia, chronic anemia baseline hemoglobin of 11, recurrent UTIs secondary to incomplete bladder emptying as per records, history of ITP as per records. Recent confinement last week for recurrent UTI. Last night patient roused from sleep by distressing dysuria symptoms without hematuria. No fever, no chills. No chest pain, no S OB. At the ER, patient received IV Ceftazidime. Allergies Allergy/AdvReac Type Severity Reaction Status Date / Time aspirin AdvReac Mild RASH Verified 10/24/18 03:30 codeine AdvReac Mild INDIGESTION Verified 10/24/18 03:30 gluten AdvReac Mild GI SYMPTOMS Verified 10/24/18 03:30 lactose AdvReac Mild GI SYMPTOMS Verified 10/24/18 03:30 Home Medications Home Medications Medication Instructions Recorded Confirmed Type Prolia 1 dose SUBCUT Q6M 05/31/18 10/24/18 History lisinopril-hydrochlorothiazide 1 tab PO DAILY 05/31/18 10/24/18 History multivitamin [Multiple Vitamins] 1 tab PO DAILY 06/20/18 10/24/18 History baclofen 10 mg PO BID PRN #30 tab 08/02/18 10/24/18 Rx tramadol 25 - 50 mg PO Q6H PRN #10 tab 08/02/18 10/24/18 Rx Florastor 250 mg PO BID 09/18/18 10/24/18 History acetaminophen [Tylenol Arthritis 650 mg PO Q12H PRN 09/18/18 10/24/18 History Pain] calcium-vitamin D3-vitamin K 1 tab PO BID 09/18/18 10/24/18 History Past Med/Surg History Medical History Temporary low platelet count (Resolved) CKD (chronic kidney disease) stage 3, GFR 30-59 ml/min Greater trochanteric bursitis HTN (hypertension) History of ITP Hx of cancer of uterus Hyponatremia Osteoporosis Pseudomonas aeruginosa infection Recurrent UTI Sacroiliac joint pain Surgical History H/O cataract removal with insertion of prosthetic lens "bilat" H/O: hysterectomy History of carpal tunnel surgery History of removal of both ovaries History of tonsillectomy and adenoidectomy Hx of cholecystectomy Family History Other Breast cancer in female Diabetes Family history non-contributory Heart disease Social History Preferred Language: [place] Verdean Communication Ability: Effective Braider Setter Required: No Beliefs That Will Affect Care: None marital status: / Current Living Situation: Alone Current Living Situation Comment: Lives at home currently current occupational status: retired Other Information That Helps Us Care for You: No Feels Safe at Home: Yes Safety Concerns: Feels Safe At This Time Smoking Status: Never smoker Hx Alcohol Use: Yes Hx Substance Use: No Review of Systems As per HPI, occasional aches from recent pelvic fracture, all 10 systems reviewed, all other ROS negative Physical Exam Vital Signs (Past 24 Hours): Last Vital Signs Temp 36.6 C 10/24/18 03:01 Pulse 83 10/24/18 06:34 Resp 18 10/24/18 06:34 BP 179/91 H 10/24/18 06:34 Pulse Ox 97 10/24/18 06:34 Physical Exam: GENERAL: Comfortable, looks younger than stated age, no respiratory distress SKIN: Pallor , warm HEENT : bespectacled, pale palpebral conjunctivae, no ptosis, dry buccal mucosa NECK : Supple, no tenderness CHEST : CTA, no tenderness HEART : RRR, no obvious murmurs ABDOMEN: Some distention, minimal suprapubic tenderness EXTREMITIES : minimal LE swelling, no LE tenderness, no other conspicuous deformities noted NEUROLOGIC : Coherent, no facial asymmetry, no other gross focality except for mild hearing impairment Results & Data Laboratory Results Laboratory Results WBC 7.62 K/uL (4.8-10.8) 10/24/18 04:54 RBC 4.19 M/uL (4.2-5.4) L 10/24/18 04:54 Hgb 12.4 g/dL (12.0-16.0) 10/24/18 04:54 Hct 36.4 % (37-47) L 10/24/18 04:54 MCV 86.9 fL (80-100) 10/24/18 04:54 MCH 29.6 pg (25-34) 10/24/18 04:54 MCHC 34.1 g/dL (32-36) 10/24/18 04:54 RDW Std Deviation 46.8 fL (36.4-46.3) H 10/24/18 04:54 RDW Coeff of Anand 14.7 % (11.5-14.5) H 10/24/18 04:54 Plt Count 276 K/uL (130-400) 10/24/18 04:54 MPV 8.7 fL (7.4-10.4) 10/24/18 04:54 Immature Gran % (Auto) 0.3 % 10/24/18 04:54 Neut % (Auto) 80.0 % 10/24/18 04:54 Lymph % (Auto) 11.0 % 10/24/18 04:54 [place] % (Auto) 8.1 % 10/24/18 04:54 Eos % (Auto) 0.3 % 10/24/18 04:54 Baso % (Auto) 0.3 % 10/24/18 04:54 Immature Gran # (Auto) 0.02 K/uL (0.00-0.02) 10/24/18 04:54 Neut # (Auto) 6.10 K/uL (1.4-6.5) 10/24/18 04:54 Lymph # (Auto) 0.84 K/uL (1.2-3.4) L 10/24/18 04:54 [place] # (Auto) 0.62 K/uL (0.11-0.59) H 10/24/18 04:54 Eos # (Auto) 0.02 K/uL (0-0.5) 10/24/18 04:54 Baso # (Auto) 0.02 K/uL (0-0.2) 10/24/18 04:54 Sodium 127 mmol/L (136-145) L 10/24/18 04:54 Potassium 4.0 mmol/L (3.5-5.1) 10/24/18 04:54 Chloride 96 mmol/L (98-107) L 10/24/18 04:54 Carbon Dioxide 24 mmol/L (21-32) 10/24/18 04:54 Anion Gap 7.0 (3-11) 10/24/18 04:54 BUN 21 mg/dl (7-18) H 10/24/18 04:54 Creatinine 0.58 mg/dl (0.6-1.2) L 10/24/18 04:54 Est Cr Clr Drug Dosing 63.8 ml/min 10/24/18 04:54 Est GFR ( Amer) 97.4 10/24/18 04:54 Est GFR (Non-Af Amer) 84.0 10/24/18 04:54 BUN/Creatinine Ratio 35.6 (10-20) H 10/24/18 04:54 Glucose 108 mg/dl (70-99) H 10/24/18 04:54 Calcium 8.5 mg/dl (8.5-10.1) 10/24/18 04:54 Magnesium 1.8 mg/dl (1.8-2.4) 10/24/18 04:54 Total Bilirubin 0.3 mg/dl (0.2-1) 10/24/18 04:54 AST 16 U/L (15-37) 10/24/18 04:54 ALT 21 U/L (12-78) 10/24/18 04:54 Alkaline Phosphatase 154 U/L (45-117) H 10/24/18 04:54 Total Protein 6.4 gm/dl (6.4-8.2) 10/24/18 04:54 Albumin 3.2 gm/dl (3.4-5.0) L 10/24/18 04:54 Globulin 3.2 gm/dl (2.5-4.0) 10/24/18 04:54 Albumin/Globulin Ratio 1.0 (0.9-2) 10/24/18 04:54 TSH 0.882 uIu/ml (0.300-4.500) 10/24/18 04:54 Urine Color Yellow 10/24/18 04:05 Urine Appearance Cloudy (Clear) H 10/24/18 04:05 Urine pH 6.5 (4.5-7.5) 10/24/18 04:05 Ur Specific [place] 1.015 (1.000-1.030) 10/24/18 04:05 Urine Protein Negative (Negative) 10/24/18 04:05 Urine Glucose (UA) Negative (Negative) 10/24/18 04:05 Urine Ketones Negative (Negative) 10/24/18 04:05 Urine Blood Trace (Negative) H 10/24/18 04:05 Urine Nitrite Positive (Negative) H 10/24/18 04:05 Urine Bilirubin Negative (Negative) 10/24/18 04:05 Urine Urobilinogen Negative (Negative) 10/24/18 04:05 Ur Leukocyte Esterase 3+ (Negative) H 10/24/18 04:05 Urine WBC (Auto) >30 /hpf (0-5) H 10/24/18 04:05 Urine RBC (Auto) 0-4 /hpf (0-4) 10/24/18 04:05 U Hyaline Cast (Auto) 1-5 /lpf (0-5) 10/24/18 04:05 U Epithel Cells (Auto) 10-20 /lpf (0-5) H 10/24/18 04:05 Urine Bacteria (Auto) 4+ (Negative) H 10/24/18 04:[address] abdomen pelvis initial read: Hyperenhancement of bladder wall and bilateral ureters suggestive of cystitis, ascending infection of the urothelium; healing bilateral sacral wing and right superior inferior pubic rami fractures
[2018-10-24] MEDS ORDERED: HYDROmorphone INJ 0.5 MG/0.5 ML SYR IV PRN (08:09)
[2018-10-24] MEDS ORDERED: TRAMADOL HCL 50 MG TABLET PO PRN (08:09)
[2018-10-24] MEDS ORDERED: NITROGLYCERIN SL 0.4 MG/TAB TAB SL PRN (08:09)
[2018-10-24] MEDS ORDERED: BACLOFEN 10 MG TAB PO PRN (08:09)
[2018-10-24] MEDS ORDERED: PROCHLORPERAZINE 5 MG in SYRINGE 4 ML IV PRN (08:09)
[2018-10-24] MEDS ORDERED: ACETAMINOPHEN 325 MG TAB PO PRN (08:09)
--- NOTE | 2018-10-24 08:12 | CT Scan Report ---
CT SCAN OF THE ABDOMEN AND PELVIS WITH IV CONTRAST CLINICAL HISTORY: Recurrent urinary tract infections. Fall. COMPARISON STUDY: Pelvic radiograph dated 09/19/2018. TECHNIQUE: Following the IV administration of 94 cc of Optiray 320, CT scan of the abdomen and pelvi s is performed from the lung bases to the proximal femora. Images are reviewed in the axial, sagittal , and coronal planes. IV contrast was administered without complication. A dose lowering technique wa s utilized adhering to the principles of ALARA. CT DOSE: 269.86 mGy.cm FINDINGS: Lung bases: The heart is normal in size and without pericardial effusion. A fat-containing Bochdalek hernia is noted at the left lung base. There is bibasilar scarring/atelectasis. No airspace consolida tion or pleural effusion is identified. There is a small hiatal hernia. Liver: The contrast-enhanced liver is normal in size, contour, and attenuation. There is minimal cent ral intrahepatic biliary ductal dilatation. The hepatic veins and portal veins are patent. Gallbladder: Surgically absent. Spleen: Normal in size and attenuation. Pancreas: Unremarkable. Adrenal glands: Unremarkable. Kidneys: The contrast enhanced kidneys demonstrate cortical atrophy and are without hydronephrosis. U rothelial thickening and enhancement is noted within both ureters and the renal pelvises. The kidneys enhance symmetrically. Abdominal vasculature: The abdominal aorta is normal in course and caliber noting advanced atheroscle rotic calcification. Bowel: There is advanced colonic diverticulosis without CT evidence of acute diverticulitis. No bowel obstruction is seen. Colonic fecal retention is observed. The cecum is located in the pelvis. The ap pendix is not identified. Peritoneum: There is no intraperitoneal free air or abdominal ascites. Lymphadenopathy: None. Pelvic viscera: The bladder wall is thickened and hyperemic, and there is pericystic stranding. The u terus is surgically absent. No adnexal lesion is seen. Skeletal structures: The skeletal structures are osteopenic. Lumbosacral spondylosis is observed. No lytic or blastic lesions are seen. There are healing right pubic ring fractures. Sclerotic change is seen throughout the sacrum and in the medial right ileum, with evidence of healing bilateral sacral a nd right iliac fractures. IMPRESSION: 1. Findings are consistent with cystitis. Correlation with clinical findings and urinalysis will be r equired. 2. There is urothelial thickening and enhancement seen involving the renal pelvis bilaterally and bot h ureters. Correlate clinically for evidence of ascending urinary tract infection. 3. There are healing right pubic ring fractures, as well as healing fractures of the medial right ile um and the sacrum. 4. Advanced colonic diverticulosis without CT evidence of acute diverticulitis. 5. Additional findings as above. Electronically signed by: Buster Anguiano M.D. 10/24/2018 8:10 AM
[2018-10-24 09:27] LABS: Prothrombin Time 10.1 Seconds (9.0-12.0)
[2018-10-24] MEDS: ENOXAPARIN INJ 30 MG/0.3 ML SYR SQ SCH (09:36)
[2018-10-24] MEDS: LISINOPRIL 20 MG TAB PO SCH (10:44)
[2018-10-24] MEDS: MULTIVITAMIN TAB PO SCH (10:47)
--- NOTE | 2018-10-24 12:19 | Nephrology Consultation ---
Date of Consultation October 24, 2018 Assessment & Plan (1) Chronic hyponatremia: Her sodium has run in high 120s-low 130s since at least 2017 in [place]. In the past her serum osms were 274 w/ sodium in same range as today. TSH is wnl and BG generally well controlled. 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 She had presenting sodium yesterday of 127. PMH includes chronic hyponatremia, chronic incomplete bladder emptying w/ recurrent UTI, HTN, uterine CA s/p CTX and resection, chronic anemia and ITP. Her sodium has run in high 120s-low 130s since at least 2017 in [place]. She takes lisionpril 30 mg (sic/recently increased as OP), and hctz 25 mg daily as OP. She is receiving ceftazidime to treat uti. She is well known to inf dzs service. Recently confined here about one month back for L tronchanteric bursitis, diarrhea, and UTI w/ drug resistant pseudomonas. Also admitted in August and in July 2018. Allergies Allergy/AdvReac Type Severity Reaction Status Date / Time aspirin AdvReac Mild RASH Verified 10/24/18 03:30 codeine AdvReac Mild INDIGESTION Verified 10/24/18 03:30 gluten AdvReac Mild GI SYMPTOMS Verified 10/24/18 03:30 lactose AdvReac Mild GI SYMPTOMS Verified 10/24/18 03:30 Home Medications Home Medications Medication Instructions Recorded Confirmed Type Prolia 1 dose SUBCUT Q6M 05/31/18 10/24/18 History lisinopril-hydrochlorothiazide 1 tab PO DAILY 05/31/18 10/24/18 History multivitamin [Multiple Vitamins] 1 tab PO DAILY 06/20/18 10/24/18 History baclofen 10 mg PO BID PRN #30 tab 08/02/18 10/24/18 Rx tramadol 25 - 50 mg PO Q6H PRN #10 tab 08/02/18 10/24/18 Rx Florastor 250 mg PO BID 09/18/18 10/24/18 History acetaminophen [Tylenol Arthritis 650 mg PO Q12H PRN 09/18/18 10/24/18 History Pain] calcium-vitamin D3-vitamin K 1 tab PO BID 09/18/18 10/24/18 History Patient History Medical History Temporary low platelet count (Resolved) CKD (chronic kidney disease) stage 3, GFR 30-59 ml/min Greater trochanteric bursitis HTN (hypertension) History of ITP Hx of cancer of uterus Hyponatremia Osteoporosis Pseudomonas aeruginosa infection Recurrent UTI Sacroiliac joint pain Surgical History H/O cataract removal with insertion of prosthetic lens "bilat" H/O: hysterectomy History of carpal tunnel surgery History of removal of both ovaries History of tonsillectomy and adenoidectomy Hx of cholecystectomy Social History Preferred Language: Com[place]an Communication Ability: Effective Lap Runner Required: No Beliefs That Will Affect Care: None marital status: / Current Living Situation: Alone Current Living Situation Comment: Lives at home currently current occupational status: retired Other Information That Helps Us Care for You: No Feels Safe at Home: Yes Safety Concerns: Feels Safe At This Time Smoking Status: Never smoker Hx Alcohol Use: Yes Hx Substance Use: No Review of Systems Constitutional: + fatigue; no fever Eyes: no worsening vision Ear, Nose, Mouth, Throat: no dry mouth Respiratory: no dyspnea Cardiovascular: + edema (mild trace BL in TEDS which she wears crhonically); no chest pain and no dyspnea on exertion Gastrointestinal: no nausea, no vomiting, no change in bowel habits and no diarrhea/loose stools Genitourinary (Female): + dysuria, + difficulty urinating, + urinary hesitancy and + urinary incontinence; no urinary frequency Musculoskeletal: no back pain, no stiffness, no muscle weakness and no body aches except L hip residual Integumentary: no rash and no non-healing lesions Neurologic: + gait abnormality (uses walker at baseline); no confusion Psychiatric: no behavioral changes Endocrine: + fatigue and + polydipsia (sttes she has to do this d/t uti's) Hematologic / Lymphatic: no easy bleeding Physical Exam Vital Signs (Past 24 Hours): Last Vital Signs Temp 36.6 C 10/24/18 03:01 Pulse 82 10/24/18 07:37 Resp 18 10/24/18 07:37 BP 141/66 H 10/24/18 07:37 Pulse Ox 94 10/24/18 07:37 Constitutional: well developed and well nourished; no acute distress on RA maneuvers w/o asst for exam Eyes: EOM intact bilaterally ENMT: Ears: no external ear abnormality Nose: no external nose abnormality Mouth: + dry oral mucous membranes Neck: no nuchal rigidity Respiratory: normal respiratory effort Auscultation: + diminished lung sounds Cardiovascular: Rate/Rhythm: regular rate and regular rhythm Extremities: + edema (trace BLE w/ teds) Gastrointestinal (Abdomen): Inspection/Auscultation: normal bowel sounds Percussion/Palpation: abdomen soft; abdomen nontender Musculoskeletal: Extremities: strength 5/5 throughout Skin: no rashes, warm and dry Neurologic: gomez, fluent speech, no tremor Psychiatric: A+Ox3, euthymic affect Estimated Intelligence: consistent with education level Insight: good insight Judgement: good judgement Genitourinary: o rosas Results & Data Laboratory Results Abnormal lab results 10/24/18 10/24/18 10/24/18 Range/Units 04:05 04:54 04:54 RBC 4.19 L (4.2-5.4) M/uL Hct 36.4 L (37-47) % RDW Std Deviation 46.8 H (36.4-46.3) fL RDW Coeff of Anand 14.7 H (11.5-14.5) % Lymph # (Auto) 0.84 L (1.2-3.4) K/uL [place] # (Auto) 0.62 H (0.11-0.59) K/uL Sodium 127 L (136-145) mmol/L Chloride 96 L (98-107) mmol/L BUN 21 H (7-18) mg/dl Creatinine 0.58 L (0.6-1.2) mg/dl BUN/Creatinine Ratio 35.6 H (10-20) Glucose 108 H (70-99) mg/dl Alkaline Phosphatase 154 H (45-117) U/L Albumin 3.2 L (3.4-5.0) gm/dl Urine Appearance Cloudy H (Clear) Urine Blood Trace H (Negative) Urine Nitrite Positive H (Negative) Ur Leukocyte Esterase 3+ H (Negative) Urine WBC (Auto) >30 H (0-5) /hpf U Epithel Cells (Auto) 10-20 H (0-5) /lpf Urine Bacteria (Auto) 4+ H (Negative) 10/24/18 Range/Units 11:47 RBC (4.2-5.4) M/uL Hct (37-47) % RDW Std Deviation (36.4-46.3) fL RDW Coeff of Anand (11.5-14.5) % Lymph # (Auto) (1.2-3.4) K/uL [place] # (Auto) (0.11-0.59) K/uL Sodium 127 L (136-145) mmol/L Chloride (98-107) mmol/L BUN (7-18) mg/dl Creatinine (0.6-1.2) mg/dl BUN/Creatinine Ratio (10-20) Glucose (70-99) mg/dl Alkaline Phosphatase (45-117) U/L Albumin (3.4-5.0) gm/dl Urine Appearance (Clear) Urine Blood (Negative) Urine Nitrite (Negative) Ur Leukocyte Esterase (Negative) Urine WBC (Auto) (0-5) /hpf U Epithel Cells (Auto) (0-5) /lpf Urine Bacteria (Auto) (Negative)
--- NOTE | 2018-10-24 15:41 | Hospitalist Progress Note ---
Date of Service October 24, 2018 Assessment & Plan (1) Complicated UTI (urinary tract infection): Recurrent symptoms hx incomplete bladder emptying as per records Patient prefers not to do intermittent self straight cath as [place] [facility] [place] --Urine cultures pending Currently on empiric Ceftazidime IV ID and neurology consult Acute on chronic hyponatremia Home diuretic contributory Patient claims PCP unwilling to stop home diuretic due to potential for leg swelling accumulation. --HCTZ on hold Sodium remains at 127 Repeat sodium at 6 PM hypertension --Improving uterine cancer status post surgery status post chemotherapy chronic anemia, hemoglobin better than baseline likely secondary to hemoconcentration hx ITP as per records Analgesia, Pyridium DVT prophylaxis. Lovenox subcu Full code Position Pending Lives at home anticipate discharge to home Subjective Follow-up for UTI Seen resting bedside chair, comfortable, in good spirits States urinary symptoms have resolved, no fevers or chills, no flank pain Denies dizziness, shortness of breath, chest pain, nausea Denies other symptoms Physical Exam Vital Signs (Past 24 Hours): Last Vital Signs Temp 36.3 C L 10/24/18 14:50 Pulse 84 10/24/18 14:50 Resp 22 10/24/18 14:50 BP 133/68 10/24/18 14:50 Pulse Ox 95 10/24/18 14:50 Physical Exam: General- oriented x 3, not in distress, speaks in sentences with no effort or accessory muscle use Eyes- anicteric Neck- no JVD Lungs- clear breath sounds bilaterally, no rales/wheezes Heart- normal rate, regular rhythm; no murmurs Abdomen- normal bowel sounds, nondistended, soft, nontender No CVA tenderness Extremities- no pretibial edema, no calf tenderness Neuro- alert, oriented x 3; no gross focal neurologic deficits Skin- warm & dry Results & Data Laboratory Results Laboratory Results - last 24 hr 10/24/18 10/24/18 10/24/18 04:05 04:08 04:54 WBC 7.62 RBC 4.19 L Hgb 12.4 Hct 36.4 L MCV 86.9 MCH 29.6 MCHC 34.1 RDW Std Deviation 46.8 H RDW Coeff of Anand 14.7 H Plt Count 276 MPV 8.7 Immature Gran % (Auto) 0.3 Neut % (Auto) 80.0 Lymph % (Auto) 11.0 [place] % (Auto) 8.1 Eos % (Auto) 0.3 Baso % (Auto) 0.3 Immature Gran # (Auto) 0.02 Neut # (Auto) 6.10 Lymph # (Auto) 0.84 L [place] # (Auto) 0.62 H Eos # (Auto) 0.02 Baso # (Auto) 0.02 PT INR Sodium Potassium Chloride Carbon Dioxide Anion Gap BUN Creatinine Est Cr Clr Drug Dosing Est GFR ( Amer) Est GFR (Non-Af Amer) BUN/Creatinine Ratio Glucose Calcium Magnesium Total Bilirubin AST ALT Alkaline Phosphatase Total Protein Albumin Globulin Albumin/Globulin Ratio TSH Urine Color Yellow Urine Appearance Cloudy H Urine pH 6.5 Ur Specific [place] 1.015 Urine Protein Negative Urine Glucose (UA) Negative Urine Ketones Negative Urine Blood Trace H Urine Nitrite Positive H Urine Bilirubin Negative Urine Urobilinogen Negative Ur Leukocyte Esterase 3+ H Urine WBC (Auto) >30 H Urine RBC (Auto) 0-4 U Hyaline Cast (Auto) 1-5 U Epithel Cells (Auto) 10-20 H Urine Bacteria (Auto) 4+ H Ur Random Sodium 63 10/24/18 10/24/18 10/24/18 04:54 04:54 09:04 WBC RBC Hgb Hct MCV MCH MCHC RDW Std Deviation RDW Coeff of Anand Plt Count MPV Immature Gran % (Auto) Neut % (Auto) Lymph % (Auto) [place] % (Auto) Eos % (Auto) Baso % (Auto) Immature Gran # (Auto) Neut # (Auto) Lymph # (Auto) [place] # (Auto) Eos # (Auto) Baso # (Auto) PT 10.1 INR 1.0 Sodium 127 L Potassium 4.0 Chloride 96 L Carbon Dioxide 24 Anion Gap 7.0 BUN 21 H Creatinine 0.58 L Est Cr Clr Drug Dosing 63.8 Est GFR ( Amer) 97.4 Est GFR (Non-Af Amer) 84.0 BUN/Creatinine Ratio 35.6 H Glucose 108 H Calcium 8.5 Magnesium 1.8 Total Bilirubin 0.3 AST 16 ALT 21 Alkaline Phosphatase 154 H Total Protein 6.4 Albumin 3.2 L Globulin 3.2 Albumin/Globulin Ratio 1.0 TSH 0.882 Urine Color Urine Appearance Urine pH Ur Specific [place] Urine Protein Urine Glucose (UA) Urine Ketones Urine Blood Urine Nitrite Urine Bilirubin Urine Urobilinogen Ur Leukocyte Esterase Urine WBC (Auto) Urine RBC (Auto) U Hyaline Cast (Auto) U Epithel Cells (Auto) Urine Bacteria (Auto) Ur Random Sodium 10/24/18 11:47 WBC RBC Hgb Hct MCV MCH MCHC RDW Std Deviation RDW Coeff of Anand Plt Count MPV Immature Gran % (Auto) Neut % (Auto) Lymph % (Auto) [place] % (Auto) Eos % (Auto) Baso % (Auto) Immature Gran # (Auto) Neut # (Auto) Lymph # (Auto) [place] # (Auto) Eos # (Auto) Baso # (Auto) PT INR Sodium 127 L Potassium Chloride Carbon Dioxide Anion Gap BUN Creatinine Est Cr Clr Drug Dosing Est GFR ( Amer) Est GFR (Non-Af Amer) BUN/Creatinine Ratio Glucose Calcium Magnesium Total Bilirubin AST ALT Alkaline Phosphatase Total Protein Albumin Globulin Albumin/Globulin Ratio TSH Urine Color Urine Appearance Urine pH Ur Specific [place] Urine Protein Urine Glucose (UA) Urine Ketones Urine Blood Urine Nitrite Urine Bilirubin Urine Urobilinogen Ur Leukocyte Esterase Urine WBC (Auto) Urine RBC (Auto) U Hyaline Cast (Auto) U Epithel Cells (Auto) Urine Bacteria (Auto) Ur Random Sodium
--- NOTE | 2018-10-24 17:50 | Urology Consultation ---
Date of Consultation October 24, 2018 Assessment & Plan (1) Complicated UTI (urinary tract infection): Recurrent symptoms hx incomplete bladder emptying Patient prefers not to do intermittent self straight cath and after discussion today, we agree with her bursitis, other arthritis and numbness in her right fingertips that she likely cant physically manage to self cath at home. She is agreeable to starting a trial of rosas catheter. Please place 14 fr rosas and teach her to use leg bag and night bag. Will be changed monthly in Urology clinic --Urine cultures pending Currently on empiric Ceftazidime IV Present on Admission?: Yes History of Present Illness Reason for Consultation: frequent utis Requesting Physician: Dr Alvarez Attending Physician: Sam Rader MD History of Present Illness Patient presents with symptoms of a new utis/. SHe has had them very often last few years. Some have led to sepsis. She chronically has incomplete bladder emptying but at her advanced age declined cic or rosas. She had only mild cystitis this time with only bladder burning. No fever no weakness and no leukocytosis. She asked for a cath urine to be drawn in the ER per my instructions and she feels it was very hurried and a bit rough. The UA has several epithelial cells which is unusual for a cath specimen. CT showed perivesical stranding and some extension of this inflammatory process up into the ureters. Allergies Allergy/AdvReac Type Severity Reaction Status Date / Time aspirin AdvReac Mild RASH Verified 10/24/18 03:30 codeine AdvReac Mild INDIGESTION Verified 10/24/18 03:30 gluten AdvReac Mild GI SYMPTOMS Verified 10/24/18 03:30 lactose AdvReac Mild GI SYMPTOMS Verified 10/24/18 03:30 Home Medications Home Medications Medication Instructions Recorded Confirmed Type Prolia 1 dose SUBCUT Q6M 05/31/18 10/24/18 History lisinopril-hydrochlorothiazide 1 tab PO DAILY 05/31/18 10/24/18 History multivitamin [Multiple Vitamins] 1 tab PO DAILY 06/20/18 10/24/18 History baclofen 10 mg PO BID PRN #30 tab 08/02/18 10/24/18 Rx tramadol 25 - 50 mg PO Q6H PRN #10 tab 08/02/18 10/24/18 Rx Florastor 250 mg PO BID 09/18/18 10/24/18 History acetaminophen [Tylenol Arthritis 650 mg PO Q12H PRN 09/18/18 10/24/18 History Pain] calcium-vitamin D3-vitamin K 1 tab PO BID 09/18/18 10/24/18 History Patient History Medical History Temporary low platelet count (Resolved) CKD (chronic kidney disease) stage 3, GFR 30-59 ml/min Greater trochanteric bursitis HTN (hypertension) History of ITP Hx of cancer of uterus Hyponatremia Osteoporosis Pseudomonas aeruginosa infection Recurrent UTI Sacroiliac joint pain Surgical History H/O cataract removal with insertion of prosthetic lens "bilat" H/O: hysterectomy History of carpal tunnel surgery History of removal of both ovaries History of tonsillectomy and adenoidectomy Hx of cholecystectomy Social History Preferred Language: Yoruba Communication Ability: Effective Construction Helper Required: No Beliefs That Will Affect Care: None marital status: / Current Living Situation: Alone Current Living Situation Comment: Lives at home currently current occupational status: retired Other Information That Helps Us Care for You: No Feels Safe at Home: Yes Safety Concerns: Feels Safe At This Time Smoking Status: Never smoker Hx Alcohol Use: Yes Hx Substance Use: No Review of Systems PMH- renal insuff bursitis aarthritis CAD Soc- , lives alone, retired, no tobacco no alcohol Fam Hx- not contributory at her advanced age ROS- no fever no chills, no chest pain , no sOB, no rash, her bursisit is improved with topical cream/ bowels fine, no seizures, no nausea or emesis, w eight stable, slight leg swelling Physical Exam Vital Signs (Past 24 Hours): Last Vital Signs Temp 36.3 C L 10/24/18 14:50 Pulse 84 10/24/18 14:50 Resp 22 10/24/18 14:50 BP 133/68 10/24/18 14:50 Pulse Ox 95 10/24/18 14:50 Constitutional: WD/WN, vitals as above well developed and well nourished Eyes: PERRL, conjunctivae normal, anicteric sclerae Respiratory: no respiratory distress, no labored breathing, no retractions and no cough Gastrointestinal (Abdomen): normal bowel sounds, soft, nontender, no hepatosplenomegaly Psychiatric: A+Ox3, euthymic affect Lymphatic: no cervical or axillary lymphadenopathy No suprapubic pain trace edema each chin
[2018-10-24] MEDS ORDERED: FUROSEMIDE 20 MG TAB PO STA (19:56)
--- NOTE | 2018-10-25 07:34 | Infectious Disease Consult ---
Date of Consultation October 25, 2018 Assessment & Plan (1) Urinary tract infection: continue abx and follow cultures. History of Present Illness Attending Physician: Sam Rader MD pt admitted with dysuria however on my exam she denies this. no f/c at home. recent hosptial stay for uti. UA done in ER, 4+ bacteria. >30 wbc, culture pending, started on ceftazadime, tolerating well. wbc 7.6, ct abd consistent wi th cystitis. no blood cultures done. on my exam she denies abd pain, no gu symptoms, no cp, sob, cough. denies n/v/d. Allergies Allergy/AdvReac Type Severity Reaction Status Date / Time aspirin AdvReac Mild RASH Verified 10/24/18 03:30 codeine AdvReac Mild INDIGESTION Verified 10/24/18 03:30 gluten AdvReac Mild GI SYMPTOMS Verified 10/24/18 03:30 lactose AdvReac Mild GI SYMPTOMS Verified 10/24/18 03:30 Home Medications Home Medications Medication Instructions Recorded Confirmed Type Prolia 1 dose SUBCUT Q6M 05/31/18 10/24/18 History lisinopril-hydrochlorothiazide 1 tab PO DAILY 05/31/18 10/24/18 History multivitamin [Multiple Vitamins] 1 tab PO DAILY 06/20/18 10/24/18 History baclofen 10 mg PO BID PRN #30 tab 08/02/18 10/24/18 Rx tramadol 25 - 50 mg PO Q6H PRN #10 tab 08/02/18 10/24/18 Rx Florastor 250 mg PO BID 09/18/18 10/24/18 History acetaminophen [Tylenol Arthritis 650 mg PO Q12H PRN 09/18/18 10/24/18 History Pain] calcium-vitamin D3-vitamin K 1 tab PO BID 09/18/18 10/24/18 History Patient History Medical History Temporary low platelet count (Resolved) CKD (chronic kidney disease) stage 3, GFR 30-59 ml/min Greater trochanteric bursitis HTN (hypertension) History of ITP Hx of cancer of uterus Hyponatremia Osteoporosis Pseudomonas aeruginosa infection Recurrent UTI Sacroiliac joint pain Surgical History H/O cataract removal with insertion of prosthetic lens "bilat" H/O: hysterectomy History of carpal tunnel surgery History of removal of both ovaries History of tonsillectomy and adenoidectomy Hx of cholecystectomy Family History Other Breast cancer in female Diabetes Family history non-contributory Heart disease Social History Preferred Language: [place] Islander Communication Ability: Effective Sieve Grader Tender Required: No Beliefs That Will Affect Care: None marital status: / Current Living Situation: Alone Current Living Situation Comment: Lives at home currently current occupational status: retired Other Information That Helps Us Care for You: No Feels Safe at Home: Yes Safety Concerns: Feels Safe At This Time Smoking Status: Never smoker Hx Alcohol Use: Yes Hx Substance Use: No Review of Systems all remaining ros reviewed and are negative Physical Exam Vital Signs (Past 24 Hours): Last Vital Signs Temp 36.4 C L 10/25/18 04:00 Pulse 73 10/25/18 04:00 Resp 19 10/25/18 04:00 BP 124/70 10/25/18 04:00 Pulse Ox 98 10/25/18 04:00 Constitutional: WD/WN, vitals as above Eyes: PERRL, conjunctivae normal, anicteric sclerae ENMT: external ear and nose normal, oropharynx normal Neck: normal visual inspection Respiratory: normal respiratory effort, lungs clear to auscultation Cardiovascular: RRR, no murmur, no edema Gastrointestinal (Abdomen): normal bowel sounds, soft, nontender, no hepatosplenomegaly Musculoskeletal: no cyanosis or clubbing, extremities motor strength 5/5 Skin: no rashes, warm and dry Psychiatric: A+Ox3, euthymic affect Results & Data Laboratory Results Microbiology 10/24/18 04:05 Urine,Straight Cath Urine Culture - Preliminary Gram negative bacilli (1) Urinary tract infection Hematuria presence: with hematuria Urinary tract infection type: acute cystitis Qualified Code(s): N30.01 - Acute cystitis with hematuria
[2018-10-25 08:18] LABS: BUN Creatinine Ratio 26.6 (10-20); Calcium 8.1 mg/dl (8.5-10.1); Creatinine Clr Calc Pharmacy 61.7 ml/min; Est GFR (African American) 96.3; Est GFR (Non-African American) 83.1; Potassium 3.6 mmol/L (3.5-5.1)
[2018-10-25] MEDS: TORSEMIDE 20 MG TAB PO SCH (08:40)
[2018-10-25] MEDS: MULTIVITAMIN TAB PO SCH (08:41)
[2018-10-25] MEDS: ENOXAPARIN INJ 30 MG/0.3 ML SYR SQ SCH (08:41)
[2018-10-25] MEDS: LISINOPRIL 20 MG TAB PO SCH (08:41)
[2018-10-26 06:54] LABS: Hematocrit (blood only) 35.9 % (37-47); Mean Corpuscular Hgb Conc 33.4 g/dL (32-36); Mean Corpuscular Volume 86.5 fL (80-100); Mean Platelet Volume 8.8 fL (7.4-10.4); Platelet Count 238 K/uL (130-400); RDW Coefficient of Variation 14.7 % (11.5-14.5); RDW Standard Deviation 46.8 fL (36.4-46.3); Red Blood Count 4.15 M/uL (4.2-5.4); White Blood Count 4.07 K/uL (4.8-10.8)
--- NOTE | 2018-10-26 07:28 | Hospitalist Progress Note ---
Date of Service October 26, 2018 delayed entry date of service 10/25/18 Assessment & Plan (1) Complicated UTI (urinary tract infection): Recurrent symptoms hx incomplete bladder emptying as per records Patient prefers not to do intermittent self straight cath [place] [facility] [place] --Urine cultures pending Currently on empiric Ceftazidime IV improving ID and Urologist consulted patient declining Wayne Cath replacement Acute on chronic hyponatremia Home diuretic contributory Patient claims PCP unwilling to stop home diuretic due to potential for leg swelling accumulation. --HCTZ on hold Sodium improving hypertension --Improving uterine cancer status post surgery status post chemotherapy chronic anemia, hemoglobin better than baseline likely secondary to hemoconcentration hx ITP as per records Analgesia, Pyridium DVT prophylaxis. Lovenox subcu Full code Position Pending Lives at home anticipate discharge to home Subjective ff up for UTI seen resting in bed, comfortable states she feels better no urinary symptoms no back pain no other symptoms Physical Exam Vital Signs (Past 24 Hours): Last Vital Signs Temp 36.8 C 10/26/18 04:00 Pulse 68 10/26/18 07:18 Resp 18 10/26/18 04:00 BP 135/77 10/26/18 04:00 Pulse Ox 97 10/26/18 04:00 Physical Exam: General- oriented x 3, not in distress, speaks in sentences with no effort or accessory muscle use Eyes- anicteric Neck- no JVD Lungs- clear BS BL Heart- normal rate, regular rhythm; no murmurs Abdomen- normal bowel sounds, nondistended, soft, nontender Extremities- no pretibial edema, no calf tenderness Neuro- alert, oriented x 3; no gross focal neurologic deficits Skin- warm & dry Results & Data Laboratory Results all noted and reviewed
[2018-10-26 07:41] LABS: BUN Creatinine Ratio 22.7 (10-20); Calcium 7.5 mg/dl (8.5-10.1); Creatinine Clr Calc Pharmacy 57.8 ml/min; Est GFR (African American) 94.3; Est GFR (Non-African American) 81.4; Potassium 3.6 mmol/L (3.5-5.1)
[2018-10-26] MEDS: TORSEMIDE 20 MG TAB PO SCH (08:25)
[2018-10-26] MEDS: ENOXAPARIN INJ 30 MG/0.3 ML SYR SQ SCH (08:26)
[2018-10-26] MEDS: MULTIVITAMIN TAB PO SCH (08:26)
[2018-10-26] MEDS ORDERED: LISINOPRIL 20 MG TAB PO SCH ×2 (09:00)
--- NOTE | 2018-10-26 11:17 | Infectious Disease Progress Nt ---
Date of Service October 26, 2018 Assessment & Plan (1) Urinary tract infection: can continue current abx, sensitive. would give 7 days total, po option upon d/c omnicef 300mg po bid. no contraindication to d/c from ID standpoint. Subjective pt afebrile, wbc 4, tolerating abx. urine culture growing citrobacter. for continued urology follow up post d/c. Physical Exam Vital Signs (Past 24 Hours): Last Vital Signs Temp 36.6 C 10/26/18 07:48 Pulse 70 10/26/18 07:48 Resp 18 10/26/18 07:48 BP 145/81 H 10/26/18 07:48 Pulse Ox 97 10/26/18 07:48 Results & Data Laboratory Results Microbiology 10/24/18 04:05 Urine,Straight Cath Urine Culture - Final Citrobacter freundii (1) Urinary tract infection Hematuria presence: with hematuria Urinary tract infection type: acute cystitis Qualified Code(s): N30.01 - Acute cystitis with hematuria
[2018-10-26] MEDS ORDERED: LORATADINE 10 MG TAB PO SCH (14:00)
--- NOTE | 2018-10-26 14:04 | Hospitalist Progress Note ---
Date of Service October 26, 2018 Assessment & Plan (1) Complicated UTI (urinary tract infection): Recurrent UTI hx incomplete bladder emptying as per records Patient prefers not to do intermittent self straight cath as per [place] [facility] [place]. --Urine cultures Citrobacter freundeii given Ceftazidime IV x 3 days symptoms resolved ID consulted, Dr. Anaya: recommend Cefnidir 300mg po BID x 7 days ff up with ID Clinic c/o Dr. Sanchez in 1 week seen by Urologist Dr. Torres recommended Wayne Catheter insertion but patient was not able to tolerate it, declines for now ff up with Urology Clinic in 1-2 weeks Acute on chronic hyponatremia Home diuretic contributory- HCTZ HCTZ held Seismograph Recorder Dr. Sam consulted Torsemide 10mg po started, Lisinopril 20mg continued Na level stable at 130s repeat PRP weekly x 4 weeks, send results to Dr. Sam hypertension Torsemide 10mg po started, Lisinopril 20mg continued monitor as outpatient uterine cancer status post surgery status post chemotherapy chronic anemia, hemoglobin better than baseline likely secondary to hemoconcen tration hx ITP as per records Disposition ff up with PCP in 3-5 days- per d/c instructions ff up with Urologist and ID clinic as scheduled Subjective Follow-up for UTI resting in chair, in good spirits states she feels fine overall no abdominal pain, urinary symptoms denies any other symptoms states she is ready and would like to be discharged today Physical Exam Vital Signs (Past 24 Hours): Last Vital Signs Temp 36.6 C 10/26/18 07:48 Pulse 70 10/26/18 07:48 Resp 18 10/26/18 07:48 BP 145/81 H 10/26/18 07:48 Pulse Ox 97 10/26/18 07:48 Physical Exam: General- oriented x 3, not in distress, speaks in sentences with no effort or accessory muscle use Eyes- anicteric Neck- no JVD Lungs- clear breath sounds bilaterally Heart- normal rate, regular rhythm; no murmurs Abdomen- normal bowel sounds, nondistended, soft, nontender Extremities- no pretibial edema, no calf tenderness Neuro- alert, oriented x 3; no gross focal neurologic deficits Skin- warm & dry Results & Data Laboratory Results Laboratory Results - last 24 hr 10/24/18 10/24/18 10/26/18 04:08 11:47 06:36 WBC 4.07 L RBC 4.15 L Hgb 12.0 Hct 35.9 L MCV 86.5 MCH 28.9 MCHC 33.4 RDW Std Deviation 46.8 H RDW Coeff of Anand 14.7 H Plt Count 238 MPV 8.8 Sodium Potassium Chloride Carbon Dioxide Anion Gap BUN Creatinine Est Cr Clr Drug Dosing Est GFR ( Amer) Est GFR (Non-Af Amer) BUN/Creatinine Ratio Glucose Osmolality Calcium Urine Osmolality 10/26/18 06:36 WBC RBC Hgb Hct MCV MCH MCHC RDW Std Deviation RDW Coeff of Anand Plt Count MPV Sodium 132 L Potassium 3.6 Chloride 99 Carbon Dioxide 27 Anion Gap 6.0 BUN 14 Creatinine 0.64 Est Cr Clr Drug Dosing 57.8 Est GFR ( Amer) 94.3 Est GFR (Non-Af Amer) 81.4 BUN/Creatinine Ratio 22.7 H Glucose 93 Osmolality Calcium 7.5 L Urine Osmolality
--- NOTE | 2018-10-26 14:20 | Discharge Summary ---
Date of Service October 26, 2018 Admission HPI Per Admitting Provider History obtained from patient and records. Medical history significant for hypertension, uterine cancer status post surgery status post chemotherapy, chronic hyponatremia, chronic anemia baseline hemoglobin of 11, recurrent UTIs secondary to incomplete bladder emptying as per records, history of ITP as per records. Recent confinement last week for recurrent UTI. Last night patient roused from sleep by distressing dysuria symptoms without hematuria. No fever, no chills. No chest pain, no S OB. At the ER, patient received IV Ceftazidime. Admission Exam Per Admitting Provider Vital Signs (Past 24 Hours): Last Vital Signs Temp 36.6 C 10/24/18 03:01 Pulse 83 10/24/18 06:34 Resp 18 10/24/18 06:34 BP 179/91 H 10/24/18 06:34 Pulse Ox 97 10/24/18 06:34 Physical Exam: GENERAL: Comfortable, looks younger than stated age, no respiratory distress SKIN: Pallor , warm HEENT : bespectacled, pale palpebral conjunctivae, no ptosis, dry buccal mucosa NECK : Supple, no tenderness CHEST : CTA, no tenderness HEART : RRR, no obvious murmurs ABDOMEN: Some distention, minimal suprapubic tenderness EXTREMITIES : minimal LE swelling, no LE tenderness, no other conspicuous deformities noted NEUROLOGIC : Coherent, no facial asymmetry, no other gross focality except for mild hearing impairment Principal Diagnosis RECURRENT UTI Discharge Exam Vital Signs (Past 24 Hours): Last Vital Signs Temp 36.6 C 10/26/18 07:48 Pulse 70 10/26/18 07:48 Resp 18 10/26/18 07:48 BP 145/81 H 10/26/18 07:48 Pulse Ox 97 10/26/18 07:48 Physical Exam: General- oriented x 3, not in distress, speaks in sentences with no effort or accessory muscle use Eyes- anicteric Neck- no JVD Lungs- clear breath sounds bilaterally Heart- normal rate, regular rhythm; no murmurs Abdomen- normal bowel sounds, nondistended, soft, nontender Extremities- no pretibial edema, no calf tenderness Neuro- alert, oriented x 3; no gross focal neurologic deficits Skin- warm & dry Discharge Data Allergies Allergy/AdvReac Type Severity Reaction Status Date / Time aspirin AdvReac Mild RASH Verified 10/24/18 03:30 codeine AdvReac Mild INDIGESTION Verified 10/24/18 03:30 gluten AdvReac Mild GI SYMPTOMS Verified 10/24/18 03:30 lactose AdvReac Mild GI SYMPTOMS Verified 10/24/18 03:30 Consultations 10/24/18 05:24 ED Decision to Admit Stat 10/24/18 08:09 Consult Case Management - Discharge Planning Routine Consult Infectious Diseases Routine Consult Nephrology Routine Consult Urology Routine Ordered Studies 10/24/18 05:17 CT abd pelvis IV con only Urgent CT SCAN OF THE ABDOMEN AND PELVIS WITH IV CONTRAST CLINICAL HISTORY: Recurrent urinary tract infections. Fall. COMPARISON STUDY: Pelvic radiograph dated 09/19/2018. TECHNIQUE: Following the IV administration of 94 cc of Optiray 320, CT scan of the abdomen and pelvis is performed from the lung bases to the proximal femora. Images are reviewed in the axial, sagittal, and coronal planes. IV contrast was administered without complication. A dose lowering technique was utilized adhering to the principles of ALARA. CT DOSE: 269.86 mGy.cm FINDINGS: Lung bases: The heart is normal in size and without pericardial effusion. A fat- containing Bochdalek hernia is noted at the left lung base. There is bibasilar scarring/atelectasis. No airspace consolidation or pleural effusion is identified. There is a small hiatal hernia. Liver: The contrast-enhanced liver is normal in size, contour, and attenuation. There is minimal central intrahepatic biliary ductal dilatation. The hepatic veins and portal veins are patent. Gallbladder: Surgically absent. Spleen: Normal in size and attenuation. Pancreas: Unremarkable. Adrenal glands: Unremarkable. Kidneys: The contrast enhanced kidneys demonstrate cortical atrophy and are without hydronephrosis. Urothelial thickening and enhancement is noted within both ureters and the renal pelvises. The kidneys enhance symmetrically. Abdominal vasculature: The abdominal aorta is normal in course and caliber noting advanced atherosclerotic calcification. Bowel: There is advanced colonic diverticulosis without CT evidence of acute diverticulitis. No bowel obstruction is seen. Colonic fecal retention is observed. The cecum is located in the pelvis. The appendix is not identified. Peritoneum: There is no intraperitoneal free air or abdominal ascites. Lymphadenopathy: None. Pelvic viscera: The bladder wall is thickened and hyperemic, and there is pericystic stranding. The uterus is surgically absent. No adnexal lesion is seen. Skeletal structures: The skeletal structures are osteopenic. Lumbosacral spondylosis is observed. No lytic or blastic lesions are seen. There are healing right pubic ring fractures. Sclerotic change is seen throughout the sacrum and in the medial right ileum, with evidence of healing bilateral sacral and right iliac fractures. IMPRESSION: 1. Findings are consistent with cystitis. Correlation with clinical findings and urinalysis will be required. 2. There is urothelial thickening and enhancement seen involving the renal pelvis bilaterally and both ureters. Correlate clinically for evidence of ascending urinary tract infection. 3. There are healing right pubic ring fractures, as well as healing fractures of the medial right ileum and the sacrum. 4. Advanced colonic diverticulosis without CT evidence of acute diverticulitis. 5. Additional findings as above. Hospital Course (1) Complicated UTI (urinary tract infection): (1) Complicated UTI (urinary tract infection): Recurrent UTI hx incomplete bladder emptying as per records Patient prefers not to do intermittent self straight cath [place] [facility] [place]. -- has had multiple admissions for recurrent UTI --Urine cultures Citrobacter freundeii given Ceftazidime IV x 3 days symptoms resolved ID consulted, Dr. Anaya: recommend Cefnidir 300mg po BID x 7 days ff up with ID Clinic c/o Dr. Sanchez in 1 week seen by Urologist Dr. Torres recommended Wayne Catheter insertion but patient was not able to tolerate it, declines for now ff up with Urology Clinic in 1-2 weeks Acute on chronic hyponatremia Home diuretic contributory- HCTZ HCTZ held Contract Technical Writer Dr. Sam consulted Torsemide 10mg po started, Lisinopril 20mg continued Na level stable at 130s repeat PRP weekly x 4 weeks, send results to Dr. Sam Hypertension Torsemide 10mg po started, Lisinopril 20mg continued monitor as outpatient uterine cancer status post surgery status post chemotherapy chronic anemia, hemoglobin better than baseline likely secondary to hemoconcentration hx ITP as per records Disposition ff up with PCP in 3-5 days- per d/c instructions ff up with Urologist and ID clinic as scheduled Total Time Total Time Spent Total Time Spent (In Minutes): 30 minutes Discharge Plan Discharge Items Patient Disposition: Home - Self-Care Reason For Visit: HYPONATREMIA,COMPLICATED UTI Discharge Diagnosis: RECURRENT URINARY TRACT INFECTION Condition: Good Discharge Goals: Diagnostic testing and Therapeutic intervention Activity: Resume your previous activity Driving/Machine Use Comment: NO DRIVING UNTIL RE-EVALUATED BY PRIMARY CARE PHYSICIAN Non-emergency contact: Primary Care Provider Call non-emergency contact if: you have any medication questions, your symptoms worsen, your pain is not controlled, your pain is worsening, your pain is unusual for you and your pain is concerning for you Follow-up/Referrals: Hetal Vázquez [Physician] - 10/29/18 12:45 pm Diet: Heart Healthy Addtl Provider Instructions: INCLUDE YOGURT IN YOUR DAILY DIET, STAY WELL HYDRATED. PLEASE REVIEW YOUR NEW MEDICATION LIST AND FOLLOW INSTRUCTIONS CAREFULLY. FOLLOW UP WITH PRIMARY CARE PHYSICIAN NOTED ABOVE. (DR. MORENO IS NOT AVAILABLE THIS WEEK). FOLLOW UP WITH INFECTIOUS DISEASE CLINIC AND UROLOGY CLINIC IN 1 WEEK, PLEASE CALL PRIMARY CARE PHYSICIAN OR RETURN TO THE ER IMMEDIATELY IF WITH RECURRENCE OF SYMPTOMS. Prescriptions: New cefdinir 300 mg capsule 300 mg PO BID 7 Days Qty: 14 RF: 0 torsemide 20 mg Tablet 10 mg PO QAM 30 Days Qty: 15 RF: 2 lisinopril 20 mg Tablet 20 mg PO QAM 30 Days Qty: 30 RF: 2 loratadine [Allergy Relief (loratadine)] 10 mg Tablet 10 mg PO QAM 7 Days Qty: 7 RF: 0 Continued baclofen 10 mg Tablet 10 mg PO BID PRN (Reason: leg spasm) Qty: 30 RF: 0 tramadol 50 mg Tablet 25 - 50 mg PO Q6H PRN (Reason: pain) Qty: 10 RF: 0 acetaminophen [Tylenol Arthritis Pain] 650 mg Tablet Extended Release 650 mg PO Q12H PRN (Reason: Pain) RF: 0 Florastor 250 mg Capsule 250 mg PO BID RF: 0 calcium-vitamin D3-vitamin K 500-500-40 mg-unit-mcg Tablet,Chewable 1 tab PO BID RF: 0 Prolia 60 mg/mL Syringe 1 dose subcut Q6M RF: 0 multivitamin [Multiple Vitamins] Tablet 1 tab PO DAILY RF: 0 Discontinued lisinopril-hydrochlorothiazide 20-12.5 mg tablet 1 tab PO DAILY RF: 0 Stand-Alone Forms: [facility] Discharge Orders: Discharge Order (Routine); Ordered 10/26/18 Ordered By: Sam Rader Admission Data Admit Date/Time: 10/24/18 06:45 Attending Provider: Sam Rader Admit Provider: Tariq Lozada Primary Care Provider: Baldemar Moreno Other Providers: Tariq Lozada ; Dominick Sanchez ; Liana Anaya ; Keysha Sam ; Evan Kaur ; Kika Huang I ; Lizzy Canela ; Kinsey Castellon ; Itz Nguyen ; Liana Torres Service: Telemetry Medical
--- NOTE | 2018-10-26 20:10 | Nephrology Progress Note ---
Date of Service October 26, 2018 Assessment & Plan (1) Chronic hyponatremia: Her sodium has run in high 120s-low 130s since at least 2017 in [facility]. In the past her serum osms were 274 w/ sodium in same range as today. TSH is wnl and BG generally well controlled. 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 Subjective seen on rounds this am 0820; pt feeling much improved; denies voiding sx or concerns right now about retention - rosas out/was too uncomfortable; no sob; no chest pain/ pressure; edema perhaps a bit improved/not severe to start; tolerated torsemide yesterday first dose - noted no issues or change Physical Exam Vital Signs (Past 24 Hours): Last Vital Signs Temp 36.8 C 10/26/18 16:45 Pulse 104 H 10/26/18 16:45 Resp 18 10/26/18 16:45 BP 116/74 10/26/18 16:45 Pulse Ox 96 10/26/18 16:45 Constitutional: well developed and well nourished; no acute distress sitting in bed on ra Eyes: EOM intact bilaterally ENMT: Ears: no external ear abnormality Nose: no external nose abnormality Mouth: + dry oral mucous membranes Neck: no nuchal rigidity Respiratory: normal respiratory effort Auscultation: + diminished lung sounds Cardiovascular: Rate/Rhythm: regular rate and regular rhythm Extremities: + edema (trace BLE w/ teds) Gastrointestinal (Abdomen): Inspection/Auscultation: normal bowel sounds Percussion/Palpation: abdomen soft; abdomen nontender Musculoskeletal: Extremities: strength 5/5 throughout Skin: no rashes, warm and dry Psychiatric: A+Ox3, euthymic affect Estimated Intelligence: consistent with education level Insight: good insight Judgement: good judgement Results & Data Laboratory Results Abnormal lab results 10/26/18 10/26/18 Range/Units 06:36 06:36 WBC 4.07 L (4.8-10.8) K/uL RBC 4.15 L (4.2-5.4) M/uL Hct 35.9 L (37-47) % RDW Std Deviation 46.8 H (36.4-46.3) fL RDW Coeff of Anand 14.7 H (11.5-14.5) % Sodium 132 L (136-145) mmol/L BUN/Creatinine Ratio 22.7 H (10-20) Calcium 7.5 L (8.5-10.1) mg/dl
== END 2018-10-26 18:00 | disposition home health service (06) | DRG 690 ==
LOC: ED 03:00 → 2W 06:45

== ENCOUNTER 2021-12-22 21:46 | Inpatient (IN) ==
[2021-12-22] MEDS ORDERED: ACETAMINOPHEN 1,000 MG/100 ML VIAL IV STA (22:19)
[2021-12-22 23:06] LABS: Basophils # (auto) 0.01 K/uL (0-0.2); Basophils % (auto) 0.1 %; Eosinophils # (auto) 0.11 K/uL (0-0.5); Eosinophils % (auto) 1.4 %; Hematocrit (blood only) 38.9 % (37-47); Immature Granulocytes # (auto) 0.01 K/uL (0.00-0.02); Immature Granulocytes % (auto) 0.1 %; Lymphocytes # (auto) 0.27 K/uL (1.2-3.4); Lymphocytes % (auto) 3.5 %; Mean Corpuscular Hemoglobin 30.7 pg (25-34); Mean Corpuscular Hgb Conc 33.4 g/dL (32-36); Mean Corpuscular Volume 91.7 fL (80-100); Mean Platelet Volume 9.2 fL (7.4-10.4); Monocytes # (auto) 0.51 K/uL (0.11-0.59); Monocytes % (auto) 6.5 %; Neutrophils # (auto) 6.91 K/uL (1.4-6.5); Neutrophils % (auto) 88.4 %; Platelet Count 216 K/uL (130-400); RDW Coefficient of Variation 13.3 % (11.5-14.5); RDW Standard Deviation 44.8 fL (36.4-46.3); Red Blood Count 4.24 M/uL (4.2-5.4); White Blood Count 7.82 K/uL (4.8-10.8)
[2021-12-22 23:23] LABS: Alanine Aminotransferase 12 U/L (7-52); Albumin Globulin Ratio 1.5 (0.9-2); Albumin Level 3.7 gm/dl (3.4-5.0); Alkaline Phosphatase 67 U/L (34-104); Anion Gap 9 (3-11); Aspartate Aminotransferase 17 U/L (13-39); BUN Creatinine Ratio 39.8 (10-20); Bilirubin,Total 0.5 mg/dl (0.2-1.0); Blood Urea Nitrogen 49 mg/dl (6-23); Calcium 9.2 mg/dl (8.5-10.1); Carbon Dioxide 25 mmol/L (21-32); Chloride 99 mmol/L (98-107); Est GFR (African American) 45.4 ml/min; Est GFR (Non-African American) 39.1 ml/min; Globulin 2.5 gm/dl (2.5-4.0); Glucose 109 mg/dl (70-99(Fasting)); Potassium 4.1 mmol/L (3.5-5.1); Sodium 133 mmol/L (136-145); Total Protein 6.2 gm/dl (6.0-8.3)
[2021-12-22] MEDS ORDERED: SODIUM CHLORIDE 0.9% 1000ML 500 ML IV ONE (23:25)
[2021-12-22] MEDS ORDERED: PIPERACILLIN/TAZOBACTAM 4.5 GM/120 ML BAG IV ONE (23:25)
[2021-12-22] MEDS ORDERED: PIPERACILL/TAZOBAC CONSULT ACTIVE PRN (23:25)
--- NOTE | 2021-12-22 23:25 | Emergency Department Note ---
History of Present Illness General Chief complaint: Back Injury/Pain Stated complaint: UTI, BACK PAIN RADIATING DOWN BOTH LEGS Time Seen by Provider: 12/22/21 21:56 History of Present Illness Maximum Pain Intensity: 7 This 86-year-old with a history of recurrent UTIs on prophylactic amoxicillin presents to the ER complaining of urinary symptoms with low back pain that radiates down both legs with tingling Location: Low back and bladder Quality: Painful Severity: Moderate Duration: Today Timing: Today Context: Patient was concerned and came in Modifying factors: better with rest; worse with activity patient states the family doctor started her on Cipro the other day but had a side effect of diarrhea was switched to the Levaquin. She received a COVID booster today. Patient states her back pain has gotten much worse and her legs feel weak. She is able to ambulate. Patient denies loss of bowel or bladder control, saddle anesthesia, fever, chills, IV drug abuse, abdominal pain, chest pain, dyspnea. Home Medications Medication Instructions Recorded Confirmed Type denosumab 60 mg/mL subcutaneous 1 dose SUBCUT Q6M 05/31/18 12/22/21 History syringe (Prolia) multivitamin (Multiple Vitamins) 1 tab PO QAM 06/20/18 12/22/21 History acetaminophen 650 mg 650 mg PO Q12H PRN 09/18/18 12/22/21 History tablet,extended release (Tylenol Arthritis Pain) lisinopril 30 mg tablet 30 mg PO QAM 12/20/18 12/22/21 History calcium carbonate 600 mg-vitamin 1 cap PO BID 12/23/18 12/22/21 History D3 5 mcg (200 unit) capsule (Calcium 600 + D(3)) loratadine 10 mg capsule 10 mg PO DAILY 03/31/19 12/22/21 History torsemide 20 mg tablet 10 mg PO DAILY 03/31/19 12/22/21 History amoxicillin 500 mg capsule 500 mg PO UD #30 cap 10/08/19 12/22/21 Rx cefdinir 300 mg capsule 300 mg PO UD #30 cap 10/08/19 12/22/21 Rx nitrofurantoin 100 mg PO UD #30 cap 10/08/19 12/22/21 Rx monohydrate/macrocrystals 100 mg capsule (Macrobid) Bifidobacterium infantis 10.5 mg 10.5 mg PO DAILY 12/22/21 12/22/21 History (10 million cell) chewable tablet (Align) levofloxacin 250 mg tablet 250 mg PO DAILY 12/22/21 12/22/21 History Allergies Allergy/AdvReac Type Severity Reaction Status Date / Time sulfamethoxazole Allergy Unknown Unknown Verified 12/22/21 22:35 [From Bactrim] trimethoprim [From Bactrim] Allergy Unknown Unknown Verified 12/22/21 22:35 aspirin AdvReac Intermediate RASH Verified 12/22/21 22:35 gluten AdvReac Intermediate GI SYMPTOMS Verified 12/22/21 22:35 lactose AdvReac Intermediate GI SYMPTOMS Verified 12/22/21 22:35 codeine AdvReac Mild INDIGESTION Verified 12/22/21 22:35 Past Med/Surg History Medical History (Updated 12/23/21 @ 02:53 by Ruthie Stoner PA-C) CKD (chronic kidney disease) stage 3, GFR 30-59 ml/min Greater trochanteric bursitis History of ITP HTN (hypertension) Hx of cancer of uterus Hyponatremia Osteoporosis Pseudomonas aeruginosa infection Recurrent UTI Sacroiliac joint pain Temporary low platelet count Surgical History H/O cataract removal with insertion of prosthetic lens "bilat" H/O: hysterectomy History of carpal tunnel surgery History of removal of both ovaries History of tonsillectomy and adenoidectomy Hx of cholecystectomy Family History Other Breast cancer in female Diabetes Family history non-contributory Heart disease Social History Smoking Status: Never smoker Second Hand Exposure: No; Hx Alcohol Use: Yes Alcohol type: wine Hx Substance Use: No Preferred Language: Cambodian Communication Ability: Effective Visual Impairment: No Limitations Floor Attendant Required: No Beliefs That Will Affect Care: None marital status: / Current Living Situation: Alone Current Living Situation Comment: Lives at home currently current occupational status: retired Feels Safe at Home: Yes Assistive Devices: Glasses, Hearing Aid - Right and Walker Review of Systems A total of 10 systems reviewed and were otherwise negative Physical Exam Vital Signs Vital Signs - 24 hr 12/22/21 21:51 12/23/21 01:00 Temperature 37.0 C Temperature Source Temporal Artery Scan Pulse Rate 120 H Pulse Rate [Left Finger] 90 Respiratory Rate 18 20 Respiratory Effort / Characteristics Non-Labored Spontaneous Non-Labored Spontaneous Respiratory Depth Normal Normal Blood Pressure 152/69 H Blood Pressure [Right Arm] 134/65 Blood Pressure Mean 96 Blood Pressure Mean [Right Arm] 88 Blood Pressure Position Sitting Pulse Oximetry 97 93 Oxygen Delivery Method Room Air Room Air Sepsis Recent Fever Within 48 Hours No Sepsis New/Unexplained Change in Mental Status No Sepsis Action Taken by Nursing No Action Required VITALS: Vitals are noted on the nurse's note and reviewed by myself. Vital signs mildly tachycardic. GENERAL: Pleasant anxious appearing female, in no acute distress, nondiaphoretic, well-developed well-nourished. SKIN: The skin was without rashes, erythema, edema, or bruising. There is no tenting of the skin. Capillary reflex less than 2 seconds. HEAD: Normocephalic atraumatic. EARS: External auditory canals clear, EYES: Pupils equal round and reactive to light and accommodation. Conjunctivae without injection, sclerae without icterus. Extraocular movements intact. NOSE: Patent, turbinates without inflammation or discharge. MOUTH: Mucous membranes moist. Pharynx without erythema or exudate. Uvula mid line. Airway patent. Tongue does not deviate. NECK: Supple without nuchal rigidity. No lymphadenopathy. No thyromegaly. Cervical spine is nontender. No JVD. HEART: Regular rate and rhythm LUNGS: Clear to auscultation bilaterally without wheezes, rales or rhonchi. No retractions or accessory muscle use. ABDOMEN: Positive bowel sounds x 4. Normal tympanic percussion. Soft, nontender, without masses or organomegaly. Waite sign negative. No guarding or rebound tenderness. No CVA tenderness MUSCULOSKELETAL: No muscle atrophy, erythema, or edema noted. No thoracic or lumbar tenderness on exam. Patient can plantarflex and dorsiflex. 5-5 strength throughout. NEURO: Patient was alert and oriented to person place and time. Normal sensation to light and sharp touch. No focal neurological deficits. Course Administered Medications Discontinued Medications Acetaminophen (Ofirmev) 1,000 mg in 100 mls @ 400 mls/hr IV NOW STA Stop: 12/22/21 22:33 Last Infusion: 12/23/21 01:40 Dose: 0 mls/hr Documented by: [id number] Admin: 12/22/21 23:07 Dose: 400 mls/hr Documented by: [id number] Piperacillin Sod/Tazobactam Sod (Zosyn) 4.5 gm in 120 mls @ 240 mls/hr IV NOW ONE Stop: 12/22/21 23:54 Last Infusion: 12/23/21 01:40 Dose: 0 mls/hr Documented by: [id number] Admin: 12/23/21 00:58 Dose: 240 mls/hr Documented by: [id number] Sodium Chloride (Nss 1000ml) 500 mls @ 999 mls/hr IV .Q31M ONE Stop: 12/22/21 23:55 Last Infusion: 12/23/21 01:40 Dose: 0 mls/hr Documented by: [id number] Admin: 12/23/21 00:59 Dose: 999 mls/hr Documented by: [id number] Ioversol (Optiray 320 100ml) 94 ml IV ONCE ONE Stop: 12/23/21 02:11 Last Admin: 12/23/21 02:10 Dose: 94 ml Documented by: [id number] Medical Decision Making Medical Records Attestation: I reviewed the patient's medical records. Home Medications Current Medication List: was personally reviewed by me Laboratory Data Attestation: I reviewed the patient's lab results. Result diagrams: 12/22/21 22:58 12/22/21 22:58 Lab Results 12/22/21 12/22/21 12/23/21 Range/Units 22:58 22:58 00:30 WBC 7.82 (4.8-10.8) K/uL RBC 4.24 (4.2-5.4) M/uL Hgb 13.0 (12.0-16.0) g/dL Hct 38.9 (37-47) % MCV 91.7 (80-100) fL MCH 30.7 (25-34) pg MCHC 33.4 (32-36) g/dL RDW Std Deviation 44.8 (36.4-46.3) fL RDW Coeff of Anand 13.3 (11.5-14.5) % Plt Count 216 (130-400) K/uL MPV 9.2 (7.4-10.4) fL Immature Gran % (Auto) 0.1 % Neut % (Auto) 88.4 % Lymph % (Auto) 3.5 % Gates % (Auto) 6.5 % Eos % (Auto) 1.4 % Baso % (Auto) 0.1 % Neut # (Auto) 6.91 H (1.4-6.5) K/uL Lymph # (Auto) 0.27 L (1.2-3.4) K/uL Gates # (Auto) 0.51 (0.11-0.59) K/uL Eos # (Auto) 0.11 (0-0.5) K/uL Baso # (Auto) 0.01 (0-0.2) K/uL Immature Gran # (Auto) 0.01 (0.00-0.02) K/uL Sodium 133 L (136-145) mmol/L Potassium 4.1 (3.5-5.1) mmol/L Chloride 99 (98-107) mmol/L Carbon Dioxide 25 (21-32) mmol/L Anion Gap 9 (3-11) BUN 49 H (6-23) mg/dl Creatinine 1.23 H (0.6-1.2) mg/dl Est Cr Clr Drug Dosing Not Reportable Est GFR ( Amer) 45.4 ml/min Est GFR (Non-Af Amer) 39.1 ml/min BUN/Creatinine Ratio 39.8 H (10-20) Glucose 109 H (70-99(Fasting)) mg/dl Calcium 9.2 (8.5-10.1) mg/dl Total Bilirubin 0.5 (0.2-1.0) mg/dl AST 17 (13-39) U/L ALT 12 (7-52) U/L Alkaline Phosphatase 67 (34-104) U/L Total Protein 6.2 (6.0-8.3) gm/dl Albumin 3.7 (3.4-5.0) gm/dl Globulin 2.5 (2.5-4.0) gm/dl Albumin/Globulin Ratio 1.5 (0.9-2) Urine Color Yellow Urine Appearance Cloudy A (Clear) Urine pH 5.5 (4.5-7.5) Ur Specific Lincoln 1.015 (1.000-1.030) Urine Protein Negative (Negative) Urine Glucose (UA) Negative (Negative) Urine Ketones Negative (Negative) Urine Blood Trace H (Negative) Urine Nitrite Negative (Negative) Urine Bilirubin Negative (Negative) Urine Urobilinogen Negative (Negative) Ur Leukocyte Esterase 3+ H (Negative) Urine WBC (Auto) >30 H (0-5) /hpf Urine RBC (Auto) 0-4 (0-4) /hpf U Hyaline Cast (Auto) 0 (0-5) /lpf U Epithel Cells (Auto) 10-20 H (0-5) /lpf Urine Bacteria (Auto) Negative (Negative) Imaging Data Attestation: I personally reviewed and interpreted this imaging study as follows: MDM Narrative Prior records/ancillary studies reviewed and summarized above. Nursing notes reviewed. Additional history obtained from the family The patient's history was concerning for weakness, back pain, urinary symptoms. Differential diagnosis: Etiologies such as metabolic, infection, hypo/hyperglycemia, electrolyte ab normalities, cardiac sources, intracerebral event, toxicologic, neurologic, as well as others were entertained. Physical examination: As above. ER treatment provided: IV Lock An order was placed for continuous cardiac monitoring. The monitor shows a rate of 60-1 50 with a sinus rhythm. nss, apap, zosyn On reassessment the patient felt better. Diagnostics interpretation by me: The labs revealed urine concerning for infection and sent for culture. No worrisome leukocytosis Urine culture was reviewed the [employer] system and patient is sensitive to Zosyn and Levaquin gentamicin, Cipro and cefepime and tobramycin. Imaging studies: CT ABDOMEN & PELVIS With Contrast: Large hiatal hernia. Bilateral hydronephrosis and hydroureter without evidence of obstructing lesions, which may represent reflux. Status post hysterectomy. Status post cholecystectomy. Diverticulosis of the ascending, transverse, descending and sigmoid colon. No evidence of appendicitis. There is a 3 mm fat-containing umbilical hernia. Moderate to advanced disc degeneration at L1-2, L2-3, L3-4, L4-5 and L5-S1. There is mild to heavily calcified arthritic disease of the aorta and iliac arteries. Comparison is made to prior CT scan abdomen and pelvis from October 24, 2018. 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 Right sided disc extrusion L1-2, with cephalad migration, mild left lateral rec ess stenosis, and could reflect a sequestered disc fragment, correlate clinically for right L1 impingement syndrome. No other disc extrusion or central spinal stenosis. Radiologist: Lilliam Mcdonald M.D. Exam and history seem consistent with UTI with back pain. Patient does not want to take the Levaquin. She states she will stay for IV antibiotics. Medicine w as consulted. She will be evaluated for admission. Patient has been ambulating without difficulties. She is afebrile nontoxic. She is well-appearing. By the evaluation outlined above emergent etiologies such as electrolyte abnormalities, cardiac sources, intracerebral event, toxologic, neurologic, abnormalities blood glucose, metabolic, as well as others were deemed relatively unlikely. The pt informed about the findings as listed above. All questions were answered and pleased with the treatment. The chart was completed utilizing [employer] Speech voice recognition software. Grammatical errors, random word insertions, pronoun errors, and incomplete sentences are an occassional consequence of this system due to software limitations, ambient noise, and hardware issues. Any formal questions or concerns about the content, text, or information contained within the body of this dictation should be directly addressed to the physician respiratory care assistant for clarification. Impression & Plan Complicated UTI (urinary tract infection), Back pain Discharge Plan Visit Data Chief Complaint: Back Injury/Pain Stated Complaint: UTI, BACK PAIN RADIATING DOWN BOTH LEGS ED Provider: Breanne Sanon ED Midlevel Provider: Ruthie Stoner Discharge Problem: Complicated UTI (urinary tract infection), Back pain Patient Disposition: Admitted As Inpatient Condition: Good Discharge Instructions Activity Restrictions/Additional Instructions: Forms Stand Alone Forms: Virtual Emergency Department, Important Visit Information Prescriptions Prescriptions: No Action amoxicillin 500 mg capsule 500 mg PO UD Qty: 30 RF: 3 cefdinir 300 mg capsule 300 mg PO UD Qty: 30 RF: 3 nitrofurantoin monohyd/m-cryst [Macrobid] 100 mg capsule 100 mg PO UD Qty: 30 RF: 3 acetaminophen [Tylenol Arthritis Pain] 650 mg Tablet Extended Release 650 mg PO Q12H PRN (Reason: Pain) RF: 0 Calcium 600 + D(3) 600 mg calcium- 200 unit Capsule 1 cap PO BID RF: 0 torsemide 20 mg tablet 10 mg PO DAILY RF: 0 loratadine 10 mg Capsule 10 mg PO DAILY RF: 0 Prolia 60 mg/mL Syringe 1 dose subcut Q6M RF: 0 multivitamin [Multiple Vitamins] Tablet 1 tab PO QAM RF: 0 lisinopril 30 mg tablet 30 mg PO QAM RF: 0 levofloxacin 250 mg tablet 250 mg PO DAILY RF: 0 Align 10.5 mg (10 million cell) Tablet,Chewable 10.5 mg PO DAILY RF: 0 Referrals Referrals: Baldemar Kulkarni MD [Primary Care Provider] -
[2021-12-23 01:06] LABS: Appearance Urine Cloudy (Clear); Bacteria Urine Automated Negative (Negative); Bilirubin Urine Negative (Negative); Blood Urine Trace (Negative); Cast Urine Automated 0 /lpf (0-5); Color Urine Yellow; Glucose Urine UA Negative (Negative); Ketones Urine Negative (Negative); Leukocyte Esterase Urine 3+ (Negative); Nitrite Urine Negative (Negative); Protein Urine Negative (Negative); RBC Urine Automated 0-4 /hpf (0-4); Specific Gravity Urine 1.015 (1.000-1.030); Urobilinogen Urine Negative (Negative); WBC Urine Automated >30 /hpf (0-5); pH Urine 5.5 (4.5-7.5)
[2021-12-23] MEDS ORDERED: OPTIRAY 320 100ml IV ONE (02:10)
[2021-12-23] MEDS ORDERED: POLYETHYLENE (MIRALAX) 17 GM PACK PO PRN (06:38)
[2021-12-23] MEDS ORDERED: SODIUM CHLORIDE 0.9% 1000ML 1,000 ML IV SCH (06:38)
[2021-12-23] MEDS ORDERED: ACETAMINOPHEN 325 MG TAB PO PRN (06:38)
[2021-12-23] MEDS: oxyCODONE HCL IR 5 MG TAB (IMMEDIATE RELEASE) PO PRN ×2 (06:44→14:32)
--- NOTE | 2021-12-23 07:49 | Magnetic Resonance Report ---
LUMBAR SPINE MRI HISTORY: Bilateral leg weakness. TECHNIQUE: Multiplanar multisequence MRI of the lumbar spine was performed without the use of contras t. COMPARISON: None. FINDINGS: For the purpose of the report the L5-S1 disc space will be located on axial image 27 of 30. Focal deformity of the S2 vertebral body without associated edema consistent with an old, healed frac ture. No acute fracture or subluxation within the lumbar spine. The conus terminates at the L1 level. Paravertebral soft tissues are unremarkable. Colonic diverticulosis. There is mild disc space narrow ing at L1-L2, L2-L3, L3-L4. There is severe disc space narrowing at L4-5 and L5-S1. [id number] facet degenerative changes within the lumbar spine most pronounced at the L3-L4 level. L1-L2: Broad-based posterior disc bulge with ligamentum and facet hypertrophy resulting in mild centr al canal and mild to moderate bilateral neural foraminal narrowing. There is a small right paracentra l disc extrusion demonstrating superior subligamentous migration. L2-L3: Broad-based posterior disc bulge with ligamentum and facet hypertrophy resulting in moderate c entral canal and mild to moderate bilateral neural foraminal narrowing. L3-L4: Broad-based posterior disc bulge with a small focal central disc protrusion. In conjunction wi th the ligamentum and facet hypertrophy this results in severe central canal narrowing. There is mild bilateral neural foraminal narrowing. L4-L5: Broad-based posterior disc bulge with ligamentum and facet hypertrophy resulting in mild-to-mo derate central canal and bilateral neural foraminal narrowing. L5-S1: Small broad-based posterior disc bulge without significant central canal narrowing. There is m oderate bilateral neural foraminal narrowing. IMPRESSION: 1. Multilevel degenerative changes as described above most pronounced at the L3-L4 level which demons trates severe central canal narrowing. 2. Small right paracentral disc extrusion at L1-L2 demonstrating superior subligamentous migration. 3. Multilevel neural foraminal narrowing as described above. 4. Old, healed sacral fracture. ACT 112: Negative or not required by law. Electronically signed by: Antonino Adams M.D. 12/23/2021 7:47 AM
[2021-12-23] MEDS: PIPERACILLIN/TAZOBACTAM 3.375 GM in DEXTROSE 5% 100 ML IV SCH ×3 (08:11→23:35)
[2021-12-23] MEDS: ADVANCED PROBIOTIC 1250 MG CAPSULE PO SCH (08:11)
[2021-12-23] MEDS: CALCIUM 600MG + VIT D 400 IU TAB PO SCH ×2 (08:11→20:19)
[2021-12-23] MEDS: TORSEMIDE 10 MG TAB PO SCH (08:11)
[2021-12-23] MEDS: LORATADINE 10 MG TAB PO SCH (08:12)
[2021-12-23] MEDS: lisinopril 10 MG TAB PO SCH (08:12)
[2021-12-23] MEDS: HEPARIN SOD 5,000 UNIT/0.5 ML VIAL SQ SCH ×2 (08:21→20:20)
--- NOTE | 2021-12-23 08:28 | CT Scan Report ---
ABDOMEN AND PELVIS CT WITH IV CONTRAST CT DOSE: 273.26 mGy.cm HISTORY: Back pain. Urinary tract infection. TECHNIQUE: Multiaxial CT images of the abdomen and pelvis were performed following the use of intrave nous contrast. A dose lowering technique was utilized adhering to the principles of ALARA. COMPARISON STUDY: Abdomen and pelvis CT 10/24/2018. FINDINGS: Mild dependent changes seen within the lung bases. There are small fat-containing bilateral Bochdalek hernias. No pneumoperitoneum. No pneumatosis. Old, healed right pubic ring fractures. Ther e are healing/healed sacral insufficiency fractures again noted. Mild thickening of the distal esopha millicent. There is a small hiatus hernia. Prior cholecystectomy. The liver, spleen, adrenal glands, and pa ncreas are unremarkable. There is moderate bilateral hydroureteronephrosis which has progressed. The bladder is mildly distended. No significant bladder wall thickening. No ureteral stones identified. M ild focal urothelial thickening within the right ureteropelvic junction. No pelvic free fluid. There is mild pelvic floor collapse. Hysterectomy. Colonic diverticulosis. No evidence for acute diverticul itis. No bowel wall thickening or obstruction. No retroperitoneal lymphadenopathy. Calcified plaque w ithin the normal caliber abdominal aorta. IMPRESSION: 1. Moderate bilateral hydroureteronephrosis which has progressed in the interval. No ureteral stones identified. Mild nonspecific urothelial thickening within the right ureteropelvic junction. This coul d be due to a focal area of underdistention or a mild pyelitis. Recommend correlation with urinalysis . 2. Colonic diverticulosis. No evidence for acute diverticulitis. 3. No bowel wall thickening or obstruction. 4. Hiatus hernia. 5. Additional findings as described above. ACT 112: Negative or not required by law. Electronically signed by: Antonino Adams M.D. 12/23/2021 8:26 AM
--- NOTE | 2021-12-23 09:40 | History and Physical Report ---
DATE OF ADMISSION: 12/23/2021. CHIEF COMPLAINT: Back pain and intolerance to Levaquin. HISTORY OF PRESENT ILLNESS: An 86-year-old female with past medical history significant for chronic kidney disease stage III, hypertension, senile osteoporosis, history of ITP, history of recurrent urinary tract infection, history of uterine cancer, who lives alone at home. She says she ambulates with a cane in the day and walker in the nighttime. Patient has history of recurrent UTI. She is chronically on suppressive antibiotics, currently on Cefpodoxime and amoxicillin. Follows with Urology and also she is supposed to see a new ID doctor coming Friday. She was recently diagnosed with UTI with pseudomonas. She could not take Cipro because of diarrhea and today her family doctor prescribed Levaquin, by taking one dose she felt uncomfortable in the stomach. She thought because of hunger, but even after eating food she is not getting better, so she came to the ER .Also she has chronic back pain, follows with a chiropractor on and off flares up, but today it was severe; back pain going to the right leg. ER tried to discharge her on cipro, but she declined to take cipro so she has been admitted for IV antibiotics, received Zosyn. Resting comfortably and hemodynamically stable. Denies any headache, no dizziness, no blurred visions, no earache, no runny nose, no sore throat, no cough, no chest pain, no shortness of breath, no nausea, no vomiting, no abdominal pain. Has some pressure in the bladder and some burning micturition. Normal bladder movements. Normal bowel movements. No swelling in the legs. ALLERGIES: SULFA ANTIBIOTICS, ASPIRIN, GLUTEN, LACTOSE, CODEINE. PAST MEDICAL HISTORY: As mentioned above. PAST SURGICAL HISTORY: Carpal tunnel surgery, colonoscopy, cataract surgery, total abdominal hysterectomy with removal of the ovaries and tubes, cholecystectomy, tonsillectomy and adenoidectomy. MEDICATIONS: The patient is on Tylenol Arthritis 650 mg p.o. q. 12 hours p.r.n., amoxicillin 500 mg p.o. daily, bifidobacterium infantis 1 tablet daily, calcium carbonate plus vitamin D one tablet p.o. b.i.d., cefpodoxime 100 mg p.o. b.i.d., lisinopril 30 mg p.o. a.m., loratadine 10 mg p.o. daily, multivitamins 1 tablet p.o. daily, Prolia one dose subcutaneous q. 6 months, torsemide 10 mg p.o. daily. FAMILY HISTORY: Significant for father has arthritis, CAD, CHF. Mother has hypertension, arthritis. Sister has arthritis. Mother has breast cancer. SOCIAL HISTORY: , lives alone. No smoking, no alcohol, no drug use. REVIEW OF SYSTEMS: As per HPI. Rest of the review of systems is negative. PHYSICAL EXAMINATION: GENERAL: The patient is old and frail, not in acute distress. VITAL SIGNS: Temperature 37, pulse 90, respiratory rate 20, blood pressure 134/65, oxygen 93% on room air. HEENT: Pupils equal, round and reactive to light. Oral mucosa moist. NECK: No JVD, no neck masses. CARDIOVASCULAR: S1 and S2 heard. Regular rate and rhythm. No murmur, no gallop. RESPIRATORY SYSTEM: Normal AP diameter. No accessory muscle use. No wheezing, no crackles. ABDOMEN: Soft, bowel sounds present, nontender, no distention. CENTRAL NERVOUS SYSTEM: Cranial nerves II-XII grossly intact, nonfocal. EXTREMITIES: No edema, no erythema. Bilateral straight leg test negative. LABORATORY DATA: WBC 7.8, hemoglobin 13, hematocrit 38.9, platelets 216. Sodium 133, potassium 4.1, chloride 110, bicarbonate 25, BUN 29, creatinine 1.2, serum glucose 109, calcium 9.2, total bilirubin 0.5, AST 17, ALT 12, alkaline phosphatase 67. Urinalysis +3 leukocyte esterase. SARS-CoV-2 rapid test negative. ASSESSMENT AND PLAN: This is an 86-year-old female who presents with recurrent urinary tract infection and severe back pain. 1. Recurrent urinary tract infections, culture growing Pseudomonas as outpatient . The patient was not tolerating fluoroquinolones. Getting admitted for IV antibiotics, started on IV Zosyn. The patient is also on chronic suppressive antibiotics Cefpodoxime, and amoxicillin.Has appointment with Infectious Disease doctor coming Friday as per the patient. We will follow the response. Consulted ID. 2. Back pain. Patient says her back pain got flared up today. We will follow the lumbar spine MRI and CT of abdomen and pelvis for the final reports. Pain control. 3. Hypertension: Continue lisinopril and diuretics. We will monitor the blood pressure. 4. Chronic kidney disease stage III. We will follow the labs. 5. History of immune thrombocytopenia. Platelets are okay now. 6. Deep venous thrombosis prophylaxis: Sequential compression devices and heparin 5000 units subcutaneous b.i.d. DISPOSITION: Admit to medical floor. PT, OT prior to discharge. Social service to help with discharge planning. Job ID: [id number] [facility]US[facility]
[2021-12-23] MEDS: MULTIVITAMIN TAB PO SCH (10:40)
--- NOTE | 2021-12-23 16:25 | Urology Consultation ---
Date of Consultation December 23, 2021 Assessment & Plan (1) Complicated UTI (urinary tract infection): (2) Recurrent UTI: (3) Hydronephrosis: Chronic UTI issues with recurrent UTI on suppression antibiotics. Was on rotating schedule previously with Dr. Sanchez but has not seen infectious disease since he left. Has had break through infections. Patient has documented history of retention/incomplete emptying. Does not appear to be issue now and no longer needs catheters. Acute UTI. Treated with Abx and supportive care. MICHELLE likley multifactorial. No considerable distention. May benefit from indwelling catheter if issues with emptying but no major sign right now. Monitor labs and vitals. Broad spectrum abx. Supportive care. Monitor. Has new referral to ID set up this week. Likely will need to discuss options with significant breakthrough infection on suppression. Imaging all reviewed and interpretted by myself. Complex medical and surgical history reviewed and summarized above. History of Present Illness Attending Physician: Marcello Silva MD History of Present Illness New consultation for patient with UTI/Pyelo, discomfort, and ill feelings. Patient developed sudden onset of pain into flank going down and radiating into groin and back in waves comes and goes. Can be severe at times. Discussed and reviewed patient's family history for any history of issues, infections, and disease. Also, discussed patient's medical/surgery history especially related to any history of urinary issues or stone disease. Complex history. Recurrent infections on suppression antibiotics. Follows with Uro in [place]. Had history of Chronic incomplete emptying issues and previously used CIC. No longer using catheters. Has had hydro in past. imaging was reviewed interpreted by myself. Increase in hydro from baseline. Patient was admitted and is undergoing observation with broad spectrum IV antibiotics. Allergies Allergy/AdvReac Type Severity Reaction Status Date / Time sulfamethoxazole Allergy Unknown Unknown Verified 12/22/21 22:35 [From Bactrim] trimethoprim [From Bactrim] Allergy Unknown Unknown Verified 12/22/21 22:35 aspirin AdvReac Intermediate RASH Verified 12/22/21 22:35 gluten AdvReac Intermediate GI SYMPTOMS Verified 12/22/21 22:35 lactose AdvReac Intermediate GI SYMPTOMS Verified 12/22/21 22:35 codeine AdvReac Mild INDIGESTION Verified 12/22/21 22:35 Home Medications Medication Instructions Recorded Confirmed Type denosumab 60 mg/mL subcutaneous 1 dose SUBCUT Q6M 05/31/18 12/22/21 History syringe (Prolia) multivitamin (Multiple Vitamins) 1 tab PO QAM 06/20/18 12/22/21 History acetaminophen 650 mg 650 mg PO Q12H PRN 09/18/18 12/22/21 History tablet,extended release (Tylenol Arthritis Pain) lisinopril 30 mg tablet 30 mg PO QAM 12/20/18 12/22/21 History calcium carbonate 600 mg-vitamin 1 cap PO BID 12/23/18 12/22/21 History D3 5 mcg (200 unit) capsule (Calcium 600 + D(3)) loratadine 10 mg capsule 10 mg PO DAILY 03/31/19 12/22/21 History torsemide 20 mg tablet 10 mg PO DAILY 03/31/19 12/22/21 History Bifidobacterium infantis 10.5 mg 10.5 mg PO DAILY 12/22/21 12/22/21 History (10 million cell) chewable tablet (Align) amoxicillin 500 mg capsule 500 mg PO DAILY 12/23/21 12/23/21 History cefpodoxime 100 mg tablet 100 mg PO BID 12/23/21 12/23/21 History Patient History Medical History CKD (chronic kidney disease) stage 3, GFR 30-59 ml/min Greater trochanteric bursitis History of ITP HTN (hypertension) Hx of cancer of uterus Hyponatremia Osteoporosis Pseudomonas aeruginosa infection Recurrent UTI Sacroiliac joint pain Temporary low platelet count Surgical History H/O cataract removal with insertion of prosthetic lens "bilat" H/O: hysterectomy History of carpal tunnel surgery History of removal of both ovaries History of tonsillectomy and adenoidectomy Hx of cholecystectomy Family History Other Breast cancer in female Diabetes Family history non-contributory Heart disease Social History Smoking Status: Never smoker Second Hand Exposure: No; Hx Alcohol Use: No Hx Substance Use: No Preferred Language: [place]er Communication Ability: Effective Visual Impairment: No Limitations Marketing Traffic Manager Required: No Beliefs That Will Affect Care: None marital status: Single Current Living Situation: Alone Current Living Situation Comment: Lives at home currently current occupational status: retired How many Children do You have: 0 Other Information That Helps Us Care for You: No Feels Safe at Home: Yes Safety Concerns: Feels Safe At This Time Assistive Devices: Cane and Walker Review of Systems Review of Systems: All systems reviewed & are unremarkable except as noted in HPI & below Physical Exam Physical Exam: General: Alert and oriented x 3 in no acute distress. Advanced age. HEENT: Normocephalic Atraumatic. Inspection normal. Cranial Nerves 2-12 Grossly intact. Nares are clear. Neck is supple. Normal inspection of face. Normal inspection of neck. Neurologic: No deficits on inspection. Baseline for motor function and sensory. Psychologic: Normal affect. Respiratory: Nonlabored. No use of accessory muscles. No tachypnea or dyspnea. Cardiovascular: No tachycardia Skin: Perkins and Dry. No rashes or visible lesions. Extremities: Moving without issues. No motor deficits on inspection Lymphatics: No edema Abdomen: Soft Non-distended. No gaurding Results & Data ([facility]) Vital Signs (Past 12 Hours) Vital Signs Temp Pulse Pulse Resp BP BP Pulse Ox 12/23/21 16:01 86 16 109/66 93 12/23/21 07:40 36.7 C 81 16 131/76 93 12/23/21 06:30 36.5 C 88 18 154/86 H 97 12/23/21 06:20 86 20 140/77 97 PG Care Time/CCT Total # of Minutes Spent Total Time Spent with Patient: Total time spent is greater than 50% in coordination of care (as documented) at patient's floor/unit and/or counseling patient: Coding Level of Care Code 58492 Inpt Consult Level 5 Diagnoses Complicated UTI (urinary tract infection) N39.0 Recurrent UTI N39.0 Hydronephrosis N13.30
--- NOTE | 2021-12-23 17:57 | Hospitalist Progress Note ---
Date of Service December 23, 2021 Assessment & Plan (1) Recurrent UTI: (2) Complicated UTI (urinary tract infection): (3) Back pain: (4) Hydronephrosis: Plan: This is an 86-year-old female who presents with recurrent urinary tract infection and severe back pain. 1. Recurrent urinary tract infections, culture growing Pseudomonas as outpatient . The patient was not tolerating fluoroquinolones. Getting admitted for IV antibiotics, started on IV Zosyn. The patient is also on chronic suppressive antibiotics Cefpodoxime, and amoxicillin.Has appointment with Infectious Disease doctor coming Friday as per the patient. We will follow the response. Consulted ID. Hydronephrosis CT abd. pelvis IMPRESSION: 1. Moderate bilateral hydroureteronephrosis which has progressed in the interval. No ureteral stones identified. Mild nonspecific urothelial thickening within the right ureteropelvic junction. This could be due to a focal area of underdistention or a mild pyelitis. Recommend correlation with urinalysis. 2. Colonic diverticulosis. No evidence for acute diverticulitis. 3. No bowel wall thickening or obstruction. 4. Hiatus hernia. 5. Additional findings as described above. Urology consulted May benefit from indwelling catheter if issues with emptying but no major sign right now. Monitor labs and vitals. Broad spectrum abx. Supportive care. Monitor. 2. Back pain. Patient says her back pain got flared prior to admission. Follow the lumbar spine MRI and CT of abdomen and pelvis (as above) for the final reports. Pain control. Lumbar MRI IMPRESSION: 1. Multilevel degenerative changes as described above most pronounced at the L3- L4 level which demonstrates severe central canal narrowing. 2. Small right paracentral disc extrusion at L1-L2 demonstrating superior subligamentous migration. 3. Multilevel neural foraminal narrowing as described above. 4. Old, healed sacral fracture. Will further discus w/ ortho spine 3. Hypertension: Continue lisinopril and diuretics. We will monitor the blood pressure. 4. Chronic kidney disease stage III. We will follow the labs. 5. History of immune thrombocytopenia. Platelets are okay now. DVT prophylaxis: SCDs and heparin 5000 units subcutaneous b.i.d. DISPOSITION:medical floor. PT, OT prior to discharge. Social service to help with discharge planning. Admission and Anticipated Discharge Date Admission Date: December 23, 2021 Subjective Patient seen in follow-up of recurrent UTIs, back pain Final CT images of abdomen pelvis available now, showing bilateral hydronephrosis Also final MRI read of lumbar spine, shows significant pathology Patient is currently lying in bed, in no acute distress Says if she is not moving much and laying on her back the pain is tolerable Otherwise denies fevers, chills, chest pain, shortness of breath, abdominal pain, nausea vomiting Reports she follows with chiropractor for back pain and with urology She is also supposed to establish care with new ID physician on Friday Discussed that we will consult ID while she is in the hospital Review of Systems Review of Systems: All systems reviewed & are unremarkable except as noted in Subjective Physical Exam Physical Exam: GENERAL:Elderly F not in acute distress. HEENT: NC/AT, EOMI, Pupils equal, round and reactive to light. Oral mucosa moist. NECK: No JVD, no neck masses. CARDIOVASCULAR: S1 and S2 heard. Regular rate and rhythm. No murmur, no gallop. RESPIRATORY SYSTEM: Normal AP diameter. No accessory muscle use. No wheezing, no crackles. ABDOMEN: Soft, bowel sounds present, nontender, no distention. NEURO:Alert and oriented, answering questions appropriately, no facial asymmetry, speech fluent, moves extremities EXTREMITIES: No edema, no erythema. Bilateral straight leg test negative. Results & Data Results & Data ([facility]) Vital Signs (Past 12 Hours) Vital Signs Temp Pulse Pulse Resp BP BP Pulse Ox 12/23/21 16:01 86 16 109/66 93 12/23/21 07:40 36.7 C 81 16 131/76 93 12/23/21 06:30 36.5 C 88 18 154/86 H 97 12/23/21 06:20 86 20 140/77 97 Laboratory Results 12/23/21 12/23/21 12/22/21 Range/Units 03:13 00:30 22:58 WBC (4.8-10.8) K/uL RBC (4.2-5.4) M/uL Hgb (12.0-16.0) g/dL Hct (37-47) % MCV (80-100) fL MCH (25-34) pg MCHC (32-36) g/dL RDW Std Deviation (36.4-46.3) fL RDW Coeff of Anand (11.5-14.5) % Plt Count (130-400) K/uL MPV (7.4-10.4) fL Immature Gran % (Auto) % Neut % (Auto) % Lymph % (Auto) % [place] % (Auto) % Eos % (Auto) % Baso % (Auto) % Neut # (Auto) (1.4-6.5) K/uL Lymph # (Auto) (1.2-3.4) K/uL [place] # (Auto) (0.11-0.59) K/uL Eos # (Auto) (0-0.5) K/uL Baso # (Auto) (0-0.2) K/uL Immature Gran # (Auto) (0.00-0.02) K/uL Sodium 133 L (136-145) mmol/L Potassium 4.1 (3.5-5.1) mmol/L Chloride 99 (98-107) mmol/L Carbon Dioxide 25 (21-32) mmol/L Anion Gap 9 (3-11) BUN 49 H (6-23) mg/dl Creatinine 1.23 H (0.6-1.2) mg/dl Est Cr Clr Drug Dosing Not Reportable Est GFR ( Amer) 45.4 ml/min Est GFR (Non-Af Amer) 39.1 ml/min BUN/Creatinine Ratio 39.8 H (10-20) Glucose 109 H (70-99(Fasting)) mg/dl Calcium 9.2 (8.5-10.1) mg/dl Total Bilirubin 0.5 (0.2-1.0) mg/dl AST 17 (13-39) U/L ALT 12 (7-52) U/L Alkaline Phosphatase 67 (34-104) U/L Total Protein 6.2 (6.0-8.3) gm/dl Albumin 3.7 (3.4-5.0) gm/dl Globulin 2.5 (2.5-4.0) gm/dl Albumin/Globulin Ratio 1.5 (0.9-2) Urine Color Yellow Urine Appearance Cloudy A (Clear) Urine pH 5.5 (4.5-7.5) Ur Specific [place] 1.015 (1.000-1.030) Urine Protein Negative (Negative) Urine Glucose (UA) Negative (Negative) Urine Ketones Negative (Negative) Urine Blood Trace H (Negative) Urine Nitrite Negative (Negative) Urine Bilirubin Negative (Negative) Urine Urobilinogen Negative (Negative) Ur Leukocyte Esterase 3+ H (Negative) Urine WBC (Auto) >30 H (0-5) /hpf Urine RBC (Auto) 0-4 (0-4) /hpf U Hyaline Cast (Auto) 0 (0-5) /lpf U Epithel Cells (Auto) 10-20 H (0-5) /lpf Urine Bacteria (Auto) Negative (Negative) SARS-CoV-2, RNA, NAAT NEGATIVE (NEGATIVE) 12/22/21 Range/Units 22:58 WBC 7.82 (4.8-10.8) K/uL RBC 4.24 (4.2-5.4) M/uL Hgb 13.0 (12.0-16.0) g/dL Hct 38.9 (37-47) % MCV 91.7 (80-100) fL MCH 30.7 (25-34) pg MCHC 33.4 (32-36) g/dL RDW Std Deviation 44.8 (36.4-46.3) fL RDW Coeff of Anand 13.3 (11.5-14.5) % Plt Count 216 (130-400) K/uL MPV 9.2 (7.4-10.4) fL Immature Gran % (Auto) 0.1 % Neut % (Auto) 88.4 % Lymph % (Auto) 3.5 % [place] % (Auto) 6.5 % Eos % (Auto) 1.4 % Baso % (Auto) 0.1 % Neut # (Auto) 6.91 H (1.4-6.5) K/uL Lymph # (Auto) 0.27 L (1.2-3.4) K/uL [place] # (Auto) 0.51 (0.11-0.59) K/uL Eos # (Auto) 0.11 (0-0.5) K/uL Baso # (Auto) 0.01 (0-0.2) K/uL Immature Gran # (Auto) 0.01 (0.00-0.02) K/uL Sodium (136-145) mmol/L Potassium (3.5-5.1) mmol/L Chloride (98-107) mmol/L Carbon Dioxide (21-32) mmol/L Anion Gap (3-11) BUN (6-23) mg/dl Creatinine (0.6-1.2) mg/dl Est Cr Clr Drug Dosing Est GFR ( Amer) ml/min Est GFR (Non-Af Amer) ml/min BUN/Creatinine Ratio (10-20) Glucose (70-99(Fasting)) mg/dl Calcium (8.5-10.1) mg/dl Total Bilirubin (0.2-1.0) mg/dl AST (13-39) U/L ALT (7-52) U/L Alkaline Phosphatase (34-104) U/L Total Protein (6.0-8.3) gm/dl Albumin (3.4-5.0) gm/dl Globulin (2.5-4.0) gm/dl Albumin/Globulin Ratio (0.9-2) Urine Color Urine Appearance (Clear) Urine pH (4.5-7.5) Ur Specific [place] (1.000-1.030) Urine Protein (Negative) Urine Glucose (UA) (Negative) Urine Ketones (Negative) Urine Blood (Negative) Urine Nitrite (Negative) Urine Bilirubin (Negative) Urine Urobilinogen (Negative) Ur Leukocyte Esterase (Negative) Urine WBC (Auto) (0-5) /hpf Urine RBC (Auto) (0-4) /hpf U Hyaline Cast (Auto) (0-5) /lpf U Epithel Cells (Auto) (0-5) /lpf Urine Bacteria (Auto) (Negative) SARS-CoV-2, RNA, NAAT (NEGATIVE) Medications Administered Current Inpatient Medications Acetaminophen (Acetaminophen 325 Mg Tab) 650 mg PO Q4H PRN PRN Reason: pain/fever Stop: 01/22/22 06:37 Last Admin: 12/23/21 14:33 Dose: 650 mg Documented by: Heparin Sodium (Porcine) (Heparin Sod 5,000 Unit/0.5 Ml Vial) 5,000 units SQ Q12 [facility] Stop: 01/22/22 08:59 Last Admin: 12/23/21 08:21 Dose: Not Given Documented by: Sodium Chloride (Nss 1000ml) 1,000 mls @ 75 mls/hr IV .[id number] [facility] Stop: 12/23/21 19:57 Last Admin: 12/23/21 06:50 Dose: 75 mls/hr Documented by: Piperacillin Sod/Tazobactam (Sod 3.375 gm/ Dextrose) 115 mls @ 28.75 mls/hr IV Q8H [facility]; Protocol Stop: 01/02/22 07:59 Last Admin: 12/23/21 16:19 Dose: 28.8 mls/hr Documented by: Lactobacillus Acidophilus (Advanced Probiotic 1250 Mg Capsule) 2 cap PO DAILY [facility] Stop: 01/22/22 08:59 Last Admin: 12/23/21 08:11 Dose: 2 cap Documented by: Lisinopril (Lisinopril 10 Mg Tab) 30 mg PO QAM [facility] Stop: 01/22/22 08:59 Last Admin: 12/23/21 08:12 Dose: 30 mg Documented by: Loratadine (Loratadine 10 Mg Tab) 10 mg PO DAILY [facility] Stop: 01/22/22 08:59 Last Admin: 12/23/21 08:12 Dose: 10 mg Documented by: Miscellaneous Information (Piperacill/Tazobac Consult Active) 1 ea N/A UD PRN PRN Reason: Consult Stop: 01/21/22 23:24 Multivitamins (Multivitamin Tab) 1 tab PO QAM [facility] Stop: 01/22/22 08:59 Last Admin: 12/23/21 10:40 Dose: 1 tab Documented by: Multivitamins/Minerals (Calcium 600mg + Vit D 400 Iu Tab) 1 tab PO BID [facility] Stop: 01/22/22 08:59 Last Admin: 12/23/21 08:11 Dose: 1 tab Documented by: Oxycodone HCl (Oxycodone Hcl Ir 5 Mg Tab (Immediate Release)) 5 mg PO Q6H PRN PRN Reason: Pain Stop: 01/06/22 06:37 Last Admin: 12/23/21 14:32 Dose: 5 mg Documented by: Polyethylene Glycol (Polyethylene (Miralax) 17 Gm Pack) 17 gm PO DAILY PRN PRN Reason: Constipation Stop: 01/22/22 06:37 Torsemide (Torsemide 10 Mg Tab) 10 mg PO DAILY [facility] Stop: 01/22/22 08:59 Last Admin: 12/23/21 08:11 Dose: 10 mg Documented by:
[2021-12-24 06:48] LABS: Basophils # (auto) 0.01 K/uL (0-0.2); Basophils % (auto) 0.3 %; Eosinophils # (auto) 0.16 K/uL (0-0.5); Eosinophils % (auto) 5.4 %; Hematocrit (blood only) 36.1 % (37-47); Hemoglobin 11.9 g/dL (12.0-16.0); Immature Granulocytes # (auto) 0.01 K/uL (0.00-0.02); Immature Granulocytes % (auto) 0.3 %; Lymphocytes # (auto) 0.49 K/uL (1.2-3.4); Lymphocytes % (auto) 16.7 %; Mean Corpuscular Hemoglobin 30.6 pg (25-34); Mean Corpuscular Volume 92.8 fL (80-100); Mean Platelet Volume 9.1 fL (7.4-10.4); Monocytes % (auto) 13.6 %; Neutrophils # (auto) 1.87 K/uL (1.4-6.5); Neutrophils % (auto) 63.7 %; Platelet Count 151 K/uL (130-400); RDW Coefficient of Variation 13.6 % (11.5-14.5); RDW Standard Deviation 46.2 fL (36.4-46.3); Red Blood Count 3.89 M/uL (4.2-5.4); White Blood Count 2.94 K/uL (4.8-10.8)
[2021-12-24 07:13] LABS: BUN Creatinine Ratio 20.8 (10-20); Calcium 8.7 mg/dl (8.5-10.1); Creatinine Clr Calc Pharmacy 29.2 ml/min; Est GFR (African American) 46.7 ml/min; Est GFR (Non-African American) 40.3 ml/min; Magnesium 1.8 mg/dl (1.7-2.4)
[2021-12-24] MEDS: PIPERACILLIN/TAZOBACTAM 3.375 GM in DEXTROSE 5% 100 ML IV SCH ×3 (07:49→23:41)
[2021-12-24] MEDS: MULTIVITAMIN TAB PO SCH (07:53)
[2021-12-24] MEDS: TORSEMIDE 10 MG TAB PO SCH (07:53)
[2021-12-24] MEDS: CALCIUM 600MG + VIT D 400 IU TAB PO SCH ×2 (07:53→20:07)
[2021-12-24] MEDS: ADVANCED PROBIOTIC 1250 MG CAPSULE PO SCH (07:53)
[2021-12-24] MEDS: lisinopril 10 MG TAB PO SCH (07:54)
[2021-12-24] MEDS: LORATADINE 10 MG TAB PO SCH (07:54)
[2021-12-24] MEDS: HEPARIN SOD 5,000 UNIT/0.5 ML VIAL SQ SCH ×2 (07:54→20:07)
--- NOTE | 2021-12-24 11:03 | Hospitalist Progress Note ---
Date of Service December 24, 2021 Assessment & Plan (1) Recurrent UTI: (2) Complicated UTI (urinary tract infection): (3) Back pain: (4) Hydronephrosis: Plan: This is an 86-year-old female who presents with recurrent urinary tract infection and severe back pain. 1. Recurrent urinary tract infections, culture growing Pseudomonas as outpatient . The patient was not tolerating fluoroquinolones. Getting admitted for IV antibiotics, started on IV Zosyn. The patient is also on chronic suppressive antibiotics Cefpodoxime, and amoxicillin. Has appointment with Infectious Disease doctor coming Friday as per the patient. We will follow the response. Consulted ID. Urine cultx obtained here (12/23) pending Hydronephrosis CT abd. pelvis IMPRESSION: 1. Moderate bilateral hydroureteronephrosis which has progressed in the interval. No ureteral stones identified. Mild nonspecific urothelial thickening within the right ureteropelvic junction. This could be due to a focal area of underdistention or a mild pyelitis. Recommend correlation with urinalysis. 2. Colonic diverticulosis. No evidence for acute diverticulitis. 3. No bowel wall thickening or obstruction. 4. Hiatus hernia. 5. Additional findings as described above. Urology consulted May benefit from indwelling catheter if issues with emptying but no major sign right now. Monitor labs and vitals. Broad spectrum abx. Supportive care. Monitor. 2. Back pain. Patient says her back pain got flared prior to admission. Follow the lumbar spine MRI and CT of abdomen and pelvis (as above) for the final reports. Pain control. Lumbar MRI IMPRESSION: 1. Multilevel degenerative changes as described above most pronounced at the L3- L4 level which demonstrates severe central canal narrowing. 2. Small right paracentral disc extrusion at L1-L2 demonstrating superior subligamentous migration. 3. Multilevel neural foraminal narrowing as described above. 4. Old, healed sacral fracture. 12/24 -back pain has much improved, back to baseline. Discussed with orthopedics, continue conservative management. 3. Hypertension: Continue lisinopril and diuretics. We will monitor the blood pressure. 4. Chronic kidney disease stage III. We will follow the labs. 5. History of immune thrombocytopenia. Platelets are okay now. DVT prophylaxis: SCDs and heparin 5000 units subcutaneous b.i.d. DISPOSITION:medical floor. PT, OT prior to discharge. Social service to help with discharge planning. Admission and Anticipated Discharge Date Admission Date: December 23, 2021 Subjective Patient seen in follow-up of recurrent UTIs, back pain Patient is currently sitting up in chair,in no acute distress Says that her back pain is much improved, back to baseline Denies fevers, chills, chest pain, shortness of breath, abdominal pain, nausea vomiting Awaiting ID consult Review of Systems Review of Systems: All systems reviewed & are unremarkable except as noted in Subjective Physical Exam Physical Exam: GENERAL:Elderly F not in acute distress. HEENT: NC/AT, EOMI, Pupils equal, round and reactive to light. Oral mucosa moist. NECK: No JVD, no neck masses. CARDIOVASCULAR: S1 and S2 heard. Regular rate and rhythm. No murmur, no gallop. RESPIRATORY SYSTEM: Normal AP diameter. No accessory muscle use. No wheezing, no crackles. ABDOMEN: Soft, bowel sounds present, nontender, no distention. NEURO:Alert and oriented, answering questions appropriately, no facial asymmetry, speech fluent, moves extremities EXTREMITIES: No edema, no erythema. Bilateral straight leg test negative. Results & Data Results & Data ([facility]) Vital Signs (Past 12 Hours) Vital Signs Temp Pulse Resp BP Pulse Ox 12/24/21 07:42 37 C 78 16 117/72 96 Laboratory Results 12/24/21 12/24/21 Range/Units 06:31 06:31 WBC 2.94 L (4.8-10.8) K/uL RBC 3.89 L (4.2-5.4) M/uL Hgb 11.9 L (12.0-16.0) g/dL Hct 36.1 L (37-47) % MCV 92.8 (80-100) fL MCH 30.6 (25-34) pg MCHC 33.0 (32-36) g/dL RDW Std Deviation 46.2 (36.4-46.3) fL RDW Coeff of Anand 13.6 (11.5-14.5) % Plt Count 151 (130-400) K/uL MPV 9.1 (7.4-10.4) fL Immature Gran % (Auto) 0.3 % Neut % (Auto) 63.7 % Lymph % (Auto) 16.7 % Richardson % (Auto) 13.6 % Eos % (Auto) 5.4 % Baso % (Auto) 0.3 % Neut # (Auto) 1.87 (1.4-6.5) K/uL Lymph # (Auto) 0.49 L (1.2-3.4) K/uL Richardson # (Auto) 0.40 (0.11-0.59) K/uL Eos # (Auto) 0.16 (0-0.5) K/uL Baso # (Auto) 0.01 (0-0.2) K/uL Immature Gran # (Auto) 0.01 (0.00-0.02) K/uL Sodium 137 (136-145) mmol/L Potassium 4.0 (3.5-5.1) mmol/L Chloride 105 (98-107) mmol/L Carbon Dioxide 26 (21-32) mmol/L Anion Gap 6 (3-11) BUN 25 H D (6-23) mg/dl Creatinine 1.20 (0.6-1.2) mg/dl Est Cr Clr Drug Dosing 29.2 ml/min Est GFR ( Amer) 46.7 ml/min Est GFR (Non-Af Amer) 40.3 ml/min BUN/Creatinine Ratio 20.8 H (10-20) Glucose 89 (70-99(Fasting)) mg/dl Calcium 8.7 (8.5-10.1) mg/dl Magnesium 1.8 (1.7-2.4) mg/dl Medications Administered Current Inpatient Medications Acetaminophen (Acetaminophen 325 Mg Tab) 650 mg PO Q4H PRN PRN Reason: pain/fever Stop: 01/22/22 06:37 Last Admin: 12/23/21 14:33 Dose: 650 mg Documented by: Heparin Sodium (Porcine) (Heparin Sod 5,000 Unit/0.5 Ml Vial) 5,000 units SQ Q12 [facility] Stop: 01/22/22 08:59 Last Admin: 12/24/21 07:54 Dose: Not Given Documented by: Piperacillin Sod/Tazobactam (Sod 3.375 gm/ Dextrose) 115 mls @ 28.75 mls/hr IV Q8H [facility]; Protocol Stop: 01/02/22 07:59 Last Admin: 12/24/21 07:49 Dose: 28.8 mls/hr Documented by: Lactobacillus Acidophilus (Advanced Probiotic 1250 Mg Capsule) 2 cap PO DAILY [facility] Stop: 01/22/22 08:59 Last Admin: 12/24/21 07:53 Dose: 2 cap Documented by: Lisinopril (Lisinopril 10 Mg Tab) 30 mg PO QAM [facility] Stop: 01/22/22 08:59 Last Admin: 12/24/21 07:54 Dose: 30 mg Documented by: Loratadine (Loratadine 10 Mg Tab) 10 mg PO DAILY [facility] Stop: 01/22/22 08:59 Last Admin: 12/24/21 07:54 Dose: 10 mg Documented by: Miscellaneous Information (Piperacill/Tazobac Consult Active) 1 ea N/A UD PRN PRN Reason: Consult Stop: 01/21/22 23:24 Multivitamins (Multivitamin Tab) 1 tab PO QAM [facility] Stop: 01/22/22 08:59 Last Admin: 12/24/21 07:53 Dose: 1 tab Documented by: Multivitamins/Minerals (Calcium 600mg + Vit D 400 Iu Tab) 1 tab PO BID [facility] Stop: 01/22/22 08:59 Last Admin: 12/24/21 07:53 Dose: 1 tab Documented by: Oxycodone HCl (Oxycodone Hcl Ir 5 Mg Tab (Immediate Release)) 5 mg PO Q6H PRN PRN Reason: Pain Stop: 01/06/22 06:37 Last Admin: 12/23/21 14:32 Dose: 5 mg Documented by: Polyethylene Glycol (Polyethylene (Miralax) 17 Gm Pack) 17 gm PO DAILY PRN PRN Reason: Constipation Stop: 01/22/22 06:37 Torsemide (Torsemide 10 Mg Tab) 10 mg PO DAILY [facility] Stop: 01/22/22 08:59 Last Admin: 12/24/21 07:53 Dose: 10 mg Documented by:
--- NOTE | 2021-12-24 11:52 | Consultation ---
Date of Consultation December 24, 2021 Assessment & Plan (1) Back pain: Dr. Hairston has reviewed case and imaging. At this point in time, despite her severe stenosis at L3-4, she is back to her baseline level of pain. She is not interested in pursuing any other treatment options. Continue with conservative treatment. No true restrictions per se. We will see her back on as-needed basis. Thank you for this consult History of Present Illness Reason for Consultation: Back pain Attending Physician: Marcello Silva MD History of Present Illness This is a pleasant 86-year-old female that we are asked to see in consultation regarding lumbar stenosis/back pain. She states she has chronic back pain at home. It was flared up upon admission to the hospital. She is currently also dealing with recurrent UTIs and has an infectious disease consult 2 days from now regarding this. At today's visit she is pain-free. She typically ambulates with a quad cane. She states at home she does not require any medication for pain control. Denies bilateral lower extremities pain, paresthesia, numbness. Occasionally she will see the chiropractor when pain is severe at home. Allergies Allergy/AdvReac Type Severity Reaction Status Date / Time sulfamethoxazole Allergy Unknown Unknown Verified 12/22/21 22:35 [From Bactrim] trimethoprim [From Bactrim] Allergy Unknown Unknown Verified 12/22/21 22:35 aspirin AdvReac Intermediate RASH Verified 12/22/21 22:35 gluten AdvReac Intermediate GI SYMPTOMS Verified 12/22/21 22:35 lactose AdvReac Intermediate GI SYMPTOMS Verified 12/22/21 22:35 codeine AdvReac Mild INDIGESTION Verified 12/22/21 22:35 Home Medications Medication Instructions Recorded Confirmed Type denosumab 60 mg/mL subcutaneous 1 dose SUBCUT Q6M 05/31/18 12/22/21 History syringe (Prolia) multivitamin (Multiple Vitamins) 1 tab PO QAM 06/20/18 12/22/21 History acetaminophen 650 mg 650 mg PO Q12H PRN 09/18/18 12/22/21 History tablet,extended release (Tylenol Arthritis Pain) lisinopril 30 mg tablet 30 mg PO QAM 12/20/18 12/22/21 History calcium carbonate 600 mg-vitamin 1 cap PO BID 12/23/18 12/22/21 History D3 5 mcg (200 unit) capsule (Calcium 600 + D(3)) loratadine 10 mg capsule 10 mg PO DAILY 03/31/19 12/22/21 History torsemide 20 mg tablet 10 mg PO DAILY 03/31/19 12/22/21 History Bifidobacterium infantis 10.5 mg 10.5 mg PO DAILY 12/22/21 12/22/21 History (10 million cell) chewable tablet (Align) amoxicillin 500 mg capsule 500 mg PO DAILY 12/23/21 12/23/21 History cefpodoxime 100 mg tablet 100 mg PO BID 12/23/21 12/23/21 History Patient History Medical History CKD (chronic kidney disease) stage 3, GFR 30-59 ml/min Greater trochanteric bursitis History of ITP HTN (hypertension) Hx of cancer of uterus Hyponatremia Osteoporosis Pseudomonas aeruginosa infection Recurrent UTI Sacroiliac joint pain Temporary low platelet count Surgical History H/O cataract removal with insertion of prosthetic lens "bilat" H/O: hysterectomy History of carpal tunnel surgery History of removal of both ovaries History of tonsillectomy and adenoidectomy Hx of cholecystectomy Family History Other Breast cancer in female Diabetes Family history non-contributory Heart disease Social History Smoking Status: Never smoker Second Hand Exposure: No; Hx Alcohol Use: No Hx Substance Use: No Preferred Language: Tajik Communication Ability: Effective Visual Impairment: No Limitations Inspector Eyeglass Required: No Beliefs That Will Affect Care: None marital status: Single Current Living Situation: Alone Current Living Situation Comment: Lives at home currently current occupational status: retired How many Children do You have: 0 Other Information That Helps Us Care for You: No Feels Safe at Home: Yes Safety Concerns: Feels Safe At This Time Assistive Devices: Cane and Walker Review of Systems Review of Systems: All systems reviewed & are unremarkable except as noted in HPI & below Physical Exam Physical Exam: Alert and oriented x3 Sitting in a chair no acute distres Strength is intact bilateral lower extremities s Results & Data ([facility]) Vital Signs (Past 12 Hours) Vital Signs Temp Pulse Resp BP Pulse Ox 12/24/21 07:42 37 C 78 16 117/72 96 Diagnostic Findings [place], [place] [phone] Magnetic Resonance Report Patient:ADELA MAIER Admit Date:12/23/21 MR#:[id number] [facility] Acct ID:[id number] Address2: Date:[address] Zip:[place] [address] Age:86 Location:3N Sex:F Room/Bed:[facility] Att Phy:Marcello Silva MD Diagnosis:BACK PAIN, UTI Elvie Phy:Baldemar Kulkarni III, MD Service Date:12/22/21 Fam Phy: Interpreting Phy:Antonino Adams MDAdmit Phy:Doron Manzo MD Ordering Phy:Ruthie Stoner PA-C cc: ~ LUMBAR SPINE MRI HISTORY: Bilateral leg weakness. TECHNIQUE: Multiplanar multisequence MRI of the lumbar spine was performed without the use of contrast. COMPARISON: None. FINDINGS: For the purpose of the report the L5-S1 disc space will be located on axial image 27 of 30. Focal deformity of the S2 vertebral body without associated edema consistent with an old, healed fracture. No acute fracture or subluxation within the lumbar spine. The conus terminates at the L1 level. Paravertebral soft tissues are unremarkable. Colonic diverticulosis. There is mild disc space narrowing at L1- L2, L2-L3, L3-L4. There is severe disc space narrowing at L4-5 and L5-S1. Myep-xm-ncrxksdy facet degenerative changes within the lumbar spine most pronounced at the L3-L4 level. L1-L2: Broad-based posterior disc bulge with ligamentum and facet hypertrophy resulting in mild central canal and mild to moderate bilateral neural foraminal narrowing. There is a small right paracentral disc extrusion demonstrating superior subligamentous migration. L2-L3: Broad-based posterior disc bulge with ligamentum and facet hypertrophy resulting in moderate central canal and mild to moderate bilateral neural foraminal narrowing. L3-L4: Broad-based posterior disc bulge with a small focal central disc protrusion. In conjunction with the ligamentum and facet hypertrophy this results in severe central canal narrowing. There is mild bilateral neural foraminal narrowing. L4-L5: Broad-based posterior disc bulge with ligamentum and facet hypertrophy resulting in pail-ws-pxjpewpy central canal and bilateral neural foraminal narrowing. L5-S1: Small broad-based posterior disc bulge without significant central canal narrowing. There is moderate bilateral neural foraminal narrowing. IMPRESSION: 1. Multilevel degenerative changes as described above most pronounced at the L3- L4 level which demonstrates severe central canal narrowing. 2. Small right paracentral disc extrusion at L1-L2 demonstrating superior subligamentous migration. 3. Multilevel neural foraminal narrowing as described above. 4. Old, healed sacral fracture. ACT 112: Negative or not required by law. Electronically signed by: Antonino Adams M.D. 12/23/2021 7:47 AM Dictated:12/23/21 0741 Transcribed: 12/23/21 0741
[2021-12-24] MEDS ORDERED: BACLOFEN 10 MG TAB PO STA (22:53)
[2021-12-25] MEDS: PIPERACILLIN/TAZOBACTAM 3.375 GM in DEXTROSE 5% 100 ML IV SCH ×2 (08:09→15:56)
[2021-12-25] MEDS: TORSEMIDE 10 MG TAB PO SCH (08:10)
[2021-12-25] MEDS: HEPARIN SOD 5,000 UNIT/0.5 ML VIAL SQ SCH ×2 (08:10→21:15)
[2021-12-25] MEDS: LORATADINE 10 MG TAB PO SCH (08:10)
[2021-12-25] MEDS: MULTIVITAMIN TAB PO SCH (08:10)
[2021-12-25] MEDS: ADVANCED PROBIOTIC 1250 MG CAPSULE PO SCH (08:10)
[2021-12-25] MEDS: lisinopril 10 MG TAB PO SCH (08:10)
[2021-12-25] MEDS: CALCIUM 600MG + VIT D 400 IU TAB PO SCH ×2 (08:11→21:14)
[2021-12-25 08:57] LABS: Calcium 8.8 mg/dl (8.5-10.1); Creatinine Clr Calc Pharmacy 30.4 ml/min; Est GFR (African American) 49.2 ml/min; Est GFR (Non-African American) 42.4 ml/min; Magnesium 1.9 mg/dl (1.7-2.4); Phosphorus 3.2 mg/dl (2.5-4.9); Potassium 3.6 mmol/L (3.5-5.1)
--- NOTE | 2021-12-25 16:26 | Hospitalist Progress Note ---
Date of Service December 25, 2021 Assessment & Plan (1) Recurrent UTI: (2) Complicated UTI (urinary tract infection): (3) Back pain: (4) Hydronephrosis: Plan: This is an 86-year-old female who presents with recurrent urinary tract infection and severe back pain. 1. Recurrent urinary tract infections, culture growing Pseudomonas as outpatient . The patient was not tolerating fluoroquinolones. Getting admitted for IV antibiotics, started on IV Zosyn. The patient is also on chronic suppressive antibiotics Cefpodoxime, and amoxicillin. Has appointment with Infectious Disease doctor coming Friday as per the patient. We will follow the response. Consulted ID. Urine cultx obtained here (12/23) - mixed markel, repeat ua&ucultx Hydronephrosis CT abd. pelvis IMPRESSION: 1. Moderate bilateral hydroureteronephrosis which has progressed in the interval. No ureteral stones identified. Mild nonspecific urothelial thickening within the right ureteropelvic junction. This could be due to a focal area of underdistention or a mild pyelitis. Recommend correlation with urinalysis. 2. Colonic diverticulosis. No evidence for acute diverticulitis. 3. No bowel wall thickening or obstruction. 4. Hiatus hernia. 5. Additional findings as described above. Urology consulted May benefit from indwelling catheter if issues with emptying but no major sign right now. Monitor labs and vitals. Broad spectrum abx. Supportive care. Monitor. 2. Back pain. Patient says her back pain got flared prior to admission. Follow the lumbar spine MRI and CT of abdomen and pelvis (as above) for the final reports. Pain control. Lumbar MRI IMPRESSION: 1. Multilevel degenerative changes as described above most pronounced at the L3- L4 level which demonstrates severe central canal narrowing. 2. Small right paracentral disc extrusion at L1-L2 demonstrating superior subligamentous migration. 3. Multilevel neural foraminal narrowing as described above. 4. Old, healed sacral fracture. 12/24 -back pain has much improved, back to baseline. Discussed with orthopedics, continue conservative management. 3. Hypertension: Continue lisinopril and diuretics. We will monitor the blood pressure. 4. Chronic kidney disease stage III. We will follow the labs. 5. History of immune thrombocytopenia. Platelets are okay now. DVT prophylaxis: SCDs and heparin 5000 units subcutaneous b.i.d. DISPOSITION:medical floor. PT, OT prior to discharge. Social service to help with discharge planning. Admission and Anticipated Discharge Date Admission Date: December 23, 2021 Subjective Patient seen in follow-up of recurrent UTIs, back pain Patient is currently sitting up in chair,in no acute distress Says that her back pain is much improved, back to baseline Denies fevers, chills, chest pain, shortness of breath, abdominal pain, nausea vomiting Awaiting ID consult Review of Systems Review of Systems: All systems reviewed & are unremarkable except as noted in Subjective Physical Exam Physical Exam: GENERAL:Elderly F not in acute distress. HEENT: NC/AT, EOMI, Pupils equal, round and reactive to light. Oral mucosa moist. NECK: No JVD, no neck masses. CARDIOVASCULAR: S1 and S2 heard. Regular rate and rhythm. No murmur, no gallop. RESPIRATORY SYSTEM: Normal AP diameter. No accessory muscle use. No wheezing, no crackles. ABDOMEN: Soft, bowel sounds present, nontender, no distention. NEURO:Alert and oriented, answering questions appropriately, no facial asymmetry, speech fluent, moves extremities EXTREMITIES: No edema, no erythema. Results & Data Results & Data ([facility]) Vital Signs (Past 12 Hours) Vital Signs Temp Pulse Resp BP Pulse Ox 12/25/21 16:22 36.3 C L 65 18 134/79 98 12/25/21 07:43 36.7 C 69 18 121/73 97 Laboratory Results 12/25/21 Range/Units 07:48 Sodium 137 (136-145) mmol/L Potassium 3.6 (3.5-5.1) mmol/L Chloride 104 (98-107) mmol/L Carbon Dioxide 27 (21-32) mmol/L Anion Gap 6 (3-11) BUN 31 H (6-23) mg/dl Creatinine 1.15 (0.6-1.2) mg/dl Est Cr Clr Drug Dosing 30.4 ml/min Est GFR ( Amer) 49.2 ml/min Est GFR (Non-Af Amer) 42.4 ml/min BUN/Creatinine Ratio 27.0 H (10-20) Glucose 89 (70-99(Fasting)) mg/dl Calcium 8.8 (8.5-10.1) mg/dl Phosphorus 3.2 (2.5-4.9) mg/dl Magnesium 1.9 (1.7-2.4) mg/dl Medications Administered Current Inpatient Medications Acetaminophen (Acetaminophen 325 Mg Tab) 650 mg PO Q4H PRN PRN Reason: pain/fever Stop: 01/22/22 06:37 Last Admin: 12/23/21 14:33 Dose: 650 mg Documented by: Heparin Sodium (Porcine) (Heparin Sod 5,000 Unit/0.5 Ml Vial) 5,000 units SQ Q12 [facility] Stop: 01/22/22 08:59 Last Admin: 12/25/21 08:10 Dose: Not Given Documented by: Piperacillin Sod/Tazobactam (Sod 3.375 gm/ Dextrose) 115 mls @ 28.75 mls/hr IV Q8H [facility]; Protocol Stop: 01/02/22 07:59 Last Admin: 12/25/21 15:56 Dose: 28.8 mls/hr Documented by: Lactobacillus Acidophilus (Advanced Probiotic 1250 Mg Capsule) 2 cap PO DAILY [facility] Stop: 01/22/22 08:59 Last Admin: 12/25/21 08:10 Dose: 2 cap Documented by: Lisinopril (Lisinopril 10 Mg Tab) 30 mg PO QAM [facility] Stop: 01/22/22 08:59 Last Admin: 12/25/21 08:10 Dose: 30 mg Documented by: Loratadine (Loratadine 10 Mg Tab) 10 mg PO DAILY [facility] Stop: 01/22/22 08:59 Last Admin: 12/25/21 08:10 Dose: 10 mg Documented by: Miscellaneous Information (Piperacill/Tazobac Consult Active) 1 ea N/A UD PRN PRN Reason: Consult Stop: 01/21/22 23:24 Multivitamins (Multivitamin Tab) 1 tab PO QAM [facility] Stop: 01/22/22 08:59 Last Admin: 12/25/21 08:10 Dose: 1 tab Documented by: Multivitamins/Minerals (Calcium 600mg + Vit D 400 Iu Tab) 1 tab PO BID [facility] Stop: 01/22/22 08:59 Last Admin: 12/25/21 08:11 Dose: 1 tab Documented by: Oxycodone HCl (Oxycodone Hcl Ir 5 Mg Tab (Immediate Release)) 5 mg PO Q6H PRN PRN Reason: Pain Stop: 01/06/22 06:37 Last Admin: 12/23/21 14:32 Dose: 5 mg Documented by: Polyethylene Glycol (Polyethylene (Miralax) 17 Gm Pack) 17 gm PO DAILY PRN PRN Reason: Constipation Stop: 01/22/22 06:37 Torsemide (Torsemide 10 Mg Tab) 10 mg PO DAILY [facility] Stop: 01/22/22 08:59 Last Admin: 12/25/21 08:10 Dose: 10 mg Documented by:
[2021-12-25 19:07] LABS: Appearance Urine Clear (Clear); Bilirubin Urine Negative (Negative); Blood Urine Negative (Negative); Color Urine Yellow; Glucose Urine UA Negative (Negative); Ketones Urine Negative (Negative); Leukocyte Esterase Urine Negative (Negative); Nitrite Urine Negative (Negative); Protein Urine Negative (Negative); Specific Gravity Urine 1.008 (1.000-1.030); Urobilinogen Urine Negative (Negative)
[2021-12-26] MEDS: PIPERACILLIN/TAZOBACTAM 3.375 GM in DEXTROSE 5% 100 ML IV SCH ×2 (00:57→09:01)
[2021-12-26] MEDS ORDERED: BACLOFEN 10 MG TAB PO STA (02:14)
[2021-12-26 07:52] LABS: Hematocrit (blood only) 36.4 % (37-47); Hemoglobin 12.1 g/dL (12.0-16.0); Mean Corpuscular Hemoglobin 29.9 pg (25-34); Mean Corpuscular Hgb Conc 33.2 g/dL (32-36); Mean Corpuscular Volume 89.9 fL (80-100); Mean Platelet Volume 9.4 fL (7.4-10.4); Platelet Count 194 K/uL (130-400); RDW Coefficient of Variation 13.3 % (11.5-14.5); Red Blood Count 4.05 M/uL (4.2-5.4); White Blood Count 4.42 K/uL (4.8-10.8)
[2021-12-26 08:13] LABS: BUN Creatinine Ratio 27.7 (10-20); Calcium 9.2 mg/dl (8.5-10.1); Creatinine Clr Calc Pharmacy 24.8 ml/min; Est GFR (African American) 38.5 ml/min; Est GFR (Non-African American) 33.2 ml/min; Potassium 3.7 mmol/L (3.5-5.1)
[2021-12-26] MEDS: ADVANCED PROBIOTIC 1250 MG CAPSULE PO SCH (09:01)
[2021-12-26] MEDS: lisinopril 10 MG TAB PO SCH (09:01)
[2021-12-26] MEDS: CALCIUM 600MG + VIT D 400 IU TAB PO SCH ×2 (09:01→20:06)
[2021-12-26] MEDS: TORSEMIDE 10 MG TAB PO SCH (09:01)
[2021-12-26] MEDS: HEPARIN SOD 5,000 UNIT/0.5 ML VIAL SQ SCH ×2 (09:01→20:07)
[2021-12-26] MEDS: LORATADINE 10 MG TAB PO SCH (09:01)
[2021-12-26] MEDS: MULTIVITAMIN TAB PO SCH (09:02)
[2021-12-26] MEDS ORDERED: CEFEPIME 2,000 MG in SYRINGE 0 ML IV SCH (16:00)
--- NOTE | 2021-12-26 20:02 | Hospitalist Progress Note ---
Date of Service December 26, 2021 Assessment & Plan (1) Recurrent UTI: (2) Complicated UTI (urinary tract infection): (3) Back pain: (4) Hydronephrosis: Plan: This is an 86-year-old female who presents with recurrent urinary tract infection and severe back pain. 1. Recurrent urinary tract infections, culture growing Pseudomonas as outpatient . The patient was not tolerating fluoroquinolones. Getting admitted for IV antibiotics, started on IV Zosyn 12/23 --> changed to cefepime 12/26 The patient is also on chronic suppressive antibiotics Cefpodoxime, and amoxicillin. Has appointment with Infectious Disease doctor coming Friday as per the patient. We will follow the response. Consulted ID. Urine cultx obtained here (12/23) - mixed markel Hydronephrosis CT abd. pelvis: Suggestive of moderate bilateral hydroureteronephrosis which has progressed in the interval. Urology evaluated, appreciate recommendation. Patient has documented history of retention/incomplete emptying. May benefit from indwelling catheter if issues with emptying but no major signs right now per urology. 2. Back pain. Patient says her back pain got flared prior to admission. Follow the lumbar spine MRI and CT of abdomen and pelvis (as above) for the final reports. Pain control. Lumbar MRI reviewed. 12/24 -back pain has much improved, back to baseline. Discussed with orthopedics, continue conservative management. 3. Hypertension: Continue lisinopril and diuretics. We will monitor the blood pressure. 4. Chronic kidney disease stage III. We will follow the labs. 5. History of immune thrombocytopenia. Platelets are okay now. DVT prophylaxis: SCDs and heparin 5000 units subcutaneous b.i.d. DISPOSITION:medical floor. PT, OT prior to discharge. Social service to help with discharge planning. Pending ID evaluation. Admission and Anticipated Discharge Date Admission Date: December 23, 2021 Subjective Patient seen and examined at bedside for recurrent UTI. Patient Patient was sitting up in chair, on room air, NAD, no new acute events overnight. Patient reports eating okay. Patient having loose bowels since yesterday, stool forming up better lately. Patient denies fever/headache/chills/sore throat/cough/chest pain/palpitations/belly pain/other review of symptoms. Physical Exam Physical Exam: GENERAL: Alert and oriented x3. NAD, on RA. HEENT: No pallor, no icterus. Pupils equal, round and reactive to light. Oral mucosa moist. NECK: No JVD, no neck masses. HEART: S1 and S2 heard. Regular rate and rhythm. No murmur, no gallop. RESPIRATORY SYSTEM: Normal AP diameter. No accessory muscle use. No wheezing, no crackles. ABDOMEN: Soft, bowel sounds present, nontender, no distention. CENTRAL NERVOUS SYSTEM: No facial droop. Speech is clear. Obeys simple commands. Moves extremities. EXTREMITIES: No edema, no erythema seen. Results & Data Results & Data ([facility]) Vital Signs (Past 12 Hours) Vital Signs Temp Pulse Resp BP Pulse Ox 12/26/21 15:45 36.7 C 76 18 124/74 96 12/26/21 07:58 64 18 130/80 93
[2021-12-27 07:37] LABS: Hematocrit (blood only) 35.6 % (37-47); Hemoglobin 11.9 g/dL (12.0-16.0); Mean Corpuscular Hemoglobin 30.1 pg (25-34); Mean Corpuscular Hgb Conc 33.4 g/dL (32-36); Mean Corpuscular Volume 90.1 fL (80-100); Mean Platelet Volume 9.6 fL (7.4-10.4); Platelet Count 204 K/uL (130-400); RDW Coefficient of Variation 13.4 % (11.5-14.5); RDW Standard Deviation 44.5 fL (36.4-46.3); Red Blood Count 3.95 M/uL (4.2-5.4); White Blood Count 4.63 K/uL (4.8-10.8)
[2021-12-27 07:39] LABS: BUN Creatinine Ratio 35.7 (10-20); Calcium 9.2 mg/dl (8.5-10.1); Creatinine Clr Calc Pharmacy 31.2 ml/min; Est GFR (African American) 50.8 ml/min; Est GFR (Non-African American) 43.8 ml/min; Phosphorus 3.6 mg/dl (2.5-4.9); Potassium 3.8 mmol/L (3.5-5.1)
[2021-12-27] MEDS: lisinopril 10 MG TAB PO SCH (08:05)
[2021-12-27] MEDS: TORSEMIDE 10 MG TAB PO SCH (08:05)
[2021-12-27] MEDS: LORATADINE 10 MG TAB PO SCH (08:05)
[2021-12-27] MEDS: ADVANCED PROBIOTIC 1250 MG CAPSULE PO SCH (08:05)
[2021-12-27] MEDS: MULTIVITAMIN TAB PO SCH (08:05)
[2021-12-27] MEDS: CALCIUM 600MG + VIT D 400 IU TAB PO SCH (08:05)
[2021-12-27] MEDS: HEPARIN SOD 5,000 UNIT/0.5 ML VIAL SQ SCH (08:07)
[2021-12-27] MEDS ORDERED: CEFEPIME 2,000 MG in SYRINGE 0 ML IV ONE (11:15)
[2021-12-27] MEDS ORDERED: FOSFOMYCIN TROMETHAMINE 3 GM PACKET PO ONE (14:45)
--- NOTE | 2021-12-27 14:55 | Discharge Summary ---
Date of Service December 27, 2021 Admission HPI Per Admitting Provider CHIEF COMPLAINT: Back pain and intolerance to Levaquin. HISTORY OF PRESENT ILLNESS: An 86-year-old female with past medical history significant for chronic kidney disease stage III, hypertension, senile osteoporosis, history of ITP, history of recurrent urinary tract infection, history of uterine cancer, who lives alone at home. She says she ambulates with a cane in the day and walker in the nighttime. Patient has history of recurrent UTI. She is chronically on suppressive antibiotics, currently on Cefpodoxime and amoxicillin. Follows with Urology and also she is supposed to see a new ID doctor coming Friday. She was recently diagnosed with UTI with pseudomonas. She could not take Cipro because of diarrhea and today her family doctor prescribed Levaquin, by taking one dose she felt uncomfortable in the stomach. She thought because of hunger, but even after eating food she is not getting better, so she came to the ER .Also she has chronic back pain, follows with a chiropractor on and off flares up, but today it was severe; back pain going to the right leg. ER tried to discharge her on cipro, but she declined to take cipro so she has been admitted for IV antibiotics, received Zosyn. Resting c omfortably and hemodynamically stable. Denies any headache, no dizziness, no blurred visions, no earache, no runny nose, no sore throat, no cough, no chest pain, no shortness of breath, no nausea, no vomiting, no abdominal pain. Has some pressure in the bladder and some burning micturition. Normal bladder movements. Normal bowel movements. No swelling in the legs. ALLERGIES: SULFA ANTIBIOTICS, ASPIRIN, GLUTEN, LACTOSE, CODEINE. PAST MEDICAL HISTORY: As mentioned above. PAST SURGICAL HISTORY: Carpal tunnel surgery, colonoscopy, cataract surgery, total abdominal hysterectomy with removal of the ovaries and tubes, cholecystectomy, tonsillectomy and adenoidectomy. MEDICATIONS: The patient is on Tylenol Arthritis 650 mg p.o. q. 12 hours p.r.n., amoxicillin 500 mg p.o. daily, bifidobacterium infantis 1 tablet daily, calcium carbonate plus vitamin D one tablet p.o. b.i.d., cefpodoxime 100 mg p.o. b.i.d., lisinopril 30 mg p.o. a.m., loratadine 10 mg p.o. daily, multivitamins 1 tablet p.o. daily, Prolia one dose subcutaneous q. 6 months, torsemide 10 mg p.o. daily. FAMILY HISTORY: Significant for father has arthritis, CAD, CHF. Mother has hypertension, arthritis. Sister has arthritis. Mother has breast cancer. SOCIAL HISTORY: , lives alone. No smoking, no alcohol, no drug use. REVIEW OF SYSTEMS: As per HPI. Rest of the review of systems is negative. Admission Exam Per Admitting Provider GENERAL: The patient is old and frail, not in acute distress. VITAL SIGNS: Temperature 37, pulse 90, respiratory rate 20, blood pressure 134/65, oxygen 93% on room air. HEENT: Pupils equal, round and reactive to light. Oral mucosa moist. NECK: No JVD, no neck masses. CARDIOVASCULAR: S1 and S2 heard. Regular rate and rhythm. No murmur, no gallop. RESPIRATORY SYSTEM: Normal AP diameter. No accessory muscle use. No wheezing, no crackles. ABDOMEN: Soft, bowel sounds present, nontender, no distention. CENTRAL NERVOUS SYSTEM: Cranial nerves II-XII grossly intact, nonfocal. EXTREMITIES: No edema, no erythema. Bilateral straight leg test negative. Principal Diagnosis Recurrent UTI Discharge Exam GENERAL: Alert and oriented x3. NAD, on RA. HEENT: No pallor, no icterus. Pupils equal, round and reactive to light. Oral mucosa moist. NECK: No JVD, no neck masses. HEART: S1 and S2 heard. Regular rate and rhythm. No murmur, no gallop. RESPIRATORY SYSTEM: Normal AP diameter. No accessory muscle use. No wheezing, no crackles. ABDOMEN: Soft, bowel sounds present, nontender, no distention. CENTRAL NERVOUS SYSTEM: No facial droop. Speech is clear. Obeys simple c ommands. Moves extremities. EXTREMITIES: No edema, no erythema seen. Discharge Data Allergies Allergy/AdvReac Type Severity Reaction Status Date / Time sulfamethoxazole Allergy Unknown Unknown Verified 12/22/21 22:35 [From Bactrim] trimethoprim [From Bactrim] Allergy Unknown Unknown Verified 12/22/21 22:35 aspirin AdvReac Intermediate RASH Verified 12/22/21 22:35 gluten AdvReac Intermediate GI SYMPTOMS Verified 12/22/21 22:35 lactose AdvReac Intermediate GI SYMPTOMS Verified 12/22/21 22:35 codeine AdvReac Mild INDIGESTION Verified 12/22/21 22:35 Consultations 12/23/21 02:59 ED Decision to Admit Stat 12/23/21 07:12 Consult Infectious Diseases Routine 12/23/21 08:54 Consult Orthopedic Surgery Routine 12/23/21 08:57 Consult Urology Routine Ordered Studies 12/22/21 22:19 CT abd pelvis IV con only Urgent 12/22/21 22:20 MR lumbar spine wo con Stat Hospital Course (1) Recurrent UTI: (2) Complicated UTI (urinary tract infection): (3) Back pain: (4) Hydronephrosis: This is an 86-year-old female who presents with recurrent urinary tract infection and severe back pain. She was managed for the followin. Recurrent urinary tract infections, culture growing Pseudomonas as outpatient . The patient was not tolerating fluoroquinolones. Getting admitted for IV antibiotics, started on IV Zosyn 12/23 --> changed to cefepime 12/26 The patient is also on chronic suppressive antibiotics Cefpodoxime, and amoxicillin. Urine cultx obtained here (12/23) - mixed markel ID evaluated 12/26, repeat urine culture, fosfomycin 3 g one-time dose. Discontinue cefepime 12/27. No concern for pyelonephritis. Follow-up with ID as an outpatient. Discontinue suppressive antibiotic therapy for UTI as per ID recommendation. Hydronephrosis CT abd. pelvis: Suggestive of moderate bilateral hydroureteronephrosis which has progressed in the interval. Urology evaluated, appreciate recommendation. Patient has documented history of retention/incomplete emptying. May benefit from indwelling catheter if issues with emptying but no major signs right now per urology. 2. Back pain. Patient says her back pain got flared prior to admission. Follow the lumbar spine MRI and CT of abdomen and pelvis (as above) for the final reports. Pain control. Lumbar MRI reviewed. 12/24 -back pain has much improved, back to baseline. Discussed with orthopedics, continue conservative management. Might benefit from outpatient orthospine evaluation if worsening pain. 3. Hypertension: Continue lisinopril and diuretics. We will monitor the blood pressure. 4. Chronic kidney disease stage III. We will follow the labs. 5. History of immune thrombocytopenia. Platelets are okay now. DVT prophylaxis: SCDs and heparin 5000 units subcutaneous b.i.d. Patient is being discharged to home with following instruction at the point of discharge: Follow-up with your primary care physician within a week time. For your recurrent UTI, infectious disease doctor evaluated you. Discontinue oral suppressive antibiotics for your UTI per infectious disease recommendation. Follow-up with infectious disease as an outpatient. You are being treated with 1 dose of fosfomycin 3 g for UTI on the day of disc harge. If your back pain continues to worsen, consider following up with orthospine as an outpatient. Your lumbar spine MRI revealed severe central canal narrowing in L3-L4 level. Also consider following up with pain management as an outpatient if with worsening pain. You can use Imodium [like before] as needed for your frequent loose stools. Take your medications as prescribed. Total Time Total Time Spent Total Time Spent (In Minutes): 35 Discharge Plan Discharge Items Patient Disposition: Home - Self-Care Reason For Visit: BACK PAIN, UTI Discharge Diagnosis: Recurrent UTI Condition on Discharge: Good Activity: Resume your previous activity Non-emergency contact: Primary Care Provider Call non-emergency contact if: you have any medication questions, your symptoms worsen, your pain is not controlled and your temperature is above 101 Follow-up/Referrals: Baldemar Kulkarni MD [Primary Care Provider] - 01/02/22 11:00 am (Date & Time 01/02/2022 11:00 AM Provider Baldemar Kulkarni III, MD Department [facility] ) Diet: Heart Healthy Addtl Attending Provider Instructions: Follow-up with your primary care physician within a week time. For your recurrent UTI, infectious disease doctor evaluated you. Discontinue oral suppressive antibiotics for your UTI per infectious disease recommendation. Follow-up with infectious disease as an outpatient. You are being treated with 1 dose of fosfomycin 3 g for UTI on the day of discha rge. If your back pain continues to worsen, consider following up with orthospine as an outpatient. Your lumbar spine MRI revealed severe central canal narrowing in L3-L4 level. Also consider following up with pain management as an outpatient if with worsening pain. You can use Imodium [like before] as needed for your frequent loose stools. Take your medications as prescribed. Pending Studies at Discharge: No Stand-Alone Forms: [employer], Smoking Cessation Medications and DC Order Prescriptions: Continued acetaminophen [Tylenol Arthritis Pain] 650 mg Tablet Extended Release 650 mg PO Q12H PRN (Reason: Pain) RF: 0 Calcium 600 + D(3) 600 mg calcium- 200 unit Capsule 1 cap PO BID RF: 0 torsemide 20 mg tablet 10 mg PO DAILY RF: 0 loratadine 10 mg Capsule 10 mg PO DAILY RF: 0 Prolia 60 mg/mL Syringe 1 dose subcut Q6M RF: 0 multivitamin [Multiple Vitamins] Tablet 1 tab PO QAM RF: 0 lisinopril 30 mg tablet 30 mg PO QAM RF: 0 Align 10.5 mg (10 million cell) Tablet,Chewable 10.5 mg PO DAILY RF: 0 Discontinued cefpodoxime 100 mg tablet 100 mg PO BID RF: 0 amoxicillin 500 mg capsule 500 mg PO DAILY RF: 0 Discharge Orders: Discharge Order (Routine); Ordered 12/27/21 Ordered By: Linnea Barton Admission Data Admit Date/Time: 12/23/21 05:07 Attending Provider: Linnea Barton Admit Provider: Doron Manzo Primary Care Provider: Baldemar Kulkarni Other Providers: Doron Manzo ; Shawn Basurto ; Bryan Dutton ; Javier Finn I. ; Ran Douglas II ; Kaylan Chapman ; Rowdy Ronquillo ; Stan Wells ; Thomas Hairston ; Ender Chester
[2021-12-27] MEDS ORDERED: CEFEPIME 2,000 MG in SYRINGE 0 ML IV SCH (22:00)
== END 2021-12-27 16:47 | disposition home or self-care (01) | DRG 690 ==
LOC: ED 21:46 → SUATTDRO 12-23 05:07 → 3N 12-23 05:07

== ENCOUNTER 2023-02-13 22:52 | Inpatient (IN) ==
[2023-02-14 01:45] LABS: Basophils # (auto) 0.04 K/uL (0-0.2); Basophils % (auto) 0.4 %; Eosinophils # (auto) 0.02 K/uL (0-0.50); Eosinophils % (auto) 0.2 %; Hematocrit (blood only) 41.9 % (37.0-47.0); Hemoglobin 14.3 g/dl (12.0-16.0); Immature Granulocytes # (auto) 0.03 K/uL (0.01-0.20); Immature Granulocytes % (auto) 0.3 %; Lymphocytes # (auto) 1.16 K/uL (1.2-3.4); Lymphocytes % (auto) 10.2 %; Mean Corpuscular Hemoglobin 30.1 pg (25.0-34.0); Mean Corpuscular Hgb Conc 34.1 g/dL (32.0-36.0); Mean Corpuscular Volume 88.2 fL (80.0-100.0); Mean Platelet Volume 9.5 fL (9.4-12.4); Monocytes # (auto) 1.19 K/uL (0.11-0.59); Monocytes % (auto) 10.5 %; Neutrophils # (auto) 8.91 K/uL (1.40-6.50); Neutrophils % (auto) 78.4 %; Platelet Count 237 K/uL (130-400); RDW Coefficient of Variation 13.1 % (11.5-14.5); RDW Standard Deviation 42.5 fL (36.4-46.3); Red Blood Count 4.75 M/uL (4.20-5.40); White Blood Count 11.35 K/ul (4.8-10.8)
[2023-02-14 01:55] LABS: Albumin Globulin Ratio 1.5 (0.9-2); BUN Creatinine Ratio 23.7 (10-20); Bilirubin,Total 0.6 mg/dl (0.2-1.0); Calcium 9.8 mg/dl (8.6-10.3); Creatinine Clr Calc Pharmacy 23.7 ml/min; Est GFR (African American) 38.8 ml/min; Est GFR (Non-African American) 33.5 ml/min; Globulin 2.7 gm/dl (2.5-4.0); Potassium 3.7 mmol/L (3.5-5.1); Total Protein 6.7 gm/dl (6.0-8.3)
[2023-02-14 02:01] LABS: Troponin I High Sensitivity 10.4 pg/ml (0-14)
[2023-02-14 02:12] LABS: Partial Thromboplastin Ratio 0.9; Partial Thromboplastin Time 24.9 Seconds (21.0-31.0); Prothrombin Time 10.5 Seconds (9.0-12.0)
--- NOTE | 2023-02-14 02:40 | Emergency Department Note ---
Impression & Plan Acute GI bleeding Admit to the [facility] ED Provider Note NAME: ADELA MAIER AGE: 87 SEX: F ARRIVES VIA: Walk-In INFORMANT: Patient and her daughter ED PROVIDER(S): Monica Randall DO CHIEF COMPLAINT: Rectal bleeding and diarrhea PLAN: Disposition: Admit to the [facility] Condition: Stable MEDICAL DECISION MAKING: This is an 87-year-old female patient who presents to the emergency department with rectal bleeding. Patient had an episode of diarrhea approximately 4-5 days ago for which she took Imodium. The stooling did slow down but then started back up again tonight and was associated with some bleeding. Bleeding became much heavier. Upon presentation to the ER, the patient was tachycardic and hypertensive. H&H were stable. However, the rectal bleeding was heavy. Patient had undergone colonoscopy approximately 10 years ago which was normal. I discussed the case with the [facility] and they will evaluate for further inpatient care. Triage Nursing notes reviewed and agree with them. Additional history obtained from the patient's daughter who is at the bedside. Vital Signs: reviewed and remarkable for hypertension Differential diagnosis: Hemorrhoidal bleeding, diverticular bleeding, lower GI bleeding, anemia ER treatment provided: Cardiac monitoring Diagnostics interpreted by me: ECG: Normal sinus rhythm at 92. There is no ST segment elevation or signs of ischemia. Cardiac Monitoring: Normal sinus rhythm at 91 Laboratory studies: See below HPI: 87/F arrives for evaluation of diarrhea rectal bleeding. Patient had some diarrhea approximately 4-5 days ago for which she took Imodium. It seemed to slow down until tonight before bed, she had developed diarrhea again and then noticed rectal bleeding. Patient does have some crampy lower abdominal pain when she has to have a bowel movement. She has become more concerned because the blood seems to be running out of her even with standing up. PAST MEDICAL HISTORY:See Below PAST SURGICAL HISTORY:See Below FAMILY HISTORY:See Below SOCIAL HISTORY:See Below HOME MEDICATIONS:See list ALLERGIES:See list VITALS:See Below PHYSICAL EXAMINATION: HEENT: Head - normocephalic and atraumatic Pupils are equal, round, and reactive to light. Extraocular eye muscles are intact, and sclera are anicteric. Nose - moist nasal mucosa without discharge. Mouth - moist buccal mucosa. Oropharynx is nonerythematous and there is no tonsillar exudate or macy ma noted. Neck: Supple; no JVD or cervical lymphadenopathy Heart: Tachycardic rate and regular rhythm. There is a normal S1 and S2 with no murmurs, clicks, or gallops appreciated. Lungs: Clear to auscultation bilaterally with no wheezes, rales, or rhonchi. Abdomen: Soft, completely nontender, nondistended, with good bowel sounds. There are no palpable pulsatile masses or hepatosplenomegaly. There is no guarding, rigidity, or rebound noted. Extremities: No evidence of cyanosis, clubbing, or edema. There are easily palpable peripheral pulses. Skin: warm and dry with good turgor and no rashes. Rectal: No obvious hemorrhoids noted. The patient does have bright red blood per rectum. ED COURSE: Times/Reassessments: 0055: Patient was evaluated in room C10. A complete history and physical was performed an order was placed for continuous cardiac monitoring. The patient was in a normal sinus rhythm at a rate of 91. A twelve-lead EKG was obtained as described above. An IV lock was initiated and labs are drawn as above. The patient was typed and screened. A rectal exam was performed. I discussed the case with the [facility] and they will evaluate for further management. Monica Randall DO Past Med/Surg History Medical History (Updated 02/14/23 @ 02:47 by Monica Randall DO) CKD (chronic kidney disease) stage 3, GFR 30-59 ml/min Greater trochanteric bursitis History of ITP HTN (hypertension) Hx of cancer of uterus Hyponatremia Osteoporosis Pseudomonas aeruginosa infection Recurrent UTI Sacroiliac joint pain Temporary low platelet count Surgical History H/O cataract removal with insertion of prosthetic lens "bilat" H/O: hysterectomy History of carpal tunnel surgery History of removal of both ovaries History of tonsillectomy and adenoidectomy Hx of cholecystectomy Family History Other Breast cancer in female Diabetes Family history non-contributory Heart disease Social History Smoking Status: Never smoker Second Hand Exposure: No; Do You Dip or Chew Tobacco: No; Hx Alcohol Use: No Hx Substance Use: No Preferred Language: [place] Communication Ability: Effective Visual Impairment: No Limitations Director Of Audiology Required: No Beliefs That Will Affect Care: None marital status: Single Current Living Situation: Alone Current Living Situation Comment: Lives at home currently current occupational status: retired How many Children do You have: 0 Feels Safe at Home: Yes Assistive Devices: Cane and Walker Allergies Allergies Allergy/AdvReac Type Severity Reaction Status Date / Time sulfamethoxazole Allergy Unknown Unknown Verified 06/16/22 11:45 [From Bactrim] trimethoprim [From Bactrim] Allergy Unknown Unknown Verified 06/16/22 11:45 aspirin AdvReac Intermediate RASH Verified 06/16/22 11:45 gluten AdvReac Intermediate GI SYMPTOMS Verified 06/16/22 11:45 lactose AdvReac Intermediate GI SYMPTOMS Verified 06/16/22 11:45 codeine AdvReac Mild INDIGESTION Verified 06/16/22 11:45 Home Meds Home Medications Medication Instructions Recorded Confirmed denosumab 60 mg/mL subcutaneous 1 dose subcut Q6M 05/31/18 02/14/23 syringe (Prolia) multivitamin (Multiple Vitamins 1 tab PO QAM 06/20/18 02/14/23 tablet) acetaminophen 650 mg 650 mg PO Q12H PRN Pain 09/18/18 02/14/23 tablet,extended release (Tylenol Arthritis Pain) lisinopril 30 mg tablet 30 mg PO QAM 12/20/18 02/14/23 calcium carbonate 600 mg-vitamin 1 cap PO BID 12/23/18 02/14/23 D3 5 mcg (200 unit) capsule (Calcium 600 + D(3)) loratadine 10 mg capsule 10 mg PO DAILY 03/31/19 02/14/23 torsemide 20 mg tablet 10 mg PO DAILY 03/31/19 02/14/23 baclofen 10 mg tablet 10 mg PO DAILY PRN Spasms 02/05/22 02/14/23 Lactobacillus acidophilus 10 10,000 mmu cells PO DAILY 06/16/22 02/14/23 billion cell capsule (Probiotic) Results & Data (ED) Vital Signs Vital Signs - 24 hr 02/13/23 22:55 02/14/23 01:28 02/14/23 02:00 Temperature 36.7 C Temperature Source Oral Pulse Rate 113 H Pulse Rate [Finger] 91 H Respiratory Rate 18 16 Respiratory Effort / Characteristics Non-Labored Spontaneous Respiratory Depth Normal Blood Pressure 184/82 H Blood Pressure [Right Arm] 153/78 H Blood Pressure Mean 116 Blood Pressure Mean [Right Arm] 103 Pulse Oximetry 99 99 96 Oxygen Delivery Method Room Air Room Air Room Air Sepsis Recent Fever Within 48 Hours No Sepsis New/Unexplained Change in Mental Status N/A Sepsis Action Taken by Nursing No Action Required Laboratory Data 02/14/23 01:24 02/14/23 01:24 Lab Results 02/14/23 02/14/23 02/14/23 Range/Units 01:24 01:24 01:24 WBC 11.35 H (4.8-10.8) K/ul RBC 4.75 (4.20-5.40) M/uL Hgb 14.3 (12.0-16.0) g/dl Hct 41.9 (37.0-47.0) % MCV 88.2 (80.0-100.0) fL MCH 30.1 (25.0-34.0) pg MCHC 34.1 (32.0-36.0) g/dL RDW Std Deviation 42.5 (36.4-46.3) fL RDW Coeff of Anand 13.1 (11.5-14.5) % Plt Count 237 (130-400) K/uL MPV 9.5 (9.4-12.4) fL Immature Gran % (Auto) 0.3 % Neut % (Auto) 78.4 % Lymph % (Auto) 10.2 % [place] % (Auto) 10.5 % Eos % (Auto) 0.2 % Baso % (Auto) 0.4 % Neut # (Auto) 8.91 H (1.40-6.50) K/uL Lymph # (Auto) 1.16 L (1.2-3.4) K/uL [place] # (Auto) 1.19 H (0.11-0.59) K/uL Eos # (Auto) 0.02 (0-0.50) K/uL Baso # (Auto) 0.04 (0-0.2) K/uL Immature Gran # (Auto) 0.03 (0.01-0.20) K/uL PT 10.5 (9.0-12.0) Seconds INR 1.0 (0.9-1.1) APTT 24.9 (21.0-31.0) Seconds PTT Ratio 0.9 Sodium 135 L (136-145) mmol/L Potassium 3.7 (3.5-5.1) mmol/L Chloride 100 (98-107) mmol/L Carbon Dioxide 25 (21-32) mmol/L Anion Gap 10 (3-11) BUN 33 H (6-23) mg/dl Creatinine 1.39 H (0.6-1.2) mg/dl Est Cr Clr Drug Dosing 23.7 ml/min Est GFR ( Amer) 38.8 ml/min Est GFR (Non-Af Amer) 33.5 ml/min BUN/Creatinine Ratio 23.7 H (10-20) Glucose 122 H (70-99(Fasting)) mg/dl Calcium 9.8 (8.6-10.3) mg/dl Total Bilirubin 0.6 (0.2-1.0) mg/dl AST 19 (13-39) U/L ALT 16 (7-52) U/L Alkaline Phosphatase 85 (34-104) U/L Troponin I High Sens 10.4 (0-14) pg/ml Total Protein 6.7 (6.0-8.3) gm/dl Albumin 4.0 (3.4-5.0) gm/dl Globulin 2.7 (2.5-4.0) gm/dl Albumin/Globulin Ratio 1.5 (0.9-2) SARS-CoV-2, RNA, NAAT (NEGATIVE) 02/14/23 Range/Units 01:41 WBC (4.8-10.8) K/ul RBC (4.20-5.40) M/uL Hgb (12.0-16.0) g/dl Hct (37.0-47.0) % MCV (80.0-100.0) fL MCH (25.0-34.0) pg MCHC (32.0-36.0) g/dL RDW Std Deviation (36.4-46.3) fL RDW Coeff of Anand (11.5-14.5) % Plt Count (130-400) K/uL MPV (9.4-12.4) fL Immature Gran % (Auto) % Neut % (Auto) % Lymph % (Auto) % [place] % (Auto) % Eos % (Auto) % Baso % (Auto) % Neut # (Auto) (1.40-6.50) K/uL Lymph # (Auto) (1.2-3.4) K/uL [place] # (Auto) (0.11-0.59) K/uL Eos # (Auto) (0-0.50) K/uL Baso # (Auto) (0-0.2) K/uL Immature Gran # (Auto) (0.01-0.20) K/uL PT (9.0-12.0) Seconds INR (0.9-1.1) APTT (21.0-31.0) Seconds PTT Ratio Sodium (136-145) mmol/L Potassium (3.5-5.1) mmol/L Chloride (98-107) mmol/L Carbon Dioxide (21-32) mmol/L Anion Gap (3-11) BUN (6-23) mg/dl Creatinine (0.6-1.2) mg/dl Est Cr Clr Drug Dosing ml/min Est GFR ( Amer) ml/min Est GFR (Non-Af Amer) ml/min BUN/Creatinine Ratio (10-20) Glucose (70-99(Fasting)) mg/dl Calcium (8.6-10.3) mg/dl Total Bilirubin (0.2-1.0) mg/dl AST (13-39) U/L ALT (7-52) U/L Alkaline Phosphatase (34-104) U/L Troponin I High Sens (0-14) pg/ml Total Protein (6.0-8.3) gm/dl Albumin (3.4-5.0) gm/dl Globulin (2.5-4.0) gm/dl Albumin/Globulin Ratio (0.9-2) SARS-CoV-2, RNA, NAAT NEGATIVE (NEGATIVE) Discharge Plan Visit Data Chief Complaint: Diarrhea Stated Complaint: DIARREAH ALL DAY,POSSIBLE RECTAL BLEED ED Provider: Monica Randall Discharge Problem: Acute GI bleeding Forms Stand Alone Forms: My [facility] Prescriptions Prescriptions: No Action acetaminophen [Tylenol Arthritis Pain] 650 mg Tablet Extended Release 650 mg PO Q12H PRN (Reason: Pain) Calcium 600 + D(3) 600 mg calcium- 200 unit Capsule 1 cap PO BID torsemide 20 mg tablet 10 mg PO DAILY loratadine 10 mg Capsule 10 mg PO DAILY Prolia 60 mg/mL Syringe 1 dose subcut Q6M Rx Instructions: SQ INJECTION EVERY 6 MONTHS multivitamin [Multiple Vitamins] Tablet 1 tab PO QAM Rx Instructions: GLUTEN- FREE lisinopril 30 mg tablet 30 mg PO QAM Probiotic 10 billion cell Capsule 10,000 mmu cells PO DAILY baclofen 10 mg tablet 10 mg PO DAILY PRN (Reason: Spasms) Referrals Referrals: Baldemar Kulkarni MD [Primary Care Provider] -
--- NOTE | 2023-02-14 03:07 | History & Physical Report ---
Date of Service February 14, 2023 Assessment & Plan (1) Acute lower GI bleeding: Plan: Rule out C. difficile colitis given recent antibiotic Rx for recurrent UTI No sepsis for now Patient currently hemodynamically stable. ARF secondary to illness. hypertension, slightly elevated secondary discomfort uterine cancer status post surgery Hyperglycemia rule out DM ITP status post Rituxan OBS Medical telemetry Stool C. difficile Clear liquid diet for now CT abdomen pelvis Further management pending work-up results Baseline UA, monitor creatinine response to IVF Hold lisinopril for now until creatinine back to baseline Amlodipine for BP control while lisinopril on hold Check hemoglobin A1c DVT prophylaxis. SCDs Re: GI bleed DNR Patient daughter requesting updates from providers. Ms. Stephanie Olson, contact #[phone]. Text document was generated using [employer] voice recognition software. It may contain grammatical or spelling errors. Kindly contact undersigned for clarification of any documentation item in question. History of Present Illness Chief Complaint: Bloody diarrhea Primary Care Provider: Baldemar Kulkarni MD History obtained from patient, family, and records. Medical history significant for hypertension, uterine cancer status post surgery, recurrent UTIs, ITP status post Rituxan, diverticulosis. Last confinement December 2021 for recurrent UTI. Pseudomonas on urine CS. 3 days ago, patient noted bloody diarrhea symptoms with tolerable abdominal pain which later stopped with some Imodium. Yesterday, patient had worsening symptoms. No fever, some chills. Recent outpatient antibiotic Rx for quinolone resistant E. coli UTI. Patient denies chest pain, SOB. Patient brought by daughter to ER for evaluation. Medical History as above 2009 colonoscopy showed severe diverticulosis Surgical History : Cholecystectomy, tonsillectomy/adenoidectomy, NICOLE/BSO, cataract surgeries Family History : Heart disease, stroke Personal/Social history : Non-smoker, no EtOH intake, retired seamstress Allergies Allergy/AdvReac Type Severity Reaction Status Date / Time sulfamethoxazole Allergy Unknown Unknown Verified 06/16/22 11:45 [From Bactrim] trimethoprim [From Bactrim] Allergy Unknown Unknown Verified 06/16/22 11:45 aspirin AdvReac Intermediate RASH Verified 06/16/22 11:45 gluten AdvReac Intermediate GI SYMPTOMS Verified 06/16/22 11:45 lactose AdvReac Intermediate GI SYMPTOMS Verified 06/16/22 11:45 codeine AdvReac Mild INDIGESTION Verified 06/16/22 11:45 Home Medications Medication Instructions Recorded Confirmed Type denosumab 60 mg/mL subcutaneous 1 dose subcut Q6M 05/31/18 02/14/23 History syringe (Prolia) multivitamin (Multiple Vitamins 1 tab PO QAM 06/20/18 02/14/23 History tablet) acetaminophen 650 mg 650 mg PO Q12H PRN Pain 09/18/18 02/14/23 History tablet,extended release (Tylenol Arthritis Pain) lisinopril 30 mg tablet 30 mg PO QAM 12/20/18 02/14/23 History calcium carbonate 600 mg-vitamin 1 cap PO BID 12/23/18 02/14/23 History D3 5 mcg (200 unit) capsule (Calcium 600 + D(3)) loratadine 10 mg capsule 10 mg PO DAILY 03/31/19 02/14/23 History torsemide 20 mg tablet 10 mg PO DAILY 03/31/19 02/14/23 History baclofen 10 mg tablet 10 mg PO DAILY PRN Spasms 02/05/22 02/14/23 History Lactobacillus acidophilus 10 10,000 mmu cells PO DAILY 06/16/22 02/14/23 History billion cell capsule (Probiotic) Past Med/Surg History Medical History (Updated 02/14/23 @ 06:37 by Tariq Lozada MD) CKD (chronic kidney disease) stage 3, GFR 30-59 ml/min Greater trochanteric bursitis History of ITP HTN (hypertension) Hx of cancer of uterus Hyponatremia Osteoporosis Pseudomonas aeruginosa infection Recurrent UTI Sacroiliac joint pain Temporary low platelet count Surgical History H/O cataract removal with insertion of prosthetic lens "bilat" H/O: hysterectomy History of carpal tunnel surgery History of removal of both ovaries History of tonsillectomy and adenoidectomy Hx of cholecystectomy Family History Other Breast cancer in female Diabetes Family history non-contributory Heart disease Social History Smoking Status: Never smoker Second Hand Exposure: No; Do You Dip or Chew Tobacco: No; Hx Alcohol Use: No Hx Substance Use: No Preferred Language: Japanese Communication Ability: Effective Visual Impairment: No Limitations Core Winder Required: No Beliefs That Will Affect Care: None marital status: Single Current Living Situation: Alone Current Living Situation Comment: Home byself patient current occupational status: retired How many Children do You have: 0 Feels Safe at Home: Yes Safety Concerns: Feels Safe At This Time Assistive Devices: Cane, Glasses, Hearing Aid - Bilateral and Walker Review of Systems Review of Systems: As per HPI, all other systems reviewed and negative Physical Exam Physical Exam: GENERAL: Comfortable, pleasant, no respiratory distress SKIN: Normal color, warm HEENT: Bespectacled, [place] palpebral conjunctivae, no ptosis, dry buccal mucosa NECK : Supple, no tenderness CHEST : CTA, no tenderness HEART : RRR, no obvious murmurs ABDOMEN: Some distention, hypogastric tenderness EXTREMITIES : No LE swelling/tenderness, no other conspicuous deformities noted NEUROLOGIC : Coherent, no facial asymmetry, no other gross focality Results & Data Results & Data Vital Signs (Past 12 Hours) Vital Signs Temp Pulse Pulse Resp BP BP Pulse Ox 02/14/23 02:00 91 H 16 153/78 H 96 02/14/23 01:28 99 02/13/23 22:55 36.7 C 113 H 18 184/82 H 99 O2 Del Method 02/14/23 02:00 Room Air 02/14/23 01:28 Room Air 02/13/23 22:55 Room Air Laboratory Results Laboratory Results WBC 11.35 K/ul (4.8-10.8) H 02/14/23 01:24 RBC 4.75 M/uL (4.20-5.40) 02/14/23 01:24 Hgb 14.3 g/dl (12.0-16.0) 02/14/23 01:24 Hct 41.9 % (37.0-47.0) 02/14/23 01:24 MCV 88.2 fL (80.0-100.0) 02/14/23 01:24 MCH 30.1 pg (25.0-34.0) 02/14/23 01:24 MCHC 34.1 g/dL (32.0-36.0) 02/14/23 01:24 RDW Std Deviation 42.5 fL (36.4-46.3) 02/14/23 01:24 RDW Coeff of Anand 13.1 % (11.5-14.5) 02/14/23 01:24 Plt Count 237 K/uL (130-400) 02/14/23 01:24 MPV 9.5 fL (9.4-12.4) 02/14/23 01:24 Immature Gran % (Auto) 0.3 % 02/14/23 01:24 Neut % (Auto) 78.4 % 02/14/23 01:24 Lymph % (Auto) 10.2 % 02/14/23 01:24 [place] % (Auto) 10.5 % 02/14/23 01:24 Eos % (Auto) 0.2 % 02/14/23 01:24 Baso % (Auto) 0.4 % 02/14/23 01:24 Neut # (Auto) 8.91 K/uL (1.40-6.50) H 02/14/23 01:24 Lymph # (Auto) 1.16 K/uL (1.2-3.4) L 02/14/23 01:24 [place] # (Auto) 1.19 K/uL (0.11-0.59) H 02/14/23 01:24 Eos # (Auto) 0.02 K/uL (0-0.50) 02/14/23 01:24 Baso # (Auto) 0.04 K/uL (0-0.2) 02/14/23 01:24 Immature Gran # (Auto) 0.03 K/uL (0.01-0.20) 02/14/23 01:24 PT 10.5 Seconds (9.0-12.0) 02/14/23 01:24 INR 1.0 (0.9-1.1) 02/14/23 01:24 APTT 24.9 Seconds (21.0-31.0) 02/14/23 01:24 PTT Ratio 0.9 02/14/23 01:24 Sodium 135 mmol/L (136-145) L 02/14/23 01:24 Potassium 3.7 mmol/L (3.5-5.1) 02/14/23 01:24 Chloride 100 mmol/L (98-107) 02/14/23 01:24 Carbon Dioxide 25 mmol/L (21-32) 02/14/23 01:24 Anion Gap 10 (3-11) 02/14/23 01:24 BUN 33 mg/dl (6-23) H 02/14/23 01:24 Creatinine 1.39 mg/dl (0.6-1.2) H 02/14/23 01:24 Est Cr Clr Drug Dosing 23.7 ml/min 02/14/23 01:24 Est GFR ( Amer) 38.8 ml/min 02/14/23 01:24 Est GFR (Non-Af Amer) 33.5 ml/min 02/14/23 01:24 BUN/Creatinine Ratio 23.7 (10-20) H 02/14/23 01:24 Glucose 122 mg/dl (70-99(Fasting)) H 02/14/23 01:24 Calcium 9.8 mg/dl (8.6-10.3) 02/14/23 01:24 Total Bilirubin 0.6 mg/dl (0.2-1.0) 02/14/23 01:24 AST 19 U/L (13-39) 02/14/23 01:24 ALT 16 U/L (7-52) 02/14/23 01:24 Alkaline Phosphatase 85 U/L (34-104) 02/14/23 01:24 Troponin I High Sens 10.4 pg/ml (0-14) 02/14/23 01:24 Total Protein 6.7 gm/dl (6.0-8.3) 02/14/23 01:24 Albumin 4.0 gm/dl (3.4-5.0) 02/14/23 01:24 Globulin 2.7 gm/dl (2.5-4.0) 02/14/23 01:24 Albumin/Globulin Ratio 1.5 (0.9-2) 02/14/23 01:24 SARS-CoV-2, RNA, NAAT NEGATIVE (NEGATIVE) 02/14/23 01:41 Diagnostic Findings Chest x-ray as per my interpretation no congestion EKG as per my interpretation : Rate 90, NSR, LAD, LAFB, no ischemia
[2023-02-14] MEDS ORDERED: PROMETHAZINE HCL 6.25 MG in SODIUM CHLORIDE 0.9% 50 ML IV PRN (03:09)
[2023-02-14] MEDS ORDERED: HYDROmorphone INJ 0.5 MG/0.5 ML SYR IV PRN (03:09)
[2023-02-14] MEDS ORDERED: traMADol HCL 50 MG TABLET PO PRN (03:09)
[2023-02-14] MEDS ORDERED: ACETAMINOPHEN 325 MG TAB PO PRN (03:10)
[2023-02-14] MEDS ORDERED: NSS + 20MEQ KCL 20 MEQ/1,000 ML BAG IV ONE (03:30)
[2023-02-14] MEDS ORDERED: amLODIPine BESYLATE 5 MG TAB PO ONE (04:09)
[2023-02-14] MEDS ORDERED: BACLOFEN 10 MG TAB PO PRN (06:01)
[2023-02-14 06:51] LABS: Estimated Average Glucose 120 mg/dl; Hemoglobin A1C 5.8 % (4.5-5.6)
[2023-02-14 06:56] LABS: Hematocrit (blood only) 38.7 % (37.0-47.0); Hemoglobin 13.1 g/dl (12.0-16.0)
--- NOTE | 2023-02-14 07:02 | CT Scan Report ---
CT OF THE ABDOMEN AND PELVIS WITHOUT CONTRAST CLINICAL HISTORY: Abdominal pain. Lower GI bleed. COMPARISON STUDY: CT of the abdomen and pelvis April 25, 2022. TECHNIQUE: Axial images of the abdomen and pelvis were obtained without IV contrast. Images were revi ewed in the axial, sagittal, and coronal planes. Automated exposure control was utilized for the aide dy. A dose lowering technique was utilized adhering to the principles of ALARA. FINDINGS: A moderate sized hiatal hernia is incidentally noted. No pneumatosis, free air or portal ve nous gas is present. Evaluation of the abdomen and pelvis is suboptimal on this unenhanced exam. Live r, spleen, adrenal glands and pancreas are unremarkable. There is mild bilateral ureteral dilatation to the level of the bladder. There are no ureteral calculi. There is no hydronephrosis. There is no e vidence for a bowel obstruction. There is severe wall thickening of the distal transverse colon, the splenic flexure of the colon and the descending colon. There is mild sigmoid colon wall thickening. T here is colonic diverticulosis without evidence for acute diverticulitis. There is no abscess. Brendan lonic infiltration and fluid is present. No acute fractures are identified. Old right pubic ring frac tures are present. There are old sacral insufficiency fractures. IMPRESSION: 1. Findings consistent with a severe left-sided colitis, as described above. Although nonspecific, th is distribution raises the possibility of ischemic colitis. No pneumatosis. No free air. No abscess. 2. Extensive colonic diverticulosis. No evidence for acute diverticulitis. 3. No bowel obstruction. ACT 112: Negative or not required by law. Electronically signed by: Quentin Cruz M.D. 02/14/2023 7:00 AM
[2023-02-14 07:10] LABS: BUN Creatinine Ratio 22.7 (10-20); Calcium 9.1 mg/dl (8.6-10.3); Creatinine Clr Calc Pharmacy 27.7 ml/min; Est GFR (African American) 46.9 ml/min; Est GFR (Non-African American) 40.4 ml/min; Magnesium 1.7 mg/dl (1.7-2.4); Potassium 4.1 mmol/L (3.5-5.1)
--- NOTE | 2023-02-14 07:43 | XRay Report ---
XR chest 1V portable CLINICAL HISTORY: Renal failure. COMPARISON STUDY: Chest radiograph September 06, 2018. FINDINGS: Lung volumes are normal. Lungs are clear. There is no pneumothorax or pleural effusion. Car diac size is normal. A hiatal hernia is noted. There is no evidence for pulmonary edema. IMPRESSION: No acute cardiopulmonary findings. ACT 112: Negative or not required by law. Electronically signed by: Quentin Cruz M.D. 02/14/2023 7:42 AM
[2023-02-14] MEDS: LORATADINE 10 MG TAB PO SCH (11:54)
[2023-02-14] MEDS: ADVANCED PROBIOTIC 1250 MG CAPSULE PO SCH (11:54)
[2023-02-14] MEDS: MULTIVITAMIN TAB PO SCH (11:54)
--- NOTE | 2023-02-14 12:53 | Communication Note ---
Date of Service: February 14, 2023 87-year-old male with history of hypertension, uterine cancer status post surgery, recurrent UTI, ITP status post Rituxan, diverticulosis who presents with bloody diarrhea. Patient currently reports abdominal crampiness is improving. Reported bright red blood per rectum but no bowel movement since after admission. Denies any dizziness, cough, shortness of breath, chest pain, nausea, vomiting Exam notable for elderly woman in no obvious distress,Abdomen is currently soft and nontender. Reviewed patient's colonoscopy from [address] abdomen noted severe left-sided colitis. Concern for possible ischemic colitis. Other possibilities include C. difficile or other infectious colitis considering patient just completed antibiotic for recurrent UTI few days ago. Lactate obtained is elevated at 3.1. Status post 2 L IV fluid bolus with resolution of elevated lactic acid. Continue IV fluids Continue to hold antibiotics. Continue clears for now GI consulted RN to send for stool C. difficile and PCR once patient has a bowel movement Continue to monitor hemoglobin Other plans as detailed in H&P this morning
--- NOTE | 2023-02-14 13:36 | Gastrointestinal Consultation ---
Date of Consultation February 14, 2023 Assessment & Plan (1) Acute lower GI bleedin87 year old female with history of hypertension, uterine cancer status post surgery, recurrent UTIs, ITP status post Rituxan, diverticulosis presenting to the ED w/ abd cramping, diarrhea and rectal bleeding x 3/4 days. DDX discussed including ischemic colitis vs infectious vs IBD vs other Rule out c.diff given frequent and recent ABX use Also check a stool culture Conservative management Good fluid hydration Antiemetics PRN Analgesia PRN Would hold on empiric ABX for now Consider KUB in the AM for any persistent abd distention We did discuss diagnostic colonoscopy as an outpatient pending her course, she prefers to defer this examination at present. She would consider if her symptoms do not improve Thank you for allowing us to participate in the care of this patient. Please call with any acute changes, questions or concerns. Please see addendum below with additional recommendation from my supervising physician. History of Present Illness Reason for Consultation: colitis, rectal bleeding Requesting Physician: Luann Palmer MD Attending Physician: Luann Palmer MD History of Present Illness 87 year old female with history of hypertension, uterine cancer status post surgery, recurrent UTIs, ITP status post Rituxan, diverticulosis presenting to the ED w/ abd cramping, diarrhea and rectal bleeding x 3/4 days. Pt was seen and evaluated in the ED, daughter at bedside. Notes her bowels typically move daily, formed, brown stools. She is on frequent ABX for recurrent UTI and suggests about 1 week ago was on both cefdinir and cipro. She had 1-2 days of diarrhea which resolved. The following day had a regular BM after taking a dose of imodium. Wedneday started just passing BRBPR. No report of brown stool. Blood is small volume. On toilet tissue, in toilet bowl. No black stools. She had abd cramping but no pain. No nausea, vomiting. Is tolerating a liquid diet. No fever, chills, CP, SOB. Colon 2010: diverticula Colon 2008: diverticula Celiac AB panel 2014: negative CTAP 2022: . Findings consistent with a severe left-sided colitis, as described above. Although nonspecific, this distribution raises the possibility of ischemic colitis. No pneumatosis. No free air. No abscess. Extensive colonic diverticulosis. No evidence for acute diverticulitis.. No bowel obstruction. Allergies Allergy/AdvReac Type Severity Reaction Status Date / Time sulfamethoxazole Allergy Unknown Unknown Verified 06/16/22 11:45 [From Bactrim] trimethoprim [From Bactrim] Allergy Unknown Unknown Verified 06/16/22 11:45 aspirin AdvReac Intermediate RASH Verified 06/16/22 11:45 gluten AdvReac Intermediate GI SYMPTOMS Verified 06/16/22 11:45 lactose AdvReac Intermediate GI SYMPTOMS Verified 06/16/22 11:45 codeine AdvReac Mild INDIGESTION Verified 06/16/22 11:45 Home Medications Medication Instructions Recorded Confirmed Type denosumab 60 mg/mL subcutaneous 1 dose subcut Q6M 05/31/18 02/14/23 History syringe (Prolia) multivitamin (Multiple Vitamins 1 tab PO QAM 06/20/18 02/14/23 History tablet) acetaminophen 650 mg 650 mg PO Q12H PRN Pain 09/18/18 02/14/23 History tablet,extended release (Tylenol Arthritis Pain) lisinopril 30 mg tablet 30 mg PO QAM 12/20/18 02/14/23 History calcium carbonate 600 mg-vitamin 1 cap PO BID 12/23/18 02/14/23 History D3 5 mcg (200 unit) capsule (Calcium 600 + D(3)) loratadine 10 mg capsule 10 mg PO DAILY 03/31/19 02/14/23 History torsemide 20 mg tablet 10 mg PO DAILY 03/31/19 02/14/23 History baclofen 10 mg tablet 10 mg PO DAILY PRN Spasms 02/05/22 02/14/23 History Lactobacillus acidophilus 10 10,000 mmu cells PO DAILY 06/16/22 02/14/23 History billion cell capsule (Probiotic) Patient History Medical History (Updated 02/14/23 @ 06:37 by Tariq Lozada MD) CKD (chronic kidney disease) stage 3, GFR 30-59 ml/min Greater trochanteric bursitis History of ITP HTN (hypertension) Hx of cancer of uterus Hyponatremia Osteoporosis Pseudomonas aeruginosa infection Recurrent UTI Sacroiliac joint pain Temporary low platelet count Surgical History H/O cataract removal with insertion of prosthetic lens "bilat" H/O: hysterectomy History of carpal tunnel surgery History of removal of both ovaries History of tonsillectomy and adenoidectomy Hx of cholecystectomy Family History Other Breast cancer in female Diabetes Family history non-contributory Heart disease Social History Smoking Status: Never smoker Second Hand Exposure: No; Do You Dip or Chew Tobacco: No; Hx Alcohol Use: No Hx Substance Use: No Preferred Language: Namibian Communication Ability: Effective Visual Impairment: No Limitations Vender Required: No Beliefs That Will Affect Care: None marital status: Single Current Living Situation: Alone Current Living Situation Comment: Home byself patient current occupational status: retired How many Children do You have: 0 Feels Safe at Home: Yes Safety Concerns: Feels Safe At This Time Assistive Devices: Cane, Glasses, Hearing Aid - Bilateral and Walker Review of Systems Review of Systems: All systems reviewed & are unremarkable except as noted in HPI & below Physical Exam Constitutional: WD/WN, vitals as above Respiratory: normal respiratory effort, lungs clear to auscultation Cardiovascular: RRR, no murmur, no edema Gastrointestinal (Abdomen): Inspection/Auscultation: abdomen normal to inspection and + abdomen distended (slightly distended per patient) Percussion/Palpation: abdomen soft; no guarding and abdomen not rigid Skin: no rashes, warm and dry Results & Data Vital Signs (Past 12 Hours) Vital Signs Pulse Pulse Resp BP Pulse Ox O2 Del Method 02/14/23 11:58 95 H 17 169/82 H 98 Room Air 02/14/23 07:52 Room Air 02/14/23 06:58 90 02/14/23 06:00 91 H 20 148/72 H 93 Room Air 02/14/23 03:17 97 H 02/14/23 04:00 94 H 20 165/78 H 93 Room Air 02/14/23 02:00 91 H 16 153/78 H 96 Room Air Laboratory Results 02/14/23 02/14/23 02/14/23 Range/Units 12:58 06:24 06:24 WBC (4.8-10.8) K/ul RBC (4.20-5.40) M/uL Hgb 13.1 (12.0-16.0) g/dl Hct 38.7 (37.0-47.0) % MCV (80.0-100.0) fL MCH (25.0-34.0) pg MCHC (32.0-36.0) g/dL RDW Std Deviation (36.4-46.3) fL RDW Coeff of Anand (11.5-14.5) % Plt Count (130-400) K/uL MPV (9.4-12.4) fL Immature Gran % (Auto) % Neut % (Auto) % Lymph % (Auto) % [place] % (Auto) % Eos % (Auto) % Baso % (Auto) % Neut # (Auto) (1.40-6.50) K/uL Lymph # (Auto) (1.2-3.4) K/uL [place] # (Auto) (0.11-0.59) K/uL Eos # (Auto) (0-0.50) K/uL Baso # (Auto) (0-0.2) K/uL Immature Gran # (Auto) (0.01-0.20) K/uL PT (9.0-12.0) Seconds INR (0.9-1.1) APTT (21.0-31.0) Seconds PTT Ratio Sodium 137 (136-145) mmol/L Potassium 4.1 (3.5-5.1) mmol/L Chloride 102 (98-107) mmol/L Carbon Dioxide 30 (21-32) mmol/L Anion Gap 5 (3-11) BUN 27 H (6-23) mg/dl Creatinine 1.19 (0.6-1.2) mg/dl Est Cr Clr Drug Dosing 27.7 ml/min Est GFR ( Amer) 46.9 ml/min Est GFR (Non-Af Amer) 40.4 ml/min BUN/Creatinine Ratio 22.7 H (10-20) Glucose 115 H (70-99(Fasting)) mg/dl Estimat Average Glucose mg/dl Hemoglobin A1c (4.5-5.6) % Lactate Pending Calcium 9.1 (8.6-10.3) mg/dl Magnesium 1.7 (1.7-2.4) mg/dl Total Bilirubin (0.2-1.0) mg/dl AST (13-39) U/L ALT (7-52) U/L Alkaline Phosphatase (34-104) U/L Troponin I High Sens (0-14) pg/ml Total Protein (6.0-8.3) gm/dl Albumin (3.4-5.0) gm/dl Globulin (2.5-4.0) gm/dl Albumin/Globulin Ratio (0.9-2) SARS-CoV-2, RNA, NAAT (NEGATIVE) Blood Type Antibody Screen 02/14/23 02/14/23 02/14/23 Range/Units 01:41 01:24 01:24 WBC (4.8-10.8) K/ul RBC (4.20-5.40) M/uL Hgb (12.0-16.0) g/dl Hct (37.0-47.0) % MCV (80.0-100.0) fL MCH (25.0-34.0) pg MCHC (32.0-36.0) g/dL RDW Std Deviation (36.4-46.3) fL RDW Coeff of Anand (11.5-14.5) % Plt Count (130-400) K/uL MPV (9.4-12.4) fL Immature Gran % (Auto) % Neut % (Auto) % Lymph % (Auto) % [place] % (Auto) % Eos % (Auto) % Baso % (Auto) % Neut # (Auto) (1.40-6.50) K/uL Lymph # (Auto) (1.2-3.4) K/uL [place] # (Auto) (0.11-0.59) K/uL Eos # (Auto) (0-0.50) K/uL Baso # (Auto) (0-0.2) K/uL Immature Gran # (Auto) (0.01-0.20) K/uL PT (9.0-12.0) Seconds INR (0.9-1.1) APTT (21.0-31.0) Seconds PTT Ratio Sodium 135 L (136-145) mmol/L Potassium 3.7 (3.5-5.1) mmol/L Chloride 100 (98-107) mmol/L Carbon Dioxide 25 (21-32) mmol/L Anion Gap 10 (3-11) BUN 33 H (6-23) mg/dl Creatinine 1.39 H (0.6-1.2) mg/dl Est Cr Clr Drug Dosing 23.7 ml/min Est GFR ( Amer) 38.8 ml/min Est GFR (Non-Af Amer) 33.5 ml/min BUN/Creatinine Ratio 23.7 H (10-20) Glucose 122 H (70-99(Fasting)) mg/dl Estimat Average Glucose 120 mg/dl Hemoglobin A1c 5.8 H (4.5-5.6) % Lactate Calcium 9.8 (8.6-10.3) mg/dl Magnesium (1.7-2.4) mg/dl Total Bilirubin 0.6 (0.2-1.0) mg/dl AST 19 (13-39) U/L ALT 16 (7-52) U/L Alkaline Phosphatase 85 (34-104) U/L Troponin I High Sens 10.4 (0-14) pg/ml Total Protein 6.7 (6.0-8.3) gm/dl Albumin 4.0 (3.4-5.0) gm/dl Globulin 2.7 (2.5-4.0) gm/dl Albumin/Globulin Ratio 1.5 (0.9-2) SARS-CoV-2, RNA, NAAT NEGATIVE (NEGATIVE) Blood Type Antibody Screen 02/14/23 02/14/23 02/14/23 Range/Units 01:24 01:24 01:24 WBC 11.35 H (4.8-10.8) K/ul RBC 4.75 (4.20-5.40) M/uL Hgb 14.3 (12.0-16.0) g/dl Hct 41.9 (37.0-47.0) % MCV 88.2 (80.0-100.0) fL MCH 30.1 (25.0-34.0) pg MCHC 34.1 (32.0-36.0) g/dL RDW Std Deviation 42.5 (36.4-46.3) fL RDW Coeff of Anand 13.1 (11.5-14.5) % Plt Count 237 (130-400) K/uL MPV 9.5 (9.4-12.4) fL Immature Gran % (Auto) 0.3 % Neut % (Auto) 78.4 % Lymph % (Auto) 10.2 % [place] % (Auto) 10.5 % Eos % (Auto) 0.2 % Baso % (Auto) 0.4 % Neut # (Auto) 8.91 H (1.40-6.50) K/uL Lymph # (Auto) 1.16 L (1.2-3.4) K/uL [place] # (Auto) 1.19 H (0.11-0.59) K/uL Eos # (Auto) 0.02 (0-0.50) K/uL Baso # (Auto) 0.04 (0-0.2) K/uL Immature Gran # (Auto) 0.03 (0.01-0.20) K/uL PT 10.5 (9.0-12.0) Seconds INR 1.0 (0.9-1.1) APTT 24.9 (21.0-31.0) Seconds PTT Ratio 0.9 Sodium (136-145) mmol/L Potassium (3.5-5.1) mmol/L Chloride (98-107) mmol/L Carbon Dioxide (21-32) mmol/L Anion Gap (3-11) BUN (6-23) mg/dl Creatinine (0.6-1.2) mg/dl Est Cr Clr Drug Dosing ml/min Est GFR ( Amer) ml/min Est GFR (Non-Af Amer) ml/min BUN/Creatinine Ratio (10-20) Glucose (70-99(Fasting)) mg/dl Estimat Average Glucose mg/dl Hemoglobin A1c (4.5-5.6) % Lactate Calcium (8.6-10.3) mg/dl Magnesium (1.7-2.4) mg/dl Total Bilirubin (0.2-1.0) mg/dl AST (13-39) U/L ALT (7-52) U/L Alkaline Phosphatase (34-104) U/L Troponin I High Sens (0-14) pg/ml Total Protein (6.0-8.3) gm/dl Albumin (3.4-5.0) gm/dl Globulin (2.5-4.0) gm/dl Albumin/Globulin Ratio (0.9-2) SARS-CoV-2, RNA, NAAT (NEGATIVE) Blood Type O Positive Antibody Screen NEGATIVE
[2023-02-14] MEDS ORDERED: SODIUM CHLORIDE 0.9% 1000ML 2,000 ML IV ONE (14:49)
[2023-02-14 17:21] LABS: Hematocrit (blood only) 36.5 % (37.0-47.0); Hemoglobin 12.2 g/dl (12.0-16.0)
[2023-02-14 17:22] LABS: Adenovirus F 40/41 PCR Not Detected (NotDetected); Astrovirus PCR Not Detected (NotDetected); Campylobacter PCR Not Detected (NotDetected); Cryptosporidium PCR Not Detected (NotDetected); Cyclospora cayetanensis PCR Not Detected (NotDetected); Entamoeba histolytica PCR Not Detected (NotDetected); Enteroaggregative E.coli(EAEC) Not Detected (NotDetected); Enteropathogenic E.coli (EPEC) Not Detected (NotDetected); Enterotoxigenic E.coli (ETEC) Not Detected (NotDetected); Giardia lamblia PCR Not Detected (NotDetected); Norovirus GI/GII PCR Not Detected (NotDetected); Plesiomonas shigelloides PCR Not Detected (NotDetected); Rotavirus A PCR Not Detected (NotDetected); Salmonella PCR Not Detected (NotDetected); Sapovirus PCR Not Detected (NotDetected); Shiga-like Toxin E.coli (STEC) Not Detected (NotDetected); Shigella/Enteroinvasive E.coli Not Detected (NotDetected); Vibrio cholerae PCR Not Detected (NotDetected); Vibrio species PCR Not Detected (NotDetected); Yersinia enterocolitica PCR Not Detected (NotDetected)
[2023-02-14] MEDS ORDERED: lisinopril 10 MG TAB PO STA (20:58)
[2023-02-15 00:52] LABS: Appearance Urine Clear (Clear); Bilirubin Urine Negative (Negative); Blood Urine Negative (Negative); Color Urine Yellow; Glucose Urine UA Negative (Negative); Ketones Urine Negative (Negative); Leukocyte Esterase Urine Negative (Negative); Nitrite Urine Negative (Negative); Protein Urine Negative (Negative); Specific Gravity Urine 1.011 (1.000-1.030); Urobilinogen Urine Negative (Negative); pH Urine 6.5 (4.5-7.5)
[2023-02-15 06:37] LABS: Hematocrit (blood only) 32.1 % (37.0-47.0); Hemoglobin 10.8 g/dl (12.0-16.0); Mean Corpuscular Hemoglobin 30.2 pg (25.0-34.0); Mean Corpuscular Hgb Conc 33.6 g/dL (32.0-36.0); Mean Corpuscular Volume 89.7 fL (80.0-100.0); Mean Platelet Volume 9.4 fL (9.4-12.4); Platelet Count 157 K/uL (130-400); RDW Coefficient of Variation 13.2 % (11.5-14.5); RDW Standard Deviation 43.6 fL (36.4-46.3); Red Blood Count 3.58 M/uL (4.20-5.40); White Blood Count 8.27 K/ul (4.8-10.8)
--- NOTE | 2023-02-15 06:49 | Electrocardiogram Report ---
Test Reason : Blood Pressure : / mmHG Vent. Rate : 092 BPM Atrial Rate : 092 BPM P-R Int : 168 ms QRS Dur : 068 ms QT Int : 352 ms P-R-T Axes : 017 -11 059 degrees QTc Int : 435 ms Normal sinus rhythm Normal ECG When compared with ECG of 24-OCT-2018 13:15, No significant change Confirmed by Anthony Verde ([id number]) on 02/15/2023 6:48:39 AM Referred By: REFERRED SELF Confirmed By:Anthony Verde
[2023-02-15 07:10] LABS: Albumin Level 2.6 gm/dl (3.4-5.0); BUN Creatinine Ratio 17.1 (10-20); Bilirubin Direct 0.1 mg/dl (0-0.2); Bilirubin,Total 0.7 mg/dl (0.2-1.0); Calcium 7.8 mg/dl (8.6-10.3); Creatinine Clr Calc Pharmacy 45.2 ml/min; Est GFR (African American) 80.6 ml/min; Est GFR (Non-African American) 69.5 ml/min; Magnesium 1.6 mg/dl (1.7-2.4); Phosphorus 2.2 mg/dl (2.5-4.9); Potassium 3.9 mmol/L (3.5-5.1); Total Protein 4.5 gm/dl (6.0-8.3)
[2023-02-15] MEDS ORDERED: MAGNESIUM SULFATE / D5W 1 GM/100 ML BAG IV ONE (07:45)
[2023-02-15] MEDS: LORATADINE 10 MG TAB PO SCH (07:59)
[2023-02-15] MEDS: MULTIVITAMIN TAB PO SCH (07:59)
[2023-02-15] MEDS: ADVANCED PROBIOTIC 1250 MG CAPSULE PO SCH (07:59)
[2023-02-15] MEDS: amLODIPine BESYLATE 5 MG TAB PO SCH (08:00)
[2023-02-15] MEDS ORDERED: PLASMA-LYTE A 1,000 ML IV SCH (08:30)
--- NOTE | 2023-02-15 09:28 | Hospitalist Progress Note ---
Date of Service February 15, 2023 Assessment & Plan (1) Colitis: (2) Acute lower GI bleeding: Plan: Patient presented with abdominal pain and bloody diarrhea Possible MICHELLE Cr was 1.39 on presentation. Last Cr on 11/06/22 was 1 on EPIC. However, Cr has been up to 1.[address] abdomen/Pelvis on admission noted severe left sided colitis Lactate was 3.1, normalized with IVF Stool PCR and C diff is negative Likely ischemic colitis Hb dropped to 10.8 today Acute blood loss anemia + dilutional from IVF Will monitor Hb today as well as BM GI evaluation noted Hold off antibiotics Cr is 0.76 today Advance diet and monitor Hypertension Monitor BP Plan to resume lisinopril tomorrow with resolution of possible MICHELLE Hypomagnesemia Hypophosphatemia Replete and monitor History of Uterine cancer status post surgery HbA1c is 5.8.Prediabetes ITP status post Rituxan DVT prophylaxis. SCDs Re: GI bleed DNR I spent a total of 45 minutes coordinating, documenting and providing care for this patient excluding time spent in performance of separately billed services Admission and Anticipated Discharge Date Admission Date: February 15, 2023 Subjective Patient seen and examined Reports abdominal cramp is much improved Last BM was last night. Reports it still had some blood in it but reduced Denied any dizziness, cough, shortness of breath, chest pain Denied nausea, vomiting Denied dysuria, freq, urgency, hematuria Physical Exam Constitutional: + well hydrated; no acute distress Eyes: PERRL, conjunctivae normal, anicteric sclerae ENMT: external ear and nose normal, oropharynx normal Respiratory: normal respiratory effort, lungs clear to auscultation Cardiovascular: Rate/Rhythm: regular rate and regular rhythm S1 S2 Gastrointestinal (Abdomen): normal bowel sounds, soft, nontender, no hepatosplenomegaly Musculoskeletal: no cyanosis or clubbing, extremities motor strength 5/5 Neurologic: PERRL, EOMI, accommodation nl, no face palsy, no dysarthria Psychiatric: A+Ox3, euthymic affect Results & Data Results & Data Vital Signs (Past 12 Hours) Vital Signs Temp Pulse Pulse Resp BP Pulse Ox O2 Del Method 02/15/23 07:52 36.5 C 80 18 111/67 95 Room Air 02/15/23 07:22 72 02/15/23 03:59 36.9 C 79 20 119/66 94 Room Air 02/14/23 23:09 36.6 C 95 H 20 145/74 H 93 Room Air Laboratory Results Abnormal lab results 02/14/23 02/14/23 02/15/23 Range/Units 12:58 16:55 06:12 RBC 3.58 L (4.20-5.40) M/uL Hgb 10.8 L (12.0-16.0) g/dl Hct 36.5 L 32.1 L (37.0-47.0) % Chloride (98-107) mmol/L Anion Gap (3-11) Lactate 3.1 H* (0.4-2.0) mmol/L Calcium (8.6-10.3) mg/dl Phosphorus (2.5-4.9) mg/dl Magnesium (1.7-2.4) mg/dl AST (13-39) U/L Total Protein (6.0-8.3) gm/dl Albumin (3.4-5.0) gm/dl 02/15/23 Range/Units 06:12 RBC (4.20-5.40) M/uL Hgb (12.0-16.0) g/dl Hct (37.0-47.0) % Chloride 110 H (98-107) mmol/L Anion Gap 1 L (3-11) Lactate (0.4-2.0) mmol/L Calcium 7.8 L (8.6-10.3) mg/dl Phosphorus 2.2 L (2.5-4.9) mg/dl Magnesium 1.6 L (1.7-2.4) mg/dl AST 12 L (13-39) U/L Total Protein 4.5 L D (6.0-8.3) gm/dl Albumin 2.6 L (3.4-5.0) gm/dl
[2023-02-15] MEDS ORDERED: POT PHOSPHATE MONOBASIC W/ SOD TAB PO ONE (13:30)
[2023-02-15 14:55] LABS: Hematocrit (blood only) 35.2 % (37.0-47.0); Hemoglobin 11.8 g/dl (12.0-16.0)
[2023-02-16] MEDS ORDERED: CALCIUM CARBONATE 500 MG CHEWABLE TAB ONE (00:30)
[2023-02-16] MEDS ORDERED: CALCIUM CARBONATE 500 MG CHEWABLE TAB PO STA (01:25)
[2023-02-16 06:48] LABS: Hematocrit (blood only) 32.2 % (37.0-47.0); Hemoglobin 10.9 g/dl (12.0-16.0); Mean Corpuscular Hemoglobin 29.9 pg (25.0-34.0); Mean Corpuscular Hgb Conc 33.9 g/dL (32.0-36.0); Mean Corpuscular Volume 88.5 fL (80.0-100.0); Mean Platelet Volume 9.4 fL (9.4-12.4); Platelet Count 178 K/uL (130-400); RDW Coefficient of Variation 13.2 % (11.5-14.5); RDW Standard Deviation 42.5 fL (36.4-46.3); Red Blood Count 3.64 M/uL (4.20-5.40); White Blood Count 7.53 K/ul (4.8-10.8)
[2023-02-16 07:28] LABS: BUN Creatinine Ratio 29.1 (10-20); Calcium 8.5 mg/dl (8.6-10.3); Creatinine Clr Calc Pharmacy 39.9 ml/min; Est GFR (African American) 69.4 ml/min; Est GFR (Non-African American) 59.9 ml/min; Magnesium 1.9 mg/dl (1.7-2.4); Phosphorus 2.8 mg/dl (2.5-4.9); Potassium 4.1 mmol/L (3.5-5.1)
[2023-02-16] MEDS: amLODIPine BESYLATE 5 MG TAB PO SCH (08:12)
[2023-02-16] MEDS: LORATADINE 10 MG TAB PO SCH (08:12)
[2023-02-16] MEDS: ADVANCED PROBIOTIC 1250 MG CAPSULE PO SCH (08:12)
[2023-02-16] MEDS: MULTIVITAMIN TAB PO SCH (08:12)
--- NOTE | 2023-02-16 11:41 | Discharge Summary ---
Date of Service February 16, 2023 Admission HPI Per Admitting Provider History obtained from patient, family, and records. Medical history significant for hypertension, uterine cancer status post surgery, recurrent UTIs, ITP status post Rituxan, diverticulosis. Last confinement December 2021 for recurrent UTI. Pseudomonas on urine CS. 3 days ago, patient noted bloody diarrhea symptoms with tolerable abdominal pain which later stopped with some Imodium. Yesterday, patient had worsening symptoms. No fever, some chills. Recent outpatient antibiotic Rx for quinolone resistant E. coli UTI. Patient denies chest pain, SOB. Patient brought by daughter to ER for evaluation. Medical History as above 2009 colonoscopy showed severe diverticulosis Surgical History : Cholecystectomy, tonsillectomy/adenoidectomy, NICOLE/BSO, cataract surgeries Family History : Heart disease, stroke Personal/Social history : Non-smoker, no EtOH intake, retired seamstress Admission Exam Per Admitting Provider GENERAL: Comfortable, pleasant, no respiratory distress SKIN: Normal color, warm HEENT: Bespectacled, [place] palpebral conjunctivae, no ptosis, dry buccal mucosa NECK : Supple, no tenderness CHEST : CTA, no tenderness HEART : RRR, no obvious murmurs ABDOMEN: Some distention, hypogastric tenderness EXTREMITIES : No LE swelling/tenderness, no other conspicuous deformities noted NEUROLOGIC : Coherent, no facial asymmetry, no other gross focality Principal Diagnosis Colitis Acute lower Gastrointestinal bleeding Discharge Exam Constitutional + well hydrated; no acute distress Eyes PERRL, conjunctivae normal, anicteric sclerae ENMT external ear and nose normal, oropharynx normal Respiratory normal respiratory effort, lungs clear to auscultation Cardiovascular Rate/Rhythm: regular rate and regular rhythm S1 S2 Gastrointestinal (Abdomen) normal bowel sounds, soft, nontender, no hepatosplenomegaly Musculoskeletal no cyanosis or clubbing, extremities motor strength 5/5 Neurologic PERRL, EOMI, accommodation nl, no face palsy, no dysarthria Psychiatric A+Ox3, euthymic affect Discharge Data Allergies Allergy/AdvReac Type Severity Reaction Status Date / Time sulfamethoxazole Allergy Unknown Unknown Verified 06/16/22 11:45 [From Bactrim] trimethoprim [From Bactrim] Allergy Unknown Unknown Verified 06/16/22 11:45 aspirin AdvReac Intermediate RASH Verified 06/16/22 11:45 gluten AdvReac Intermediate GI SYMPTOMS Verified 06/16/22 11:45 lactose AdvReac Intermediate GI SYMPTOMS Verified 06/16/22 11:45 codeine AdvReac Mild INDIGESTION Verified 06/16/22 11:45 Consultations 02/14/23 02:36 ED Decision to Admit Stat 02/14/23 12:26 Consult Gastroenterology Routine Ordered Studies 02/14/23 03:06 CT Abd and Pelvis [CT abd pelvis wo con] Stat A moderate sized hiatal hernia is incidentally noted. No pneumatosis, free air or portal venous gas is present. Evaluation of the abdomen and pelvis is suboptimal on this unenhanced exam. Liver, spleen, adrenal glands and pancreas are unremarkable. There is mild bilateral ureteral dilatation to the level of the bladder. There are no ureteral calculi. There is no hydronephrosis. There is no evidence for a bowel obstruction. There is severe wall thickening of the distal transverse colon, the splenic flexure of the colon and the descending colon. There is mild sigmoid colon wall thickening. There is colonic diverticulosis without evidence for acute diverticulitis. There is no abscess. Pericolonic infiltration and fluid is present. No acute fractures are identified. Old right pubic ring fractures are present. There are old sacral insufficiency fractures. IMPRESSION: 1. Findings consistent with a severe left-sided colitis, as described above. Although nonspecific, this distribution raises the possibility of ischemic colitis. No pneumatosis. No free air. No abscess. 2. Extensive colonic diverticulosis. No evidence for acute diverticulitis. 3. No bowel obstruction. Hospital Course (1) Colitis: (2) Acute lower GI bleeding: Patient presented with abdominal pain and bloody diarrhea Possible MICHELLE Cr was 1.39 on presentation. Last Cr on 11/06/22 was 1 on EPIC. However, Cr has been up to 1.[address] abdomen/Pelvis on admission noted severe left sided colitis Lactate was 3.1, normalized with IVF Stool PCR and C diff is negative Likely ischemic colitis Hb dropped from 14.3 on admission to 10s and remained stable in 10s Acute blood loss anemia + dilutional from IVF Did not require antibiotics Symptoms resolved and tolerating diet Normal bowel movement today Cr is 0.86 today Hypertension Continue home antihypertensives History of Uterine cancer status post surgery HbA1c is 5.8.Prediabetes ITP status post Rituxan Total Time Total Time Spent Total Time Spent (In Minutes): 40 Total Time Includes: Examination of the Patient, Discharge Planning and Medication Reconciliation Discharge Plan Discharge Items Patient Disposition: Home - Self-Care Reason For Visit: Bloody diarrhea Discharge Diagnosis: Colitis Acute lower Gastrointestinal bleeding Activity: Resume your previous activity Non-emergency contact: Primary Care Provider Call non-emergency contact if: you have any medication questions and your symptoms worsen Follow-up/Referrals: Baldemar Kulkarni MD [Primary Care Provider] - Diet: Heart Healthy Addtl Attending Provider Instructions: Mrs Olson You came to the hospital for abdominal pain and bloody bowel movement. You were evaluated and found to have colitis. You were managed and symptoms improved. Bloody bowel movement resolved. You are being discharged home. Please ensure follow up with your Family doctor It was a pleasure taking care of you. Pending Studies at Discharge: No Stand-Alone Forms: My [facility] [employer], Smoking Cessation Medications and DC Order Prescriptions: Continued acetaminophen [Tylenol Arthritis Pain] 650 mg Tablet Extended Release 650 mg PO Q12H PRN (Reason: Pain) Calcium 600 + D(3) 600 mg calcium- 200 unit Capsule 1 cap PO BID torsemide 20 mg tablet 10 mg PO DAILY loratadine 10 mg Capsule 10 mg PO DAILY Prolia 60 mg/mL Syringe 1 dose subcut Q6M Rx Instructions: SQ INJECTION EVERY 6 MONTHS multivitamin [Multiple Vitamins] Tablet 1 tab PO QAM Rx Instructions: GLUTEN- FREE lisinopril 30 mg tablet 30 mg PO QAM Probiotic 10 billion cell Capsule 10,000 mmu cells PO DAILY baclofen 10 mg tablet 10 mg PO DAILY PRN (Reason: Spasms) Discharge Orders: Discharge Order (Routine); Ordered 02/16/23 Ordered By: Luann Wynne/Other Patient Handouts: Ulcerative Colitis Dc Admission Data Admit Date/Time: 02/15/23 08:28 Attending Provider: Luann Palmer I. Admit Provider: Tariq Lozada Primary Care Provider: Baldemar Kulkarni Other Providers: Tariq Lozada ; Estelle Mariscal ; [place] Other Interventions: Discharge Summary Assessment (RN) Last Done: 02/16/23 11:49
== END 2023-02-16 15:32 | disposition home health service (06) | DRG 394 ==
LOC: EDINP 22:52 → ED 22:52 → 2N 02-14 06:01